=== PATIENT | female | born 1955 | race Caucasian/White ===

== ENCOUNTER → 2016-10-21 | Outpatient (CLI) | payer OTHER ==
[~2016-10-21] MED LIST: ASPI81TA28 PO; ATV1 PO; BIMA0.01 OP; BIMA0.038 OPB; BUPR150T7 PO; BUPRTAB PO; CALC1TAB27 PO; CHOL100010 PO; CHOL20009 PO; CLOP1TAB54 PO; CYAN100020 PO; DEXL60CA4 PO; DICY10CA55 PO; DRGTP100 TD; ESCI10TA17 PO; FESO8TAB PO; FLUC200T PO; FLUT0.15 NAE; FNTTP75 TOP; GLC500 PO; HYDR-4079 PO; IBUP-1459 PO; IMD/2 PO; IPRA1AER2 INH; LORA-741 PO; LPR25 PO; METO1TAB54 PO; MULT-506 PO; NITR-5 PO; ONDA8TAB12 PO; OXYC20TA50 PO; POLY335019 PO; PRAV20TA PO; PRED20TA PO; RXC5 PO
[2016-10-21 15:37] LABS: BASO % 0.4 %; BASO ABS # 0.04 K/uL (0-0.2); EOS % 3.1 %; HEMATOCRIT 31.9 % (37-47); IG% 0.2 %; LYMPH % 34.1 %; LYMPH ABS # 3.59 K/uL (1.2-3.4); MEAN CELL VOLUME 73.3 fL (80-100); MEAN CORPUSCULAR HEMOGLOBIN 22.5 pg (25-34); MEAN CORPUSCULAR HGB CONC 30.7 g/dl (32-36); MONO % 7.4 %; NEUT % 54.8 %; PLATELET COUNT 468 K/uL (130-400); RED BLOOD COUNT 4.35 M/uL (4.2-5.4); WHITE BLOOD COUNT 10.52 K/uL (4.8-10.8)
[2016-10-21 16:35] LABS: URINE APPEARANCE CLEAR (CLEAR); URINE BILIRUBIN NEG (NEG); URINE COLOR DK YELLOW; URINE EPITHELIAL CELL AUTO >30 /lpf (0-5); URINE NITRITE NEG (NEG); URINE SPECIFIC GRAVITY 1.024 (1.000-1.030); UROBILINOGEN NEG (NEG); ZZUR CULT IF INDIC CLEAN CATCH NO
[2016-10-21 16:41] LABS: ANISOCYTOSIS PRESENT; COMPLETE YES; MANUAL MICROSCOPIC REQUIRED? NO; REVIEW REQ? NO
== END | disposition home or self-care (01) ==
LOC: C.LAB1850 14:58
PROVIDERS: ATTEND Nurse Practitioner Adult Health
DX: N39.0 Urinary tract infection, site not specified (principal); K08.9 Disorder of teeth and supporting structures, unspecified; J06.9 Acute upper respiratory infection, unspecified

== ENCOUNTER → 2016-11-03 | Outpatient (CLI) | payer OTHER ==
--- NOTE | 2016-11-03 13:02 | DIAGNOSTIC IMAGING REPORT ---
CT SCAN OF THE CHEST WITHOUT IV CONTRAST CLINICAL HISTORY: Dyspnea. Nicotine dependence. COMPARISON STUDY: Chest CT scans dated 06/17/2014 and 03/27/2013. Chest x-ray dated 10/09/2016. TECHNIQUE: CT scan of the thorax was performed from the thoracic inlet to the upper abdomen. Images are reviewed in the axial, sagittal, and coronal planes. IV contrast was not administered for this examination. CT DOSE: 745.88 mGycm FINDINGS: Thyroid: Imaged portions of the thyroid gland are normal in size and attenuation. Thoracic aorta: There is mild atherosclerotic calcification of the thoracic aorta, which is normal in caliber and demonstrates standard 3-vessel arch anatomy. Heart: The heart is normal in size and without pericardial effusion. The coronary arteries are densely calcified. The main pulmonary arteries appear dilated suggesting pulmonary artery hypertension. Lungs and pleural spaces: An accessory azygous fissure is incidentally noted. There is diffuse subpleural reticulation with associated groundglass change and intralobular septal thickening. This is greatest in the lower lobes. The trachea and central airways are clear. Only minimal traction bronchiectasis is identified. Tiny foci of developing honeycombing are suspected. Postoperative change is noted in the lingula. There is no evidence of superimposed airspace consolidation or pleural effusion. Mediastinum: There are numerous mildly enlarged mediastinal lymph nodes. A precarinal node on image #120 measures 1.5 cm in short axis. Prevascular nodes measure up to 14 mm in short axis as seen on image #114. Yolanda: Not well assessed without IV contrast. Axillae: There is no axillary lymphadenopathy. Upper abdomen: There is a moderate hiatal hernia. Cholecystectomy clips are noted there is glandular atrophy of the partially imaged pancreas. Skeletal structures: The skeletal structures are osteopenic. Mild degenerative change is seen throughout the thoracic spine. Postoperative changes from spinal fusion are identified at the thoracolumbar junction. No lytic or blastic bony lesions are seen. IMPRESSION: 1. There are changes of chronic interstitial lung disease/pulmonary fibrosis, unchanged to only minimally progressed from the 06/17/2014 examination. 2. There is no evidence of superimposed airspace consolidation or pleural effusion. 3. Mild mediastinal lymphadenopathy is similar to previous and likely related to chronic lung disease. 4. Moderate hiatal hernia. 5. Additional changes as above. Electronically signed by: Jabari Vallecillo M.D. 11/03/2016 1:00 PM Dictated Date/Time: 11/03/2016 12:54 PM
== END | disposition home or self-care (01) ==
LOC: C.CTS 12:33
PROVIDERS: ATTEND Nurse Practitioner Adult Health
DX: R91.8 Other nonspecific abnormal finding of lung field (principal); F17.200 Nicotine dependence, unspecified, uncomplicated; M54.2 Cervicalgia; J43.9 Emphysema, unspecified; J84.10 Pulmonary fibrosis, unspecified; R06.02 Shortness of breath; R59.1 Generalized enlarged lymph nodes; K44.9 Diaphragmatic hernia without obstruction or gangrene; K08.9 Disorder of teeth and supporting structures, unspecified; E04.2 Nontoxic multinodular goiter; D64.9 Anemia, unspecified

== ENCOUNTER → 2016-11-06 | Outpatient (CLI) | payer OTHER ==
[2016-11-06 16:44] LABS: BASO % 0.2 %; BASO ABS # 0.03 K/uL (0-0.2); COMPLETE YES; EOS % 3.6 %; HEMATOCRIT 33.6 % (37-47); IG% 0.2 %; LYMPH % 33.6 %; LYMPH ABS # 4.21 K/uL (1.2-3.4); MEAN CELL VOLUME 73.5 fL (80-100); MEAN CORPUSCULAR HEMOGLOBIN 22.8 pg (25-34); MEAN PLATELET VOLUME 9.4 fL (7.4-10.4); MONO % 5.6 %; NEUT % 56.8 %; PLATELET COUNT 495 K/uL (130-400); RED BLOOD COUNT 4.57 M/uL (4.2-5.4); WHITE BLOOD COUNT 12.52 K/uL (4.8-10.8)
[2016-11-06 16:47] LABS: URINE APPEARANCE CLEAR (CLEAR); URINE BILIRUBIN NEG (NEG); URINE COLOR YELLOW; URINE EPITHELIAL CELL AUTO >30 /lpf (0-5); URINE NITRITE POS (NEG); UROBILINOGEN NEG (NEG); ZZUR CULT IF INDIC CLEAN CATCH YES
[2016-11-06 16:51] LABS: MANUAL MICROSCOPIC REQUIRED? NO; REVIEW REQ? NO
[2016-11-06 16:57] LABS: ALT/SGPT 25 U/L (12-78); AST/SGOT 17 U/L (15-37); BLOOD UREA NITROGEN 13 mg/dl (7-18); BUN/CREATININE RATIO 13.8 (10-20); CALCIUM 9.1 mg/dl (8.5-10.1); CARBON DIOXIDE 24 mmol/L (21-32); CHLORIDE 105 mmol/L (98-107); CREATININE 0.95 mg/dl (0.60-1.20); GLUCOSE 102 mg/dl (70-99); POTASSIUM 4.1 mmol/L (3.5-5.1); SODIUM 140 mmol/L (136-145)
[2016-11-06 17:00] LABS: ALB/GLOB RATIO 0.7 (0.9-2); ALKALINE PHOSPHATASE 102 U/L (45-117)
== END | disposition home or self-care (01) ==
LOC: C.LAB1850 15:06
PROVIDERS: ATTEND Nurse Practitioner Adult Health
DX: R91.8 Other nonspecific abnormal finding of lung field (principal); R53.83 Other fatigue; R30.0 Dysuria

== ENCOUNTER 2016-11-08 14:29 | Emergency (ER) | payer OTHER ==
[~2016-11-08] VITALS: Ht 172.7 cm; Wt 108.2 kg
[~2016-11-08 14:29] MED LIST changes: -BIMA0.01 OP; -BUPRTAB PO; -CHOL20009 PO; -FLUC200T PO; -FLUT0.15 NAE; -IBUP-1459 PO; -IMD/2 PO; -NITR-5 PO; -OXYC20TA50 PO; -POLY335019 PO; -PRED20TA PO
[2016-11-08 14:33] VITALS: TEMP 36.7; Ht 172.7 cm; Wt 108.2 kg
--- NOTE | 2016-11-08 14:49 | EMERGENCY ROOM VISIT NOTE ---
History Report prepared by Chelly: Ayan Bahena Under the Supervision of: Dr. Elke Jrarett M.D. First contact with patient: 14:35 Chief Complaint: ABNORMAL LABS Stated Complaint: WEAKNESS,ABNORMAL LABS-REFERRED History of Present Illness The patient is a 61 year old female who presents to the Emergency Room with complaints of persistent generalized weakness for the past month. The patient saw her PCP one month ago for congestion, for which she was treated with antibiotics and steroids. The patient's cough and congestion have not fully resolved. She had blood work which showed that she was anemic. The patient saw her PCP again two days ago. She was found to have a high white blood cell count and was diagnosed with a UTI. Source of History: patient Onset: one month Position: other (generalized) Quality: other (weakness) Timing: other (persistent) Associated Symptoms: + cough Review of Systems See HPI for pertinent positives & negatives. A total of 10 systems reviewed and were otherwise negative. Past Medical & Surgical Medical Problems: (1) Atrial fibrillation (2) Cholecystectomy (3) Chronic back pain (4) Chronic congestive heart failure (5) Chronic obstructive lung disease (6) Diabetes mellitus (7) fibromyalgia (8) Hysterectomy (9) Interstitial lung disease (10) Lumbar stenosis with neurogenic claudication (11) Obesity (12) Spinal stenosis Family History FH: HTN (hypertension) FH: cancer FH: cardiovascular disease FH: diabetes mellitus FH: lung cancer Social History Smoking Status: Current Every Day Smoker Alcohol Use: none Marital Status: Occupation Status: disabled Current/Historical Medications Scheduled Aspirin (Aspirin Ec), 81 MG PO HS Bimatoprost (Lumigan), 1 DROPS OP HS Bupropion Hcl (Wellbutrin Xl), 150 MG PO QAM Cholecalciferol (Vitamin D), 4,000 UNIT PO DAILY Clopidogrel Bisulfate (Plavix), 75 MG PO QAM Cyanocobalamin (Vitamin B12), 1,000 MCG PO QAM Dexlansoprazole (Dexilant), 60 MG PO QAM Fesoterodine Fumarate (Toviaz), 8 MG PO HS Fluconazole (Diflucan), 200 MG PO DAILY Fluticasone Propionate (Nasal) (Flonase Allergy Relief), 1 SPRAY NING BID Ipratropium-Albuterol (Combivent Respimat), 1 PUFFS INH QID Metformin HCl (Metformin HCl), 500 MG PO BID Metoclopramide Hcl (Reglan), 5 MG PO BID Metoprolol Tartrate (Lopressor), 25 MG PO BID Nitrofurantoin Monohyd Macrocr (Macrobid), 100 MG PO Q12 Oxycodone Hcl (Oxycontin), 20 MG PO TID Pravastatin (Pravachol ), 40 MG PO QAM Prednisone (Prednisone), 20 MG PO DAILY Scheduled PRN Dicyclomine Hcl (Bentyl), 10 MG PO TID PRN Ibuprofen (Motrin), 400 MG PO DAILY PRN for Pain Loperamide Hcl (Imodium), 2 MG PO DAILY PRN for Diarrhea Lorazepam (Ativan), 0.5 MG PO DAILY PRN for Anxiety Ondansetron Hcl (Zofran), 8 MG PO TID PRN for Nausea Oxycodone HCl (Oxycodone HCl), 5-10 MG PO Q4H PRN for Pain Polyethylene Glycol 3350 (Miralax), 17 GM PO DAILY PRN for Constipation Allergies Coded Allergies: Enalapril (Verified Allergy, Unknown, ? reaction, 11/08/16) Pregabalin (Verified Adverse Reaction, Severe, GI SYMPTOMS, 11/08/16) CI Pigment Blue 63 (Verified Adverse Reaction, Unknown, N/V, 11/08/16) Duloxetine (Verified Adverse Reaction, Unknown, N/V, 11/08/16) Gabapentin (Verified Adverse Reaction, Unknown, GI symptoms, 11/08/16) Morphine (Unverified Adverse Reaction, Unknown, NAUSEATED, 11/08/16) Quinolones (Verified Adverse Reaction, Unknown, GI symptoms, 11/08/16) includes Cipro Sulfa Antibiotics (Verified Adverse Reaction, Unknown, "Sulfa Drugs = nauseated", 11/08/16) Physical Exam Vital Signs Date Time Temp Pulse Resp B/P Pulse Ox O2 Delivery O2 Flow Rate FiO2 11/08/16 14:33 36.7 88 18 119/83 93 Room Air Physical Exam CONSTITUTIONAL: Mildly anxious appearing, no acute distress. Smells of cigarette smoke. HEENT: No icterus, moist mucous membranes NECK: No meningismus, trachea is midline. CARDIOVASCULAR: Regular rate, normal perfusion RESPIRATORY: Unlabored breathing. Faint wheezing in all jones. GASTROINTESTINAL: Non-tender GENITOURINARY: No flank tenderness MUSCULOSKELETAL: Full range of motion NEUROLOGIC: No acute gross focal deficits. PSYCHIATRIC: Normal affect SKIN: Normal for ethnicity. Medical Decision & Procedures ER Provider Diagnostic Interpretation: X-ray results as stated below per interpretation by me and the radiologist. CHEST 2 VIEWS ROUTINE CLINICAL HISTORY: Cough. COMPARISON STUDY: Chest radiograph October 09, [address] November 03, 2016 per FINDINGS: No pneumothorax or pleural effusion is present. There is an azygos fissure. Lumbar spine fusion hardware and abdominal surgical clips are incidentally noted. No consolidation is identified. Diffuse interstitial thickening is unchanged and consistent with interstitial lung disease. Cardiomediastinal silhouette is stable. A hiatal hernia is again noted. IMPRESSION: No change in diffuse interstitial thickening consistent with interstitial lung disease. This suggests pulmonary fibrosis. No superimposed consolidation. Electronically signed by: John Saha M.D. 11/08/2016 3:08 PM Dictated Date/Time: 11/08/2016 3:06 PM Laboratory Results 11/08/16 14:55 Red Blood Count 4.57, Mean Corpuscular Volume 72.9, Mean Corpuscular Hemoglobin 22.5, Mean Corpuscular Hemoglobin Concent 30.9, Mean Platelet Volume 9.0, Neutrophils (%) (Auto) 65.3, Lymphocytes (%) (Auto) 24.9, Monocytes (%) (Auto) 6.7, Eosinophils (%) (Auto) 2.7, Basophils (%) (Auto) 0.2, Neutrophils # (Auto) 8.34, Lymphocytes # (Auto) 3.18, Monocytes # (Auto) 0.86, Eosinophils # (Auto) 0.34, Basophils # (Auto) 0.03 11/08/16 14:55 Test 11/08/16 14:47 11/08/16 14:55 Urine Color YELLOW Urine Appearance CLEAR (CLEAR) Urine pH 5.5 (4.5-7.5) Urine Specific [place] 1.006 (1.000-1.030) Urine Protein NEG (NEG) Urine Glucose (UA) NEG (NEG) Urine Ketones NEG (NEG) Urine Occult Blood NEG (NEG) Urine Nitrite NEG (NEG) Urine Bilirubin NEG (NEG) Urine Urobilinogen NEG (NEG) Urine Leukocyte Esterase TRACE (NEG) Urine WBC (Auto) 1-5 /hpf (0-5) Urine RBC (Auto) 0-4 /hpf (0-4) Urine Hyaline Casts (Auto) 5-10 /lpf (0-5) Urine Epithelial Cells (Auto) >30 /lpf (0-5) Urine Bacteria (Auto) NEG (NEG) White Blood Count 12.78 K/uL (4.8-10.8) Red Blood Count 4.57 M/uL (4.2-5.4) Hemoglobin 10.3 g/dL (12.0-16.0) Hematocrit 33.3 % (37-47) Mean Corpuscular Volume 72.9 fL (80-100) Mean Corpuscular Hemoglobin 22.5 pg (25-34) Mean Corpuscular Hemoglobin Concent 30.9 g/dl (32-36) Platelet Count 465 K/uL (130-400) Mean Platelet Volume 9.0 fL (7.4-10.4) Neutrophils (%) (Auto) 65.3 % Lymphocytes (%) (Auto) 24.9 % Monocytes (%) (Auto) 6.7 % Eosinophils (%) (Auto) 2.7 % Basophils (%) (Auto) 0.2 % Neutrophils # (Auto) 8.34 K/uL (1.4-6.5) Lymphocytes # (Auto) 3.18 K/uL (1.2-3.4) Monocytes # (Auto) 0.86 K/uL (0.11-0.59) Eosinophils # (Auto) 0.34 K/uL (0-0.5) Basophils # (Auto) 0.03 K/uL (0-0.2) RDW Standard Deviation 47.4 fL (36.4-46.3) RDW Coefficient of Variation 17.9 % (11.5-14.5) Immature Granulocyte % (Auto) 0.2 % Immature Granulocyte # (Auto) 0.03 K/uL (0.00-0.02) Polychromasia 1+ Tear Drop Cells 1+ Ovalocytes 1+ Schistocytes 1+ Anion Gap 10.0 mmol/L (3-11) Est Creatinine Clear Calc Drug Dose 81.5 ml/min Estimated GFR () 77.8 Estimated GFR (Non- 67.1 BUN/Creatinine Ratio 13.7 (10-20) Calcium Level 9.4 mg/dl (8.5-10.1) Influenza Type A Antigen Neg for Influ A (NEG) Influenza Type B Antigen Neg for Influ B (NEG) Labs reviewed by ED physician. ED Course 1440: Past medical records reviewed. The patient was evaluated in room A11b. A complete history and physical examination was performed. 1625: Reassessed the patient. I discussed all of the findings with her. She verbalized understanding and agreement of the treatment plan. The patient is ready for discharge. Medical Decision Differential diagnosis: viral syndrome, anemia, UTI. 61-year-old presented to the emergency department with upper respiratory viral like symptoms for several days to a week or so. She was referred seen by her primary doctor and placed on a Z-Myles which did not help and then diagnosed with a UTI and placed on Macrobid. She was reportedly sent to the emergency room today for anemia and mild leukocytosis with reported concern of sepsis. Patient appears well and clearly nontoxic at this time with only mild scattered wheezing throughout her lungs in the context of a smoking history. Anemia noted on lab work with mild leukocytosis consistent with presentation of viral syndrome. Patient was advised to complete her Macrobid as prescribed and to take prednisone which will improve for cough by concomitant decrease in wheezing. She clearly understands to follow-up with her primary doctor regarding the anemia and to return the emergency room for any worsening or worrisome symptoms. Impression Primary Impression: Viral syndrome Additional Impression: Anemia Scribe Attestation The scribe's documentation has been prepared under my direction and personally reviewed by me in its entirety. I confirm that the note above accurately reflects all work, treatment, procedures, and medical decision making performed by me. Departure Information Dispostion Home / Self-Care Prescriptions Prednisone (Prednisone) 20 Mg Tab 20 MG PO DAILY for 4 Days, #4 TAB Prov: Elke Jarrett MD 11/08/16 Referrals RV. Byrd MD (PCP) Forms HOME CARE DOCUMENTATION FORM, IMPORTANT VISIT INFORMATION, WORK / SCHOOL INSTRUCTIONS Patient Instructions ED Anemia Type Not Specified, ED Bronchitis Viral, My [facility] Problem Qualifiers
[2016-11-08] MEDS ORDERED: NITR-5 PO (15:05)
[2016-11-08] MEDS ORDERED: FLUT0.15 NAE (15:05)
[2016-11-08] MEDS ORDERED: BIMA0.01 OP (15:05)
[2016-11-08] MEDS ORDERED: IMD/2 PO (15:05)
[2016-11-08] MEDS ORDERED: GLC500 PO (15:05)
[2016-11-08] MEDS ORDERED: CHOL20009 PO (15:05)
[2016-11-08] MEDS ORDERED: POLY335019 PO (15:05)
[2016-11-08] MEDS ORDERED: OXYC20TA50 PO (15:05)
[2016-11-08] MEDS ORDERED: FLUC200T PO (15:05)
[2016-11-08] MEDS ORDERED: IPRA1AER2 INH (15:05)
[2016-11-08] MEDS ORDERED: BUPRTAB PO (15:05)
[2016-11-08] MEDS ORDERED: IBUP-1459 PO (15:05)
[2016-11-08 15:10] LABS: BASO % 0.2 %; BASO ABS # 0.03 K/uL (0-0.2); EOS % 2.7 %; HEMATOCRIT 33.3 % (37-47); IG% 0.2 %; LYMPH % 24.9 %; LYMPH ABS # 3.18 K/uL (1.2-3.4); MEAN CELL VOLUME 72.9 fL (80-100); MEAN CORPUSCULAR HEMOGLOBIN 22.5 pg (25-34); MEAN CORPUSCULAR HGB CONC 30.9 g/dl (32-36); MONO % 6.7 %; NEUT % 65.3 %; PLATELET COUNT 465 K/uL (130-400); RED BLOOD COUNT 4.57 M/uL (4.2-5.4); WHITE BLOOD COUNT 12.78 K/uL (4.8-10.8)
--- NOTE | 2016-11-08 15:10 | DIAGNOSTIC IMAGING REPORT ---
CHEST 2 VIEWS ROUTINE CLINICAL HISTORY: Cough. COMPARISON STUDY: Chest radiograph October 09, [address] November 03, 2016 per FINDINGS: No pneumothorax or pleural effusion is present. There is an azygos fissure. Lumbar spine fusion hardware and abdominal surgical clips are incidentally noted. No consolidation is identified. Diffuse interstitial thickening is unchanged and consistent with interstitial lung disease. Cardiomediastinal silhouette is stable. A hiatal hernia is again noted. IMPRESSION: No change in diffuse interstitial thickening consistent with interstitial lung disease. This suggests pulmonary fibrosis. No superimposed consolidation. Electronically signed by: John Saha M.D. 11/08/2016 3:08 PM Dictated Date/Time: 11/08/2016 3:06 PM
[2016-11-08 15:19] LABS: URINE APPEARANCE CLEAR (CLEAR); URINE BILIRUBIN NEG (NEG); URINE COLOR YELLOW; URINE EPITHELIAL CELL AUTO >30 /lpf (0-5); URINE NITRITE NEG (NEG); URINE PH 5.5 (4.5-7.5); URINE SPECIFIC GRAVITY 1.006 (1.000-1.030); UROBILINOGEN NEG (NEG); ZZUR CULT IF INDIC CLEAN CATCH NO
[2016-11-08 15:24] LABS: MANUAL MICROSCOPIC REQUIRED? NO; REVIEW REQ? NO
[2016-11-08 15:26] LABS: BUN/CREATININE RATIO 13.7 (10-20); CALCIUM 9.4 mg/dl (8.5-10.1); CREATININE 0.91 mg/dl (0.60-1.20); POTASSIUM 3.9 mmol/L (3.5-5.1)
[2016-11-08 15:28] LABS: COMPLETE YES; OVALOCYTES 1+; POLYCHROMASIA 1+; SCHISTOCYTES 1+; TEAR DROP CELLS 1+
[2016-11-08] MEDS ORDERED: PRED20TA PO (16:22)
[2016-11-08 16:58] VITALS: BP 98/74; PULSE 84; O2SAT 98
== END 2016-11-08 17:01 | disposition home or self-care (01) ==
LOC: C.EDB 14:30 → C.EDA 17:01
DX: B34.9 Viral infection, unspecified (principal); D64.9 Anemia, unspecified; F17.200 Nicotine dependence, unspecified, uncomplicated; I48.91 Unspecified atrial fibrillation; Z90.49 Acquired absence of other specified parts of digestive tract; E11.9 Type 2 diabetes mellitus without complications; J44.9 Chronic obstructive pulmonary disease, unspecified; Z90.710 Acquired absence of both cervix and uterus

== ENCOUNTER → 2017-03-24 | Outpatient (CLI) | payer OTHER ==
[~2017-03-24] MED LIST changes: -ATV1 PO; +BIMA0.01 OP; -BIMA0.038 OPB; -BUPR150T7 PO; +BUPRTAB PO; -CALC1TAB27 PO; -CHOL100010 PO; +CHOL20009 PO; -DRGTP100 TD; -ESCI10TA17 PO; +FLUC200T PO; +FLUT0.15 NAE; -FNTTP75 TOP; -HYDR-4079 PO; +IBUP-1459 PO; +IMD/2 PO; -MULT-506 PO; +NITR-5 PO; +OXYC20TA50 PO; +POLY335019 PO
[2017-03-24 17:19] LABS: BASO % 0.6 %; BASO ABS # 0.06 K/uL (0-0.2); COMPLETE YES; EOS % 4.1 %; HEMATOCRIT 40.7 % (37-47); IG% 0.2 %; LYMPH % 37.3 %; LYMPH ABS # 3.95 K/uL (1.2-3.4); MEAN CORPUSCULAR HEMOGLOBIN 25.5 pg (25-34); MEAN CORPUSCULAR HGB CONC 31.9 g/dl (32-36); MEAN PLATELET VOLUME 9.8 fL (7.4-10.4); MONO % 5.7 %; NEUT % 52.1 %; PLATELET COUNT 377 K/uL (130-400); RED BLOOD COUNT 5.09 M/uL (4.2-5.4); WHITE BLOOD COUNT 10.59 K/uL (4.8-10.8)
[2017-03-24 17:26] LABS: URINE APPEARANCE CLEAR (CLEAR); URINE BILIRUBIN NEG (NEG); URINE COLOR YELLOW; URINE EPITHELIAL CELL AUTO >30 /lpf (0-5); URINE NITRITE POS (NEG); URINE PH 5.5 (4.5-7.5); URINE SPECIFIC GRAVITY 1.016 (1.000-1.030); UROBILINOGEN NEG (NEG); ZZUR CULT IF INDIC CLEAN CATCH YES
[2017-03-24 17:28] LABS: MANUAL MICROSCOPIC REQUIRED? NO; REVIEW REQ? NO
[2017-03-24 17:47] LABS: RATIO 16.8 mcg/mg (0-30.0)
[2017-03-24 17:57] LABS: ALT/SGPT 47 U/L (12-78); AST/SGOT 33 U/L (15-37); BLOOD UREA NITROGEN 11 mg/dl (7-18); BUN/CREATININE RATIO 13.4 (10-20); CALCIUM 8.9 mg/dl (8.5-10.1); CARBON DIOXIDE 27 mmol/L (21-32); CHLORIDE 106 mmol/L (98-107); CHOLESTEROL 135 mg/dl (0-200); CREATININE 0.85 mg/dl (0.60-1.20); GLUCOSE 88 mg/dl (70-99); POTASSIUM 4.2 mmol/L (3.5-5.1); SODIUM 140 mmol/L (136-145)
[2017-03-24 18:08] LABS: ALB/GLOB RATIO 0.8 (0.9-2); ALKALINE PHOSPHATASE 100 U/L (45-117); CHOLESTEROL/HDL RATIO 2.3; HDL CHOLESTEROL 59 mg/dl; LDL CHOLESTEROL CALCULATED 36 mg/dl; TRIGLYCERIDES 201 mg/dl (0-150); VERY LOW DENSITY LIPOPROT CALC 40 mg/dl
[2017-03-25 06:54] LABS: ESTIMATED AVERAGE GLUCOSE 126 mg/dl; HA1C FLAG Normal (Normal)
--- NOTE | 2017-03-30 10:58 | CODING QUERY MEDICAL NECESSITY ---
CQSUPPORTING DIAGNOSIS NEEDED A supporting diagnosis is required for the test/procedure performed on this patient in order for us to be reimbursed by the patient's insurance. Please provide a supporting diagnosis for the following test/procedure listed below next to the test name along with your signature. *If there is no additional diagnosis for this patient that would support the following test/procedure please document that below next to the test/procedure. Test(s)/Procedure(s) that require a supporting diagnosis: MAHNZA 03/24/17 URINE CULTURE Provider Signature: Date: Thank you Maggie Grande [employer] Once completed, please kindly fax back to [phone] For questions please call [phone]
== END | disposition home or self-care (01) ==
LOC: C.LAB1850 16:13
PROVIDERS: ATTEND Internal Medicine
DX: E78.00 Pure hypercholesterolemia, unspecified (principal); E11.9 Type 2 diabetes mellitus without complications; E55.9 Vitamin D deficiency, unspecified; M79.7 Fibromyalgia; N39.0 Urinary tract infection, site not specified

== ENCOUNTER → 2017-03-25 | Outpatient (CLI) | payer OTHER ==
[~2017-03-25] MED LIST changes: +OPTIRAY 320 IV PRN
--- NOTE | 2017-03-25 14:22 | DIAGNOSTIC IMAGING REPORT ---
CT OF THE CHEST WITH IV CONTRAST CLINICAL HISTORY: Abnormal chest CT. Follow-up examination. INTERSTITIAL LUNG DISEASE COMPARISON STUDY: 11/03/2016 TECHNIQUE: Following the IV administration of 93 mL of Optiray-320, CT of the thorax was performed from the thoracic inlet to the lung bases. Images are reviewed in the axial, sagittal, and coronal planes. IV contrast was administered without complication. CT DOSE: 662.99 mGycm FINDINGS: Thyroid: Imaged portions of the thyroid gland are normal in appearance. Thoracic aorta: The thoracic aorta is normal in course and caliber, noting standard 3-vessel arch anatomy. No aneurysm or dissection is seen. Pulmonary vasculature: The pulmonary trunk is normal in caliber. There are no central filling defects identified to suggest pulmonary embolus. Note that this examination was not protocoled for the evaluation of pulmonary emboli. HEART: The heart is normal in size. There are mild coronary artery calcifications. Lungs and pleural spaces: There is continued evidence for interstitial lung disease. There is subpleural reticulation and scattered groundglass opacity. There is minimal subpleural honeycombing. There is minimal traction bronchiectasis. The findings are consistent with a UIP pattern. There is an azygos fissure. Mediastinum: There is mild mediastinal lymphadenopathy, similar to the prior study. An index 3 carinal lymph node measures 13 mm in short axis. Yolanda: There is mild hilar adenopathy similar to the prior study Axilla: There is no evidence of pathologic axillary adenopathy Upper abdomen: There is hepatic steatosis. There is a hiatal hernia. Skeletal structures: There are no lytic or blastic osseous lesions. IMPRESSION: 1. Stable chronic interstitial lung disease 2. Mild mediastinal and hilar lymphadenopathy unchanged from the prior study 3. No evidence of acute parenchymal consolidation. No pleural effusions 4. Hepatic steatosis 5. Hiatal hernia Electronically signed by: Nahum Eckert M.D. 03/25/2017 2:20 PM Dictated Date/Time: 03/25/2017 2:14 PM
== END | disposition home or self-care (01) ==
LOC: C.CTS 13:35
PROVIDERS: ATTEND Physician Assistant
DX: R91.8 Other nonspecific abnormal finding of lung field (principal); J84.9 Interstitial pulmonary disease, unspecified; K76.0 Fatty (change of) liver, not elsewhere classified; K44.9 Diaphragmatic hernia without obstruction or gangrene

== ENCOUNTER → 2017-09-25 | Outpatient (CLI) | payer OTHER ==
[~2017-09-25] MED LIST changes: -OPTIRAY 320 IV PRN
[2017-09-25 17:28] LABS: URINE APPEARANCE CLEAR (CLEAR); URINE BILIRUBIN NEG (NEG); URINE COLOR YELLOW; URINE EPITHELIAL CELL AUTO >30 /lpf (0-5); URINE NITRITE POS (NEG); URINE SPECIFIC GRAVITY 1.014 (1.000-1.030); UROBILINOGEN NEG (NEG)
[2017-09-25 17:30] LABS: MANUAL MICROSCOPIC REQUIRED? NO; REVIEW REQ? NO
== END | disposition home or self-care (01) ==
LOC: C.LAB1850 15:55
PROVIDERS: ATTEND Internal Medicine
DX: R05 Cough (principal); R50.9 Fever, unspecified; R32 Unspecified urinary incontinence

== ENCOUNTER → 2017-10-28 | Outpatient (CLI) | payer OTHER ==
[2017-10-28 15:41] LABS: BASO % 0.3 %; BASO ABS # 0.04 K/uL (0-0.2); EOS ABS # 0.36 K/uL (0-0.5); HEMATOCRIT 45.4 % (37-47); HEMOGLOBIN 15.7 g/dL (12.0-16.0); IG# 0.03 K/uL (0.00-0.02); LYMPH % 30.6 %; LYMPH ABS # 3.67 K/uL (1.2-3.4); MEAN CELL VOLUME 83.5 fL (80-100); MEAN CORPUSCULAR HEMOGLOBIN 28.9 pg (25-34); MEAN CORPUSCULAR HGB CONC 34.6 g/dl (32-36); MEAN PLATELET VOLUME 9.9 fL (7.4-10.4); MONO % 6.8 %; MONO ABS # 0.81 K/uL (0.11-0.59); NEUT ABS # 7.08 K/uL (1.4-6.5); PLATELET COUNT 385 K/uL (130-400); RED CELL DISTRIBUTION WIDTH CV 14.4 % (11.5-14.5); RED CELL DISTRIBUTION WIDTH SD 43.5 fL (36.4-46.3); WHITE BLOOD COUNT 11.99 K/uL (4.8-10.8)
[2017-10-28 16:04] LABS: ALBUMIN 3.3 gm/dl (3.4-5.0); ALT/SGPT 25 U/L (12-78); AST/SGOT 20 U/L (15-37); BLOOD UREA NITROGEN 12 mg/dl (7-18); CALCIUM 9.1 mg/dl (8.5-10.1); CARBON DIOXIDE 28 mmol/L (21-32); CREATININE 1.02 mg/dl (0.60-1.20); GLUCOSE 109 mg/dl (70-99); POTASSIUM 3.8 mmol/L (3.5-5.1); SODIUM 138 mmol/L (136-145)
[2017-10-28 16:15] LABS: ALKALINE PHOSPHATASE 87 U/L (45-117); TOTAL PROTEIN 7.7 gm/dl (6.4-8.2)
== END | disposition home or self-care (01) ==
LOC: C.LAB1850 14:11
PROVIDERS: ATTEND Nurse Practitioner Adult Health
DX: D64.9 Anemia, unspecified (principal); R06.02 Shortness of breath; N39.0 Urinary tract infection, site not specified; R05 Cough; R63.4 Abnormal weight loss

== ENCOUNTER → 2018-01-18 | Outpatient (CLI) | payer OTHER ==
--- NOTE | 2018-01-18 18:16 | DIAGNOSTIC IMAGING REPORT ---
PA CHEST WITH RIGHT-SIDED RIB SERIES CLINICAL HISTORY: Right-sided chest wall pain. Cough. FINDINGS: A PA chest radiograph with 4 additional views from a right-sided rib series is compared to study dated 11/08/2016 and correlated with chest CT dated 03/25/2017. The PA view is degraded by patient rotation. The heart is top normal for projection. The mediastinal contour is within normal limits. An accessory azygous fissure is incidentally noted. Changes of chronic interstitial lung disease with diffuse interstitial thickening and subpleural reticulation are similar to previous. There is no evidence of superimposed airspace consolidation or large pleural effusion. No pneumothorax is seen. The skeletal structures are osteopenic. There is no radiographic evidence of acute/distracted right-sided rib fracture on the rib series. The remainder of the bony thorax is grossly intact. Degenerative change is noted throughout the thoracic spine. Fusion hardware is noted in the upper lumbar spine. Cholecystectomy clips are identified. IMPRESSION: 1. Changes of chronic interstitial lung disease are similar to previous. There is no evidence of superimposed airspace consolidation or pleural effusion. 2. There is no radiographic evidence of acute/distracted right-sided rib fracture on the rib series as clinically queried. Electronically signed by: Jabari Vallecillo M.D. 01/18/2018 6:15 PM Dictated Date/Time: 01/18/2018 6:12 PM
== END | disposition home or self-care (01) ==
LOC: C.RAD 17:21
PROVIDERS: ATTEND Internal Medicine
DX: R07.89 Other chest pain (principal); J84.9 Interstitial pulmonary disease, unspecified

== ENCOUNTER 2018-02-19 17:48 | Emergency (ER) | payer OTHER ==
[~2018-02-19] VITALS: Ht 172.7 cm; Wt 92.4 kg
[~2018-02-19 17:48] MED LIST changes: -ASPI81TA28 PO; -BIMA0.01 OP; -CHOL20009 PO; -CYAN100020 PO; -DEXL60CA4 PO; -DICY10CA55 PO; -FESO8TAB PO; -GLC500 PO; -IBUP-1459 PO; -IMD/2 PO; -IPRA1AER2 INH; -LPR25 PO; -METO1TAB54 PO; -ONDA8TAB12 PO; -POLY335019 PO
[2018-02-19 17:59] VITALS: TEMP 36.7; Ht 172.7 cm; Wt 92.4 kg
[2018-02-19] MEDS ORDERED: SODIUM CHLORIDE 0.9% 500ML 500 ML IV STA (18:32)
--- NOTE | 2018-02-19 18:33 | EMERGENCY ROOM VISIT NOTE ---
History Report prepared by Chelly: Thee Brown Under the Supervision of: Dr. Lisa Mcgill D.O. First contact with patient: 18:19 Chief Complaint: URINARY SYMPTOMS Stated Complaint: BAD BACK PAIN, FRONT UNDER RIB PAIN Nursing Triage Summary: Patient wtih c/o pain mid back pain wrapping around ribs on both sides, states when she tries to urinate she has trouble sometimes, states urine foul smelling , urinary frquency. Patient states she contines to lose weight without trying. C/ o generalized weakness. History of Present Illness The patient is a 62 year old female who presents to the Emergency Room with complaints of constant urinary symptoms beginning yesterday. The patient states that she has a strong urge to urinate. She notes that she has a previous history of UTIs and reports that she might have another UTI as her symptoms feel similar. The patient states that she wears a diaper for her incontinence and believes that her symptoms might be caused by her diaper. She notes that a few weeks ago she developed a sharp right flank pain that she thought was a rib fracture. She reports that her back pain stopped after a week, but came back yesterday and radiated across her lower back into her left flank. She notes that her back pain comes in waves, and reports that it feels like a muscle spasm. The patient states that a change in position does not change her back pain. She also complains of abdominal pain, weakness, and nausea. She notes that her abdominal pain makes her feel bloated and distended. She denies any fever, chills, and vomiting. In addition to her history of UTIs, she reports that she has a history of five back surgeries, gastritis, and diverticulitis. The patient states that she smokes cigarettes and also has a history of mild COPD, mild asthma, and lung disease. She notes that she has never had a UTI reach her kidneys. She reports that she took 10mg oxycodone [employer] with no relief of her back pain. Source of History: patient Onset: yesterday Position: other (bladder) Quality: other (urinary symptoms) Timing: constant Associated Symptoms: + nausea, + abdominal pain, + back pain (lower black, bilateral flanks), + weakness, No fevers, No chills, No vomiting Note: The patient states that she has a strong urge to urinate. Review of Systems See HPI for pertinent positives & negatives. A total of 10 systems reviewed and were otherwise negative. Past Medical & Surgical Medical Problems: (1) Asthma (2) Atrial fibrillation (3) Cholecystectomy (4) Chronic back pain (5) Chronic congestive heart failure (6) Chronic obstructive lung disease (7) COPD (chronic obstructive pulmonary disease) (8) Diabetes mellitus (9) Diverticulitis (10) fibromyalgia (11) Gastritis (12) Hysterectomy (13) Incontinence (14) Interstitial lung disease (15) Lumbar stenosis with neurogenic claudication (16) Lung disease (17) Obesity (18) Spinal stenosis (19) UTI (urinary tract infection) Surgical Problems: (1) History of back surgery Family History FH: HTN (hypertension) FH: cancer FH: cardiovascular disease FH: diabetes mellitus FH: lung cancer Social History Smoking Status: Current Every Day Smoker Alcohol Use: none Marital Status: Occupation Status: disabled Current/Historical Medications Scheduled Aspirin (Aspirin Ec), 81 MG PO HS Bimatoprost (Lumigan), 1 DROPS OP HS Bupropion Hcl (Wellbutrin Xl), 150 MG PO QAM Cephalexin (Keflex), 1 CAP PO TID Cholecalciferol (Vitamin D), 2,000 UNIT PO DAILY Clopidogrel Bisulfate (Plavix), 75 MG PO QAM Cyanocobalamin (Vitamin B12), 1,000 MCG PO QAM Dexlansoprazole (Dexilant), 60 MG PO QAM Fesoterodine Fumarate (Toviaz), 8 MG PO HS Fluconazole (Diflucan), 200 MG PO PRN UD Ipratropium-Albuterol (Combivent Respimat), 1 PUFFS INH QID Metformin HCl (Metformin HCl), 500 MG PO BID Metoclopramide Hcl (Reglan), 5 MG PO BID Metoprolol Tartrate (Lopressor), 25 MG PO BID Oxycodone Hcl (Oxycodone Hcl Er), 10 MG PO BID Oxycodone Hcl (Oxycodone Hcl), 10 MG PO QID Pravastatin (Pravachol ), 40 MG PO QAM Scheduled PRN Dicyclomine Hcl (Bentyl), 10 MG PO TID PRN Fluticasone Propionate (Nasal) (Flonase Allergy Relief), 1 SPRAY NING BID PRN for Nasal Congestion Ibuprofen (Motrin), 400 MG PO DAILY PRN for Pain Loperamide Hcl (Imodium), 2 MG PO DAILY PRN for Diarrhea Lorazepam (Ativan), 0.5 MG PO DAILY PRN for Anxiety Ondansetron Hcl (Zofran), 8 MG PO TID PRN for Nausea Polyethylene Glycol 3350 (Miralax), 17 GM PO DAILY PRN for Constipation Allergies Coded Allergies: Enalapril (Verified Allergy, Unknown, ? reaction, 11/08/16) Pregabalin (Verified Adverse Reaction, Severe, GI SYMPTOMS, 11/08/16) CI Pigment Blue 63 (Verified Adverse Reaction, Unknown, N/V, 11/08/16) Duloxetine (Verified Adverse Reaction, Unknown, N/V, 11/08/16) Gabapentin (Verified Adverse Reaction, Unknown, GI symptoms, 11/08/16) Morphine (Unverified Adverse Reaction, Unknown, NAUSEATED, 11/08/16) Quinolones (Verified Adverse Reaction, Unknown, GI symptoms, 11/08/16) includes Cipro Sulfa Antibiotics (Verified Adverse Reaction, Unknown, "Sulfa Drugs = nauseated", 11/08/16) Physical Exam Vital Signs Date Time Temp Pulse Resp B/P (MAP) Pulse Ox O2 Delivery O2 Flow Rate FiO2 02/19/18 23:10 92 20 157/83 96 Room Air 02/19/18 21:17 96 20 165/90 96 Room Air 02/19/18 19:49 89 20 121/90 98 Room Air 02/19/18 17:59 36.7 112 18 110/66 96 Room Air Physical Exam GENERAL: alert, well appearing, well nourished, no distress, non-toxic, smells like tobacco smoke EYE EXAM: normal conjunctiva, PERRL and EOM's grossly intact OROPHARYNX: no exudate, no erythema, lips, buccal mucosa, and tongue normal and mucous membranes are moist NECK: supple, no nuchal rigidity, no adenopathy, non-tender LUNGS: Clear to auscultation. Normal chest wall mechanics, no w/r/r, slightly diminished HEART: no murmurs, S1 normal and S2 normal CHEST: No rib tenderness or crepitus ABDOMEN: abdomen soft, non-tender, normo-active bowel sounds, no masses, no rebound or guarding. BACK: Back is symmetrical on inspection and there is no deformity, no midline tenderness, no CVA tenderness. Well healed vertical midline scar to lumbar back and lower thoracic area, pain with palpation to the right and left perispinal regions in lumbar area, mild bilateral flank tenderness to palpation right greater than left. SKIN: no rashes and no bruising UPPER EXTREMITIES: upper extremities are grossly normal. LOWER EXTREMITIES: No pitting edema. NEURO EXAM: Normal sensorium, cranial nerves II-XII grossly intact, normal speech, no gross weakness of arms, no gross weakness of legs. Medical Decision & Procedures ER Provider Diagnostic Interpretation: Radiology results have been interpreted by the radiologist and reviewed by me. THORACIC SPINE WITHOUT, LUMBAR SPINE WITHOUT FINDINGS: THORACIC: Areas of mild and moderate spondylitic spurring are noted throughout the thoracic spine without acute fracture or subluxation identified. Mild to moderate multilevel facet arthrosis. Posterior disc osteophyte complex relation are seen at several levels, notably at T8-T9 where there is moderate central canal and mild bilateral foraminal narrowing. Posterior disc osteophyte complex at T9-T10 is also noted causing mild central canal stenosis. Azygos lobe and fissure noted. Subpleural cystic changes with subpleural reticulation noted within a bibasilar predominant distribution. Findings suggest NSIP pattern of disease. Masslike pulmonary nodule of the superior segment left lower lobe measures 2.4 x 2.3 cm on image 219 series 3. There is an additional adjacent satellite nodule measuring 2.3 x 1.8 cm on image 238 with invasion into the adjacent superior segmental bronchus. 1.8 x 1.2 cm subpleural nodule adjacent to the basal right lower lobe is noted with infiltration into the adjacent 10th rib. There is an acute nondisplaced pathologic fracture of the rib seen on image 374. No acute process of the imaged upper abdomen. Moderate hiatal hernia. Enlarged pretracheal lymph node measures 1.3 cm on image 182 series 3 with enlarged 1.5 cm subcarinal lymph node. LUMBAR: Posterior pradeep and screw fusion hardware extends from T12-L4. No evidence of hardware complication or fracture. Alignment is satisfactory. Discectomy changes are seen at L1-L2 through the L4-L5 levels. No acute fracture or subluxation. No suspicious lytic or blastic bony lesions identified. No sacral insufficiency fracture. No definite high-grade central canal or foraminal narrowing. No acute processes of the imaged abdomen or pelvis. IMPRESSION: 1. Irregular heterogeneous masslike nodules of the superior segment left lower lobe measuring up to 2.4 cm suggests primary bronchogenic carcinoma with satellite metastasis. The larger nodule invades the adjacent superior segmental bronchus. Oncologic consultation is needed. 2. 1.8 cm subpleural soft tissue attenuating nodule adjacent to the basal right lower lobe invades the adjacent posterior right 10th rib. There is an associated acute nondisplaced pathologic fracture without pneumothorax. 3. Mediastinal adenopathy suggests metastatic disease. 4. Suggested NSIP pattern of interstitial lung disease. 5. No acute fracture or subluxation of the thoracic or lumbar spine.. The above report was generated using voice recognition software. It may contain grammatical, syntax or spelling errors. Electronically signed by: David Rivers M.D. 02/19/2018 10:38 PM THORACIC SPINE WITHOUT, LUMBAR SPINE WITHOUT FINDINGS: THORACIC: Areas of mild and moderate spondylitic spurring are noted throughout the thoracic spine without acute fracture or subluxation identified. Mild to moderate multilevel facet arthrosis. Posterior disc osteophyte complex relation are seen at several levels, notably at T8-T9 where there is moderate central canal and mild bilateral foraminal narrowing. Posterior disc osteophyte complex at T9-T10 is also noted causing mild central canal stenosis. Azygos lobe and fissure noted. Subpleural cystic changes with subpleural reticulation noted within a bibasilar predominant distribution. Findings suggest NSIP pattern of disease. Masslike pulmonary nodule of the superior segment left lower lobe measures 2.4 x 2.3 cm on image 219 series 3. There is an additional adjacent satellite nodule measuring 2.3 x 1.8 cm on image 238 with invasion into the adjacent superior segmental bronchus. 1.8 x 1.2 cm subpleural nodule adjacent to the basal right lower lobe is noted with infiltration into the adjacent 10th rib. There is an acute nondisplaced pathologic fracture of the rib seen on image 374. No acute process of the imaged upper abdomen. Moderate hiatal hernia. Enlarged pretracheal lymph node measures 1.3 cm on image 182 series 3 with enlarged 1.5 cm subcarinal lymph node. LUMBAR: Posterior pradeep and screw fusion hardware extends from T12-L4. No evidence of hardware complication or fracture. Alignment is satisfactory. Discectomy changes are seen at L1-L2 through the L4-L5 levels. No acute fracture or subluxation. No suspicious lytic or blastic bony lesions identified. No sacral insufficiency fracture. No definite high-grade central canal or foraminal narrowing. No acute processes of the imaged abdomen or pelvis. IMPRESSION: 1. Irregular heterogeneous masslike nodules of the superior segment left lower lobe measuring up to 2.4 cm suggests primary bronchogenic carcinoma with satellite metastasis. The larger nodule invades the adjacent superior segmental bronchus. Oncologic consultation is needed. 2. 1.8 cm subpleural soft tissue attenuating nodule adjacent to the basal right lower lobe invades the adjacent posterior right 10th rib. There is an associated acute nondisplaced pathologic fracture without pneumothorax. 3. Mediastinal adenopathy suggests metastatic disease. 4. Suggested NSIP pattern of interstitial lung disease. 5. No acute fracture or subluxation of the thoracic or lumbar spine.. The above report was generated using voice recognition software. It may contain grammatical, syntax or spelling errors. Electronically signed by: David Rivers M.D. 02/19/2018 10:38 PM [address] AND PELVIS CT WITH IV CONTRAST FINDINGS: Bibasilar reticular opacities with groundglass densities, mild traction bronchiectasis and areas of honeycombing. No pneumatosis or pneumoperitoneum. Coronary arterial calcifications are noted. Prior cholecystectomy with mild dilation of the intrahepatic biliary tree and common bile duct, likely physiologic from postcholecystectomy state. The spleen, and right adrenal gland are unremarkable. Moderate thickening of the left adrenal gland suggesting adrenal hyperplasia. There is mild interstitial and peripancreatic inflammatory changes of the distal pancreatic body and tail. No focal perihepatic fluid collections. There is a 9 x 9 mm area of ill-defined decreased attenuation involving the distal pancreatic body as seen on image 126 series 7. No pancreatic ductal dilation identified. Patent splenic vein. Low attenuating lesions of the bilateral kidneys suggests renal cysts. No ureteral calculi or hydronephrosis. Prior hysterectomy. No adnexal mass lesions. Moderate to extensive mixed plaquing of the abdominal aorta with mild infrarenal abdominal aortic ectasia, 2.7 cm. No bulky adenopathy. Moderate hiatal hernia. No bowel obstruction. Colonic diverticulosis without diverticulitis. Normal appendix. Soft tissues are unremarkable. Posterior pradeep and screw fusion hardware of the thoracolumbar spine. IMPRESSION: 1. Mild interstitial and peripancreatic inflammatory changes of the distal pancreatic body and tail are compatible with acute uncomplicated pancreatitis without focal peripancreatic fluid collection identified. 2. 9 x 9 area of ill-defined decreased attenuation involving the distal pancreatic body may reflect area of focal edema or pancreatic mass lesion. This could be further characterized with MRI. 3. Prior cholecystectomy and hysterectomy. 4. Moderate sized hiatal hernia. 5. Colonic diverticulosis without diverticulitis. 6. Interstitial lung disease. Electronically signed by: David Rivers M.D. 02/19/2018 10:11 PM Laboratory Results 02/19/18 19:10 Red Blood Count 4.95, Mean Corpuscular Volume 82.4, Mean Corpuscular Hemoglobin 28.9, Mean Corpuscular Hemoglobin Concent 35.0, Mean Platelet Volume 9.8, Neutrophils (%) (Auto) 62.5, Lymphocytes (%) (Auto) 27.8, Monocytes (%) (Auto) 6.4, Eosinophils (%) (Auto) 2.7, Basophils (%) (Auto) 0.3, Neutrophils # (Auto) 6.40, Lymphocytes # (Auto) 2.84, Monocytes # (Auto) 0.65, Eosinophils # (Auto) 0.28, Basophils # (Auto) 0.03 02/19/18 20:09 Test 02/19/18 18:40 02/19/18 19:10 02/19/18 20:09 Urine Color YELLOW Urine Appearance CLOUDY (CLEAR) Urine pH 5.5 (4.5-7.5) Urine Specific [place] 1.012 (1.000-1.030) Urine Protein NEG (NEG) Urine Glucose (UA) NEG (NEG) Urine Ketones NEG (NEG) Urine Occult Blood NEG (NEG) Urine Nitrite POS (NEG) Urine Bilirubin NEG (NEG) Urine Urobilinogen NEG (NEG) Urine Leukocyte Esterase TRACE (NEG) Urine WBC (Auto) 5-10 /hpf (0-5) Urine RBC (Auto) 0-4 /hpf (0-4) Urine Hyaline Casts (Auto) 1-5 /lpf (0-5) Urine Epithelial Cells (Auto) >30 /lpf (0-5) Urine Bacteria (Auto) 3+ (NEG) White Blood Count 10.23 K/uL (4.8-10.8) Red Blood Count 4.95 M/uL (4.2-5.4) Hemoglobin 14.3 g/dL (12.0-16.0) Hematocrit 40.8 % (37-47) Mean Corpuscular Volume 82.4 fL (80-100) Mean Corpuscular Hemoglobin 28.9 pg (25-34) Mean Corpuscular Hemoglobin Concent 35.0 g/dl (32-36) Platelet Count 351 K/uL (130-400) Mean Platelet Volume 9.8 fL (7.4-10.4) Neutrophils (%) (Auto) 62.5 % Lymphocytes (%) (Auto) 27.8 % Monocytes (%) (Auto) 6.4 % Eosinophils (%) (Auto) 2.7 % Basophils (%) (Auto) 0.3 % Neutrophils # (Auto) 6.40 K/uL (1.4-6.5) Lymphocytes # (Auto) 2.84 K/uL (1.2-3.4) Monocytes # (Auto) 0.65 K/uL (0.11-0.59) Eosinophils # (Auto) 0.28 K/uL (0-0.5) Basophils # (Auto) 0.03 K/uL (0-0.2) RDW Standard Deviation 40.5 fL (36.4-46.3) RDW Coefficient of Variation 13.4 % (11.5-14.5) Immature Granulocyte % (Auto) 0.3 % Immature Granulocyte # (Auto) 0.03 K/uL (0.00-0.02) Prothrombin Time 10.6 SECONDS (9.0-12.0) Prothromb Time International Ratio 1.0 (0.9-1.1) Anion Gap 7.0 mmol/L (3-11) Est Creatinine Clear Calc Drug Dose 84.4 ml/min Estimated GFR () 90.3 Estimated GFR (Non- 77.9 BUN/Creatinine Ratio 8.4 (10-20) Calcium Level 9.3 mg/dl (8.5-10.1) Total Bilirubin 0.3 mg/dl (0.2-1) Aspartate Amino Transf (AST/SGOT) 20 U/L (15-37) Alanine Aminotransferase (ALT/SGPT) 17 U/L (12-78) Alkaline Phosphatase 88 U/L (45-117) Total Protein 7.8 gm/dl (6.4-8.2) Albumin 3.1 gm/dl (3.4-5.0) Globulin 4.7 gm/dl (2.5-4.0) Albumin/Globulin Ratio 0.7 (0.9-2) Lipase 1462 U/L (73-393) Laboratory results per my review. Medications Administered Medications (Trade) Dose Ordered Sig/Farida Route Start Time Stop Time Status Last Admin Dose Admin Sodium Chloride 500 ml @ 999 mls/hr Q31M STAT IV 02/19/18 18:32 02/19/18 19:02 DC 02/19/18 18:57 999 MLS/HR Ceftriaxone Sodium (Rocephin Inj) 1 gm NOW STAT IV 02/19/18 19:47 02/19/18 19:49 DC 02/19/18 19:51 1 GM Lidocaine (Lidoderm Patch 5%) 1 patch NOW STAT TD 02/19/18 19:50 02/19/18 19:51 DC 02/19/18 19:57 1 PATCH Phenazopyridine HCl (Pyridium Tab) 200 mg NOW STAT PO 02/19/18 19:54 02/19/18 19:55 DC 02/19/18 19:56 200 MG Ondansetron HCl (Zofran Inj) 4 mg NOW STAT IV 02/19/18 21:06 02/19/18 21:07 DC 02/19/18 21:12 4 MG Morphine Sulfate (MoRPHine SULFATE INJ) 2 mg STK-MED ONCE .ROUTE 02/19/18 21:09 02/19/18 21:10 DC 02/19/18 21:12 2 MG Morphine Sulfate (MoRPHine SULFATE INJ) 4 mg STK-MED ONCE .ROUTE 02/19/18 21:09 02/19/18 21:10 DC 02/19/18 21:11 4 MG ECG Per My Interpretation Indication: abdominal pain Rate (beats per minute): 96 Rhythm: sinus rhythm Findings: no acute ischemic change, no ectopy, other (Normal axis, normal intervals) ED Course 1819: The patient was evaluated in room B10. A complete history and physical exam was performed. 1831: Sodium Chloride 500 ml @ 999 mls/hr IV 1946: Rocephin Inj 1gm IV 1950: Lidocaine 1 patch TD 1951: Review of EMR shows that the patient has had multiple prior urine cultures that are typically showing E. coli and occasional Klebsiella. Prior cultures are typically morataya sensitive but are occasionally resistant to ampicillin and fluoroquinolones. 1953: Pyridium Tab 200mg PO 2105: Zofran Inj 4mg IV, Morphine Sulfate 6mg IV 2218: I reevaluated and updated the patient. 2243: I rechecked the patient, she now wants to go home and will follow up with her regular doctor Thursday morning. 2300: Upon reevaluation, the patient is feeling better. I discussed the findings and the treatment plan with the patient. She verbalizes agreement and understanding. The patient was discharged home. Medical Decision Differential diagnosis: Etiologies such as musculoskeletal, disc herniation, fracture, aortic disease, metastatic disease, cord compression, discitis, infection, renal colic, gastrointestinal, acute exacerbation of chronic back pain, sciatica, cauda equina, appendicitis, diverticulitis, mesenteric ischemia, aortic pathology, infections, inflammatory bowel disease, PUD, biliary pathology, UTI, as well as others were entertained. Patient well-appearing here despite complaints. Patient with chronic back pain from multiple prior surgeries stating that her back pain was not bilateral and worse than her usual despite outpatient pain medication that is controlled by pain management doctor chronically. Patient states she has previously had UTIs and was found to have a UA suggestive of that again today although it was a suboptimal specimen. No evidence of significant leukocytosis or acute renal dysfunction. Patient initially agreeable with plan for admission given unclear etiology of pancreatitis with both lab findings and imaging findings consistent with this diagnosis. Patient then changed her mind, I suspect this is because she would be unable to smoke while she was in the hospital as patient had asked twice if she could step outside to go have a cigarette and, again. Patient does not have a gallbladder and denies any regular alcohol use. I do not suspect fulminant pyelonephritis. I do feel that her pancreatitis and possible ascending UTI are likely exacerbating her chronic back pain. No evidence of bacteremia/sepsis, patient heme dynamically stable throughout. Discussed with patient importance of close follow-up with her family doctor, clear liquid diet over the weekend, symptoms to watch and return for, possible etiology of her pancreatitis, use and ADRs of antibiotics, smoking cessation, she verbalized understanding was agreeable with plan. Discussed with patient she is welcome to return to the ED at any time, and the by leaving AGAINST MEDICAL ADVICE she is responsible for her current condition and any potential worsening, complications, or long-term disability that may stem from them. Patient will made aware of need for additional outpatient imaging and made aware of possible malignancy in lungs given abnormalities seen. I recommended close f/u with her PCP and pulmonology as she may require a biopsy. Medication Reconcilliation Current Medication List: was personally reviewed by me Blood Pressure Screening Patient's blood pressure: Normal blood pressure Blood pressure disposition: Did not require urgent referral Impression Primary Impression: Pancreatitis Additional Impressions: UTI (urinary tract infection) Back pain Tobacco abuse Scribe Attestation The scribe's documentation has been prepared under my direction and personally reviewed by me in its entirety. I confirm that the note above accurately reflects all work, treatment, procedures, and medical decision making performed by me. Departure Information Dispostion Against Medical Advice Prescriptions Cephalexin (KEFLEX) 500 Mg Cap 1 CAP PO TID for 10 Days, #30 CAP Prov: Lisa Mcgill, DO 02/19/18 Referrals RV. Byrd MD (PCP) Forms HOME CARE DOCUMENTATION FORM, IMPORTANT VISIT INFORMATION Patient Instructions My [facility] Additional Instructions Please continue your regular medications at home. Please eat a clear liquid diet for 48-72 hours to allow your pancreas time to rest. You will need close follow-up with your family doctor regarding the pancreas number from the blood work, and a repeat picture as recommended by our radiologist in the form of an MRI if possible. Please take the antibiotic as prescribed for urinary tract infection. Please consider quitting smoking. If you develop worsening pain, fevers or chills, vomiting, are unable to urinate, noticed blood in your urine, or you have any other new concerns, please return the emergency room. Problem Qualifiers Primary Impression: Pancreatitis Chronicity: acute Pancreatitis type: unspecified pancreatitis type Acute pancreatitis complication: unspecified Qualified Codes: K85.90 - Acute pancreatitis without necrosis or infection, unspecified Additional Impressions: UTI (urinary tract infection) Urinary tract infection type: acute cystitis Hematuria presence: without hematuria Qualified Codes: N30.00 - Acute cystitis without hematuria Back pain Back pain location: thoracic back pain Chronicity: chronic Back pain laterality: bilateral Qualified Codes: M54.6 - Pain in thoracic spine; G89.29 - Other chronic pain
[2018-02-19] MEDS ORDERED: OPTIRAY 320 IV PRN (18:45)
[2018-02-19 19:42] LABS: BASO % 0.3 %; BASO ABS # 0.03 K/uL (0-0.2); EOS % 2.7 %; EOS ABS # 0.28 K/uL (0-0.5); HEMATOCRIT 40.8 % (37-47); HEMOGLOBIN 14.3 g/dL (12.0-16.0); IG# 0.03 K/uL (0.00-0.02); LYMPH % 27.8 %; LYMPH ABS # 2.84 K/uL (1.2-3.4); MEAN CELL VOLUME 82.4 fL (80-100); MEAN CORPUSCULAR HEMOGLOBIN 28.9 pg (25-34); MEAN PLATELET VOLUME 9.8 fL (7.4-10.4); MONO % 6.4 %; MONO ABS # 0.65 K/uL (0.11-0.59); NEUT % 62.5 %; PLATELET COUNT 351 K/uL (130-400); RED CELL DISTRIBUTION WIDTH CV 13.4 % (11.5-14.5); RED CELL DISTRIBUTION WIDTH SD 40.5 fL (36.4-46.3); WHITE BLOOD COUNT 10.23 K/uL (4.8-10.8)
[2018-02-19] MEDS ORDERED: CEFTRIAXONE SOD INJ 1 GM ADDVIAL IV STA (19:47)
[2018-02-19] MEDS ORDERED: LIDODERM (LIDOCAINE) PATCH 5% TD STA (19:50)
[2018-02-19] MEDS ORDERED: METO1TAB54 PO (19:50)
[2018-02-19] MEDS ORDERED: PHENAZOPYRIDINE HCL 200 MG TAB PO STA (19:54)
[2018-02-19 20:29] LABS: ALBUMIN 3.1 gm/dl (3.4-5.0); CALCIUM 9.3 mg/dl (8.5-10.1); CREATININE 0.8 mg/dl (0.60-1.20); POTASSIUM 3.2 mmol/L (3.5-5.1)
[2018-02-19 20:32] LABS: TOTAL PROTEIN 7.8 gm/dl (6.4-8.2)
[2018-02-19] MEDS ORDERED: MoRPHine SULFATE 10 MG/ML CARP/VIAL IV STA (21:06)
[2018-02-19] MEDS ORDERED: ONDANSETRON INJ 2 MG/ML 2 ML VIAL IV STA (21:06)
[2018-02-19] MEDS ORDERED: MoRPHine SULFATE 4 MG/ML 1 ML CARP\\VIAL ONE (21:09)
[2018-02-19] MEDS ORDERED: MoRPHine SULFATE 2 MG/ML CARP ONE (21:09)
--- NOTE | 2018-02-19 22:12 | DIAGNOSTIC IMAGING REPORT ---
ADDENDUM 1.8 cm subpleural soft tissue attenuating metastatic nodule adjacent to the basal right lower lobe invades the adjacent posterior right 10th rib and causes an associated acute nondisplaced pathologic fracture. Electronically signed by: David Rivers M.D. 02/20/2018 12:16 AM Dictated Date/Time: 02/20/2018 12:15 AM ORIGINAL REPORT ABDOMEN AND PELVIS CT WITH IV CONTRAST HISTORY: Acute mid back and bilateral flank pain flank pain, UTI sx TECHNIQUE: Multiaxial CT images of the abdomen and pelvis were performed following the use of intravenous contrast. A dose lowering technique was utilized adhering to the principles of ALARA. COMPARISON STUDY: CT thoracic and lumbar spine of same day, CT abdomen and pelvis 06/12/2012. FINDINGS: Bibasilar reticular opacities with groundglass densities, mild traction bronchiectasis and areas of honeycombing. No pneumatosis or pneumoperitoneum. Coronary arterial calcifications are noted. Prior cholecystectomy with mild dilation of the intrahepatic biliary tree and common bile duct, likely physiologic from postcholecystectomy state. The spleen, and right adrenal gland are unremarkable. Moderate thickening of the left adrenal gland suggesting adrenal hyperplasia. There is mild interstitial and peripancreatic inflammatory changes of the distal pancreatic body and tail. No focal perihepatic fluid collections. There is a 9 x 9 mm area of ill-defined decreased attenuation involving the distal pancreatic body as seen on image 126 series 7. No pancreatic ductal dilation identified. Patent splenic vein. Low attenuating lesions of the bilateral kidneys suggests renal cysts. No ureteral calculi or hydronephrosis. Prior hysterectomy. No adnexal mass lesions. Moderate to extensive mixed plaquing of the abdominal aorta with mild infrarenal abdominal aortic ectasia, 2.7 cm. No bulky adenopathy. Moderate hiatal hernia. No bowel obstruction. Colonic diverticulosis without diverticulitis. Normal appendix. Soft tissues are unremarkable. Posterior pradeep and screw fusion hardware of the thoracolumbar spine. IMPRESSION: 1. Mild interstitial and peripancreatic inflammatory changes of the distal pancreatic body and tail are compatible with acute uncomplicated pancreatitis without focal peripancreatic fluid collection identified. 2. 9 x 9 area of ill-defined decreased attenuation involving the distal pancreatic body may reflect area of focal edema or pancreatic mass lesion. This could be further characterized with MRI. 3. Prior cholecystectomy and hysterectomy. 4. Moderate sized hiatal hernia. 5. Colonic diverticulosis without diverticulitis. 6. Interstitial lung disease. Electronically signed by: David Rivers M.D. 02/19/2018 10:11 PM Dictated Date/Time: 02/19/2018 10:03 PM
--- NOTE | 2018-02-19 22:40 | DIAGNOSTIC IMAGING REPORT ---
THORACIC SPINE WITHOUT, LUMBAR SPINE WITHOUT HISTORY: 62 years-old Female back pain, different from chronic, prior surgery acute on chronic back pain with history of prior lumbar spine surgery COMPARISON: CT abdomen and pelvis of same day, CTA chest 03/27/2013 TECHNIQUE: Multiple axial CT images of the thoracic and lumbar spine were obtained without the use of IV contrast. Coronal and sagittal reformatted images were obtained from the axial data set and were submitted for review. A dose lowering technique was used consistent with the principals of MATT. FINDINGS: THORACIC: Areas of mild and moderate spondylitic spurring are noted throughout the thoracic spine without acute fracture or subluxation identified. Mild to moderate multilevel facet arthrosis. Posterior disc osteophyte complex relation are seen at several levels, notably at T8-T9 where there is moderate central canal and mild bilateral foraminal narrowing. Posterior disc osteophyte complex at T9-T10 is also noted causing mild central canal stenosis. Azygos lobe and fissure noted. Subpleural cystic changes with subpleural reticulation noted within a bibasilar predominant distribution. Findings suggest NSIP pattern of disease. Masslike pulmonary nodule of the superior segment left lower lobe measures 2.4 x 2.3 cm on image 219 series 3. There is an additional adjacent satellite nodule measuring 2.3 x 1.8 cm on image 238 with invasion into the adjacent superior segmental bronchus. 1.8 x 1.2 cm subpleural nodule adjacent to the basal right lower lobe is noted with infiltration into the adjacent 10th rib. There is an acute nondisplaced pathologic fracture of the rib seen on image 374. No acute process of the imaged upper abdomen. Moderate hiatal hernia. Enlarged pretracheal lymph node measures 1.3 cm on image 182 series 3 with enlarged 1.5 cm subcarinal lymph node. LUMBAR: Posterior pradeep and screw fusion hardware extends from T12-L4. No evidence of hardware complication or fracture. Alignment is satisfactory. Discectomy changes are seen at L1-L2 through the L4-L5 levels. No acute fracture or subluxation. No suspicious lytic or blastic bony lesions identified. No sacral insufficiency fracture. No definite high-grade central canal or foraminal narrowing. No acute processes of the imaged abdomen or pelvis. IMPRESSION: 1. Irregular heterogeneous masslike nodules of the superior segment left lower lobe measuring up to 2.4 cm suggests primary bronchogenic carcinoma with satellite metastasis. The larger nodule invades the adjacent superior segmental bronchus. Oncologic consultation is needed. 2. 1.8 cm subpleural soft tissue attenuating nodule adjacent to the basal right lower lobe invades the adjacent posterior right 10th rib. There is an associated acute nondisplaced pathologic fracture without pneumothorax. 3. Mediastinal adenopathy suggests metastatic disease. 4. Suggested NSIP pattern of interstitial lung disease. 5. No acute fracture or subluxation of the thoracic or lumbar spine.. The above report was generated using voice recognition software. It may contain grammatical, syntax or spelling errors. Electronically signed by: David Rivers M.D. 02/19/2018 10:38 PM Dictated Date/Time: 02/19/2018 10:24 PM
[2018-02-19] MEDS ORDERED: CEPH-571 PO (22:50)
[2018-02-19 23:10] VITALS: BP 157/83; PULSE 92; O2SAT 96
[2018-02-20] MEDS ORDERED: CYAN100020 PO (14:55)
[2018-02-20] MEDS ORDERED: ASPI81TA28 PO (14:58)
[2018-02-20] MEDS ORDERED: IMD/2 PO (15:05)
[2018-02-20] MEDS ORDERED: IBUP-1459 PO (15:05)
[2018-02-20] MEDS ORDERED: POLY335019 PO (15:05)
[2018-02-20] MEDS ORDERED: IPRA1AER2 INH (15:05)
[2018-02-20] MEDS ORDERED: BIMA0.01 OPB (15:05)
[2018-02-20] MEDS ORDERED: GLC500 PO (15:05)
[2018-02-20] MEDS ORDERED: CHOL20009 PO (15:05)
[2018-02-20] MEDS ORDERED: BUPR150T5 PO (15:36)
[2018-02-20] MEDS ORDERED: PRAV40TA2 PO (15:36)
[2018-02-20] MEDS ORDERED: PLV75 PO (15:36)
[2018-02-20] MEDS ORDERED: METO5TAB2 PO (15:36)
[2018-02-20] MEDS ORDERED: FLNIN/ NAE (15:40)
[2018-02-20] MEDS ORDERED: ATV5X PO (15:40)
[2018-02-20] MEDS ORDERED: DICY10CA55 PO (15:42)
[2018-02-20] MEDS ORDERED: ONDA8TAB12 PO (15:42)
[2018-02-20] MEDS ORDERED: ETOD400T PO (15:49)
[2018-02-20] MEDS ORDERED: LPR25 PO (16:14)
[2018-02-20] MEDS ORDERED: FESO8TAB PO (19:50)
[2018-02-20] MEDS ORDERED: DEXL60CA4 PO (19:50)
[2018-02-20] MEDS ORDERED: OXYC-164 PO (21:55)
[2018-02-20] MEDS ORDERED: OXYC-292 PO (21:55)
== END 2018-02-19 23:23 | disposition left against medical advice (07) ==
LOC: C.EDB 17:49
DX: K85.90 Acute pancreatitis without necrosis or infection, unspecified (principal); N39.0 Urinary tract infection, site not specified; M54.9 Dorsalgia, unspecified; J44.9 Chronic obstructive pulmonary disease, unspecified; I50.9 Heart failure, unspecified; F17.200 Nicotine dependence, unspecified, uncomplicated; Z79.82 Long term (current) use of aspirin; Z79.84 Long term (current) use of oral hypoglycemic drugs; Z79.899 Other long term (current) drug therapy; Z88.8 Allergy status to other drugs, medicaments and biological substances; Z88.6 Allergy status to analgesic agent; Z91.041 Radiographic dye allergy status; Z88.1 Allergy status to other antibiotic agents; Z88.2 Allergy status to sulfonamides

== ENCOUNTER 2018-02-20 15:07 | Inpatient (IN) | payer OTHER ==
[~2018-02-20] VITALS: Ht 172.7 cm; Wt 93.3 kg
[~2018-02-20 15:07] MED LIST changes: +ASPI81TA28 PO; +BIMA0.01 OPB; +CEPH-571 PO; +CHOL20009 PO; +CYAN100020 PO; +GLC500 PO; +IBUP-1459 PO; +IMD/2 PO; +IPRA1AER2 INH; +METO1TAB54 PO; -NITR-5 PO; -OXYC20TA50 PO; +POLY335019 PO; -RXC5 PO
[2018-02-20] MEDS ORDERED: CEFTRIAXONE SOD INJ 1 GM ADDVIAL IV STA (15:24)
[2018-02-20] MEDS ORDERED: LACTATED RINGER'S 1000ML 1,000 ML IV ONE (15:30)
[2018-02-20] MEDS ORDERED: HYDROmorphone INJ 1 MG/ML SYR IV PRN (15:30)
[2018-02-20] MEDS ORDERED: ONDANSETRON INJ 2 MG/ML 2 ML VIAL IV PRN (15:30)
--- NOTE | 2018-02-20 15:31 | EMERGENCY ROOM VISIT NOTE ---
History First contact with patient: 15:16 Chief Complaint: REFERRED BY DOCTOR Stated Complaint: SENT BY DR MIKE PATEL History of Present Illness The patient is a 62 year old female who presents to the Emergency Room with complaints of increasing abdominal pain and nausea for the last few days. Patient was seen in the emergency department last night. She had a CT scan and blood work performed. She was told that she had pancreatitis. The physician urged the patient to be admitted for further treatment. She wanted to try to be discharged home and manage the pain on her own. The patient is on chronic pain medications for her back. These were not helping with the pain. The pain is worse with eating. She describes it as a sharp, stabbing pain. Her last bowel movement was normal last night. Review of Systems 10 system review performed and negative unless noted in HPI or below Past Medical/Surgical History Medical Problems: (1) Asthma (2) Atrial fibrillation (3) Cholecystectomy (4) Chronic back pain (5) Chronic congestive heart failure (6) Chronic obstructive lung disease (7) COPD (chronic obstructive pulmonary disease) (8) Diabetes mellitus (9) Diverticulitis (10) fibromyalgia (11) Gastritis (12) Hysterectomy (13) Incontinence (14) Interstitial lung disease (15) Lumbar stenosis with neurogenic claudication (16) Lung disease (17) Obesity (18) Pancreatitis (19) Spinal stenosis (20) UTI (urinary tract infection) Surgical Problems: (1) History of back surgery Family History FH: HTN (hypertension) FH: cancer FH: cardiovascular disease FH: diabetes mellitus FH: lung cancer Social History Smoking Status: Current Every Day Smoker Alcohol Use: none Marital Status: Occupation Status: disabled Current/Historical Medications Scheduled Aspirin (Aspirin Ec), 81 MG PO HS Bimatoprost (Lumigan), 1 DROP OPB HS Bupropion Hcl (Bupropion Hcl Xl), 150 MG PO QAM Cephalexin (Keflex), 1 CAP PO TID Cholecalciferol (Vitamin D), 2,000 INTER.UNIT PO DAILY Clopidogrel Bisulfate (Clopidogrel), 75 MG PO QAM Cyanocobalamin (Vitamin B12), 1,000 MCG PO QAM Dexlansoprazole (Dexilant), 60 MG PO QAM Etodolac (Etodolac), 400 MG PO BID Fesoterodine Fumarate (Toviaz), 8 MG PO HS Metformin HCl (Metformin HCl), 500 MG PO BID Metoclopramide Hcl (Metoclopramide Hcl), 5 MG PO BID Metoprolol Tartrate (Lopressor), 25 MG PO BID Oxycodone Hcl (Oxycodone Hcl Er), 10 MG PO Q12 Pravastatin Sodium (Pravastatin Sodium), 40 MG PO QAM Scheduled PRN Dicyclomine Hcl (Bentyl), 10 MG PO TID PRN for Abdominal Pain Fluticasone Propionate (Fluticasone Propionate), 1 SPRAY NING BID PRN for Nasal Congestion Ibuprofen (Motrin), 400 MG PO DAILY PRN for Pain Ipratropium-Albuterol (Combivent Respimat), 2 PUFFS INH QID PRN for SOB/Wheezing Loperamide Hcl (Imodium), 2 MG PO DAILY PRN for Diarrhea Lorazepam (Lorazepam), 0.5 MG PO DAILY PRN for Anxiety Ondansetron Hcl (Zofran), 8 MG PO TID PRN for Nausea Oxycodone Hcl (Oxycodone Hcl), 10 MG PO QID PRN for Pain Polyethylene Glycol 3350 (Miralax), 17 GM PO DAILY PRN for Constipation Physical Exam Vital Signs Date Time Temp Pulse Resp B/P (MAP) Pulse Ox O2 Delivery O2 Flow Rate FiO2 02/20/18 18:59 75 20 143/83 96 Room Air 02/20/18 18:04 73 18 132/84 95 Room Air 02/20/18 16:24 73 20 98/70 93 Room Air 02/20/18 15:09 36.7 82 20 104/76 95 Room Air Physical Exam VITALS: Vitals are noted on the nurse's note and reviewed by myself. Vital signs stable. GENERAL: 62-year-old female, in moderate discomfort, SKIN: The skin was without rashes, erythema, edema, or bruising. . HEAD: Normocephalic atraumatic. MOUTH: Mucous membranes dry NECK: Supple without nuchal rigidity. No lymphadenopathy. Cervical spine is nontender. No JVD. HEART: Regular rate and rhythm without murmurs gallops or rubs. LUNGS: Clear to auscultation bilaterally without wheezes, rales or rhonchi. No accessory muscle use. ABDOMEN: Positive bowel sounds x 4.Soft, tenderness to palpation in the epigastric region, without organomegaly. No guarding or rebound tenderness. MUSCULOSKELETAL: No muscle atrophy, erythema, or edema noted. . Strength 5/5 throughout. NEURO: Patient was alert and oriented to person place and time. Normal sensation to touch. No focal neurological deficits. Medical Decision & Procedures Laboratory Results 02/20/18 15:45 Red Blood Count 4.94, Mean Corpuscular Volume 83.2, Mean Corpuscular Hemoglobin 29.1, Mean Corpuscular Hemoglobin Concent 35.0, Mean Platelet Volume 9.5, Neutrophils (%) (Auto) 64.7, Lymphocytes (%) (Auto) 25.9, Monocytes (%) (Auto) 6.0, Eosinophils (%) (Auto) 2.8, Basophils (%) (Auto) 0.3, Neutrophils # (Auto) 7.74, Lymphocytes # (Auto) 3.09, Monocytes # (Auto) 0.72, Eosinophils # (Auto) 0.33, Basophils # (Auto) 0.03 02/20/18 15:45 Test 02/20/18 15:45 White Blood Count 11.95 K/uL (4.8-10.8) Red Blood Count 4.94 M/uL (4.2-5.4) Hemoglobin 14.4 g/dL (12.0-16.0) Hematocrit 41.1 % (37-47) Mean Corpuscular Volume 83.2 fL (80-100) Mean Corpuscular Hemoglobin 29.1 pg (25-34) Mean Corpuscular Hemoglobin Concent 35.0 g/dl (32-36) Platelet Count 378 K/uL (130-400) Mean Platelet Volume 9.5 fL (7.4-10.4) Neutrophils (%) (Auto) 64.7 % Lymphocytes (%) (Auto) 25.9 % Monocytes (%) (Auto) 6.0 % Eosinophils (%) (Auto) 2.8 % Basophils (%) (Auto) 0.3 % Neutrophils # (Auto) 7.74 K/uL (1.4-6.5) Lymphocytes # (Auto) 3.09 K/uL (1.2-3.4) Monocytes # (Auto) 0.72 K/uL (0.11-0.59) Eosinophils # (Auto) 0.33 K/uL (0-0.5) Basophils # (Auto) 0.03 K/uL (0-0.2) RDW Standard Deviation 40.5 fL (36.4-46.3) RDW Coefficient of Variation 13.6 % (11.5-14.5) Immature Granulocyte % (Auto) 0.3 % Immature Granulocyte # (Auto) 0.04 K/uL (0.00-0.02) Anion Gap 5.0 mmol/L (3-11) Est Creatinine Clear Calc Drug Dose 78.3 ml/min Estimated GFR () 82.7 Estimated GFR (Non- 71.4 BUN/Creatinine Ratio 9.1 (10-20) Calcium Level 9.3 mg/dl (8.5-10.1) Total Bilirubin 0.3 mg/dl (0.2-1) Aspartate Amino Transf (AST/SGOT) 21 U/L (15-37) Alanine Aminotransferase (ALT/SGPT) 18 U/L (12-78) Alkaline Phosphatase 86 U/L (45-117) Total Protein 7.8 gm/dl (6.4-8.2) Albumin 3.0 gm/dl (3.4-5.0) Globulin 4.8 gm/dl (2.5-4.0) Albumin/Globulin Ratio 0.6 (0.9-2) Lipase 1169 U/L (73-393) Medications Administered Medications (Trade) Dose Ordered Sig/Farida Route Start Time Stop Time Status Last Admin Dose Admin Hydromorphone HCl (Dilaudid Inj) 1 mg Q2H PRN IV 02/20/18 15:30 03/06/18 15:29 02/20/18 16:13 1 MG Ondansetron HCl (Zofran Inj) 4 mg Q2H PRN IV 02/20/18 15:30 03/22/18 15:29 02/20/18 16:12 4 MG Lactated Ringer's 1,000 ml @ 0 mls/hr Q0M ONCE IV 02/20/18 15:30 02/20/18 15:31 DC 02/20/18 16:20 999 MLS/HR Ceftriaxone Sodium (Rocephin Inj) 1 gm NOW STAT IV 02/20/18 15:24 02/20/18 15:27 DC 02/20/18 16:12 1 GM Hydromorphone HCl (Dilaudid Inj) 0.2 mg TODAY@1800 IV 02/20/18 18:00 02/20/18 23:59 02/20/18 18:58 0.2 MG ED Course Patient was seen and examined Vital signs including blood pressure were reviewed medications list was verified with patient Labs were obtained, and a saline lock was established The patient was medicated with Dilaudid 1 mg IV and Zofran 4 mg's IV. She was hydrated with 1 L of LR Upon reevaluation, the patient was more comfortable. We discussed her lab results. She voiced understanding. The case was discussed with case management and subsequently the [facility] who kindly agreed to admit the patient for further workup and treatment I reviewed discharge instructions the patient. They voiced understanding and had no further questions. Medical Decision Differential diagnosis: Acute pancreatitis, dehydration, uncontrolled abdominal pain This patient is a 62-year-old female that returns to the emergency department for uncontrolled pain and nausea. She was seen here last night and diagnosed with acute pancreatitis per CT scan. She was also diagnosed with a UTI and started on antibiotics. She has not yet picked up the antibiotics, because she was too weak to go to the store. On exam, her abdomen was tender in the epigastric region. She appeared dehydrated. Unfortunately, the patient's pain medication at home is not helping; therefore, I feel admission is warranted. She was in agreement. Medication Reconcilliation Current Medication List: was personally reviewed by me Blood Pressure Screening Patient's blood pressure: Normal blood pressure [facility] Primary Impression: Pancreatitis Departure Information Referrals RV. Byrd MD (PCP) Patient Instructions [facility]
[2018-02-20] MEDS ORDERED: METO5TAB2 PO (15:36)
[2018-02-20] MEDS ORDERED: PRAV40TA2 PO (15:36)
[2018-02-20] MEDS ORDERED: BUPR150T5 PO (15:36)
[2018-02-20] MEDS ORDERED: PLV75 PO (15:36)
[2018-02-20] MEDS ORDERED: ATV5X PO (15:40)
[2018-02-20] MEDS ORDERED: FLNIN/ NAE (15:40)
[2018-02-20] MEDS ORDERED: ONDA8TAB12 PO (15:42)
[2018-02-20] MEDS ORDERED: DICY10CA55 PO (15:42)
[2018-02-20] MEDS ORDERED: ETOD400T PO (15:49)
[2018-02-20 16:00] LABS: BASO % 0.3 %; BASO ABS # 0.03 K/uL (0-0.2); EOS % 2.8 %; EOS ABS # 0.33 K/uL (0-0.5); HEMATOCRIT 41.1 % (37-47); HEMOGLOBIN 14.4 g/dL (12.0-16.0); IG# 0.04 K/uL (0.00-0.02); LYMPH % 25.9 %; LYMPH ABS # 3.09 K/uL (1.2-3.4); MEAN CELL VOLUME 83.2 fL (80-100); MEAN CORPUSCULAR HEMOGLOBIN 29.1 pg (25-34); MEAN PLATELET VOLUME 9.5 fL (7.4-10.4); MONO ABS # 0.72 K/uL (0.11-0.59); NEUT % 64.7 %; NEUT ABS # 7.74 K/uL (1.4-6.5); PLATELET COUNT 378 K/uL (130-400); RED CELL DISTRIBUTION WIDTH CV 13.6 % (11.5-14.5); RED CELL DISTRIBUTION WIDTH SD 40.5 fL (36.4-46.3); WHITE BLOOD COUNT 11.95 K/uL (4.8-10.8)
[2018-02-20] MEDS ORDERED: LPR25 PO (16:14)
[2018-02-20 16:19] LABS: CREATININE 0.86 mg/dl (0.60-1.20)
[2018-02-20 16:20] LABS: CALCIUM 9.3 mg/dl (8.5-10.1); POTASSIUM 3.8 mmol/L (3.5-5.1); TOTAL PROTEIN 7.8 gm/dl (6.4-8.2)
--- NOTE | 2018-02-20 17:52 | History and Physical ---
History & Physical Date & Time of Service: February 20, 2018 at 17:51 Chief Complaint: Sent By Dr Micki Lee Primary Care Physician: RV. Byrd MD History of Present Illness Source: patient, hospital records The patient is a 62-year-old female who initially presented to the emergency department last evening with complaint of abdominal pain and nausea for the past few days. At that time she underwent a CT scan and blood work both of which confirmed an uncomplicated pancreatitis. The patient was advised to be admitted, however, she preferred to go home. Today, the pain became worse, as did the nausea, and she presents to the emergency department for reassessment next referred for evaluation for admission. Past Medical/Surgical History Medical Problems: (1) Anemia (2) Asthma (3) Atrial fibrillation (4) Back pain (5) Bronchitis (6) Cholecystectomy (7) Chronic back pain (8) Chronic congestive heart failure (9) Chronic obstructive lung disease (10) COPD (chronic obstructive pulmonary disease) (11) CVA (cerebral infarction) (12) Diabetes mellitus (13) Diverticulitis (14) Dysarthria on examination (15) fibromyalgia (16) Gastritis (17) Hysterectomy (18) Incontinence (19) Interstitial lung disease (20) Lumbar stenosis with neurogenic claudication (21) Lung disease (22) Obesity (23) Oral thrush (24) Pancreatitis (25) Pancreatitis (26) Spinal stenosis (27) TIA (transient ischemic attack) (28) Tobacco abuse (29) Urinary tract infection (30) Urinary tract infection (31) UTI (urinary tract infection) (32) UTI (urinary tract infection) (33) Viral syndrome Surgical Problems: (1) History of back surgery Family History FH: HTN (hypertension) FH: cancer FH: cardiovascular disease FH: diabetes mellitus FH: lung cancer Social History Smoking Status: Current Every Day Smoker Smokeless Tobacco Use: No Alcohol Use: none Drug Use: none Marital Status: Housing status: lives with family Occupational Status: disabled Immunizations History of Influenza Vaccine: No Influenza Vaccine Date: Sep 24, 2012 History of Tetanus Vaccine?: Unknown History of Pneumococcal: Yes History of Hepatitis B Vaccine: No Hepatitis Immunization Date: May 11, 2008 Allergies Coded Allergies: Enalapril (Verified Allergy, Unknown, ? reaction, 11/08/16) Pregabalin (Verified Adverse Reaction, Severe, GI SYMPTOMS, 11/08/16) CI Pigment Blue 63 (Verified Adverse Reaction, Unknown, N/V, 11/08/16) Duloxetine (Verified Adverse Reaction, Unknown, N/V, 11/08/16) Gabapentin (Verified Adverse Reaction, Unknown, GI symptoms, 11/08/16) Morphine (Unverified Adverse Reaction, Unknown, NAUSEATED, 11/08/16) Quinolones (Verified Adverse Reaction, Unknown, GI symptoms, 11/08/16) includes Cipro Sulfa Antibiotics (Verified Adverse Reaction, Unknown, "Sulfa Drugs = nauseated", 11/08/16) Home Medications Scheduled Aspirin (Aspirin Ec), 81 MG PO HS Bimatoprost (Lumigan), 1 DROP OPB HS Bupropion Hcl (Bupropion Hcl Xl), 150 MG PO QAM Cephalexin (Keflex), 1 CAP PO TID Cholecalciferol (Vitamin D), 2,000 INTER.UNIT PO DAILY Clopidogrel Bisulfate (Clopidogrel), 75 MG PO QAM Cyanocobalamin (Vitamin B12), 1,000 MCG PO QAM Dexlansoprazole (Dexilant), 60 MG PO QAM Etodolac (Etodolac), 400 MG PO BID Fesoterodine Fumarate (Toviaz), 8 MG PO HS Metformin HCl (Metformin HCl), 500 MG PO BID Metoclopramide Hcl (Metoclopramide Hcl), 5 MG PO BID Metoprolol Tartrate (Lopressor), 25 MG PO BID Oxycodone Hcl (Oxycodone Hcl Er), 10 MG PO Q12 Pravastatin Sodium (Pravastatin Sodium), 40 MG PO QAM Scheduled PRN Dicyclomine Hcl (Bentyl), 10 MG PO TID PRN for Abdominal Pain Fluticasone Propionate (Fluticasone Propionate), 1 SPRAY NING BID PRN for Nasal Congestion Ibuprofen (Motrin), 400 MG PO DAILY PRN for Pain Ipratropium-Albuterol (Combivent Respimat), 2 PUFFS INH QID PRN for SOB/Wheezing Loperamide Hcl (Imodium), 2 MG PO DAILY PRN for Diarrhea Lorazepam (Lorazepam), 0.5 MG PO DAILY PRN for Anxiety Ondansetron Hcl (Zofran), 8 MG PO TID PRN for Nausea Oxycodone Hcl (Oxycodone Hcl), 10 MG PO QID PRN for Pain Polyethylene Glycol 3350 (Miralax), 17 GM PO DAILY PRN for Constipation Review of Systems The patient denies chest pain, palpitations, shortness of breath, dyspnea on exertion, cough, lower extremity swelling, sore throat, fevers, chills, sweats, weight change, fatigue, vomiting, diarrhea , constipation, blood in urine or stool, dysuria, urinary frequency or urgency, lightheadedness, dizziness, headache, memory loss , loss of consciousness, rash, abnormal bruising or bleeding, imbalance, focal or generalized weakness, numbness or tingling in arms or legs, generalized arthralgias or myalgias, neck pain, or night sweats. The review of systems is otherwise negative other than for that already noted above, and at least 10 systems have been reviewed. Physical Exam Vital Signs Date Time Temp Pulse Resp B/P (MAP) Pulse Ox O2 Delivery O2 Flow Rate FiO2 02/20/18 16:24 73 20 98/70 93 Room Air 02/20/18 15:09 36.7 82 20 104/76 95 Room Air The patient is awake, alert and oriented 3, well developed and well nourished, normocephalic and atraumatic, lying in bed and in no acute distress. HEENT--PERRL, EOMI, mucous membranes and oropharynx dry. Neck--supple. No JVD. No bruits. Thyroid normal, trachea midline, no adenopathy. Heart--normal S1 and S2. No murmurs, rubs or gallops. Lungs--clear bilaterally, no respiratory distress, no accessory muscle use. Abdomen--normal bowel sounds and soft. Mildly left lateral abdomen and left flank area tender. Nondistended. Mildly obese. Extremities--no cyanosis or clubbing. No edema. There are good distal pulses b/ l. Dermatologic--normal skin turgor, normal color, no abnormal lymph nodes, no rash. Neurologic--cranial nerves II through XII grossly intact. Rheumatologic--normal range of motion. Psychiatric--normal affect. Diagnostics Laboratory Results Results Past 24 Hours Test 02/20/18 15:45 Range/Units White Blood Count 11.95 4.8-10.8 K/uL Red Blood Count 4.94 4.2-5.4 M/uL Hemoglobin 14.4 12.0-16.0 g/dL Hematocrit 41.1 37-47 % Mean Corpuscular Volume 83.2 80-100 fL Mean Corpuscular Hemoglobin 29.1 25-34 pg Mean Corpuscular Hemoglobin Concent 35.0 32-36 g/dl Platelet Count 378 130-400 K/uL Mean Platelet Volume 9.5 7.4-10.4 fL Neutrophils (%) (Auto) 64.7 % Lymphocytes (%) (Auto) 25.9 % Monocytes (%) (Auto) 6.0 % Eosinophils (%) (Auto) 2.8 % Basophils (%) (Auto) 0.3 % Neutrophils # (Auto) 7.74 1.4-6.5 K/uL Lymphocytes # (Auto) 3.09 1.2-3.4 K/uL Monocytes # (Auto) 0.72 0.11-0.59 K/uL Eosinophils # (Auto) 0.33 0-0.5 K/uL Basophils # (Auto) 0.03 0-0.2 K/uL RDW Standard Deviation 40.5 36.4-46.3 fL RDW Coefficient of Variation 13.6 11.5-14.5 % Immature Granulocyte % (Auto) 0.3 % Immature Granulocyte # (Auto) 0.04 0.00-0.02 K/uL Sodium Level 137 136-145 mmol/L Potassium Level 3.8 3.5-5.1 mmol/L Chloride Level 107 98-107 mmol/L Carbon Dioxide Level 25 21-32 mmol/L Anion Gap 5.0 3-11 mmol/L Blood Urea Nitrogen 8 7-18 mg/dl Creatinine 0.86 0.60-1.20 mg/dl Est Creatinine Clear Calc Drug Dose 78.3 ml/min Estimated GFR () 82.7 Estimated GFR (Non- 71.4 BUN/Creatinine Ratio 9.1 10-20 Random Glucose 93 70-99 mg/dl Calcium Level 9.3 8.5-10.1 mg/dl Total Bilirubin 0.3 0.2-1 mg/dl Aspartate Amino Transf (AST/SGOT) 21 15-37 U/L Alanine Aminotransferase (ALT/SGPT) 18 12-78 U/L Alkaline Phosphatase 86 45-117 U/L Total Protein 7.8 6.4-8.2 gm/dl Albumin 3.0 3.4-5.0 gm/dl Globulin 4.8 2.5-4.0 gm/dl Albumin/Globulin Ratio 0.6 0.9-2 Lipase 1169 73-393 U/L Diagnostic Radiology Patient Name: SANTOS CURRY Unit Number: [id number] Dictated: 02/19/182223 Transcribed: 02/19/182223 JRB Printed Date/Time: [~ rep prt dt]/[~ rep prt tm] [~ rep ct labl] - [~ rep ct ivnm] [facility] [place] [address] Dictated: 02/19/182223 Transcribed: 02/19/182223 JRB Printed Date/Time: [~ rep prt dt]/[~ rep prt tm] [~ rep ct labl] - [~ rep ct ivnm] [~ rep ct add3]] THORACIC SPINE WITHOUT, LUMBAR SPINE WITHOUT HISTORY: 62 years-old Female back pain, different from chronic, prior surgery acute on chronic back pain with history of prior lumbar spine surgery COMPARISON: CT abdomen and pelvis of same day, CTA chest 03/27/2013 TECHNIQUE: Multiple axial CT images of the thoracic and lumbar spine were obtained without the use of IV contrast. Coronal and sagittal reformatted images were obtained from the axial data set and were submitted for review. A dose lowering technique was used consistent with the principals of ALANISRA. FINDINGS: THORACIC: Areas of mild and moderate spondylitic spurring are noted throughout the thoracic spine without acute fracture or subluxation identified. Mild to moderate multilevel facet arthrosis. Posterior disc osteophyte complex relation are seen at several levels, notably at T8-T9 where there is moderate central canal and mild bilateral foraminal narrowing. Posterior disc osteophyte complex at T9-T10 is also noted causing mild central canal stenosis. Azygos lobe and fissure noted. Subpleural cystic changes with subpleural reticulation noted within a bibasilar predominant distribution. Findings suggest NSIP pattern of disease. Masslike pulmonary nodule of the superior segment left lower lobe measures 2.4 x 2.3 cm on image 219 series 3. There is an additional adjacent satellite nodule measuring 2.3 x 1.8 cm on image 238 with invasion into the adjacent superior segmental bronchus. 1.8 x 1.2 cm subpleural nodule adjacent to the basal right lower lobe is noted with infiltration into the adjacent 10th rib. There is an acute nondisplaced pathologic fracture of the rib seen on image 374. No acute process of the imaged upper abdomen. Moderate hiatal hernia. Enlarged pretracheal lymph node measures 1.3 cm on image 182 series 3 with enlarged 1.5 cm subcarinal lymph node. LUMBAR: Posterior pradeep and screw fusion hardware extends from T12-L4. No evidence of hardware complication or fracture. Alignment is satisfactory. Discectomy changes are seen at L1-L2 through the L4-L5 levels. No acute fracture or subluxation. No suspicious lytic or blastic bony lesions identified. No sacral insufficiency fracture. No definite high-grade central canal or foraminal narrowing. No acute processes of the imaged abdomen or pelvis. IMPRESSION: 1. Irregular heterogeneous masslike nodules of the superior segment left lower lobe measuring up to 2.4 cm suggests primary bronchogenic carcinoma with satellite metastasis. The larger nodule invades the adjacent superior segmental bronchus. Oncologic consultation is needed. 2. 1.8 cm subpleural soft tissue attenuating nodule adjacent to the basal right lower lobe invades the adjacent posterior right 10th rib. There is an associated acute nondisplaced pathologic fracture without pneumothorax. 3. Mediastinal adenopathy suggests metastatic disease. 4. Suggested NSIP pattern of interstitial lung disease. 5. No acute fracture or subluxation of the thoracic or lumbar spine.. The above report was generated using voice recognition software. It may contain grammatical, syntax or spelling errors. Electronically signed by: David Rivers M.D. 02/19/2018 10:38 PM Dictated Date/Time: 02/19/2018 10:24 PM The status of this report is Signed. Draft = Not yet reviewed or approved by Radiologist. Signed = Reviewed and approved by Radiologist. <AttendingPhy></AttendingPhy> <FamilyPhy>RV. Byrd MD</ FamilyPhy> <PrimaryPhy>RV. Byrd MD</PrimaryPhy> <UnitNumber> [id number]</UnitNumber> <VisitNumber>[id number]</VisitNumber> <PatientName> SANTOS CURRY</PatientName> <DateOfBirth>1955</DateOfBirth> <Location> C.EDB</Location> <ServiceDate>02/19/18</ServiceDate> <MNE>ESINDI</MNE> < OrderingPhy>Lisa Mcgill S DO</OrderingPhy> <OrderingPhyMNE>f rep ord dr mondragon< /OrderingPhyMNE> <DictatingPhyMNE>f rep dict dr mondragon</DictatingPhyMNE> <CCListMNE >f rep ct jarede</CCListMNE> <AdmittingPhyMNE>f pt admit dr mondragon</AdmittingPhyMNE> < AttendingPhyMNE>f pt attend dr mondragon</AttendingPhyMNE> <ConsultingPhyMNE>f pt consult dr mondragon</ConsultingPhyMNE> <FamilyPhyMNE>f pt fam dr mondragon</FamilyPhyMNE> <OtherPhyMNE>f pt other dr mondragon</OtherPhyMNE> < PrimaryPhyMNE>f pt prim care dr mondragon</PrimaryPhyMNE> <ReferringPhyMNE>f pt referring dr mondragon</ReferringPhyMNE> DIAGNOSTIC IMAGING [~ rep ct add3]] ADDENDUM 1.8 cm subpleural soft tissue attenuating metastatic nodule adjacent to the basal right lower lobe invades the adjacent posterior right 10th rib and causes an associated acute nondisplaced pathologic fracture. Electronically signed by: David Rivers M.D. 02/20/2018 12:16 AM Dictated Date/Time: 02/20/2018 12:15 AM ORIGINAL REPORT ABDOMEN AND PELVIS CT WITH IV CONTRAST HISTORY: Acute mid back and bilateral flank pain flank pain, UTI sx TECHNIQUE: Multiaxial CT images of the abdomen and pelvis were performed following the use of intravenous contrast. A dose lowering technique was utilized adhering to the principles of ALARA. COMPARISON STUDY: CT thoracic and lumbar spine of same day, CT abdomen and pelvis 06/12/2012. FINDINGS: Bibasilar reticular opacities with groundglass densities, mild traction bronchiectasis and areas of honeycombing. No pneumatosis or pneumoperitoneum. Coronary arterial calcifications are noted. Prior cholecystectomy with mild dilation of the intrahepatic biliary tree and common bile duct, likely physiologic from postcholecystectomy state. The spleen, and right adrenal gland are unremarkable. Moderate thickening of the left adrenal gland suggesting adrenal hyperplasia. There is mild interstitial and peripancreatic inflammatory changes of the distal pancreatic body and tail. No focal perihepatic fluid collections. There is a 9 x 9 mm area of ill-defined decreased attenuation involving the distal pancreatic body as seen on image 126 series 7. No pancreatic ductal dilation identified. Patent splenic vein. Low attenuating lesions of the bilateral kidneys suggests renal cysts. No ureteral calculi or hydronephrosis. Prior hysterectomy. No adnexal mass lesions. Moderate to extensive mixed plaquing of the abdominal aorta with mild infrarenal abdominal aortic ectasia, 2.7 cm. No bulky adenopathy. Moderate hiatal hernia. No bowel obstruction. Colonic diverticulosis without diverticulitis. Normal appendix. Soft tissues are unremarkable. Posterior pradeep and screw fusion hardware of the thoracolumbar spine. IMPRESSION: 1. Mild interstitial and peripancreatic inflammatory changes of the distal pancreatic body and tail are compatible with acute uncomplicated pancreatitis without focal peripancreatic fluid collection identified. 2. 9 x 9 area of ill-defined decreased attenuation involving the distal pancreatic body may reflect area of focal edema or pancreatic mass lesion. This could be further characterized with MRI. 3. Prior cholecystectomy and hysterectomy. 4. Moderate sized hiatal hernia. 5. Colonic diverticulosis without diverticulitis. 6. Interstitial lung disease. Electronically signed by: David Rivers M.D. 02/19/2018 10:11 PM Dictated Date/Time: 02/19/2018 10:03 PM The status of this report is Signed. EKG SANTOS CURRY ID:[id number] 19-FEB-2018 18:57:23 [facility] Normal sinus rhythm Normal ECG When compared with ECG of 08-OCT-2015 15:52, QT has lengthened Confirmed by KIM MARR ([id number]) on 02/20/2018 1:07:54 PM 25mm/s 10mm/mV 150Hz 8.0 SP2 12SL 241 SANTOS: 10 Referred by: Referred Self Confirmed By: KIM MARR Vent. rate 96 BPM ME interval 154 ms QRS duration 78 ms QT/QTc 380/480 ms P-R-T axes 46 9 24 1955 (62 yr) Female 109in 1lb Room:[facility], [place] Loc:15 Engineering Specialist Technician:Elisabeth Novak Te Impression Assessment and Plan Pancreatitis, with 9 x 9 distal pancreatic body lesion-- Admit to the medical floor. Clear liquid diet. IV fluid rehydration. Follow serial pancreatic enzymes. Pantoprazole 40 mg IV daily. Zofran 4 mg IV every 6 hours as needed. Dilaudid 0.2 mg IV to give 30 minutes before MRI. Check a fasting lipid panel Order MRCP to further evaluate. Atrial fibrillation/hypertension/chronic CHF-- Continue aspirin 81 mg daily, clopidogrel 75 mg p.o. daily, and metoprolol tartrate 25 mg p.o. twice daily. Diabetes mellitus--hold metformin. Place on Accu-Cheks before meals and at bedtime with NovoLog coverage per scale. Left adrenal hyperplasia--noted on CT. Follow-up with MRI. COPD/tobacco use disorder-- Tobacco cessation counseling. Continue Combivent Respimat. Duo nebs every 2 hours as needed. Anxiety-- Continue bupropion XL 150 mg every morning. continue Lorazepam as needed. GERD--change Dexilant to pantoprazole. Chronic pain-- Continue oxycodone 10 mg 4 times daily as needed Hyperlipidemia-- On pravastatin 40 mg daily as outpatient. Advanced Directives Existing Advance Directive: No Existing Living Will: No Existing Power of Car Hopper: No Resuscitation Status VTE Prophylaxis Will order VTE Prophylaxis: Yes Social Service Consult None Apply
[2018-02-20] MEDS ORDERED: HYDROmorphone INJ 2 MG/ML SYR/VIAL IV SCH (18:00)
[2018-02-20] MEDS ORDERED: FLUTICASONE PROPIONATE NA SPR 16 GM BTL NAE PRN (18:00)
[2018-02-20] MEDS ORDERED: POLYETHYLENE (MIRALAX) 17 GM PACK PO PRN (18:00)
[2018-02-20] MEDS ORDERED: IPRATROPIUM BROMIDE/ALBUTEROL respimat INH INH PRN (18:00)
[2018-02-20] MEDS ORDERED: DEXL60CA4 PO (19:50)
[2018-02-20] MEDS ORDERED: FESO8TAB PO (19:50)
[2018-02-20 20:11] VITALS: BP 159/78; PULSE 76; TEMP 37; BMI 31.0
[2018-02-20] MEDS: METOPROLOL TARTRATE 25 MG TAB PO SCH (20:26)
[2018-02-20] MEDS: OXYCODONE HCL 10 MG TABCR (OXYCONTIN) PO SCH (20:26)
[2018-02-20] MEDS: NSS + 20MEQ KCL 1000ML 1,000 ML IV SCH (20:27)
[2018-02-20] MEDS ORDERED: HYDROmorphone INJ 2 MG/ML SYR/VIAL IV PRN (21:15)
[2018-02-20] MEDS ORDERED: OXYC-164 PO (21:55)
[2018-02-20] MEDS ORDERED: OXYC-292 PO (21:55)
[2018-02-20] MEDS ORDERED: PNEUMOCOCCAL POLYSACCHARIDES 25 MCG/0.5 ML VIAL/SYR IM. ONE (22:00)
[2018-02-20] MEDS ORDERED: PNEUMOCOCCAL ADMINISTRATION CHARGE ONE (22:00)
[2018-02-21] MEDS: HYDROmorphone INJ 2 MG/ML SYR/VIAL IV PRN ×7 (00:07→23:28)
[2018-02-21 00:21] VITALS: BP 116/79; PULSE 74; TEMP 36.7; O2SAT 95
[2018-02-21] MEDS: NSS + 20MEQ KCL 1000ML 1,000 ML IV SCH ×2 (06:42→17:24)
[2018-02-21 07:24] VITALS: BP 120/75; PULSE 76; TEMP 37; O2SAT 94
[2018-02-21] MEDS: OXYCODONE HCL 10 MG TABCR (OXYCONTIN) PO SCH ×2 (08:16→19:56)
[2018-02-21] MEDS: CLOPIDOGREL BISULFATE 75 MG TAB PO SCH (08:16)
[2018-02-21] MEDS: METOPROLOL TARTRATE 25 MG TAB PO SCH ×2 (08:16→19:56)
[2018-02-21] MEDS: BuPROPion XL 150 MG TABCR PO SCH (08:16)
[2018-02-21] MEDS: PANTOprazole SOD 40 MG TAB PO SCH (08:16)
--- NOTE | 2018-02-21 11:23 | DIAGNOSTIC IMAGING REPORT ---
MRCP HISTORY: 62 years-old Female abnormal CT showing pancreatic 9x9mm lesion follow-up study in a patient with acute pancreatitis COMPARISON: CT abdomen and pelvis 02/19/2018 TECHNIQUE: MRCP according to institutional protocol was obtained without the use of IV contrast. FINDINGS: Seam Stayer images demonstrate posterior pradeep and screw fusion hardware at T12-L4. Moderate sized hiatal hernia. Low attenuating lesions about the left kidney measuring up to 10 mm suggest renal cysts. Spleen and adrenal glands are unremarkable. No aortic aneurysm or pathologic adenopathy identified. The IVC appears to be within normal limits. The bowel and mesentery appears unremarkable as seen. There is a mildly T2 hyperintense lobulated soft tissue mass of the right posterior 10th rib measuring 2.6 cm on image 2 series 5 with extension into the subpleural space as seen on comparison study. Additionally, there are ill-defined mildly T2 hyperintense foci about the T10, T11 and T12 vertebral bodies measuring up to 10 mm as seen on the axial fast images. Motion degraded study. Prior cholecystectomy. Common bile duct measures approximately 9 mm transversely without focal obstructing mass or intraluminal filling defect. It is no intrahepatic biliary ductal dilation identified. No evidence of pancreatic ductal dilation or pancreatic divisum.. There are suggested several small layering filling defects within the cystic duct as seen on image 10 series 5 and image 1 series 6. Minimal peripancreatic edema is noted, better characterized on comparison CT. No discrete pancreatic mass lesion identified. IMPRESSION: 1. Motion degraded exam without definite pancreatic mass lesion identified on these images to correlate with the finding seen on comparison CT study dated 02/19/2018. Attention at follow-up recommended. 2. Minimal peripancreatic inflammatory changes are better characterized on comparison CT suggesting acute pancreatitis. 3. Prior cholecystectomy with apparent filling defects within the cystic duct suggesting gallstones. 4. 2.6 cm mass of the posterior right 10th rib with subpleural extension is again noted compatible with metastatic lesion. Additionally, ill-defined areas of signal abnormality involving the T10-T12 vertebral bodies may reflect additional metastatic foci. The above report was generated using voice recognition software. It may contain grammatical, syntax or spelling errors. Electronically signed by: David Rivers M.D. 02/21/2018 11:22 AM Dictated Date/Time: 02/21/2018 11:09 AM
--- NOTE | 2018-02-21 11:31 | GASTROINTESTINAL CONSULTATION ---
DATE OF CONSULTATION: 02/21/2018 REASON FOR CONSULTATION: Pancreatitis. HISTORY OF PRESENT ILLNESS: The patient is a 62-year-old who presents with 1 week history of pain in the upper abdomen and back. She does have chronic back problems and had 5 back operations. She also has fibromyalgia, so she has chronic back pain, but this was different. She underwent a CT scan as an outpatient and was found to have what looked like acute pancreatitis with an elevated lipase. She wanted to go home and not be admitted, so she returned home only to return within 24 hours with worsening pain and admission was advised. Since being hospitalized, she has had a CT scan which showed 2.5 cm left lower lobe mass with probable metastases and a pathologic fracture of the 10th rib on the right which she felt she broke a month ago during coughing. She is a chronic smoker and continues to smoke. She has had her gallbladder out in the past and her liver tests are normal. She has not consumed any alcohol. She does have elevated lipids, but she is on medications for that and her triglyceride level was only 154, calcium level was normal also; so there is no obvious cause for her pancreatitis. She is on aspirin and Plavix as an outpatient for blood thinner purposes for AFib. PAST MEDICAL HISTORY: Anemia, asthma, AFib, chronic back problems status post surgery x5. She has had a cholecystectomy. She has congestive heart failure, COPD. She has had a CVA, diabetes, diverticulitis, fibromyalgia. She has had a hysterectomy, spinal stenosis, frequent urinary tract infections. MEDICATIONS: Include aspirin, Lumigan, bupropion, Keflex, vitamin D, Plavix, vitamin B12, Dexilant, Etodolac, Toviaz, metformin, metoclopramide, Lopressor, oxycodone, pravastatin, p.r.n. Bentyl, fluticasone, Motrin, Combivent, Imodium, lorazepam, Zofran, oxycodone, and MiraLax. ALLERGIES: ENALAPRIL, PREGABALIN, DULOXETINE, GABAPENTIN, MORPHINE, QUINOLONES, AND SULFA. FAMILY HISTORY: Positive for lung cancer, diabetes, cardiovascular disease, and hypertension. SOCIAL HISTORY: The patient is . She is disabled. She smokes every day. Does not consume any alcohol. REVIEW OF SYSTEMS: Positive for back pain, abdominal pain. Remainder is negative. PHYSICAL EXAMINATION: GENERAL: The patient is overweight, in no acute distress. VITAL SIGNS: Blood pressure is 100/70, pulse 70. ABDOMEN: Soft. There is tenderness in the epigastric area. There is also pain in the right flank area. BACK: Shows lumbar scar. LUNGS: Clear. HEART: Showed a normal S1 and S2. Regular rate and rhythm. LABORATORY: Shows a white count of 11.95, hemoglobin 14.4, platelets 378,000. Liver profile is normal. BUN is 8, creatinine 0.86. Lipase 1169. Albumin is 3. IMPRESSION: The patient has a left lower lobe lung mass with probable pulmonary metastases and a pathologic fracture of the right 10th rib, suspicious for primary lung cancer. I have consulted pulmonary and oncology to further evaluate these lesions. She also has pancreatitis, the etiology of which is unclear. She did have an MRI this morning and then will tell us whether or not she might have a congenital abnormality such as pancreas divisum that could predispose her to pancreatitis. She is also on multiple medications which potentially could cause pancreatitis, but it is unlikely that any of these have changed recently. We will continue to follow her clinically for pancreatitis. At this point, she is probably in hypercoagulable state, but she is already on Plavix which will be continued. I did increase her Dilaudid from 1 mg to 2 mg every 4 hours for her pain.
[2018-02-21 11:53] VITALS: BP 128/81; PULSE 78; TEMP 36.7; O2SAT 93
[2018-02-21] MEDS ORDERED: NURSING DECISION MEDICATION ORDER SCH (12:45)
[2018-02-21] MEDS: NICOTINE 21 MG/24 HR TDSY EXT SCH (13:18)
--- NOTE | 2018-02-21 14:26 | ONCOLOGY CONSULTATION ---
DATE OF CONSULTATION: 02/21/2018 REASON FOR CONSULTATION: Suspected metastatic lung cancer. HISTORY OF PRESENT ILLNESS: Joanna is a pleasant 62-year-old moderately obese female who was admitted to the [facility] on December 21 with a complaint of abdominal pain with radiation to her lower thoracic/upper lumbar spine. The patient apparently had presented the day before with abdominal pain and nausea for the past couple of days, underwent CT scan and blood work, confirming an uncomplicated pancreatitis. She was advised to be admitted; however, opted to go home. Apparently, the pain had become worse and therefore she had represented for admission. She has been worked up extensively including a CT scan of the chest, abdomen and pelvis which revealed multiple areas of concern. Again, the pancreatitis diagnosis was established radiographically in which a CT scan revealed peripancreatic inflammatory changes of the distal pancreatic body. A 9 x 9 mm area of ill-defined attenuation involving the distal pancreatic body, thought to be focal edema or possibly a pancreatic mass. In addition, CT scan of the chest revealed irregular heterogeneous mass-like nodules in the superior segment of the left lower lobe measuring 2.4 cm and a 1.8 subpleural soft tissue attenuating nodule adjacent to the basal right lower lobe invading the adjacent posterior right 10th rib. Mediastinal lymphadenopathy suggesting metastatic disease is also noted. Clinically, the patient's main complaint is that of uncontrolled pain, difficult to discern whether this is attributable to pancreatitis versus metastatic disease. She describes the pain as persistent originating in the epigastric region with radiation to the spine. Additionally, Joanna readily admits to losing about 60 pounds over the past 6 months. She is a heavy cigarette smoker, 2 pack per day history x40 years. The primary service is requesting assistance in obtaining diagnosis. Pulmonary has been consulted and trust will see her tomorrow morning and plan for endobronchial ultrasound and subsequent biopsy to confirm diagnosis. PAST MEDICAL HISTORY: Consists of anemia, asthma, atrial fibrillation, chronic back pain, chronic congestive heart failure, COPD, CVA, diabetes mellitus, diverticulitis, fibromyalgia, gastritis, incontinence, lumbar stenosis, chronic pancreatitis, tobacco abuse. PAST SURGICAL HISTORY: Includes hysterectomy and multiple back surgeries. MEDICATIONS: Prior to admission include aspirin 81 mg p.o. daily, bupropion 150 mg p.o. daily, Keflex 1 capsule p.o. t.i.d., cholecalciferol 2000 international units p.o. daily, clopidogrel 75 mg p.o. daily, vitamin B12 1000 mcg p.o. q.a.m., Dexilant 60 mg p.o. daily, etodolac 400 mg p.o. b.i.d., Toviaz 8 mg p.o. at bedtime, metformin 500 mg p.o. b.i.d., metoclopramide 5 mg p.o. b.i.d., metoprolol 25 mg p.o. b.i.d., oxycodone 10 mg q. 12 hours p.r.n. for pain, pravastatin sodium 40 mg p.o. daily. ALLERGIES: TO ENALAPRIL, PREGABALIN, C.I. PIGMENT BLUE 63, DULOXETINE, GABAPENTIN, MORPHINE, QUINOLONES AND SULFA. SOCIAL HISTORY: The patient is , lives independently, has been on disability because of her back problems, 2-pack-year cigarette smoking history, spanning 40 years. Alcohol, negative. Illicit drugs, negative. FAMILY HISTORY: Father attributable to lung cancer. Mother attributable to bladder cancer. REVIEW OF SYSTEMS: As per HPI, most notably for chronic pain syndrome, anorexia and weight loss. GENERAL: Denies fevers, chills or sweats. SKIN: No rashes or lesions. No history of dermatosis. HEENT: Denies headaches, lightheadedness or dizziness. She wears corrective lenses. No hearing deficits. No sinus symptoms, sore throat or dysphagia. LYMPH: No history of lymphoproliferative disease. CARDIAC: Negative for angina or palpitations. PULMONARY: Positive history of COPD, longstanding tobacco abuse. No current cough or hemoptysis. GASTROINTESTINAL: No abdominal pain, nausea or vomiting presently. Positive for occasional constipation, again is on opioid preparations. No hematochezia, melena or bing rectal bleeding. GENITOURINARY: No hematuria, dysuria, urinary incontinence. PSYCHIATRIC: Negative for anxiety, depression or psychoses. ENDOCRINE: Positive for type 2 diabetes mellitus. NEUROLOGIC: Positive history of CVA/TIA, negative for migraine headaches or seizure disorder. HEMATOLOGIC: Negative for anemia, thrombophilia or bleeding diathesis. PHYSICAL EXAMINATION: Somewhat anxious 62-year-old female. GENERAL: Awake, alert and appropriate, in no acute distress. VITAL SIGNS: Temperature 36.7, pulse 78, respiratory rate 18, blood pressure 128/81. SKIN: Warm, dry, noncyanotic without petechiae, rash or ecchymosis. HEAD: Atraumatic, normocephalic. EYES: PERRLA, EOMI. Sclerae nonicteric. No conjunctival injection. Nares are patent without rhinorrhea or discharge. Throat is clear. Tongue is midline. Mucous membranes are moist. NECK: Supple without JVD or thyromegaly. LYMPH: No cervical, supraclavicular, axillary or inguinal palpable nodes. HEART: Regular rate and rhythm. No clicks, rubs, murmurs or gallops. LUNGS: Limited air movement, bibasilar fine crackles noted. No wheezing appreciated. ABDOMEN: Obese, soft, nontender, nondistended with some mild point tenderness in the epigastrium. No palpable hepatosplenomegaly. EXTREMITIES: Musculoskeletal strength and pulses are equal in all 4 quadrants. NEUROLOGICAL: She is awake, alert and oriented x3. Cranial nerves II-XII are intact. No gross motor or sensory deficits are noted. LABORATORY DATA: WBC count 11,950, hemoglobin 14.4, platelet count 378,000. Sodium 137, potassium 3.8, chloride 107, carbon dioxide 25, creatinine 0.86, BUN 8. Albumin mildly decreased at 3.0, lipase markedly elevated at 1169. ASSESSMENT: 1. Intractable chronic pain. 2. Chronic pancreatitis. 3. Radiographic findings suggestive of metastatic lung cancer. 4. Anorexia/weight loss. 5. Hypoalbuminemia. 6. Type 2 diabetes mellitus. PLAN: The hospitalist service requested a medical oncology consultation for this very pleasant but somewhat unfortunate 62-year-old female patient. The patient's clinical and radiographic picture is suspicious for progressive neoplasia. Agree with pulmonary consult to pursue tissue. I suspect through endobronchial ultrasound. As for her ongoing pain, I suspect a combination of both pancreatitis and her metastatic disease, particularly the eroding right rib bony lesion which may be amenable to palliative radiation therapy. Ultimately, once diagnosis is established, the patient will need PET scan for staging. Otherwise, will arrange for outpatient followup to discuss therapeutic options once diagnosis is confirmed. Perhaps it would be helpful to place the patient on appetite stimulant, Megace would be suitable for this patient. I have nothing further to add and will anticipate seeing Joanna once she is discharged. Thank you again for allowing us to participate in her care. If you have any questions or concerns, feel free to contact me at any time. THEA
[2018-02-21 15:35] VITALS: BP 121/79; PULSE 72; TEMP 36.7; O2SAT 95
[2018-02-21] MEDS: CEFTRIAXONE SOD INJ 1 GM in DEXTROSE 5% ADD-VANTAGE 50ML 50 ML IV SCH (15:54)
--- NOTE | 2018-02-21 16:26 | Progress Note ---
Subjective Date of Service: February 21, 2018. Subjective Pt evaluation today including: conversation w/ patient, conversation w/ family , physical exam, chart review, lab review, review of studies, conversation w/ change management consultant, review of inpatient medication list Patient is uncomfortable , complaint about pain surrounding/ bandlike sensation in the lower abdomen, Reported feeling hungry want to try some clear liquid diet Problem List Medical Problems: (1) Anemia Status: Acute (2) Pancreatitis Status: Acute (3) Tobacco abuse Status: Acute (4) UTI (urinary tract infection) Status: Acute (5) Viral syndrome Status: Acute Review of Systems Constitutional: + weakness, + fatigue, No fever, No chills, No sweats, No weight loss, No problem reported Eyes: No worsening of vision, No eye pain, No redness, No discharge, No diplopia ENT: No hearing loss, No unusual epistaxis, No nasal symptoms, No sore throat, No tinnitus, No dental problems, No trouble swallowing Respiratory: + cough, No sputum, No wheezing, No shortness of breath, No dyspnea on exertion, No dyspnea at rest, No hemoptysis Cardiac: No chest pain, No orthopnea, No PND, No edema, No claudication, No palpitations Abdomen: + pain, No nausea, No vomiting, No diarrhea, No constipation Musculoskeletal: + joint pain, No muscle pain, No swelling, No calf pain Female : No dysuria, No urinary frequency, No hematuria, No incontinence, No abnormal vaginal bleeding, No vaginal discharge Neurologic: No memory loss, No paralysis, No weakness, No numbness/tingling, No vertigo, No balance problems Psychiatric: No depression symptoms, No anhedonism, No anxiety, No insomnia, No substance abuse Heme: No abnormal bleeding/bruising, No clotting problems, No swollen lymph nodes, No night sweats Endo: No fatigue, No excessive thirst, No excessive urination Skin: No rash, No itch, No new/changing skin lesions, No color change, No bleeding Objective Vital Signs Date Time Temp Pulse Resp B/P (MAP) Pulse Ox O2 Delivery O2 Flow Rate FiO2 02/21/18 15:35 36.7 72 18 121/79 (93) 95 Room Air 02/21/18 11:53 36.7 78 18 128/81 (97) 93 Room Air 02/21/18 08:00 Room Air 02/21/18 07:24 37.0 76 18 120/75 (90) 94 Room Air 02/21/18 00:26 Room Air 02/21/18 00:21 36.7 74 20 116/79 (91) 95 Room Air 02/20/18 20:45 Room Air 02/20/18 20:11 37.0 76 18 159/78 02/20/18 18:59 75 20 143/83 96 Room Air 02/20/18 18:04 73 18 132/84 95 Room Air 02/20/18 16:24 73 20 98/70 93 Room Air Physical Exam General Appearance: WD/WN, no apparent distress, + obese Eyes: normal inspection, PERRL, EOMI, sclerae normal ENT: normal ENT inspection, hearing grossly normal, pharynx normal Neck: supple, no adenopathy, thyroid normal, no JVD, no carotid bruits, trachea midline Respiratory/Chest: chest non-tender, normal breath sounds, no respiratory distress, no accessory muscle use, + decreased breath sounds Cardiovascular: regular rate, rhythm, no edema, no gallop, no JVD, no murmur Abdomen: normal bowel sounds, soft, no organomegaly, no pulsatile mass, + tenderness Extremities: normal range of motion, non-tender, normal inspection, no pedal edema, no calf tenderness, normal capillary refill, pelvis stable Neurologic/Psychiatric: director of digital technology II-XII nml as tested, no motor/sensory deficits, alert, normal mood/affect, oriented x 3 Skin: normal color, warm/dry, no rash Lymphatic: no adenopathy Laboratory Results Last 24 Hours Test 02/21/18 00:34 02/21/18 07:45 02/21/18 11:11 Triglycerides Level 154 mg/dl Cholesterol Level 83 mg/dl HDL Cholesterol 34 mg/dl LDL Cholesterol, Calculated 18 mg/dl VLDL Cholesterol, Calculated 31 mg/dl Cholesterol/HDL Ratio 2.4 Lipase 792 U/L Carcinoembryonic Antigen 2.6 ng/ml Assessment and Plan 62-year-old white female admitted to because of worsening abdominal pain was found has pancreatitis, metastatic lung disease pancreatitis, 9 x 9 cm distal pancreatic body lesion but not definite pancreatic mass in MRCP Lung lesions associated with right rib erosive fracture MRCP results in below: 1. Motion degraded exam without definite pancreatic mass lesion identified on these images to correlate with the finding seen on comparison CT study dated 02/19/2018. Attention at follow-up recommended. 2. Minimal peripancreatic inflammatory changes are better characterized on comparison CT suggesting acute pancreatitis. 3. Prior cholecystectomy with apparent filling defects within the cystic duct suggesting gallstones. 4. 2.6 cm mass of the posterior right 10th rib with subpleural extension is again noted compatible with metastatic lesion. Additionally, ill-defined areas of signal abnormality involving the T10-T12 vertebral bodies may reflect additional metastatic foci. Agree with oncologist recommendations will request radiation oncology consult for palliative radiation therapy. need to undergo PET scan for staging, this can be done as outpatient 2.6 cm mass of the posterior right 10th rib with subpleural extension Blow Torch [employer]er consulted for possible tissue biopsy metastatic foci in T10-T12 vertebral bodies lear liquid diet advance as tolerated, well pain control, follow-up electrolytes , Input appreciated Pantoprazole 40 mg IV daily. Zofran 4 mg IV every 6 hours as needed. Dilaudid for pain control Atrial fibrillation/hypertension/chronic CHF/diabetic-- Continue aspirin 81 mg daily, clopidogrel 75 mg p.o. daily, and metoprolol tartrate 25 mg p.o. twice daily, continue insulin sliding scale COPD/tobacco use disorder to pack per day, Tobacco cessation counseling., Continue Combivent Respimat, Duo nebs every 2 hours as needed, nicotine patch ordered Anxiety, Continue bupropion XL 150 mg every morning, orazepam as needed. GERD--change Dexilant to pantoprazole. Chronic pain, Continue oxycodone 10 mg 4 times daily as needed, and IV Dilaudid Discussed with patient answered all the questions DVT prophylaxis is covered Continued [facility] stay due to: multiple IV medications needed Discharge planning: home
--- NOTE | 2018-02-21 17:40 | Pulmonary Consultation ---
History General Date of Service: February 21, 2018. Stated Complaint: Pancreatitis HPI The patient is a 62 year old female who presents to [facility] with complaints of Pancreatitis. The patient's primary care provider is RV. Byrd MD. 62-year-old female who admitted for pancreatitis with 1 week history of upper back and abdominal pain. During the workup a CT of the abdomen and pelvis was done which noted bilateral lower lobe ILD type changes along with a right posterior subpleural nodule approximately 1.8 mm invading the 10th rib with associated pathologic fracture changes. Patient does note 1 month prior to this admission she was having a sneezing episode and felt she had fractured her right side/rib at that time. Workup at that time was nondiagnostic. At this time patient is in her normal pulmonary state with notable dyspnea on exertion but denies out of proportion as compared to her baseline. She also denies: Fever, chills, productive cough, unintentional weight loss or classic cardiac chest pain. Pulmonary function study 08/26/2012 (nodiagnostic studies as there was poor flow volume loop) Spirometry moderate obstructive ventilatory disease with an FEV1 of 65% Bronchodilator: Significant response Lung volumes: Within normal limits Diffusion capacity: Mildly reduced at 63% PmHx: 1. Abnormal finding on lung imaging 2. Interstitial lung disease with possible foreign body granulomatosis 3. Acid reflux 4. Pancreatitis 5. AF (paroxysmal atrial fibrillation) 6. Allergic rhinitis 7. Anemia 8. Arthralgia of multiple sites 9. Chronic constipation 10. Depression with anxiety 11. Diabetes mellitus 12. Diabetic Gastropathy 13. Diastolic dysfunction/left ventricular hypertrophy 14. Fibromyalgia 15. Glaucoma 16. H/O lumbosacral spine surgery 17. Hypercholesterolemia 18. Lymphadenopathy, mediastinal 19. Nicotine dependence 20. Obesity 21. Obstructive sleep apnea 22. Pulmonary emphysema 23. Pulmonary fibrosis 24. Solitary pulmonary nodule 25. History of Stroke, lacunar 26. Tender lymph node 27. Vitamin B12 deficiency 28. Vitamin D deficiency 29. History fracture carpal tunnel bone 30. History of hepatitis C viral infection Surgical History 1. Cholecystectomy 2. Hysterectomy 3. Lower Back Surgery 4. Neuroplasty Decompression Median Nerve At Carpal Tunnel 5. Thoracoscopy Of Lungs And Pleural Space With Biopsy Of Lung Infiltrates 6. Surgical lung biopsy 09/22/2012 Family History Hypertension, lung cancer, cardiovascular disease, diabetes, Social History Denied: History of Alcohol Current every day smoker/nicotine dependence Marital History - History of Using Cocaine Outpatient medications 1. Dexilant 60 MG Oral Capsule Delayed Release; TAKE ONE CAPSULE BY MOUTH 2. Metoclopramide HCl - 5 MG Oral Tablet; TAKE ONE TABLET BY MOUTH TWICE DAILY 3. RaNITidine HCl - 150 MG Oral Capsule; TAKE 1 CAPSULE AT BEDTIME NIGHTLY 4. Ferrous Sulfate 324 (65 Fe) MG Oral Tablet Delayed Release; 1 po 1x day with food and 5. Voltaren 1 % Transdermal Gel; APPLY SPARINGLY TO AFFECTED AREA twice a day; 6. OxyCODONE HCl - 15 MG Oral Tablet; TAKE 1 TABLET EVERY 8 HOURS NEEDED 7. OxyCODONE HCl ER 20 MG Oral Tablet ER 12 Hour Abuse-Deterrent; TAKE 1 TABLET 8. BuPROPion HCl ER (XL) 150 MG Oral Tablet Extended Release 24 Hour; take 1 tablet by 9. LORazepam 0.5 MG Oral Tablet; TAKE 1 TABLET DAILY NEEDED for Anxiety only 10. Polyethylene Glycol 3350 Oral Packet; MIX 1 PACKET IN 8 OUNCES OF LIQUID AND 11. Clopidogrel Bisulfate 75 MG Oral Tablet; TAKE ONE TABLET BY MOUTH DAILY 12. Lumigan 0.03 % SOLN; INSTILL 1 DROP INTO BOTH EYES ONCE DAILY IN THE 13. Calcium 500 MG TABS; 14. Metoprolol Tartrate 25 MG Oral Tablet; TAKE ONE TABLET BY MOUTH TWICE DAILY; 15. Pravastatin Sodium 40 MG Oral Tablet; take one tablet by mouth daily as directed; 16. Ibuprofen 400 MG Oral Tablet; TAKE ONE TABLET BY MOUTH DAILY as need only with 17. Dicyclomine HCl - 20 MG Oral Tablet; TAKE ONE TABLET BY MOUTH THREE TIMES 18. Fluticasone Propionate 50 MCG/ACT Nasal Suspension; USE 1 SPRAY IN EACH 19. LevoFLOXacin 750 MG Oral Tablet; TAKE 1 TABLET DAILY 20. Acidophilus Lactobacillus Oral Capsule; Take 1 tablet 1 x day with antibiotic; 21. Loperamide HCl - 2 MG Oral Capsule; TAKE 1 CAPSULE 4 TIMES DAILY NEEDED 22. Ipratropium-Albuterol 0.5-2.5 (3) MG/3ML Inhalation Solution; Q4 hours PRN 23. Ondansetron HCl - 4 MG Oral Tablet; TAKE ONE TABLET BY MOUTH EVERY EIGHT 24. Bevespi 9-4.8 MCG/ACT AERO; 2 Puffs twice a day )LABA) 25. Aspirin 81 MG TABS; TAKE 1 TABLET DAILY 26. Combivent Respimat 20-100 MCG/ACT Inhalation Aerosol Solution; INHALE ONE PUFF 27. Triamcinolone Acetonide 0.1 % External Cream; APPLY SPARINGLY TO AFFECTED 28. MetFORMIN HCl - 500 MG Oral Tablet; TAKE ONE TABLET BY MOUTH TWICE DAILY 29. Toviaz 8 MG Oral Tablet Extended Release 24 Hour; TAKE ONE TABLET BY MOUTH ONE 30. Vitamin B-12 1000 MCG Oral Tablet; TAKE 1 TABLET DAILY DIRECTED; 31. D 1000 1000 UNIT Oral Capsule; TAKE 4 CAPSULE Daily; Allergies 1. Cymbalta CPEP 2. Enalapril Maleate TABS 3. Gabapentin TABS 4. Lyrica CAPS 5. Bactrim TABS 6. Ciprofloxacin HCl TABS Historian: patient, EMS Review of Systems Constitutional: reports: weakness Eyes: reports: no symptoms ENT: reports: no symptoms Cardiovascular: reports: as stated in HPI Respiratory: reports: as stated in HPI Gastrointestinal: reports: no symptoms, other Genitourinary - Female: reports: other (Chronic incontinence) Musculoskeletal: reports: as stated in HPI Integumentary: reports: no symptoms Neurologic: reports: no symptoms Psychiatric: reports: anxiety Hematologic / Lymphatic: no symptoms Allergic / Immunologic: no symptoms Past Medical History Past Medical History: Please refer to HPI Past Surgical History: Please refer to HPI Family History FH: HTN (hypertension) FH: cancer FH: cardiovascular disease FH: diabetes mellitus FH: lung cancer Please refer to HPI Social History Please refer to HPI Hx Tobacco Use In Past Year?: Yes Smoking Status: Current Every Day Smoker Marital status: Housing status: lives with family Occupational Status: disabled Immunizations History of Influenza Vaccine: No Influenza Vaccine Date: Sep 24, 2012 History of Tetanus Vaccine?: Unknown History of Pneumococcal: Yes History of Hepatitis B Vaccine: No Hepatitis Immunization Date: May 11, 2008 History of MDRO History of MDRO: No Allergies Coded Allergies: Enalapril (Verified Allergy, Unknown, ? reaction, 11/08/16) Pregabalin (Verified Adverse Reaction, Severe, GI SYMPTOMS, 11/08/16) CI Pigment Blue 63 (Verified Adverse Reaction, Unknown, N/V, 11/08/16) Duloxetine (Verified Adverse Reaction, Unknown, N/V, 11/08/16) Gabapentin (Verified Adverse Reaction, Unknown, GI symptoms, 11/08/16) Morphine (Unverified Adverse Reaction, Unknown, NAUSEATED, 11/08/16) Quinolones (Verified Adverse Reaction, Unknown, GI symptoms, 11/08/16) includes Cipro Sulfa Antibiotics (Verified Adverse Reaction, Unknown, "Sulfa Drugs = nauseated", 11/08/16) Current Medications Reported Home Medications Medications Dose Route/Sig Max Daily Dose Days Date Category Dose Instructions Etodolac 400 Mg Tab 400 Mg PO BID 02/20/18 Reported Fluticasone Propionate 120 Sprays/6000 Mcg Inha 1 [place] NING BID PRN 02/20/18 Reported Lorazepam 0.5 Mg Tab 0.5 Mg PO DAILY PRN 02/20/18 Reported Metoclopramide Hcl 5 Mg Tab 5 Mg PO BID 02/20/18 Reported Clopidogrel (Clopidogrel Bisulfate) 75 Mg Tab 75 Mg PO QAM 02/20/18 Reported Bupropion Hcl Xl (Bupropion Hcl) 150 Mg Tab 150 Mg PO QAM 02/20/18 Reported Pravastatin Sodium 40 Mg Tab 40 Mg PO QAM 02/20/18 Reported Keflex (Cephalexin) 500 Mg Cap 1 Cap PO TID 10 02/19/18 Rx Oxycodone Hcl 10 Mg Tab 10 Mg PO QID PRN 02/19/18 Reported Oxycodone Hcl Er (Oxycodone Hcl) 10 Mg Tab 10 Mg PO Q12 02/19/18 Reported Miralax (Polyethylene Glycol 3350) 1 Pow Pow 17 Gm PO DAILY PRN 11/08/16 Reported Imodium (Loperamide HCl) 2 Mg Cap 2 Mg PO DAILY PRN 11/08/16 Reported Motrin (Ibuprofen) 400 Mg Tab 400 Mg PO DAILY PRN 11/08/16 Reported Combivent Respimat (Ipratropium-Albuterol) 1 Aer Aer 2 Puffs INH QID PRN 11/08/16 Reported Vitamin D (Cholecalciferol) 2,000 Unit Tab 2,000 Inter.unit PO DAILY 11/08/16 Reported Lumigan (Bimatoprost) 0.01 % Shy 1 Drop OPB HS 11/08/16 Reported Metformin HCl 500 Mg Tab 500 Mg PO BID 11/08/16 Reported Aspirin Ec (Aspirin) 81 Mg Tab 81 Mg PO HS 10/08/15 Reported Vitamin B12 (Cyanocobalamin) 1,000 Mcg Tab 1,000 Mcg PO QAM 10/08/15 Reported Zofran (Ondansetron Hcl) 8 Mg Tab 8 Mg PO TID PRN 05/24/13 Reported Bentyl (Dicyclomine Hcl) 10 Mg Cap 10 Mg PO TID PRN 05/24/13 Reported Dexilant (Dexlansoprazole) 60 Mg Cap 60 Mg PO QAM 03/27/13 Reported TAKE 1 CAPSULE BY MOUTH IN THE MORNING 30 MINUTES PRIOR TO BREAKFAST Toviaz (Fesoterodine Fumarate) 8 Mg Tab 8 Mg PO HS 03/27/13 Reported Lopressor (Metoprolol Tartrate) 25 Mg Tab 25 Mg PO BID 06/12/12 Reported Physical Physical Exam Vital Signs: Date Time Temp Pulse Resp B/P (MAP) Pulse Ox O2 Delivery O2 Flow Rate FiO2 02/21/18 16:00 Room Air 02/21/18 15:35 36.7 72 18 121/79 (93) 95 Room Air 02/21/18 11:53 36.7 78 18 128/81 (97) 93 Room Air 02/21/18 08:00 Room Air 02/21/18 07:24 37.0 76 18 120/75 (90) 94 Room Air 02/21/18 00:26 Room Air 02/21/18 00:21 36.7 74 20 116/79 (91) 95 Room Air 02/20/18 20:45 Room Air 02/20/18 20:11 37.0 76 18 159/78 02/20/18 18:59 75 20 143/83 96 Room Air 02/20/18 18:04 73 18 132/84 95 Room Air General Appearance: WELL-APPEARING, NO APPARENT DISTRESS Head: NORMOCEPHALIC, ATRAUMATIC Eyes: PERRLA, NO DISCHARGE, EOMI, SCLERAE NORMAL ENT: NORMAL EAR EXAM, NORMAL NASAL EXAM, NORMAL MOUTH EXAM, NORMAL THROAT EXAM , NORMAL DENTAL EXAM Neck: NORMAL RANGE OF MOTION, NO TENDERNESS, TRACHEA MIDLINE, NO STRIDOR Respiratory: other (Decreased breath sounds globally with some inspiratory Velcro rales appreciated especially at the bases bilaterally) Cardiovasular: REGULAR RATE/RHYTHM, NORMAL S1S2, NO M/G/R, NO MURMUR Abdomen: NON TENDER, NORMAL BOWEL SOUNDS, NO REBOUND, NO MASSES, NO GUARDING Genitourinary - Female: EXTERNAL GENITALIA NORMAL Back: NORMAL INSPECTION, NO MIDLINE TENDERNESS, NO CVA TENDERNESS, NO PARAVERTEBRAL TTP, other (Well-healed previous surgical interventions in the lumbar region) Upper Extremities: NO EDEMA, NO DEFORMITY, NORMAL ROM Lower Extremities: NO EDEMA, NO DEFORMITY, NORMAL ROM Pulses: carotid (R) (2+), carotid (L) (2+), dorsalis pedis (R) (2+), dorsalis pedis (L) (2+) Neuro: ALERT, ORIENTED x 3, NORMAL MOTOR EXAM, NORMAL SENSATION Reflexes: biceps (R) (2+), bicpes (L) (2+), patellar (R) (2+), patellar (L) (2+ ) Babinski Testing: right (downgoing), left (downgoing) Psychiatric: NORMAL AFFECT, NO SUICIDAL IDEATION, CONTRACTS FOR SAFETY Diagnostics Labs Results Past 24 Hours Test 02/21/18 00:34 02/21/18 07:45 02/21/18 11:11 Range/Units Triglycerides Level 154 0-150 mg/dl Cholesterol Level 83 0-200 mg/dl HDL Cholesterol 34 mg/dl LDL Cholesterol, Calculated 18 mg/dl VLDL Cholesterol, Calculated 31 mg/dl Cholesterol/HDL Ratio 2.4 Lipase 792 73-393 U/L Carcinoembryonic Antigen 2.6 0-2.5 ng/ml Diagnostic Radiology Please refer to HPI Impression Assessment and Plan 62-year-old female with chronic ILD and newly discovered pulmonary nodule: 1. Pulmonary nodule: Patient has a new 18 mm subpleural nodule which appears to be causing a pathologic fracture lung the posterior 10th rib. At this time the patient has agreed to be evaluated by interventional Radiology for fine- needle aspiration. 2. ILD: Patient underwent surgical lung biopsy of the lung 09/22/2012. At that time there changes consistent with idiopathic pulmonary fibrosis but also granulomatous tissue with pull rising material possibly suggesting previous inhalation injury/pneumoconiosis/foreign body pulmonary granulomatosis. At this time continue current medications and will work with Radiology to determine workup subpleural nodule.
[2018-02-21] MEDS: ONDANSETRON 8MG OD TAB PO PRN (20:31)
[2018-02-21] MEDS: HEPARIN SOD 5000 UNIT/0.5 ML CARP SQ SCH (20:32)
[2018-02-21] MEDS: DICYCLOMINE HCL 10 MG CAP PO PRN (23:28)
[2018-02-21 23:38] VITALS: BP 144/95; PULSE 66; TEMP 36.7; O2SAT 95
[2018-02-22] MEDS: NSS + 20MEQ KCL 1000ML 1,000 ML IV SCH ×3 (01:59→23:06)
[2018-02-22] MEDS: HYDROmorphone INJ 2 MG/ML SYR/VIAL IV PRN ×8 (03:56→22:29)
[2018-02-22] MEDS: ONDANSETRON 8MG OD TAB PO PRN (05:27)
[2018-02-22 05:59] LABS: BASO % 0.5 %; BASO ABS # 0.03 K/uL (0-0.2); EOS % 4.8 %; EOS ABS # 0.32 K/uL (0-0.5); HEMATOCRIT 39.4 % (37-47); HEMOGLOBIN 12.9 g/dL (12.0-16.0); IG# 0.02 K/uL (0.00-0.02); LYMPH % 31.5 %; LYMPH ABS # 2.09 K/uL (1.2-3.4); MEAN CELL VOLUME 85.5 fL (80-100); MEAN CORPUSCULAR HGB CONC 32.7 g/dl (32-36); MEAN PLATELET VOLUME 9.4 fL (7.4-10.4); MONO % 6.6 %; MONO ABS # 0.44 K/uL (0.11-0.59); NEUT % 56.3 %; NEUT ABS # 3.73 K/uL (1.4-6.5); PLATELET COUNT 334 K/uL (130-400); RED CELL DISTRIBUTION WIDTH CV 13.6 % (11.5-14.5); RED CELL DISTRIBUTION WIDTH SD 42.2 fL (36.4-46.3); WHITE BLOOD COUNT 6.63 K/uL (4.8-10.8)
[2018-02-22 06:07] LABS: PTT PATIENT 25.2 SECONDS (21.0-31.0)
[2018-02-22 06:26] LABS: ALBUMIN 2.7 gm/dl (3.4-5.0); ALT/SGPT 18 U/L (12-78); AST/SGOT 24 U/L (15-37); BLOOD UREA NITROGEN 4 mg/dl (7-18); CALCIUM 8.8 mg/dl (8.5-10.1); CARBON DIOXIDE 29 mmol/L (21-32); CREATININE 0.62 mg/dl (0.60-1.20); GLUCOSE 101 mg/dl (70-99); LIPASE 1332 U/L (73-393); POTASSIUM 3.9 mmol/L (3.5-5.1); SODIUM 142 mmol/L (136-145)
[2018-02-22 06:28] LABS: ALKALINE PHOSPHATASE 76 U/L (45-117); TOTAL PROTEIN 7.1 gm/dl (6.4-8.2)
[2018-02-22 07:04] VITALS: BP 151/89; PULSE 66; TEMP 36.6; O2SAT 95
[2018-02-22] MEDS: CLOPIDOGREL BISULFATE 75 MG TAB PO SCH (08:10)
[2018-02-22] MEDS: METOPROLOL TARTRATE 25 MG TAB PO SCH ×2 (08:10→20:58)
[2018-02-22] MEDS: BuPROPion XL 150 MG TABCR PO SCH (08:10)
[2018-02-22] MEDS: NICOTINE 21 MG/24 HR TDSY EXT SCH ×2 (08:10→08:14)
[2018-02-22] MEDS: OXYCODONE HCL 10 MG TABCR (OXYCONTIN) PO SCH ×2 (08:10→20:59)
[2018-02-22] MEDS: PANTOprazole SOD 40 MG TAB PO SCH (08:10)
[2018-02-22] MEDS: HEPARIN SOD 5000 UNIT/0.5 ML CARP SQ SCH ×2 (08:11→20:59)
[2018-02-22] MEDS ORDERED: MAGNESIUM OXIDE 400 MG TAB PO ONE (09:00)
[2018-02-22] MEDS ORDERED: ALBUT/IPRATROP 3MG/0.5MG NEB 3 ML VIAL INH PRN (11:45)
[2018-02-22 11:49] VITALS: BP 145/85; PULSE 62; TEMP 36.9; O2SAT 96
--- NOTE | 2018-02-22 11:54 | Hospitalist Progress Note ---
Hospitalist Progress Note Date of Service February 22, 2018. Subjective Pt evaluation today including: conversation w/ patient, physical exam, lab review, review of studies, conversation w/ medical cost consultant (Dr. Denny), review of inpatient medication list Voiding: no voiding problems Patient sitting up in bed. IV Dilaudid working but wears off before 4 hours- requesting 1 mg q2 hrs. Advanced to clears yesterday- +nausea and vomiting. +band-like pain across upper abdominal region. +mid-back pain. Discussed image findings suggestive of malignancy. Planning for biopsy by Dr. Veronica. If confirms malignancy, will have outpatient radiation treatment and oncology follow-up. Patient denies any fever, chills, sweats, lightheadedness, dizziness, vision changes, CP, palpitations, edema, SOB, wheezing, cough, diarrhea, urinary symptoms, melena, numbness/tingling, weakness, anxiety/depression, active bleeding, or new skin discoloration/changes. Medications Current Inpatient Medications Medications (Trade) Dose Ordered Sig/Farida Route Start Time Stop Time Status Last Admin Dose Admin Bupropion HCl (Wellbutrin-Xl Tab) 150 mg QAM PO 02/21/18 09:00 03/23/18 08:59 02/22/18 08:10 150 MG Clopidogrel Bisulfate (plAVix TAB) 75 mg QAM PO 02/21/18 09:00 03/23/18 08:59 02/22/18 08:10 75 MG Dicyclomine HCl (Bentyl Cap) 10 mg TID PRN PO 02/20/18 18:00 03/22/18 17:59 02/21/18 23:28 10 MG Fluticasone Propionate (Flonase Nasal [place]) BID PRN NING 02/20/18 18:00 03/22/18 17:59 Albuterol/ Ipratropium (Combivent Respimat Inh) 2 puffs QID PRN INH 02/20/18 18:00 03/22/18 17:59 Metoprolol Tartrate (Lopressor Tab) 25 mg BID PO 02/20/18 21:00 03/22/18 20:59 02/22/18 08:10 25 MG Oxycodone HCl (Oxycontin Tab) 10 mg Q12 PO 02/20/18 21:00 5/19/18 20:59 02/22/18 08:10 10 MG Miscellaneous Information (Order Awaiting Action) 1 ea QS N/A 02/21/18 00:00 03/23/18 00:00 Pantoprazole Sodium (Protonix Tab) 40 mg QAM PO 02/21/18 09:00 03/23/18 08:59 02/22/18 08:10 40 MG Polyethylene (Miralax Powder Packet) 17 gm DAILY PRN PO 02/20/18 18:00 03/22/18 17:59 Potassium Chloride/Sodium Chloride 1,000 ml @ 100 mls/hr Q10H IV 02/20/18 20:00 03/22/18 19:59 02/22/18 01:59 100 MLS/HR Ondansetron HCl (Zofran Odt) 8 mg Q6H PRN PO 02/21/18 00:15 03/23/18 00:14 02/22/18 05:27 8 MG Ceftriaxone Sodium 1 gm/ Dextrose 50 ml @ 100 mls/hr Q24H IV 02/21/18 16:00 02/26/18 07:59 02/21/18 15:54 100 MLS/HR Nicotine (Nicoderm Cq 21MG Patch) 1 patch QAM EXT 02/21/18 13:00 03/23/18 12:59 02/21/18 13:18 1 PATCH Miscellaneous (Remove Nicoderm Patch) 1 ea HS PRN N/A 02/21/18 13:00 03/23/18 12:59 Heparin Sodium (Porcine) (Heparin Sq 5000 Unit/0.5ml) 5,000 unit Q12 SQ 02/21/18 21:00 03/23/18 20:59 Hydromorphone HCl (Dilaudid Inj) 1 mg Q2H PRN IV 02/22/18 10:30 03/06/18 21:14 Objective Vital Signs Date Time Temp Pulse Resp B/P (MAP) Pulse Ox O2 Delivery O2 Flow Rate FiO2 02/22/18 08:00 Room Air 02/22/18 07:04 36.6 66 18 151/89 (109) 95 Room Air 02/22/18 00:15 Room Air 02/21/18 23:38 36.7 66 18 144/95 (111) 95 Room Air 02/21/18 20:26 Room Air 02/21/18 16:00 Room Air 02/21/18 15:35 36.7 72 18 121/79 (93) 95 Room Air 02/21/18 11:53 36.7 78 18 128/81 (97) 93 Room Air Physical Exam General Appearance: no apparent distress, + obese Eyes: normal inspection, PERRL ENT: hearing grossly normal Neck: supple Respiratory/Chest: lungs clear, no respiratory distress, no accessory muscle use, + decreased breath sounds (throughout ) Cardiovascular: regular rate, rhythm Abdomen: normal bowel sounds, + tenderness (across up abdominal region ) Extremities: no pedal edema, no calf tenderness, + pertinent finding Neurologic/Psychiatric: alert, normal mood/affect, oriented x 3 Skin: normal color, warm/dry, no rash Laboratory Results Last 24 Hours Test 02/22/18 05:22 White Blood Count 6.63 K/uL Red Blood Count 4.61 M/uL Hemoglobin 12.9 g/dL Hematocrit 39.4 % Mean Corpuscular Volume 85.5 fL Mean Corpuscular Hemoglobin 28.0 pg Mean Corpuscular Hemoglobin Concent 32.7 g/dl Platelet Count 334 K/uL Mean Platelet Volume 9.4 fL Neutrophils (%) (Auto) 56.3 % Lymphocytes (%) (Auto) 31.5 % Monocytes (%) (Auto) 6.6 % Eosinophils (%) (Auto) 4.8 % Basophils (%) (Auto) 0.5 % Neutrophils # (Auto) 3.73 K/uL Lymphocytes # (Auto) 2.09 K/uL Monocytes # (Auto) 0.44 K/uL Eosinophils # (Auto) 0.32 K/uL Basophils # (Auto) 0.03 K/uL RDW Standard Deviation 42.2 fL RDW Coefficient of Variation 13.6 % Immature Granulocyte % (Auto) 0.3 % Immature Granulocyte # (Auto) 0.02 K/uL Prothrombin Time 10.6 SECONDS Prothromb Time International Ratio 1.0 Activated Partial Thromboplast Time 25.2 SECONDS Partial Thromboplastin Ratio 1.0 Sodium Level 142 mmol/L Potassium Level 3.9 mmol/L Chloride Level 111 mmol/L Carbon Dioxide Level 29 mmol/L Anion Gap 2.0 mmol/L Blood Urea Nitrogen 4 mg/dl Creatinine 0.62 mg/dl Est Creatinine Clear Calc Drug Dose 109.1 ml/min Estimated GFR () 110.4 Estimated GFR (Non- 95.3 BUN/Creatinine Ratio 7.1 Random Glucose 101 mg/dl Calcium Level 8.8 mg/dl Magnesium Level 1.7 mg/dl Total Bilirubin 0.2 mg/dl Direct Bilirubin < 0.1 mg/dl Aspartate Amino Transf (AST/SGOT) 24 U/L Alanine Aminotransferase (ALT/SGPT) 18 U/L Alkaline Phosphatase 76 U/L Total Protein 7.1 gm/dl Albumin 2.7 gm/dl Lipase 1332 U/L Assessment and Plan 62-year-old white female admitted to because of worsening abdominal pain was found has pancreatitis, ?metastatic lung disease. Pancreatitis: - IVF @ 100 ml/hr - Lipase- trend upwards after advancement in diet yesterday- continue to trend - On clear liquid diet per GI - IV Dilaudid PRN for pain management - IV Zofran PRN for nausea - GI consulted, appreciate recommendations ?Metastatic disease: - CEA elevated at 2.6 - CT imaging: - 9 x 9 mm area of ill-defined attenuation involving the distal pancreatic body- ?focal edema vs pancreatitis mass - Left lower lobe measuring 2.4 cm and a 1.8 subpleural soft tissue attenuating nodule adjacent to the basal right lower lobe invading the adjacent posterior right 10th rib. - Mediastinal lymphadenopathy suggesting metastatic disease is also noted. - Pulmonary consulted- planning for biopsy on 02/24, holding Plavix and ASA - Radiation oncology consulted- CT stimulation today; if biopsy confirms diagnosis, then can start radiation therapy outpatient - Oncology consulted- if biopsy confirms diagnosis, will need PET scan for staging and outpatient f/u UTI POA- UCx w/ pansensitive E.coli: IV Rocephin while NPO- started on 02/20 Hypomagnesemia: Replace w/ Mag-Ox supplement- follow and replace PRN Paroxysmal a.fib, HTN, chronic diastolic CHF- STABLE: - Continue Metoprolol 25 mg BID - Hold Plavix 75 mg daily and ASA 81 mg daily for upcoming biopsy procedure h/o TIA/CVA, HLD: - Hold Plavix and ASA for upcoming biopsy procedure - Pravastatin held due to NPO T2DM: - Hold Metformin 500 mg BID while inpatient - BSG ACHS and ISS COPD- STABLE: Continue Combivent Respimat, DuoNebs PRN for SOB/wheezing Tobacco abuse- current every day smoker: - Smoking cessation counselling - Nicotine patch ordered Anxiety- STABLE: Continue Bupropion XL 150 mg QAM, Lorazepam PRN Irritable bowel disease: Continue Bentyl PRN Fibromyalgia, chronic pain: - Continue Oxycodone 10 mg BID - IV Dilaudid PRN - Hold Oxycodone 10 mg QID PRN while on IV Dilaudid GERD: Change Dexilant to Pantoprazole DVT prophylaxis: Heparin SQ BID- schedule to hold on 5/8 PM for biopsy procedure on 02/24 Code status: LEVEL I, FULL Dispo: Discharge to home once medically stable
[2018-02-22] MEDS ORDERED: CARBOHYDRATES FOR HYPOGLYCEMIA PO PRN (12:30)
[2018-02-22] MEDS ORDERED: GLUCOSE 40% GEL 15 GM TUBE PO PRN (12:30)
[2018-02-22] MEDS ORDERED: GLUCAGON FOR INJ 1 MG VIAL IM PRN (12:30)
[2018-02-22] MEDS ORDERED: DEXTROSE 50% 50 ML SYR IV PRN (12:30)
[2018-02-22] MEDS ORDERED: GLUCOSE 10 TABS/TUBE PO PRN (12:30)
--- NOTE | 2018-02-22 13:05 | PROGRESS NOTE ---
DATE: 02/22/2018 The patient continues to have abdominal and back pain. Her lipase has gone up today from 792 to 1332. Her CEA is normal at 2.6. The patient was seen by oncology and pulmonology and arrangements are being made for her to get radiation to the metastatic lesion in the 10th rib as well as getting a percutaneous biopsy with a probe placed for pleural-based lesion in her lung. As far as her pancreas, the patient will continue on a clear liquid diet today as we await the workup of her lung lesions.
--- NOTE | 2018-02-22 13:57 | Pulmonology Progress Note ---
Pulmonary Progress Note Date of Service February 22, 2018. Attending Dr. Veronica Subjective Patient is overall doing well today but continues to note chest pain/discomfort Objective Patient is sitting up in her bed able to move for the room with no signs of respiratory insufficiency/failure: Vital signs: Stable on room air Respiratory: Inspiratory Velcro rales appreciated bit at the bases bilaterally Cardiac: S1-S2 regular rate and rhythm Abdomen: Positive bowel sounds soft with mild discomfort to deep palpation her on the epigastric region Extremities: No clubbing cyanosis or breakdown Assessment & Plan 62-year-old female admitted with pancreatitis and found to have a new left lower lobe mass: 1. Lung mass: Patient at this time is been approved to move forward with EBUS/ ENB evaluation of the mediastinum and left lower lobe mass. Patient is to undergo procedure on 02/24/2018. At this time I have held her Plavix. 2. ILD: Patient underwent surgical lung biopsy of the lung 09/22/2012. At that time there changes consistent with idiopathic pulmonary fibrosis but also granulomatous tissue with pull rising material possibly suggesting previous inhalation injury/pneumoconiosis/foreign body pulmonary granulomatosis. Data Medications: Current Inpatient Medications Medications (Trade) Dose Ordered Sig/Farida Route Start Time Stop Time Status Last Admin Dose Admin Bupropion HCl (Wellbutrin-Xl Tab) 150 mg QAM PO 02/21/18 09:00 03/23/18 08:59 02/22/18 08:10 150 MG Clopidogrel Bisulfate (plAVix TAB) 75 mg QAM PO 02/21/18 09:00 03/23/18 08:59 02/22/18 08:10 75 MG Dicyclomine HCl (Bentyl Cap) 10 mg TID PRN PO 02/20/18 18:00 03/22/18 17:59 02/21/18 23:28 10 MG Fluticasone Propionate (Flonase Nasal [place]) BID PRN NING 02/20/18 18:00 03/22/18 17:59 Albuterol/ Ipratropium (Combivent Respimat Inh) 2 puffs QID PRN INH 02/20/18 18:00 03/22/18 17:59 Metoprolol Tartrate (Lopressor Tab) 25 mg BID PO 02/20/18 21:00 03/22/18 20:59 5/7/18 08:10 25 MG Oxycodone HCl (Oxycontin Tab) 10 mg Q12 PO 02/20/18 21:00 03/06/18 20:59 02/22/18 08:10 10 MG Miscellaneous Information (Order Awaiting Action) 1 ea QS N/A 02/21/18 00:00 03/23/18 00:00 Pantoprazole Sodium (Protonix Tab) 40 mg QAM PO 02/21/18 09:00 03/23/18 08:59 02/22/18 08:10 40 MG Polyethylene (Miralax Powder Packet) 17 gm DAILY PRN PO 02/20/18 18:00 03/22/18 17:59 Potassium Chloride/Sodium Chloride 1,000 ml @ 100 mls/hr Q10H IV 02/20/18 20:00 03/22/18 19:59 02/22/18 11:41 100 MLS/HR Ondansetron HCl (Zofran Odt) 8 mg Q6H PRN PO 02/21/18 00:15 03/23/18 00:14 02/22/18 05:27 8 MG Ceftriaxone Sodium 1 gm/ Dextrose 50 ml @ 100 mls/hr Q24H IV 02/21/18 16:00 02/26/18 07:59 02/21/18 15:54 100 MLS/HR Nicotine (Nicoderm Cq 21MG Patch) 1 patch QAM EXT 02/21/18 13:00 03/23/18 12:59 02/21/18 13:18 1 PATCH Miscellaneous (Remove Nicoderm Patch) 1 ea HS PRN N/A 02/21/18 13:00 03/23/18 12:59 Heparin Sodium (Porcine) (Heparin Sq 5000 Unit/0.5ml) 5,000 unit Q12 SQ 02/21/18 21:00 03/23/18 20:59 Hydromorphone HCl (Dilaudid Inj) 1 mg Q2H PRN IV 02/22/18 10:30 03/06/18 21:14 02/22/18 11:42 1 MG Insulin Aspart (novoLOG ASPART) SLIDING SCALE G... ACHS SC 02/22/18 16:30 03/24/18 16:29 Albuterol/ Ipratropium (Duoneb) 3 ml Q4H PRN INH 5/7/18 11:45 03/24/18 11:44 Glucose (Glucose 40% Gel) 15-30 GRAMS 15 GRAMS... UD PRN PO 02/22/18 12:30 03/24/18 12:29 Glucose (Glucose Chew Tab) 4-8 Tablets 4 Tabl... UD PRN PO 02/22/18 12:30 03/24/18 12:29 Dextrose (Dextrose 50% 50ML Syringe) 25-50ML 25ML FOR ... UD PRN IV 02/22/18 12:30 03/24/18 12:29 Glucagon (Glucagon Inj) 1 mg UD PRN IM 02/22/18 12:30 03/24/18 12:29 Carbohydrates (Carbohydrates For Hypoglycemia) 15-30 GRAMS 15 grams if BSG 54-69... UD PRN PO 02/22/18 12:30 03/24/18 12:29 Vital Signs: Date Time Temp Pulse Resp B/P (MAP) Pulse Ox O2 Delivery O2 Flow Rate FiO2 02/22/18 11:49 36.9 62 18 145/85 (105) 96 Room Air 02/22/18 08:00 Room Air 02/22/18 07:04 36.6 66 18 151/89 (109) 95 Room Air 02/22/18 00:15 Room Air 02/21/18 23:38 36.7 66 18 144/95 (111) 95 Room Air 02/21/18 20:26 Room Air 02/21/18 16:00 Room Air 02/21/18 15:35 36.7 72 18 121/79 (93) 95 Room Air Laboratory Results: Last 24 Hours Test 02/22/18 05:22 White Blood Count 6.63 K/uL Red Blood Count 4.61 M/uL Hemoglobin 12.9 g/dL Hematocrit 39.4 % Mean Corpuscular Volume 85.5 fL Mean Corpuscular Hemoglobin 28.0 pg Mean Corpuscular Hemoglobin Concent 32.7 g/dl Platelet Count 334 K/uL Mean Platelet Volume 9.4 fL Neutrophils (%) (Auto) 56.3 % Lymphocytes (%) (Auto) 31.5 % Monocytes (%) (Auto) 6.6 % Eosinophils (%) (Auto) 4.8 % Basophils (%) (Auto) 0.5 % Neutrophils # (Auto) 3.73 K/uL Lymphocytes # (Auto) 2.09 K/uL Monocytes # (Auto) 0.44 K/uL Eosinophils # (Auto) 0.32 K/uL Basophils # (Auto) 0.03 K/uL RDW Standard Deviation 42.2 fL RDW Coefficient of Variation 13.6 % Immature Granulocyte % (Auto) 0.3 % Immature Granulocyte # (Auto) 0.02 K/uL Prothrombin Time 10.6 SECONDS Prothromb Time International Ratio 1.0 Activated Partial Thromboplast Time 25.2 SECONDS Partial Thromboplastin Ratio 1.0 Sodium Level 142 mmol/L Potassium Level 3.9 mmol/L Chloride Level 111 mmol/L Carbon Dioxide Level 29 mmol/L Anion Gap 2.0 mmol/L Blood Urea Nitrogen 4 mg/dl Creatinine 0.62 mg/dl Est Creatinine Clear Calc Drug Dose 109.1 ml/min Estimated GFR () 110.4 Estimated GFR (Non- 95.3 BUN/Creatinine Ratio 7.1 Random Glucose 101 mg/dl Calcium Level 8.8 mg/dl Magnesium Level 1.7 mg/dl Total Bilirubin 0.2 mg/dl Direct Bilirubin < 0.1 mg/dl Aspartate Amino Transf (AST/SGOT) 24 U/L Alanine Aminotransferase (ALT/SGPT) 18 U/L Alkaline Phosphatase 76 U/L Total Protein 7.1 gm/dl Albumin 2.7 gm/dl Lipase 1332 U/L
[2018-02-22] MEDS ORDERED: LORAZEPAM 0.5 MG TAB PO PRN (14:45)
[2018-02-22 15:11] VITALS: BP 129/89; PULSE 74; TEMP 36.9; O2SAT 96
--- NOTE | 2018-02-22 15:36 | Radiation Oncology Consult ---
Radiation Oncology Consult Date / Reason February 22, 2018. [facility] Medical Oncologist: Dr. Muñoz Radiation Oncologist: Dr. Sherley Denny Other Providers: Dr. Veronica Diagnosis (1) Lung mass Stage: IV History of Present Illness I am seeing Ms. Dimas in consultation at the request of Dr. Garcia. ECOG PS: 2 Ms. Dimas is a 62-year-old female with a history of smoking who recently presented with pain in her lower back radiating to her right flank. She presented to the emergency department at [facility] on 2017. 02/19/2018 --- CT of thoracic/lumbar spine ---IMPRESSION: 1. Irregular heterogeneous masslike nodules of the superior segment left lower lobe measuring up to 2.4 cm suggests primary bronchogenic carcinoma with satellite metastasis. The larger nodule invades the adjacent superior segmental bronchus. Oncologic consultation is needed. 2. 1.8 cm subpleural soft tissue attenuating nodule adjacent to the basal right lower lobe invades the adjacent posterior right 10th rib. There is an associated acute nondisplaced pathologic fracture without pneumothorax. 3. Mediastinal adenopathy suggests metastatic disease. 4. Suggested NSIP pattern of interstitial lung disease. 5. No acute fracture or subluxation of the thoracic or lumbar spine. 02/19/2018 --- CT of abdomen/pelvis --- IMPRESSION: 1. Mild interstitial and peripancreatic inflammatory changes of the distal pancreatic body and tail are compatible with acute uncomplicated pancreatitis without focal peripancreatic fluid collection identified. 2. 9 x 9 area of ill-defined decreased attenuation involving the distal pancreatic body may reflect area of focal edema or pancreatic mass lesion. This could be further characterized with MRI. 3. Prior cholecystectomy and hysterectomy. 4. Moderate sized hiatal hernia. 5. Colonic diverticulosis without diverticulitis. 6. Interstitial lung disease. 1.8 cm subpleural soft tissue attenuating metastatic nodule adjacent to the basal right lower lobe invades the adjacent posterior right 10th rib and causes an associated acute nondisplaced pathologic fracture. 02/21/2018 --- MRCP --- IMPRESSION: 1. Motion degraded exam without definite pancreatic mass lesion identified on these images to correlate with the finding seen on comparison CT study dated 02/19/2018. Attention at follow-up recommended. 2. Minimal peripancreatic inflammatory changes are better characterized on comparison CT suggesting acute pancreatitis. 3. Prior cholecystectomy with apparent filling defects within the cystic duct suggesting gallstones. 4. 2.6 cm mass of the posterior right 10th rib with subpleural extension is again noted compatible with metastatic lesion. Additionally, ill-defined areas of signal abnormality involving the T10-T12 vertebral bodies may reflect additional metastatic foci. 02/21/2018 --- medical oncology consultation with Dr. Muñoz --- recommended obtaining tissue diagnosis and consideration of palliative external beam radiation therapy. Recommended PET/CT scan. Follow-up with Dr. Muñoz in the outpatient setting. 02/21/2018 --- pulmonary medicine consultation with Dr. Veronica --- consideration of biopsy of pulmonary nodule with either bronchoscopy or interventional radiology to obtain tissue diagnosis. We are now seeing the patient in consultation discuss the role of radiation therapy. Pacemaker Hx Pacemaker: No Past History Past Medical/Surgical History: Atrial Fibrillation, Asthma, CHF, COPD, CVA/TIA Social History Smoking Status: Current Every Day Smoker Hx Tobacco Use In Past Year?: Yes Estimated Cigarettes Per Day: 20 Quit Date: Jan 17, 2012 Do You Dip or Chew Tobacco: No Hx Alcohol Use: No Hx Substance Use : No ( ) Allergies Coded Allergies: Enalapril (Verified Allergy, Unknown, ? reaction, 11/08/16) Pregabalin (Verified Adverse Reaction, Severe, GI SYMPTOMS, 11/08/16) CI Pigment Blue 63 (Verified Adverse Reaction, Unknown, N/V, 11/08/16) Duloxetine (Verified Adverse Reaction, Unknown, N/V, 11/08/16) Gabapentin (Verified Adverse Reaction, Unknown, GI symptoms, 11/08/16) Morphine (Unverified Adverse Reaction, Unknown, NAUSEATED, 11/08/16) Quinolones (Verified Adverse Reaction, Unknown, GI symptoms, 11/08/16) includes Cipro Sulfa Antibiotics (Verified Adverse Reaction, Unknown, "Sulfa Drugs = nauseated", 11/08/16) Home Medications Scheduled Aspirin (Aspirin Ec), 81 MG PO HS Bimatoprost (Lumigan), 1 DROP OPB HS Bupropion Hcl (Bupropion Hcl Xl), 150 MG PO QAM Cephalexin (Keflex), 1 CAP PO TID Cholecalciferol (Vitamin D), 2,000 INTER.UNIT PO DAILY Clopidogrel Bisulfate (Clopidogrel), 75 MG PO QAM Cyanocobalamin (Vitamin B12), 1,000 MCG PO QAM Dexlansoprazole (Dexilant), 60 MG PO QAM Etodolac (Etodolac), 400 MG PO BID Fesoterodine Fumarate (Toviaz), 8 MG PO HS Metformin HCl (Metformin HCl), 500 MG PO BID Metoclopramide Hcl (Metoclopramide Hcl), 5 MG PO BID Metoprolol Tartrate (Lopressor), 25 MG PO BID Oxycodone Hcl (Oxycodone Hcl Er), 10 MG PO Q12 Pravastatin Sodium (Pravastatin Sodium), 40 MG PO QAM Scheduled PRN Dicyclomine Hcl (Bentyl), 10 MG PO TID PRN for Abdominal Pain Fluticasone Propionate (Fluticasone Propionate), 1 SPRAY NING BID PRN for Nasal Congestion Ibuprofen (Motrin), 400 MG PO DAILY PRN for Pain Ipratropium-Albuterol (Combivent Respimat), 2 PUFFS INH QID PRN for SOB/Wheezing Loperamide Hcl (Imodium), 2 MG PO DAILY PRN for Diarrhea Lorazepam (Lorazepam), 0.5 MG PO DAILY PRN for Anxiety Ondansetron Hcl (Zofran), 8 MG PO TID PRN for Nausea Oxycodone Hcl (Oxycodone Hcl), 10 MG PO QID PRN for Pain Polyethylene Glycol 3350 (Miralax), 17 GM PO DAILY PRN for Constipation Review of Systems Ear/Hearing: Ear Side: Bilateral Hearing Ability: Normal Hearing Aid: None Edema: Present?: Yes Type: Pitting Degree: Trace Physical Exam Height: 5 (Feet) 8.00 (Inches) 172.7 (Centimeters) 1.7272 (Meters) Weight: 205 (Pounds) 11.0 (Ounces) 93.300 (Kilograms) 85553.000 (Grams) Date Time Temp Pulse Resp B/P (MAP) Pulse Ox O2 Delivery O2 Flow Rate FiO2 02/22/18 11:49 36.9 62 18 145/85 (105) 96 Room Air 02/22/18 08:00 Room Air 02/22/18 07:04 36.6 66 18 151/89 (109) 95 Room Air 02/22/18 00:15 Room Air 02/21/18 23:38 36.7 66 18 144/95 (111) 95 Room Air 02/21/18 20:26 Room Air 02/21/18 16:00 Room Air 02/21/18 15:35 36.7 72 18 121/79 (93) 95 Room Air General Appearance: WD/WN, + obese Head: normocephalic Eyes: normal inspection ENT: hearing grossly normal Neck: supple, no adenopathy Respiratory/Chest: chest non-tender, lungs clear, normal breath sounds, no respiratory distress Cardiovascular: regular rate, rhythm, no edema, no gallop, no JVD, no murmur Abdomen/GI: normal bowel sounds, non tender, soft, no organomegaly, no pulsatile mass Neurologic/Psych: air grinder II-XII nml as tested, alert, oriented x 3 Pain Management Patient Reports Pain: Yes Side: Mid Pain Location: Back Patient Preferred Pain Scale: 0 - 10 Initial Pain Intensity: 8.0 Level of Consciousness: Spontaneously Alert Relief Measures: Medication - Injection Pain Intervention: See MAR Pain Management Plan Refer to inpatient team management plan. Laboratory Laboratory Results: were reviewed Pathology Pathology Results: pending Imaging Imaging Studies: were reviewed, and pertinent findings noted in HPI Assessment & Recommendations Assessment: Ms. Dimas is a 62-year-old female with likely metastatic lung cancer (versus potential pancreatic primary) with a subpleural nodule involving the posterior 10th rib which is causing significant pain for the patient. Additionally, there is potential evidence of disease involving the lower thoracic spine (T10 - T12). There is no tissue diagnosis at this point. Medical oncology has evaluated the patient and has recommended obtaining a tissue diagnosis, complete the staging workup including a PET/CT scan and referral for palliative radiation therapy. We are now seeing the patient in consultation discuss the role of radiation therapy. Recommendation: Palliative external beam radiation therapy to the lower thoracic spine and right 10th rib. 10 fractions at 300 cGy per fraction. Plan: 1. CT simulation for treatment planning for radiation therapy. Initiate treatment after obtaining a preliminary diagnosis consistent with cancer. 2. Obtain tissue diagnosis via bronchoscopy/EBUS. Confirmed plan with Dr. Veronica. 3. Follow-up with medical oncology in the outpatient setting. 4. Completion of staging workup including PET/CT scan. 5. Patient and family encouraged to call us with any further questions or concerns. Rationale/Explanation: We have explained the indications, alternatives, benefits , risks and side effects of radiation therapy. We have explained the most common side effects which include but are not limited to skin erythema, skin break down, pulmonary fibrosis, adhesion development, radiation pneumonitis, rib fracture, heart failure and heart disease, esophagitis, development of fistula, fatigue and development of secondary malignancy. We have explained the CT simulation process and treatment planning. We explained what to expect before , during and after treatment on a regular basis. The patient understands and would be willing to consent to treatment. The patient had multiple questions which were answered to their full satisfaction. Thank you for allowing us to participate in the care of this patient. This chart was completed in part utilizing [employer] Speech Voice Recognition software. Attempts were made to minimize the grammatical errors, random word insertions, pronoun errors and incomplete sentences. Any formal questions or concerns about the content, text or information contained within the body of this dictation should be directly addressed to the provider for clarification. Sherley Denny MD Department of Radiation Oncology [facility] Total Time (Attending) I spent 30 minutes examining and counseling the patient. I spent 15 minutes completing this note. LILIANA
[2018-02-22] MEDS: CEFTRIAXONE SOD INJ 1 GM in DEXTROSE 5% ADD-VANTAGE 50ML 50 ML IV SCH (15:37)
[2018-02-22] MEDS: INSULIN ASPART 100 UNITS/ML 3 ML PEN SC SCH ×2 (16:30→20:59)
--- NOTE | 2018-02-22 16:43 | DIAGNOSTIC IMAGING REPORT ---
CHEST SUPERDIMENSIONAL WITHOUT CLINICAL HISTORY: lung mass scehdule ENB preprocedure evaluation TECHNIQUE: Transaxial acquisition with multi axial reformatted images COMPARISON STUDY: 03/25/2017. CT thoracic spine 02/19/2018. FINDINGS: Unchanging baseline interstitial and emphysematous change. Interval development of consolidative lesion superior segment left lower lobe. This is a maximum dimension 2.5 cm. Subpleural nodule medial aspect right base measuring 1.9 cm demonstrating partial destructive changes posterior aspect right 10th rib. This is similar compared to the prior CT of the thoracic spine. Nondisplaced fracture right eighth rib laterally demonstrating what is potentially benign pleural reactive change. Small fixed hiatal hernia unchanged. Somewhat progressive mediastinal and hilar adenopathy. Precarinal adenopathy measures 1.6 cm increased from 1 cm on the prior CT of the chest exam. Several additional nodes in the aortopulmonary window region as well as hilar region also slightly progressive. Exact dimensions are somewhat compromised due to the absence of intravenous contrast. Stable post operative changes of the juncture of the thoracolumbar region. IMPRESSION: 1. Interval development of a pleural-based 2.5 cm nodule of the superior segment left lower lobe. 2. Interval development of a locally invasive subpleural nodule posterior aspect right lung demonstrating invasive/destructive changes posterior right 10th rib. 3. Healing fracture right eighth rib. 4. Baseline emphysematous and interstitial change throughout both hemithoraces stable. 5. Fixed hiatal hernia 6. Mildly progressive mediastinal adenopathy. The above report was generated using voice recognition software. It may contain grammatical, syntax or spelling errors. Electronically signed by: Fernando Lewis M.D. 02/22/2018 4:42 PM Dictated Date/Time: 02/22/2018 4:35 PM
[2018-02-22 20:04] VITALS: BP 142/95; PULSE 77; TEMP 36.6; O2SAT 94
[2018-02-23] VITALS (9 sets, daily range): BP systolic 102–157; BP diastolic 56–96; PULSE 64–73; TEMP 36.3–36.9; O2SAT 91–98; Ht 172.7 cm; Wt 93.3 kg
[2018-02-23] MEDS: HYDROmorphone INJ 2 MG/ML SYR/VIAL IV PRN ×10 (00:29→23:46)
[2018-02-23 08:18] LABS: BASO % 0.2 %; BASO ABS # 0.02 K/uL (0-0.2); EOS % 5.2 %; EOS ABS # 0.46 K/uL (0-0.5); HEMOGLOBIN 12.8 g/dL (12.0-16.0); IG# 0.02 K/uL (0.00-0.02); LYMPH % 29.3 %; LYMPH ABS # 2.58 K/uL (1.2-3.4); MEAN CELL VOLUME 84.3 fL (80-100); MEAN CORPUSCULAR HEMOGLOBIN 28.4 pg (25-34); MEAN CORPUSCULAR HGB CONC 33.7 g/dl (32-36); MONO % 6.2 %; MONO ABS # 0.55 K/uL (0.11-0.59); NEUT % 58.9 %; NEUT ABS # 5.18 K/uL (1.4-6.5); PLATELET COUNT 295 K/uL (130-400); RED CELL DISTRIBUTION WIDTH CV 13.3 % (11.5-14.5); RED CELL DISTRIBUTION WIDTH SD 40.6 fL (36.4-46.3); WHITE BLOOD COUNT 8.81 K/uL (4.8-10.8)
[2018-02-23 08:26] LABS: INR 1.1 (0.9-1.1); PTT PATIENT 26.5 SECONDS (21.0-31.0)
[2018-02-23] MEDS: HEPARIN SOD 5000 UNIT/0.5 ML CARP SQ SCH (08:33)
[2018-02-23 08:43] LABS: ALBUMIN 2.8 gm/dl (3.4-5.0); ALT/SGPT 18 U/L (12-78); AST/SGOT 25 U/L (15-37); BLOOD UREA NITROGEN 2 mg/dl (7-18); CARBON DIOXIDE 28 mmol/L (21-32); GLUCOSE 96 mg/dl (70-99); SODIUM 141 mmol/L (136-145)
[2018-02-23 08:46] LABS: ALKALINE PHOSPHATASE 78 U/L (45-117)
[2018-02-23] MEDS: NSS + 20MEQ KCL 1000ML 1,000 ML IV SCH ×2 (08:46→19:31)
[2018-02-23] MEDS: METOPROLOL TARTRATE 25 MG TAB PO SCH ×2 (08:47→21:24)
[2018-02-23] MEDS: BuPROPion XL 150 MG TABCR PO SCH (08:47)
[2018-02-23] MEDS: PANTOprazole SOD 40 MG TAB PO SCH (08:47)
[2018-02-23] MEDS: OXYCODONE HCL 10 MG TABCR (OXYCONTIN) PO SCH ×2 (08:48→21:23)
[2018-02-23] MEDS: INSULIN ASPART 100 UNITS/ML 3 ML PEN SC SCH ×4 (08:52→21:00)
[2018-02-23] MEDS: NICOTINE 21 MG/24 HR TDSY EXT SCH (08:54)
[2018-02-23] MEDS ORDERED: MAGNESIUM SULFATE 1GM / D5W 100 ML IV ONE (09:45)
--- NOTE | 2018-02-23 13:11 | Hospitalist Progress Note ---
Hospitalist Progress Note Date of Service February 23, 2018. 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 Feeling well. Requesting diet. Tolerating liquid diet well. No abdominal pain. Complaints of pain is more back region. Better control increase frequency in IV Dilaudid. Requesting restarting daily stool softener and Toviaz Patient denies any fever, chills, sweats, lightheadedness, dizziness, vision changes, CP, palpitations, edema, SOB, wheezing, cough, abdominal pain, nausea, vomiting, diarrhea, urinary symptoms, melena, numbness/tingling, weakness, anxiety/depression, active bleeding, or new skin discoloration/changes. Discussed w/ RN- no acute events. Discussed w/ Pj Pool- no changes today, biopsy scheduled for tomorrow. Medications Current Inpatient Medications Medications (Trade) Dose Ordered Sig/Farida Route Start Time Stop Time Status Last Admin Dose Admin Bupropion HCl (Wellbutrin-Xl Tab) 150 mg QAM PO 02/21/18 09:00 03/23/18 08:59 02/23/18 08:47 150 MG Clopidogrel Bisulfate (plAVix TAB) 75 mg QAM PO 02/21/18 09:00 03/23/18 08:59 Future hold 02/22/18 08:10 75 MG Dicyclomine HCl (Bentyl Cap) 10 mg TID PRN PO 02/20/18 18:00 03/22/18 17:59 02/21/18 23:28 10 MG Fluticasone Propionate (Flonase Nasal [place]) BID PRN NING 02/20/18 18:00 03/22/18 17:59 Albuterol/ Ipratropium (Combivent Respimat Inh) 2 puffs QID PRN INH 02/20/18 18:00 03/22/18 17:59 Metoprolol Tartrate (Lopressor Tab) 25 mg BID PO 02/20/18 21:00 03/22/18 20:59 02/23/18 08:47 25 MG Oxycodone HCl (Oxycontin Tab) 10 mg Q12 PO 02/20/18 21:00 03/06/18 20:59 02/23/18 08:48 10 MG Miscellaneous Information (Order Awaiting Action) 1 ea QS N/A 02/21/18 00:00 03/23/18 00:00 Pantoprazole Sodium (Protonix Tab) 40 mg QAM PO 02/21/18 09:00 03/23/18 08:59 02/23/18 08:47 40 MG Polyethylene (Miralax Powder Packet) 17 gm DAILY PRN PO 02/20/18 18:00 03/22/18 17:59 Potassium Chloride/Sodium Chloride 1,000 ml @ 100 mls/hr Q10H IV 02/20/18 20:00 03/22/18 19:59 02/23/18 08:46 100 MLS/HR Ondansetron HCl (Zofran Odt) 8 mg Q6H PRN PO 02/21/18 00:15 03/23/18 00:14 02/22/18 05:27 8 MG Ceftriaxone Sodium 1 gm/ Dextrose 50 ml @ 100 mls/hr Q24H IV 02/21/18 16:00 02/26/18 07:59 02/22/18 15:37 100 MLS/HR Nicotine (Nicoderm Cq 21MG Patch) 1 patch QAM EXT 02/21/18 13:00 03/23/18 12:59 02/21/18 13:18 1 PATCH Miscellaneous (Remove Nicoderm Patch) 1 ea HS PRN N/A 02/21/18 13:00 03/23/18 12:59 Heparin Sodium (Porcine) (Heparin Sq 5000 Unit/0.5ml) 5,000 unit Q12 SQ 02/21/18 21:00 02/23/18 20:59 Hydromorphone HCl (Dilaudid Inj) 1 mg Q2H PRN IV 02/22/18 10:30 03/06/18 21:14 02/23/18 12:29 1 MG Insulin Aspart (novoLOG ASPART) SLIDING SCALE G... ACHS SC 02/22/18 16:30 03/24/18 16:29 Albuterol/ Ipratropium (Duoneb) 3 ml Q4H PRN INH 02/22/18 11:45 03/24/18 11:44 Glucose (Glucose 40% Gel) 15-30 GRAMS 15 GRAMS... UD PRN PO 02/22/18 12:30 03/24/18 12:29 Glucose (Glucose Chew Tab) 4-8 Tablets 4 Tabl... UD PRN PO 02/22/18 12:30 03/24/18 12:29 Dextrose (Dextrose 50% 50ML Syringe) 25-50ML 25ML FOR ... UD PRN IV 02/22/18 12:30 03/24/18 12:29 Glucagon (Glucagon Inj) 1 mg UD PRN IM 02/22/18 12:30 03/24/18 12:29 Carbohydrates (Carbohydrates For Hypoglycemia) 15-30 GRAMS 15 grams if BSG 54-69... UD PRN PO 02/22/18 12:30 03/24/18 12:29 Lorazepam (Ativan Tab) 0.5 mg DAILY PRN PO 02/22/18 14:45 03/24/18 14:44 Miscellaneous Information (Order Awaiting Action) 1 ea QS N/A 02/23/18 16:00 03/25/18 15:59 Docusate Sodium (coLACE CAP) 100 mg BID PO 02/23/18 21:00 03/25/18 20:59 Objective Vital Signs Date Time Temp Pulse Resp B/P (MAP) Pulse Ox O2 Delivery O2 Flow Rate FiO2 02/23/18 11:49 36.3 64 22 137/87 (104) 94 Room Air 02/23/18 08:00 93 BiPAP 02/23/18 07:42 36.9 66 18 102/56 (71) 93 BiPAP 02/23/18 00:16 36.4 68 20 140/95 (110) 96 Room Air 02/23/18 00:00 Room Air 02/22/18 20:04 36.6 77 18 142/95 (111) 94 Room Air 02/22/18 16:00 Room Air 02/22/18 15:11 36.9 74 18 129/89 (102) 96 Room Air Physical Exam General Appearance: no apparent distress, + obese Eyes: normal inspection, PERRL ENT: hearing grossly normal Neck: supple Respiratory/Chest: lungs clear, no respiratory distress, no accessory muscle use Cardiovascular: regular rate, rhythm Abdomen: normal bowel sounds, non tender, soft Extremities: no pedal edema, no calf tenderness Neurologic/Psychiatric: alert, normal mood/affect, oriented x 3 Skin: normal color, warm/dry, no rash Laboratory Results Last 24 Hours Test 02/22/18 16:15 02/22/18 20:25 02/23/18 07:45 02/23/18 08:06 Bedside Glucose 93 mg/dl 110 mg/dl 103 mg/dl White Blood Count 8.81 K/uL Red Blood Count 4.51 M/uL Hemoglobin 12.8 g/dL Hematocrit 38.0 % Mean Corpuscular Volume 84.3 fL Mean Corpuscular Hemoglobin 28.4 pg Mean Corpuscular Hemoglobin Concent 33.7 g/dl Platelet Count 295 K/uL Mean Platelet Volume 9.0 fL Neutrophils (%) (Auto) 58.9 % Lymphocytes (%) (Auto) 29.3 % Monocytes (%) (Auto) 6.2 % Eosinophils (%) (Auto) 5.2 % Basophils (%) (Auto) 0.2 % Neutrophils # (Auto) 5.18 K/uL Lymphocytes # (Auto) 2.58 K/uL Monocytes # (Auto) 0.55 K/uL Eosinophils # (Auto) 0.46 K/uL Basophils # (Auto) 0.02 K/uL RDW Standard Deviation 40.6 fL RDW Coefficient of Variation 13.3 % Immature Granulocyte % (Auto) 0.2 % Immature Granulocyte # (Auto) 0.02 K/uL Prothrombin Time 11.1 SECONDS Prothromb Time International Ratio 1.1 Activated Partial Thromboplast Time 26.5 SECONDS Partial Thromboplastin Ratio 1.0 Sodium Level 141 mmol/L Potassium Level 4.0 mmol/L Chloride Level 107 mmol/L Carbon Dioxide Level 28 mmol/L Anion Gap 5.0 mmol/L Blood Urea Nitrogen 2 mg/dl Creatinine 0.60 mg/dl Est Creatinine Clear Calc Drug Dose 113.0 ml/min Estimated GFR () 111.6 Estimated GFR (Non- 96.3 BUN/Creatinine Ratio 3.7 Random Glucose 96 mg/dl Calcium Level 9.0 mg/dl Magnesium Level 1.6 mg/dl Total Bilirubin 0.3 mg/dl Direct Bilirubin < 0.1 mg/dl Aspartate Amino Transf (AST/SGOT) 25 U/L Alanine Aminotransferase (ALT/SGPT) 18 U/L Alkaline Phosphatase 78 U/L Total Protein 7.0 gm/dl Albumin 2.8 gm/dl Lipase 1193 U/L Test 02/23/18 11:33 Bedside Glucose 118 mg/dl Assessment and Plan 62-year-old white female admitted to because of worsening abdominal pain was found has pancreatitis, ?metastatic lung disease. Pancreatitis: - IVF @ 100 ml/hr - Lipase- STABLE- continue to trend - Advance diet as tolerated - IV Dilaudid PRN for pain management - IV Zofran PRN for nausea - GI consulted, appreciate recommendations ?Metastatic disease- STABLE: - CEA elevated at 2.6 - CT imaging: - 9 x 9 mm area of ill-defined attenuation involving the distal pancreatic body- ?focal edema vs pancreatitis mass - Left lower lobe measuring 2.4 cm and a 1.8 subpleural soft tissue attenuating nodule adjacent to the basal right lower lobe invading the adjacent posterior right 10th rib. - Mediastinal lymphadenopathy suggesting metastatic disease is also noted. - Pulmonary consulted- planning for biopsy on 02/24, holding Plavix and ASA - Radiation oncology consulted- CT stimulation today; if biopsy confirms diagnosis, then can start radiation therapy outpatient - Oncology consulted- if biopsy confirms diagnosis, will need PET scan for staging and outpatient f/u UTI POA- UCx w/ pansensitive E.coli: IV Rocephin while NPO- started on 02/20 Hypomagnesemia: Replace w/ IV Mag supplement- follow and replace PRN Paroxysmal a.fib, HTN, chronic diastolic CHF- STABLE: - Continue Metoprolol 25 mg BID - Hold Plavix 75 mg daily and ASA 81 mg daily for upcoming biopsy procedure h/o TIA/CVA, HLD- STABLE: - Hold Plavix and ASA for upcoming biopsy procedure - Pravastatin held due to NPO T2DM: - Hold Metformin 500 mg BID while inpatient - BSG ACHS and ISS COPD- STABLE: Continue Combivent Respimat, DuoNebs PRN for SOB/wheezing Tobacco abuse- current every day smoker: - Smoking cessation counselling - Nicotine patch ordered Anxiety- STABLE: Continue Bupropion XL 150 mg QAM, Lorazepam PRN Irritable bowel disease: Continue Bentyl PRN Fibromyalgia, chronic pain: - Continue Oxycodone 10 mg BID - IV Dilaudid PRN - Hold Oxycodone 10 mg QID PRN while on IV Dilaudid Urinary incontinence: Restart Toviaz GERD: Change Dexilant to Pantoprazole DVT prophylaxis: Heparin SQ BID- schedule to hold on 58 PM for biopsy procedure on 02/24 Code status: LEVEL I, FULL Dispo: Discharge to home once medically stable
--- NOTE | 2018-02-23 14:19 | PULMONARY PROGRESS NOTE ---
DATE: 02/23/2018 PROBLEM LIST: Include: 1. Left lower lobe lung mass. 2. History of interstitial lung disease consistent with idiopathic pulmonary fibrosis by biopsy on 09/22/2012. 3. Pancreatic lesion. 4. Right rib lesion. 5. T10 through T12 lesion. SUBJECTIVE: Patient actually states that she is feeling pretty well today. Her main complaint is the right-sided pain from her rib fracture on the right. She is also having a little bit of back pain. In regards to her breathing, she really denies any difficulty. She is not having any cough or congestion. No wheezing. No increased chest heaviness or tightness. No shortness of breath. She did have several questions regarding the lung lesion in the lymph nodes and her cousin was on speaker phone during the interview today. She states that she is hungry and would like to eat. She denies any significant nausea today. No vomiting or diarrhea. OBJECTIVE: GENERAL: The patient is a 62-year-old female, lying in bed, in no acute distress. She is alert and oriented x3. Mood is good. Affect is good. She is interactive and cooperative. VITAL SIGNS: Temp 36.9, pulse 66, respirations 18, blood pressure is 102/56, pulse ox is 96% on room air. HEENT: Normocephalic, atraumatic. Pupils equal, round, reactive to light and accommodation. Extraocular movements are intact. [place] and moist gingival and buccal mucosa. NECK: Supple. No mass. No adenopathy. No bruit. CHEST: Diminished breath sounds bilaterally, but overall clear. I do not really appreciate any wheeze, rales or rhonchi at this time. CARDIOVASCULAR: Regular rate and rhythm. No murmurs, gallops or rubs. ABDOMEN: Bowel sounds are present throughout. Abdomen is soft, mild tenderness to palpation. No guarding, rigidity or organomegaly. EXTREMITIES: No erythema or edema. NEUROLOGIC: Cranial nerves II through XII are intact. No focal deficit. LABORATORY DATA: Shows white count of 8000, H and H 12.8 and 38.0, platelet count 295,000. BUN 2, creatinine 0.6. Lipase has started trending down from yesterday, was 1332 yesterday, today is 1193. No new imaging. On reviewing CT report from yesterday, patient has a 2.5 cm nodule, superior segment left lower lobe as well as a subpleural nodule along the right 10th rib showing invasive/destructive changes and some worsening mediastinal adenopathy. IMPRESSION: 1. New left lower lobe lesion with mediastinal adenopathy. Patient is set up to undergo an endobronchial ultrasound with biopsy on 02/24. Plavix has been held. May need to consider navigational bronchoscopy if biopsy yield is not sufficient. I did discuss this with the patient briefly today and we did discuss the fact that this may be a cancer with metastatic disease. I did try to answer patient's questions, seemed satisfied with the answers today. 2. Interstitial lung disease confirmed by surgical lung biopsy in 2012 consistent with idiopathic pulmonary fibrosis; this is stable at this time. PLAN: 1. At this point, is to await results of endobronchial ultrasound with biopsy tomorrow. Again, we may need to consider a navigational bronchoscopy, if the yield from biopsy tomorrow is not sufficient. 2. Patient is to undergo radiation therapy for the bony lesions that are present currently. 3. I do not feel we need to make any adjustments in her medication. We will continue to monitor. Patient seen examined and agree with plan. [facility]
[2018-02-23] MEDS: CEFTRIAXONE SOD INJ 1 GM in DEXTROSE 5% ADD-VANTAGE 50ML 50 ML IV SCH (17:15)
--- NOTE | 2018-02-23 19:28 | Anesthesiology Progress Note ---
Anesthesia Progress Note Date of Service February 23, 2018. Progress Notes Ms. Dimas has multiple allergies as listed above who is scheduled for endobronchial ultrasound. She has had many surgeries before (back surgery x5, reynaldo, hyster) without anesthetic problems. PMH sig for asthma, COPD, idiopathic pulmonary fibrosis, hx/o A fib (paroxysmal), HTN (pt denies), HLD, pancreatitis with 9x9cm pancreatic lesion, CVA (3 years ago, no deficits), NIDDM , anxiety, obesity and [address]. [address] CT shows 2.5cm LLL nodule, t- spine and rib lesions. Airway exam notable for MP 2, upper partial and lower full denture. Anesthetic plan discussed. She knows she is to be NPO after midnight. Consented for GETA. All questions answered.
[2018-02-23] MEDS: DOCUSATE SODIUM 100 MG CAP PO SCH (21:00)
[2018-02-24] MEDS: HYDROmorphone INJ 2 MG/ML SYR/VIAL IV PRN ×4 (02:02→08:33)
[2018-02-24 04:00] VITALS: BP 143/78; PULSE 71; TEMP 36.9; O2SAT 94
[2018-02-24 06:20] LABS: CALCIUM 8.6 mg/dl (8.5-10.1); CREATININE 0.69 mg/dl (0.60-1.20); POTASSIUM 4.1 mmol/L (3.5-5.1)
[2018-02-24] MEDS ORDERED: NURSING VERBAL MED ORDER ONE ×2 (06:30→19:45)
--- NOTE | 2018-02-24 07:23 | History & Physical Bridge Note ---
H&P Re-Evaluation Bridge Note: I have examined the patient, reviewed the History & Physical and in the interval since the performance of the History & Physical I have noted the following changes of clinical significance: No changes noted
[2018-02-24 08:00] VITALS: BP 137/85; PULSE 79; TEMP 37; O2SAT 93
[2018-02-24] MEDS ORDERED: MAGNESIUM SULFATE 1GM / D5W 100 ML IV ONE (08:15)
[2018-02-24] MEDS: INSULIN ASPART 100 UNITS/ML 3 ML PEN SC SCH ×4 (08:32→20:48)
[2018-02-24] MEDS: NSS + 20MEQ KCL 1000ML 1,000 ML IV SCH ×2 (08:34→18:00)
[2018-02-24] MEDS: NICOTINE 21 MG/24 HR TDSY EXT SCH (09:00)
[2018-02-24] MEDS: BuPROPion XL 150 MG TABCR PO SCH (09:00)
[2018-02-24] MEDS: OXYCODONE HCL 10 MG TABCR (OXYCONTIN) PO SCH ×2 (09:00→20:45)
[2018-02-24] MEDS: PANTOprazole SOD 40 MG TAB PO SCH (09:00)
[2018-02-24] MEDS: METOPROLOL TARTRATE 25 MG TAB PO SCH ×2 (09:00→20:46)
[2018-02-24] MEDS: DOCUSATE SODIUM 100 MG CAP PO SCH ×2 (09:00→19:40)
[2018-02-24] MEDS ORDERED: DEXAMETHASONE SOD INJ 4 MG/ML VIAL ONE (09:41)
[2018-02-24] MEDS ORDERED: LIDOCAINE HCL 2% 2 ML VIAL (20MG/ML) ONE (09:41)
[2018-02-24] MEDS ORDERED: ONDANSETRON INJ 2 MG/ML 2 ML VIAL ONE (09:41)
[2018-02-24] MEDS ORDERED: PROPOFOL IV EMULSION 10 MG/ML 20 ML VIAL ONE (09:41)
[2018-02-24] MEDS ORDERED: ROCURONIUM BROMIDE 10 MG/ML 5 ML VIAL ONE (09:41)
[2018-02-24] MEDS ORDERED: MIDAZOLAM HCL 1 MG/ML 2ML VIAL ONE (09:41)
[2018-02-24] MEDS ORDERED: FENTANYL CITRATE INJ 50 MCG/1 ML 2 ML VIAL ONE (09:42)
[2018-02-24] MEDS ORDERED: ALBUT/IPRATROP 3MG/0.5MG NEB 3 ML VIAL INH ONE (10:00)
[2018-02-24] MEDS ORDERED: EpHEDrine SULFATE 50MG/5ML SYR ONE (11:34)
[2018-02-24] MEDS ORDERED: NEOSTIGMINE METHYLSULFATE 5 MG/5 ML SYR ONE (11:36)
[2018-02-24] MEDS ORDERED: GLYCOPYRROLATE INJ 0.2 MG/ML VIAL ONE (11:36)
--- NOTE | 2018-02-24 12:07 | Bronchoscopy Procedure Note ---
Bronchoscopy Procedure Note Procedure: Flexible-Bronchoscopy, EBUS, ENB, FNA, Cytology Brushing, BAL Consent: Obtained through the patient placed into the chart Pre-Procedural Dx: Left lower lobe nodule with mediastinal adenopathy Post-Procedural Dx: Left lower lobe nodule with mediastinal adenopathy Analgesia: GETA Sedation: GETA Procedure: The Olympus video bronchoscope and EBUS scope were used for this procedure Initially the flexible bronchoscope was used for evaluation of the airways. The ET tube was notably 4 cm above the level of the jessica. Trachea: Visualized portion of the trachea was anatomically within normal limits Jessica: Anatomically within normal limits Right bronchial tree: Right mainstem bronchus: Anatomically within normal limits Right upper lobe: Anatomically within normal limits Bronchus intermedius: Anatomically within normal limits Right middle lobe: Anatomically within normal limits Right lower lobe: Anatomically within normal limits Findings: No significant findings noted Left bronchial tree: Left mainstem bronchus: Anatomically within normal limits Left upper lobe: Anatomically within normal limits Lingula: Anatomically within normal limits Left lower lobe: Anatomically within normal limits Findings: No significant findings noted EBUS/SHILPI: FNA Osmar Stations: 7, 4R, 4L. 10L ENB: FNA, Cytology brushing, BAL (left lower lobe nodule) BAL: LLL EBL: 4cc Complications: None Follow-up: PACU
[2018-02-24] MEDS ORDERED: MAGNESIUM SULFATE 1GM / D5W 100 ML IV STA (12:37)
[2018-02-24] MEDS ORDERED: OXYCODONE HCL IR 5 MG TAB (IMMEDIATE RELEASE) PO PRN (12:45)
--- NOTE | 2018-02-24 12:50 | DIAGNOSTIC IMAGING REPORT ---
CHEST 1 VIEW FRONTAL CLINICAL HISTORY: NAVIGATIONAL BRONCH Fluoroscopy time: 225 seconds. FINDINGS: Fluoroscopy was provided for navigational bronchoscopy of a left lower lobe lesion. The bronchoscope is identified within the left lower lobe. A single fluoroscopic spot image of the left chest was obtained. IMPRESSION: Fluoroscopy provided for navigational bronchoscopy. Electronically signed by: Abad Grey M.D. 02/24/2018 12:49 PM Dictated Date/Time: 02/24/2018 12:47 PM
--- NOTE | 2018-02-24 12:58 | Anesthesiology Progress Note ---
Anesthesia Post Op Note Date & Time February 24, 2018 at 12:57 Vital Signs Pain Intensity: 0 Vital Signs Past 12 Hours Date Time Temp Pulse Resp B/P (MAP) Pulse Ox O2 Delivery O2 Flow Rate FiO2 02/24/18 12:45 36.4 85 15 133/98 95 Nasal Cannula 2 02/24/18 12:35 89 13 139/97 98 Oxymask 10 02/24/18 12:25 81 20 149/76 99 Oxymask 10 02/24/18 12:15 36.1 85 20 148/94 98 Oxymask 10 02/24/18 08:00 93 Room Air 02/24/18 08:00 37.0 79 18 137/85 (102) 93 Room Air 02/24/18 04:00 36.9 71 16 143/78 (99) 94 Room Air Notes Mental Status: alert / awake / arousable, participated in evaluation Pt Amnestic to Procedure: Yes Nausea / Vomiting: adequately controlled Pain: adequately controlled Airway Patency, RR, SpO2: stable & adequate BP & HR: stable & adequate Hydration State: stable & adequate Anesthetic Complications: no major complications apparent
[2018-02-24] MEDS ORDERED: FENTANYL CITRATE INJ 50 MCG/1 ML 2 ML VIAL IV PRN (13:00)
[2018-02-24] MEDS ORDERED: ATROPINE SULFATE 0.1 MG/ML 5ML SYR IV PRN (13:00)
[2018-02-24] MEDS ORDERED: EpHEDrine SULFATE INJ 50 MG/ML AMP IV PRN (13:00)
[2018-02-24] MEDS ORDERED: ONDANSETRON INJ 2 MG/ML 2 ML VIAL IV PRN (13:00)
--- NOTE | 2018-02-24 13:06 | DIAGNOSTIC IMAGING REPORT ---
CHEST ONE VIEW PORTABLE HISTORY: Status post bronchoscopy. Rule out pneumothorax COMPARISON: Chest 11/08/2016. FINDINGS: No pneumothorax. No pleural effusions. The heart remains mildly enlarged. Diffuse interstitial thickening has slightly progressed. There is a 4 cm left perihilar masslike opacity. Lumbar spinal fusion hardware. Cholecystectomy. IMPRESSION: 1. No pneumothorax. 2. A 4 cm left perihilar masslike opacity. This is better appreciated on the 02/22/[address] 3. Diffuse interstitial thickening has progressed. This could represent developing congestive change. Electronically signed by: Abad Grey M.D. 02/24/2018 1:04 PM Dictated Date/Time: 02/24/2018 1:02 PM
[2018-02-24 13:15] VITALS: BP 135/86; PULSE 82; TEMP 37; O2SAT 97
--- NOTE | 2018-02-24 13:42 | Hospitalist Progress Note ---
Hospitalist Progress Note Date of Service February 24, 2018. Subjective Pt evaluation today including: conversation w/ patient, conversation w/ family , physical exam, lab review, review of studies, review of inpatient medication list Voiding: no voiding problems Patient resting in bed. Doing well s/p bronchoscopy. Requesting food as she is very hungry. Denies abdominal pain. +back pain. Discussed resuming home narcotic regimen and d/c IV Dilaudid in hopes of discharge tomorrow- patient is agreeable. Patient denies any fever, chills, sweats, lightheadedness, dizziness, vision changes, CP, palpitations, edema, SOB, wheezing, cough, abdominal pain, nausea, vomiting, diarrhea, urinary symptoms, melena, numbness/tingling, weakness, anxiety/depression, active bleeding, or new skin discoloration/changes. Medications Current Inpatient Medications Medications (Trade) Dose Ordered Sig/Farida Route Start Time Stop Time Status Last Admin Dose Admin Bupropion HCl (Wellbutrin-Xl Tab) 150 mg QAM PO 02/21/18 09:00 03/23/18 08:59 02/23/18 08:47 150 MG Clopidogrel Bisulfate (plAVix TAB) 75 mg QAM PO 02/21/18 09:00 03/23/18 08:59 Future hold 02/22/18 08:10 75 MG Dicyclomine HCl (Bentyl Cap) 10 mg TID PRN PO 02/20/18 18:00 03/22/18 17:59 02/21/18 23:28 10 MG Fluticasone Propionate (Flonase Nasal [place]) BID PRN NING 02/20/18 18:00 03/22/18 17:59 Albuterol/ Ipratropium (Combivent Respimat Inh) 2 puffs QID PRN INH 02/20/18 18:00 03/22/18 17:59 Metoprolol Tartrate (Lopressor Tab) 25 mg BID PO 02/20/18 21:00 03/22/18 20:59 02/23/18 21:24 25 MG Oxycodone HCl (Oxycontin Tab) 10 mg Q12 PO 02/20/18 21:00 03/06/18 20:59 02/23/18 21:23 10 MG Miscellaneous Information (Order Awaiting Action) 1 ea QS N/A 02/21/18 00:00 03/23/18 00:00 Pantoprazole Sodium (Protonix Tab) 40 mg QAM PO 02/21/18 09:00 03/23/18 08:59 02/23/18 08:47 40 MG Polyethylene (Miralax Powder Packet) 17 gm DAILY PRN PO 02/20/18 18:00 03/22/18 17:59 Potassium Chloride/Sodium Chloride 1,000 ml @ 100 mls/hr Q10H IV 02/20/18 20:00 03/22/18 19:59 02/24/18 08:34 100 MLS/HR Ondansetron HCl (Zofran Odt) 8 mg Q6H PRN PO 02/21/18 00:15 03/23/18 00:14 02/22/18 05:27 8 MG Ceftriaxone Sodium 1 gm/ Dextrose 50 ml @ 100 mls/hr Q24H IV 02/21/18 16:00 02/26/18 07:59 02/23/18 17:15 100 MLS/HR Nicotine (Nicoderm Cq 21MG Patch) 1 patch QAM EXT 02/21/18 13:00 03/23/18 12:59 02/21/18 13:18 1 PATCH Miscellaneous (Remove Nicoderm Patch) 1 ea HS PRN N/A 02/21/18 13:00 03/23/18 12:59 Insulin Aspart (novoLOG ASPART) SLIDING SCALE G... ACHS SC 02/22/18 16:30 03/24/18 16:29 Albuterol/ Ipratropium (Duoneb) 3 ml Q4H PRN INH 02/22/18 11:45 03/24/18 11:44 Glucose (Glucose 40% Gel) 15-30 GRAMS 15 GRAMS... UD PRN PO 02/22/18 12:30 03/24/18 12:29 Glucose (Glucose Chew Tab) 4-8 Tablets 4 Tabl... UD PRN PO 02/22/18 12:30 03/24/18 12:29 Dextrose (Dextrose 50% 50ML Syringe) 25-50ML 25ML FOR ... UD PRN IV 02/22/18 12:30 03/24/18 12:29 Glucagon (Glucagon Inj) 1 mg UD PRN IM 02/22/18 12:30 03/24/18 12:29 Carbohydrates (Carbohydrates For Hypoglycemia) 15-30 GRAMS 15 grams if BSG 54-69... UD PRN PO 02/22/18 12:30 03/24/18 12:29 Lorazepam (Ativan Tab) 0.5 mg DAILY PRN PO 02/22/18 14:45 03/24/18 14:44 Miscellaneous Information (Order Awaiting Action) 1 ea QS N/A 02/23/18 16:00 03/25/18 15:59 Docusate Sodium (coLACE CAP) 100 mg BID PO 02/23/18 21:00 03/25/18 20:59 Oxycodone HCl (Roxicodone Immediate Rel Tab) 15 mg TID PRN PO 02/24/18 12:45 03/26/18 12:44 Fentanyl Citrate (Fentanyl Inj) 25 mcg Q5M PRN IV 02/24/18 13:00 02/24/18 18:00 Ondansetron HCl (Zofran Inj) 4 mg ONE PRN IV 02/24/18 13:00 02/24/18 18:00 Ephedrine Sulfate (EpHEDrine SULFATE INJ) 5 mg Q5M PRN IV 02/24/18 13:00 02/24/18 18:00 Atropine Sulfate (Atropine Sulfate 0.1mg/ml Inj) 0.5 mg Q1M PRN IV 02/24/18 13:00 02/24/18 18:00 Objective Vital Signs Date Time Temp Pulse Resp B/P (MAP) Pulse Ox O2 Delivery O2 Flow Rate FiO2 02/24/18 12:25 81 20 149/76 99 Oxymask 10 02/24/18 12:15 36.1 85 20 148/94 98 Oxymask 10 02/24/18 08:00 93 Room Air 02/24/18 08:00 37.0 79 18 137/85 (102) 93 Room Air 02/24/18 04:00 36.9 71 16 143/78 (99) 94 Room Air 02/24/18 00:15 Room Air 02/23/18 23:46 36.7 70 18 157/90 (112) 95 Room Air 02/23/18 23:43 36.7 65 18 156/78 (104) 98 Room Air 02/23/18 19:14 36.6 71 19 152/96 (114) 91 Room Air 02/23/18 16:09 94 Room Air 02/23/18 15:08 36.6 73 20 142/92 (109) 94 Physical Exam General Appearance: no apparent distress Eyes: normal inspection, PERRL ENT: hearing grossly normal Neck: supple Respiratory/Chest: lungs clear, no respiratory distress, no accessory muscle use Cardiovascular: regular rate, rhythm Abdomen: normal bowel sounds, non tender, soft Extremities: no pedal edema, no calf tenderness Neurologic/Psychiatric: alert, normal mood/affect, oriented x 3 Skin: normal color, warm/dry, no rash Laboratory Results Last 24 Hours Test 02/23/18 16:34 02/23/18 20:43 02/24/18 05:19 02/24/18 07:41 Bedside Glucose 111 mg/dl 129 mg/dl 109 mg/dl Sodium Level 140 mmol/L Potassium Level 4.1 mmol/L Chloride Level 108 mmol/L Carbon Dioxide Level 28 mmol/L Anion Gap 4.0 mmol/L Blood Urea Nitrogen 4 mg/dl Creatinine 0.69 mg/dl Est Creatinine Clear Calc Drug Dose 98.3 ml/min Estimated GFR () 106.6 Estimated GFR (Non- 92.0 BUN/Creatinine Ratio 5.5 Random Glucose 103 mg/dl Calcium Level 8.6 mg/dl Magnesium Level 1.7 mg/dl Lipase 1621 U/L Test 02/24/18 09:46 Bedside Glucose 120 mg/dl Assessment and Plan 62-year-old white female admitted to because of worsening abdominal pain was found has pancreatitis, ?metastatic lung disease. Pancreatitis: - IVF @ 100 ml/hr - Lipase- STABLE - Advance diet as tolerated- tolerating full diet - IV Dilaudid PRN for pain management discontinued- resume home regimen in hopes for discharge tomorrow - IV Zofran PRN for nausea - GI consulted, appreciate recommendations ?Metastatic disease- STABLE: - CEA elevated at 2.6 - CT imaging: - 9 x 9 mm area of ill-defined attenuation involving the distal pancreatic body- ?focal edema vs pancreatitis mass - Left lower lobe measuring 2.4 cm and a 1.8 subpleural soft tissue attenuating nodule adjacent to the basal right lower lobe invading the adjacent posterior right 10th rib. - Mediastinal lymphadenopathy suggesting metastatic disease is also noted. - Pulmonary consulted- s/p bronchoscopy and biopsy on 02/[address] Veronica- pending pathology and cultures - Radiation oncology consulted- CT stimulation on 02/22; if biopsy confirms diagnosis, then can start radiation therapy outpatient - Oncology consulted- if biopsy confirms diagnosis, will need PET scan for staging and outpatient f/u UTI POA- UCx w/ pansensitive E.coli: IV Rocephin while NPO- started on 02/20 Hypomagnesemia- IMPROVING: Replace w/ IV Mag supplement- follow and replace PRN Paroxysmal a.fib, HTN, chronic diastolic CHF- STABLE: - Continue Metoprolol 25 mg BID - Held Plavix 75 mg daily and ASA 81 mg daily for upcoming biopsy procedure- resume once OK by pulmonary h/o TIA/CVA, HLD- STABLE: - Held Plavix and ASA for upcoming biopsy procedure- resume once OK by pulmonary - Pravastatin held due to NPO- will resume at discharge T2DM: - Hold Metformin 500 mg BID while inpatient - BSG ACHS and ISS COPD- STABLE: Continue Combivent Respimat, DuoNebs PRN for SOB/wheezing Tobacco abuse- current every day smoker: - Smoking cessation counselling - Nicotine patch ordered Anxiety- STABLE: Continue Bupropion XL 150 mg QAM, Lorazepam PRN Irritable bowel disease: Continue Bentyl PRN Fibromyalgia, chronic pain: - Home regimen of: Oxycodone ER HCL 20 mg BID and Oxycodone HCL 15 mg TID - Discontinue IV Dilaudid today in hopes of discharging tomorrow- resume outpatient regimen today Urinary incontinence: Continue Toviaz GERD: Change Dexilant to Pantoprazole while inpatient DVT prophylaxis: Chemical anticoagulation held for pulmonary procedure Code status: LEVEL I, FULL Dispo: Discharge to home once medically stable- hopefully tomorrow
[2018-02-24] MEDS: CEFTRIAXONE SOD INJ 1 GM in DEXTROSE 5% ADD-VANTAGE 50ML 50 ML IV SCH (15:38)
[2018-02-24 15:49] VITALS: BP 128/82; PULSE 88; TEMP 37.1; O2SAT 90
[2018-02-24] MEDS: DICYCLOMINE HCL 10 MG CAP PO PRN (19:56)
[2018-02-24] MEDS ORDERED: PANTOprazole SOD 40 MG TAB PO SCH (21:00)
[2018-02-24] MEDS ORDERED: IBUPROFEN 600 MG TAB PO ONE (21:30)
[2018-02-24] MEDS: OXYCODONE HCL IR 5 MG TAB (IMMEDIATE RELEASE) PO PRN (22:05)
--- NOTE | 2018-02-24 22:44 | GASTROENTEROLOGY PROGRESS NOTE ---
DATE: 02/24/2018 SUBJECTIVE: Chart reviewed, patient examined. The patient underwent bronchoscopy today. The patient reports that there is suspicious findings suggesting carcinoma, although final diagnosis and pathology is not available. The patient also with features of pancreatitis based on CT scan from 02/19/2018 and a persistent elevation in lipase that actually climbed slightly today. Her white count is 8.8 yesterday. Her lipase was 1621 today, magnesium slightly low at 1.7. ALLERGIES: THE PATIENT HAS MULTIPLE ALLERGIES. CURRENT MEDICATIONS: Oxycodone, pantoprazole, insulin sliding scale, lorazepam, Colace, Rocephin, Lopressor, OxyContin, Bentyl. REVIEW OF SYSTEMS: Otherwise noncontributory based on 13-point exam except for mentioned above. The patient does report continued pain. She had a spontaneous fracture of the ribs on the right side and this area is suspected of being a metastasis from presumably a pulmonary primary. However, a CT scan does suggest a questionable lesion in the pancreas near the tail without ductal dilation. This in the setting of acute pancreatitis. PHYSICAL EXAMINATION: VITAL SIGNS: Today afebrile 37.1, blood pressure 128/82, room air 90%, respirations 18, heart rate 88. GENERAL: The patient awake, alert, and oriented x3. HEENT: Sclerae are anicteric, conjunctiva moist. Oral mucosa moist. HEART: Normal S1, S2. LUNGS: Clear to auscultation. ABDOMEN: Soft, tender along the rib margins bilaterally. There is no rebound or guarding. There are positive bowel sounds. EXTREMITIES: Without edema. RECTAL: Deferred. PATHOLOGY: Pending from today's endoscopic ultrasound (EBUS). We will await final diagnosis. Sources of the pancreatitis is unclear at the present time and this may need followup imaging at some point to see if there is any clear changes to the pancreas or the ductal drainage system. LABORATORY STUDIES: LFTs yesterday showed a bilirubin of 0.3, AST 25, ALT 18, alkaline phosphatase 78 and were essentially normal at the time of admission on 01/21/2018. RECOMMENDATIONS: Dedicated cross sectional imaging of the pancreas over the next week or so would be helpful to see if there is any development of collections or pseudocyst. Depending on the results of the endobronchial ultrasound bronchoscopy and the suspected histology, assessment of the pancreatic lesion by ultrasound maybe of utility especially if lung carcinoma is not felt to be the primary source. All questions answered. MTDD
[2018-02-24 23:40] VITALS: BP 133/77; PULSE 63; TEMP 36.3; O2SAT 93
[2018-02-25] MEDS ORDERED: RANITIDINE HCL 150 MG TAB PO PRN (01:00)
[2018-02-25] MEDS: NSS + 20MEQ KCL 1000ML 1,000 ML IV SCH ×2 (02:41→13:24)
[2018-02-25] MEDS: OXYCODONE HCL IR 5 MG TAB (IMMEDIATE RELEASE) PO PRN ×3 (03:58→15:36)
[2018-02-25 04:00] VITALS: BP 141/87; PULSE 72; TEMP 36.6; O2SAT 91
[2018-02-25 06:44] LABS: CALCIUM 8.6 mg/dl (8.5-10.1); CREATININE 0.7 mg/dl (0.60-1.20); POTASSIUM 4.2 mmol/L (3.5-5.1)
[2018-02-25 08:08] VITALS: BP 138/76; PULSE 91; TEMP 36.7; O2SAT 91
[2018-02-25] MEDS: CLOPIDOGREL BISULFATE 75 MG TAB PO SCH (08:30)
[2018-02-25] MEDS: BuPROPion XL 150 MG TABCR PO SCH (08:30)
[2018-02-25] MEDS: NICOTINE 21 MG/24 HR TDSY EXT SCH (08:30)
[2018-02-25] MEDS: DOCUSATE SODIUM 100 MG CAP PO SCH (08:30)
[2018-02-25] MEDS: METOPROLOL TARTRATE 25 MG TAB PO SCH (08:31)
[2018-02-25] MEDS: OXYCODONE HCL 10 MG TABCR (OXYCONTIN) PO SCH (08:53)
[2018-02-25] MEDS: INSULIN ASPART 100 UNITS/ML 3 ML PEN SC SCH ×2 (08:53→12:43)
--- NOTE | 2018-02-25 09:47 | Discharge Summary ---
Discharge Summary Date of Service February 25, 2018. Discharge Summary Admission Date: February 20, 2018 at 17:51 Discharge Date: February 25, 2018 Discharge Disposition: Home Principal Diagnosis: Pancreatitis, ?metastatic disease Problems/Secondary Diagnoses: Pancreatitis ?Metastatic disease - 9 x 9 mm area of ill-defined attenuation involving the distal pancreatic body- ?focal edema vs pancreatitis mass - Left lower lobe measuring 2.4 cm and a 1.8 subpleural soft tissue attenuating nodule adjacent to the basal right lower lobe invading the adjacent posterior right 10th rib - Mediastinal lymphadenopathy suggesting metastatic disease UTI POA- UCx w/ pansensitive E.coli Hypomagnesemia Paroxysmal a.fib HTN chronic diastolic CHF h/o TIA/CVA HLD T2DM COPD Tobacco abuse Anxiety Irritable bowel disease Fibromyalgia chronic pain Urinary incontinence GERD Immunizations: Have You Had Influenza Vaccine: No Influenza Vaccine Date: Sep 24, 2012 History of Tetanus Vaccine?: Unknown History of Pneumococcal: Yes History of Hepatitis B Vaccine: No Hepatitis Immunization Date: May 11, 2008 Procedures: MRCP HISTORY: 62 years-old Female abnormal CT showing pancreatic 9x9mm lesion follow-up study in a patient with acute pancreatitis COMPARISON: CT abdomen and pelvis 02/19/2018 TECHNIQUE: MRCP according to institutional protocol was obtained without the use of IV contrast. FINDINGS: Math Interventionist images demonstrate posterior pradeep and screw fusion hardware at T12-L4. Moderate sized hiatal hernia. Low attenuating lesions about the left kidney measuring up to 10 mm suggest renal cysts. Spleen and adrenal glands are unremarkable. No aortic aneurysm or pathologic adenopathy identified. The IVC appears to be within normal limits. The bowel and mesentery appears unremarkable as seen. There is a mildly T2 hyperintense lobulated soft tissue mass of the right posterior 10th rib measuring 2.6 cm on image 2 series 5 with extension into the subpleural space as seen on comparison study. Additionally, there are ill-defined mildly T2 hyperintense foci about the T10, T11 and T12 vertebral bodies measuring up to 10 mm as seen on the axial fast images. Motion degraded study. Prior cholecystectomy. Common bile duct measures approximately 9 mm transversely without focal obstructing mass or intraluminal filling defect. It is no intrahepatic biliary ductal dilation identified. No evidence of pancreatic ductal dilation or pancreatic divisum.. There are suggested several small layering filling defects within the cystic duct as seen on image 10 series 5 and image 1 series 6. Minimal peripancreatic edema is noted, better characterized on comparison CT. No discrete pancreatic mass lesion identified. IMPRESSION: 1. Motion degraded exam without definite pancreatic mass lesion identified on these images to correlate with the finding seen on comparison CT study dated 02/19/2018. Attention at follow-up recommended. 2. Minimal peripancreatic inflammatory changes are better characterized on comparison CT suggesting acute pancreatitis. 3. Prior cholecystectomy with apparent filling defects within the cystic duct suggesting gallstones. 4. 2.6 cm mass of the posterior right 10th rib with subpleural extension is again noted compatible with metastatic lesion. Additionally, ill-defined areas of signal abnormality involving the T10-T12 vertebral bodies may reflect additional metastatic foci. The above report was generated using voice recognition software. It may contain grammatical, syntax or spelling errors. Electronically signed by: David Rivers M.D. 02/21/2018 11:22 AM Dictated Date/Time: 02/21/2018 11:09 AM The status of this report is Signed. Draft = Not yet reviewed or approved by Radiologist. Signed = Reviewed and approved by Radiologist CHEST SUPERDIMENSIONAL WITHOUT CLINICAL HISTORY: lung mass scehdule ENB preprocedure evaluation TECHNIQUE: Transaxial acquisition with multi axial reformatted images COMPARISON STUDY: 03/25/2017. CT thoracic spine 02/19/2018. FINDINGS: Unchanging baseline interstitial and emphysematous change. Interval development of consolidative lesion superior segment left lower lobe. This is a maximum dimension 2.5 cm. Subpleural nodule medial aspect right base measuring 1.9 cm demonstrating partial destructive changes posterior aspect right 10th rib. This is similar compared to the prior CT of the thoracic spine. Nondisplaced fracture right eighth rib laterally demonstrating what is potentially benign pleural reactive change. Small fixed hiatal hernia unchanged. Somewhat progressive mediastinal and hilar adenopathy. Precarinal adenopathy measures 1.6 cm increased from 1 cm on the prior CT of the chest exam. Several additional nodes in the aortopulmonary window region as well as hilar region also slightly progressive. Exact dimensions are somewhat compromised due to the absence of intravenous contrast. Stable post operative changes of the juncture of the thoracolumbar region. IMPRESSION: 1. Interval development of a pleural-based 2.5 cm nodule of the superior segment left lower lobe. 2. Interval development of a locally invasive subpleural nodule posterior aspect right lung demonstrating invasive/destructive changes posterior right 10th rib. 3. Healing fracture right eighth rib. 4. Baseline emphysematous and interstitial change throughout both hemithoraces stable. 5. Fixed hiatal hernia 6. Mildly progressive mediastinal adenopathy. The above report was generated using voice recognition software. It may contain grammatical, syntax or spelling errors. Electronically signed by: Fernando Lewis M.D. 02/22/2018 4:42 PM Dictated Date/Time: 02/22/2018 4:35 PM The status of this report is Signed. Draft = Not yet reviewed or approved by Radiologist. Signed = Reviewed and approved by Radiologist. CHEST 1 VIEW FRONTAL CLINICAL HISTORY: NAVIGATIONAL BRONCH Fluoroscopy time: 225 seconds. FINDINGS: Fluoroscopy was provided for navigational bronchoscopy of a left lower lobe lesion. The bronchoscope is identified within the left lower lobe. A single fluoroscopic spot image of the left chest was obtained. IMPRESSION: Fluoroscopy provided for navigational bronchoscopy. Electronically signed by: Abad Grey M.D. 02/24/2018 12:49 PM Dictated Date/Time: 02/24/2018 12:47 PM The status of this report is Signed. Draft = Not yet reviewed or approved by Radiologist. Signed = Reviewed and approved by Radiologist CHEST ONE VIEW PORTABLE HISTORY: Status post bronchoscopy. Rule out pneumothorax COMPARISON: Chest 11/08/2016. FINDINGS: No pneumothorax. No pleural effusions. The heart remains mildly enlarged. Diffuse interstitial thickening has slightly progressed. There is a 4 cm left perihilar masslike opacity. Lumbar spinal fusion hardware. Cholecystectomy. IMPRESSION: 1. No pneumothorax. 2. A 4 cm left perihilar masslike opacity. This is better appreciated on the 02/22/[address] 3. Diffuse interstitial thickening has progressed. This could represent developing congestive change. Electronically signed by: Abad Grey M.D. 02/24/2018 1:04 PM Dictated Date/Time: 02/24/2018 1:02 PM The status of this report is Signed. Draft = Not yet reviewed or approved by Radiologist. Signed = Reviewed and approved by Radiologist Bronchoscopy Procedure Note Procedure: Flexible-Bronchoscopy, EBUS, ENB, FNA, Cytology Brushing, BAL Consent: Obtained through the patient placed into the chart Pre-Procedural Dx: Left lower lobe nodule with mediastinal adenopathy Post-Procedural Dx: Left lower lobe nodule with mediastinal adenopathy Analgesia: GETA Sedation: GETA Procedure: The Olympus video bronchoscope and EBUS scope were used for this procedure Initially the flexible bronchoscope was used for evaluation of the airways. The ET tube was notably 4 cm above the level of the blanca. Trachea: Visualized portion of the trachea was anatomically within normal limits Blanca: Anatomically within normal limits Right bronchial tree: Right mainstem bronchus: Anatomically within normal limits Right upper lobe: Anatomically within normal limits Bronchus intermedius: Anatomically within normal limits Right middle lobe: Anatomically within normal limits Right lower lobe: Anatomically within normal limits Findings: No significant findings noted Left bronchial tree: Left mainstem bronchus: Anatomically within normal limits Left upper lobe: Anatomically within normal limits Lingula: Anatomically within normal limits Left lower lobe: Anatomically within normal limits Findings: No significant findings noted EBUS/SHILPI: FNA Osmar Stations: 7, 4R, 4L. 10L ENB: FNA, Cytology brushing, BAL (left lower lobe nodule) BAL: LLL EBL: 4cc Complications: None Follow-up: PACU <Electronically signed by Bryant Veronica MD> Signed: 02/24/18 [id number] Signed: The status of this report is Signed * If report status is Draft, the document has not been finalized by the responsible provider. MNE: Procedure Note <AttendingPhy>Clement Garcia MD, PhD</AttendingPhy><EDPhy>Chiara Gates M.D.</EDPhy> <FamilyPhy>RV. Byrd MD</FamilyPhy> < PrimaryPhy>RV. Byrd MD</PrimaryPhy><UnitNumber>[id number]</ UnitNumber><VisitNumber>[id number]</VisitNumber><PatientName>SANTOS CURRY Julia</ PatientName><DateOfBirth>1955</DateOfBirth><Age>62</Age><Location>[facility]</ Location><ServiceDate>02/20/18</ServiceDate><CC>RV. Byrd MD Waddington, Thomas W., MD</CC><[facility]> Addendum: 02/24/18 1248 Addendum: Bryant Veronica MD on 02/24/18 @ 12:48 Addendum Section After the procedure I spoke with the patient's son and daughter in law about the findings <Electronically signed by Bryant Veronica MD> Signed: 02/24/18 1205 Consultations: Oncology- Dr. uMñoz Pulmonary- Dr. Veronica GI- Dr. Barth/[place] Radiation/oncology- Dr. Denny Medication Reconciliation Continued Medications: Aspirin (Aspirin Ec) 81 Mg Tab 81 MG PO HS Bimatoprost (Lumigan) 0.01 % Shy 1 DROP OPB HS Bupropion Hcl (Bupropion Hcl Xl) 150 Mg Tab 150 MG PO QAM Cholecalciferol (Vitamin D) 2,000 Unit Tab 2000 INTER.UNIT PO DAILY Clopidogrel Bisulfate (Clopidogrel) 75 Mg Tab 75 MG PO QAM Cyanocobalamin (Vitamin B12) 1,000 Mcg Tab 1000 MCG PO QAM Dexlansoprazole (Dexilant) 60 Mg Cap 60 MG PO QAM TAKE 1 CAPSULE BY MOUTH IN THE MORNING 30 MINUTES PRIOR TO BREAKFAST Dicyclomine Hcl (Bentyl) 10 Mg Cap 10 MG PO TID PRN for Abdominal Pain, CAP Etodolac (Etodolac) 400 Mg Tab 400 MG PO BID Fesoterodine Fumarate (Toviaz) 8 Mg Tab 8 MG PO HS Fluticasone Propionate (Fluticasone Propionate) 120 Sprays/6000 Mcg Inha 1 SPRAY NING BID PRN for Nasal Congestion Ibuprofen (Motrin) 400 Mg Tab 400 MG PO DAILY PRN for Pain, TAB Ipratropium-Albuterol (Combivent Respimat) 1 Aer Aer 2 PUFFS INH QID PRN for SOB/Wheezing, INH Loperamide Hcl (Imodium) 2 Mg Cap 2 MG PO DAILY PRN for Diarrhea, CAP Lorazepam (Lorazepam) 0.5 Mg Tab 0.5 MG PO DAILY PRN for Anxiety Metformin HCl (Metformin HCl) 500 Mg Tab 500 MG PO BID Metoclopramide Hcl (Metoclopramide Hcl) 5 Mg Tab 5 MG PO BID Metoprolol Tartrate (Lopressor) 25 Mg Tab 25 MG PO BID, TAB Ondansetron Hcl (Zofran) 8 Mg Tab 8 MG PO TID PRN for Nausea, TAB Oxycodone Hcl (Oxycodone Hcl Er) 10 Mg Tab 10 MG PO Q12 Oxycodone Hcl (Oxycodone Hcl) 10 Mg Tab 10 MG PO QID PRN for Pain Polyethylene Glycol 3350 (Miralax) 1 Pow Pow 17 GM PO DAILY PRN for Constipation, GM Pravastatin Sodium (Pravastatin Sodium) 40 Mg Tab 40 MG PO QAM Discontinued Medications: Cephalexin (Keflex) 500 Mg Cap 1 CAP PO TID for 10 Days, #30 CAP Referrals At Discharge Follow up Referrals: Family Practice Referral - Within 1 Week with RV. Byrd MD Fluorescent Lamp Replacer Referral - Within 1 Week with Hai Barth M.D. Oncology/Hematology Referral - Within 1 Week with Joshua Muñoz D.O. Oncology/Hematology Referral - 02/26/18 with Veeral. Denny MD Venetian Blind Tape Cutter Referral - Within a Month with Bryant Veronica MD Discharge Exam Review of Systems: Constitutional: No fever, No chills, No sweats, No weakness, No fatigue Eyes: No worsening of vision ENT: No hearing loss, No sore throat, No trouble swallowing Respiratory: No cough, No shortness of breath, No hemoptysis Cardiovascular: No chest pain, No edema, No palpitations Abdomen: No pain, No nausea, No vomiting, No diarrhea, No constipation, No GI bleeding Musculoskeletal: + joint pain (back), + muscle pain (back), No swelling, No calf pain Genitourinary - Female: No dysuria, No hematuria Neurologic: No weakness, No numbness/tingling Psychiatric: No depression symptoms, No anxiety Endocrine: No fatigue Hematologic / Lymphatic: No abnormal bleeding/bruising Integumentary: No rash, No itch, No new/changing skin lesions Physical Exam: General Appearance: no apparent distress Eyes: normal inspection, PERRL ENT: hearing grossly normal Neck: supple Respiratory/Chest: lungs clear, no respiratory distress, no accessory muscle use Cardiovascular: regular rate, rhythm Abdomen / GI: normal bowel sounds, non tender, soft Extremities: no calf tenderness, no pedal edema Neurologic/Psychiatric: alert, normal mood/affect, oriented x 3 Skin: normal color, warm/dry, no rash Hospital Course 62-year-old white female admitted to because of worsening abdominal pain was found has pancreatitis, ?metastatic lung disease. Pancreatitis- STABLE: - IVF @ 100 ml/hr - Lipase- STABLE - Advance diet as tolerated- tolerating full diet - IV Dilaudid PRN for pain management discontinued- resumed home pain regimen prior to discharge - IV Zofran PRN for nausea - GI consulted, appreciate recommendations- f/u outpatient for continued evaluation of pancreas ?Metastatic disease- STABLE: - CEA elevated at 2.6 - CT imaging: - 9 x 9 mm area of ill-defined attenuation involving the distal pancreatic body- ?focal edema vs pancreatitis mass - Left lower lobe measuring 2.4 cm and a 1.8 subpleural soft tissue attenuating nodule adjacent to the basal right lower lobe invading the adjacent posterior right 10th rib. - Mediastinal lymphadenopathy suggesting metastatic disease is also noted. - Pulmonary consulted- s/p bronchoscopy and biopsy on 02/[address] Veronica- pending pathology and cultures - Radiation oncology consulted- CT stimulation on 02/22; radiation therapy started on 02/25 - Oncology consulted- if biopsy confirms diagnosis, will need PET scan for staging and outpatient f/u UTI POA- UCx w/ pansensitive E.coli: IV Rocephin x5 days- completed Hypomagnesemia- RESOLVED: Replace w/ IV Mag supplement- follow and replace PRN Paroxysmal a.fib, HTN, chronic diastolic CHF- STABLE: Continue Metoprolol 25 mg BID, Plavix 75 mg daily and ASA 81 mg daily h/o TIA/CVA, HLD- STABLE: Continue Plavix and ASA, Pravastatin T2DM: - Hold Metformin 500 mg BID while inpatient- resume at discharge - BSG ACHS and ISS COPD- STABLE: Continue Combivent Respimat, DuoNebs PRN for SOB/wheezing Tobacco abuse- current every day smoker: - Smoking cessation counselling - Nicotine patch ordered Anxiety- STABLE: Continue Bupropion XL 150 mg QAM, Lorazepam PRN Irritable bowel disease: Continue Bentyl PRN Fibromyalgia, chronic pain- follows w/ pain management: - Home regimen of: Oxycodone ER HCL 10 mg BID and Oxycodone HCL 10 mg QID - Had a long discussion w/ patient about pain regimen (requesting more) -- Discussed I will not be giving her more/increase dose in pain medication -- She can f/u w/ pain management and consultations to discuss pain management if warranted outpatient -- Check [place] drug monitoring site- last refill on 02/01 (next refill due 03/03) and has been inpatient x5 days- NO prescriptions given Urinary incontinence: Continue Toviaz GERD: Change Dexilant to Pantoprazole while inpatient- resume Dexilant at discharge DVT prophylaxis: Chemical anticoagulation held for pulmonary procedure Code status: LEVEL I, FULL Dispo: Discharge to home Total Time Spent: Greater than 30 minutes This includes examination of the patient, discharge planning, medication reconciliation, and communication with other providers. Discharge Instructions Please refer to the electronic Patient Visit Report (Discharge Instructions) for additional information. Follow-Up Please follow-up with your PCP within 5-7 days Please follow-up with Oncology within 1 week Follow-up with Radiation Oncology as instructed on 02/26 Follow-up with GI within 1 week Follow-up with Pulmonary within 1 month Please follow-up/keep all of your subspecialty appointments Additional Copies To RV. Byrd MD
--- NOTE | 2018-02-25 09:54 | Discharge Instructions ---
Discharge Instructions Date of Service February 25, 2018. Admission Reason for Admission: Pancreatitis Discharge Discharge Diagnosis / Problem: Pancreatits, ?metastatic disease Discharge Goals Goal(s): Decrease discomfort, Improve function, Increase independence, Improve disease control, Improve nutritional status, Learn about illness, Diagnostic testing, Therapeutic intervention, Prevent Disease Progression Activity Recommendations Activity Limitations: resume your previous activity . Instructions / Follow-Up Instructions / Follow-Up You were admitted to [facility] due to nausea and abdominal pain: 1. You were found to have pancreatitis (inflammation of the pancreas). You were treated with IV fluid and pain medication. You are now tolerating a regular diet. 2. A lesion was found on your pancreas- you will need outpatient follow-up with GI for further investigation/monitoring/treatment. 3. You were found to have lung lesions- these were biopsied and cultures/ pathology is still pending. You will follow-up outpatient for these results. 4. You were found to have a spinal lesion- radiation therapy was started on , please continue follow-up a directed by Dr. Denny. 5. Urinary tract infection- you have completed a course of antibiotic therapy. Resume all regular home medications as prescribed. FOLLOW-UPS: Please follow-up with your PCP within 5-7 days Please follow-up with Oncology, Dr. Muñoz within 1 week Follow-up with Radiation Oncology, Dr. Denny as instructed on 02/26 Follow-up with GI, Dr. Barth within 1 week Follow-up with Pulmonary, Dr. Veronica within 1 month Please follow-up/keep all of your subspecialty appointments Current Hospital Diet Patient's current hospital diet: Diabetes Type 2 Diet Discharge Diet Recommended Diet: Diabetes Type 2 Diet Procedures Procedures Performed: Endobronchial Ultrasound; Flexible and Navigational Bronchoscopy, Fine Needle Aspiration of Mediastinum, Bronchial Washings, Cytology Brushing Pending Studies Studies pending at discharge: yes List of pending studies: Biopsy/cultures Laboratory Results Lipid Panel Test 02/21/18 00:34 Range/Units Triglycerides Level 154 H 0-150 mg/dl Cholesterol Level 83 0-200 mg/dl HDL Cholesterol 34 mg/dl Cholesterol/HDL Ratio 2.4 LDL Cholesterol, Calculated 18 mg/dl Medical Emergencies . Who to Call and When: Medical Emergencies: If at any time you feel your situation is an emergency, please call 911 immediately. . Non-Emergent Contact Non-Emergency issues call your: Primary Care Provider, Powertrain Control Systems Engineer, Oncologist, Concrete Vibrator Operator, Specialist (pain management) Call Non-Emergent contact if: you have a fever, your pain is not controlled, your pain is worsening, your pain is unusual for you, your pain is concerning you, you have any medication questions . . "Provider Documentation" section prepared by Abbey Spears. . [place] Drug Monitoring Program Search Results: patient reviewed within database
[2018-02-25 10:51] VITALS: O2SAT 93
[2018-02-25 11:29] VITALS: BP 132/89; PULSE 69; TEMP 36.9; O2SAT 92
--- NOTE | 2018-02-25 11:36 | Pulmonology Progress Note ---
Pulmonary Progress Note Date of Service February 25, 2018. Attending Dr. Vernoica Subjective Patient was having pain last evening but after adjusting her pain regimen she notes increasing compliance/comfort Objective Patient is sitting up in her bed able to move for the room with no signs of respiratory insufficiency/failure: Vital signs: Stable on room air Respiratory: Inspiratory Velcro rales appreciated bit at the bases bilaterally Cardiac: S1-S2 regular rate and rhythm Abdomen: Positive bowel sounds soft with mild discomfort to deep palpation her on the epigastric region Extremities: No clubbing cyanosis or breakdown Assessment & Plan 62-year-old female admitted with pancreatitis and found to have a new left lower lobe mass: 1. Lung Mass: Awaiting final results on the EBUS/ENB evaluation but it does appear the left lower lobe nodule is a carcinoma but the mediastinum via th SHILPI was within normal limits. It is possible we are dealing with is a metastatic lesion to the lung and not a primary lung process. 2. ILD: Patient underwent surgical lung biopsy of the lung 09/22/2012. At that time there changes consistent with idiopathic pulmonary fibrosis but also granulomatous tissue with pull rising material possibly suggesting previous inhalation injury/pneumoconiosis/foreign body pulmonary granulomatosis. 3. Pain: Patient undergoing medical/drug regimen for pain control as well as Radiation Oncology introducing external beam radiation into the therapeutic regimen. Data Medications: Current Inpatient Medications Medications (Trade) Dose Ordered Sig/Farida Route Start Time Stop Time Status Last Admin Dose Admin Bupropion HCl (Wellbutrin-Xl Tab) 150 mg QAM PO 02/21/18 09:00 03/23/18 08:59 02/25/18 08:30 150 MG Clopidogrel Bisulfate (plAVix TAB) 75 mg QAM PO 02/21/18 09:00 03/23/18 08:59 Future hold 02/25/18 08:30 75 MG Dicyclomine HCl (Bentyl Cap) 10 mg TID PRN PO 02/20/18 18:00 03/22/18 17:59 02/24/18 19:56 10 MG Fluticasone Propionate (Flonase Nasal [place]) BID PRN NING 02/20/18 18:00 03/22/18 17:59 Albuterol/ Ipratropium (Combivent Respimat Inh) 2 puffs QID PRN INH 02/20/18 18:00 03/22/18 17:59 Metoprolol Tartrate (Lopressor Tab) 25 mg BID PO 02/20/18 21:00 03/22/18 20:59 02/25/18 08:31 25 MG Oxycodone HCl (Oxycontin Tab) 10 mg Q12 PO 02/20/18 21:00 03/06/18 20:59 02/25/18 08:53 10 MG Miscellaneous Information (Order Awaiting Action) 1 ea QS N/A 02/21/18 00:00 03/23/18 00:00 Polyethylene (Miralax Powder Packet) 17 gm DAILY PRN PO 02/20/18 18:00 03/22/18 17:59 Potassium Chloride/Sodium Chloride 1,000 ml @ 100 mls/hr Q10H IV 02/20/18 20:00 03/22/18 19:59 02/25/18 02:41 100 MLS/HR Ondansetron HCl (Zofran Odt) 8 mg Q6H PRN PO 02/21/18 00:15 03/23/18 00:14 02/22/18 05:27 8 MG Ceftriaxone Sodium 1 gm/ Dextrose 50 ml @ 100 mls/hr Q24H IV 02/21/18 16:00 02/26/18 07:59 02/24/18 15:38 100 MLS/HR Nicotine (Nicoderm Cq 21MG Patch) 1 patch QAM EXT 02/21/18 13:00 03/23/18 12:59 02/25/18 08:30 1 PATCH Miscellaneous (Remove Nicoderm Patch) 1 ea HS PRN N/A 02/21/18 13:00 03/23/18 12:59 Insulin Aspart (novoLOG ASPART) SLIDING SCALE G... ACHS SC 02/22/18 16:30 03/24/18 16:29 02/25/18 08:53 4 UNITS Albuterol/ Ipratropium (Duoneb) 3 ml Q4H PRN INH 02/22/18 11:45 03/24/18 11:44 Glucose (Glucose 40% Gel) 15-30 GRAMS 15 GRAMS... UD PRN PO 02/22/18 12:30 03/24/18 12:29 Glucose (Glucose Chew Tab) 4-8 Tablets 4 Tabl... UD PRN PO 02/22/18 12:30 03/24/18 12:29 Dextrose (Dextrose 50% 50ML Syringe) 25-50ML 25ML FOR ... UD PRN IV 02/22/18 12:30 03/24/18 12:29 Glucagon (Glucagon Inj) 1 mg UD PRN IM 02/22/18 12:30 03/24/18 12:29 Carbohydrates (Carbohydrates For Hypoglycemia) 15-30 GRAMS 15 grams if BSG 54-69... UD PRN PO 02/22/18 12:30 03/24/18 12:29 Lorazepam (Ativan Tab) 0.5 mg DAILY PRN PO 02/22/18 14:45 03/24/18 14:44 02/24/18 22:06 0.5 MG Miscellaneous Information (Order Awaiting Action) 1 ea QS N/A 02/23/18 16:00 03/25/18 15:59 Docusate Sodium (coLACE CAP) 100 mg BID PO 02/23/18 21:00 03/25/18 20:59 02/25/18 08:30 100 MG Pantoprazole Sodium (Protonix Tab) 40 mg HS PO 02/24/18 21:00 03/26/18 20:59 02/24/18 20:45 40 MG Oxycodone HCl (Roxicodone Immediate Rel Tab) 10 mg QID PRN PO 02/24/18 21:30 03/26/18 12:44 02/25/18 08:55 10 MG Ranitidine HCl (zANTac TAB) 150 mg BID PRN PO 02/25/18 01:00 03/27/18 00:59 02/25/18 03:58 150 MG Vital Signs: Date Time Temp Pulse Resp B/P (MAP) Pulse Ox O2 Delivery O2 Flow Rate FiO2 02/25/18 11:29 36.9 69 18 132/89 (103) 92 Room Air 02/25/18 10:51 93 Room Air 02/25/18 08:08 36.7 91 22 138/76 (96) 91 Room Air 02/25/18 04:00 36.6 72 16 141/87 (105) 91 Room Air 02/25/18 00:01 Room Air 02/24/18 23:40 36.3 63 20 133/77 (95) 93 Room Air 02/24/18 16:00 Room Air 02/24/18 15:49 37.1 88 18 128/82 (97) 90 Room Air 02/24/18 13:15 37.0 82 18 135/86 (102) 97 Nasal Cannula 2.0 02/24/18 13:00 80 15 145/93 95 Nasal Cannula 2 02/24/18 12:45 36.4 85 15 133/98 95 Nasal Cannula 2 02/24/18 12:35 89 13 139/97 98 Oxymask 10 02/24/18 12:25 81 20 149/76 99 Oxymask 10 02/24/18 12:15 36.1 85 20 148/94 98 Oxymask 10 Laboratory Results: Last 24 Hours Test 02/24/18 12:33 02/24/18 16:47 02/24/18 19:52 02/25/18 05:43 Bedside Glucose 116 mg/dl 187 mg/dl 159 mg/dl Sodium Level 140 mmol/L Potassium Level 4.2 mmol/L Chloride Level 109 mmol/L Carbon Dioxide Level 25 mmol/L Anion Gap 6.0 mmol/L Blood Urea Nitrogen 7 mg/dl Creatinine 0.70 mg/dl Est Creatinine Clear Calc Drug Dose 96.8 ml/min Estimated GFR () 106.1 Estimated GFR (Non- 91.6 BUN/Creatinine Ratio 10.2 Random Glucose 158 mg/dl Calcium Level 8.6 mg/dl Magnesium Level 1.9 mg/dl Test 02/25/18 07:42 Bedside Glucose 142 mg/dl
[2018-02-25] MEDS ORDERED: IBUPROFEN 800 MG TAB PO ONE (13:30)
[2018-02-25] MEDS ORDERED: NURSING VERBAL MED ORDER ONE (13:30)
[2018-02-25] MEDS ORDERED: VAREPAK2 PO (14:03)
[2018-02-25] MEDS: CEFTRIAXONE SOD INJ 1 GM in DEXTROSE 5% ADD-VANTAGE 50ML 50 ML IV SCH (14:33)
[2018-02-25 15:07] VITALS: BP 132/89; PULSE 69; TEMP 36.9; O2SAT 92
[2018-02-25 15:37] VITALS: PULSE 74; TEMP 36.7; O2SAT 95
--- NOTE | 2018-02-25 20:02 | GASTROENTEROLOGY PROGRESS NOTE ---
DATE: 02/25/2018 Chart reviewed. The patient examined. The patient from a GI standpoint with decreased abdominal pain, although continues with back pain, rib pain. She is, however, tolerating foods well without difficulty. The pathology specimens are still pending at this time. These were from the EBUS. Dr. Veronica's note reviewed. There is a question that the carcinoma may not represent a pulmonary primary. MEDICATIONS: Reviewed. LABORATORY STUDIES: Today white count 8.8, hemoglobin 12.8. Serum chemistry with CEA slightly elevated at 2.6. Lipase from yesterday 1621. PHYSICAL EXAMINATION: VITAL SIGNS: Afebrile 36.9, blood pressure 132/89, respirations 18, heart rate 69, and 92% on room air. GENERAL: Physical exam is unchanged from yesterday. The patient is awake, alert and oriented x3, resting comfortably in bed. HEART: Normal S1, S2. LUNGS: Clear to auscultation. ABDOMEN: Flat, tender mildly in the epigastrium without rebound or guarding. There are positive bowel sounds. EXTREMITIES: Without edema. RECTAL: Deferred. IMPRESSION AND PLAN: I spoke with Dr. Garcia today regarding the patient's progress. The lymph nodes that are available were negative for metastatic carcinoma; however, other bronchial washings and lung biopsy are pending at this time. Overall, the source of the patient's cancer is not fully known, although hopefully, this will be clarified when final path diagnoses are available from EBUS. If this is not felt to be of lung primary, then gastrointestinal sources may need to be excluded and to this end upper endoscopy and colonoscopy are reasonable and could be performed as an outpatient early next week. The patient reports that she did have an EGD and colonoscopy over the last few years by Carmella ZACARIAS. Regarding the pancreatitis and questionable pancreatic lesion in the tail of the pancreas, if there are no luminal GI sources that reflect the findings in the chest, assuming they are metastatic, then consideration for endoscopic ultrasound with assessment of the pancreas is prudent. However, would be ideal to allow pancreatitis to settle down for several more days before attempting this in order to improve detection. We will tentatively make arrangements for upper endoscopy and colonoscopy next week with Dr. Barth at the hospital and depending on the final determination of the path specimens, endoscopic ultrasound for the pancreas at some point in the near future. All questions answered. [facility]
[2018-03-01] MEDS ORDERED: DOCUSATE (11:12)
--- NOTE | 2018-03-02 07:17 | EDITING REQUIRED CODING QUERY ---
PATHOLOGY To promote full compliance with coding requirements relating to patient care, physician participation is requested in all cases of box toe cutter uncertainty. Please assist us with the question(s) below: Please review the Pathology report and please document any relevant diagnosis(es) below. Thank you! HEATHER Trejo [facility] Diagnosis(es): 1) Lung Nodule 2) Small Cell Lung Cancer
--- NOTE | 2018-03-02 13:10 | PROGRESS NOTE ---
DATE: 02/22/2018 ADDENDUM On this date, I reviewed the patient's vital signs which were normal. I spoke to the patient about her condition and plan of care going forward. She was awake, alert, and coherent and agreed with the plan of care.
== END 2018-02-25 15:55 | disposition home or self-care (01) | DRG 515 ==
LOC: C.EDB 15:08 → C.MED 17:51 → ENRESERV 18:21
PROVIDERS: ADMIT Hospitalist; ATTEND Hospitalist
PROC: 0BBB8ZX Excision of Left Lower Lobe Bronchus, Via Natural or Artificial Opening Endoscopic, Diagnostic (ICD-10-PCS; principal; 2018-02-24 09:30)
PROC: 0B9J8ZX Drainage of Left Lower Lung Lobe, Via Natural or Artificial Opening Endoscopic, Diagnostic (ICD-10-PCS; principal; 2018-02-24 09:30)
PROC: 07B74ZX Excision of Thorax Lymphatic, Percutaneous Endoscopic Approach, Diagnostic (ICD-10-PCS; principal; 2018-02-24 09:30)
PROC: 0BBJ8ZX Excision of Left Lower Lung Lobe, Via Natural or Artificial Opening Endoscopic, Diagnostic (ICD-10-PCS; principal; 2018-02-24 09:30)
DX: C79.51 Secondary malignant neoplasm of bone (principal); K85.90 Acute pancreatitis without necrosis or infection, unspecified; C34.32 Malignant neoplasm of lower lobe, left bronchus or lung; J84.9 Interstitial pulmonary disease, unspecified; N39.0 Urinary tract infection, site not specified; I50.32 Chronic diastolic (congestive) heart failure; C77.1 Secondary and unspecified malignant neoplasm of intrathoracic lymph nodes; M84.58XA Pathological fracture in neoplastic disease, other specified site, initial encounter for fracture; K86.1 Other chronic pancreatitis; J45.909 Unspecified asthma, uncomplicated; I48.0 Paroxysmal atrial fibrillation; J44.9 Chronic obstructive pulmonary disease, unspecified; E27.8 Other specified disorders of adrenal gland; E11.9 Type 2 diabetes mellitus without complications; M79.7 Fibromyalgia; M48.062 Spinal stenosis, lumbar region with neurogenic claudication; E66.9 Obesity, unspecified; Z83.3 Family history of diabetes mellitus; Z79.84 Long term (current) use of oral hypoglycemic drugs; Z68.31 Body mass index [BMI] 31.0-31.9, adult; Z88.8 Allergy status to other drugs, medicaments and biological substances; Z88.2 Allergy status to sulfonamides; Z79.82 Long term (current) use of aspirin; F17.200 Nicotine dependence, unspecified, uncomplicated; F41.9 Anxiety disorder, unspecified; K21.9 Gastro-esophageal reflux disease without esophagitis; B96.20 Unspecified Escherichia coli [E. coli] as the cause of diseases classified elsewhere; E83.42 Hypomagnesemia; Z86.73 Personal history of transient ischemic attack (TIA), and cerebral infarction without residual deficits; R32 Unspecified urinary incontinence; E88.09 Other disorders of plasma-protein metabolism, not elsewhere classified; E53.8 Deficiency of other specified B group vitamins; Z86.19 Personal history of other infectious and parasitic diseases; R91.1 Solitary pulmonary nodule; K44.9 Diaphragmatic hernia without obstruction or gangrene

== ENCOUNTER → 2018-03-03 | Outpatient (CLI) | payer OTHER ==
[~2018-03-03] MED LIST changes: +ATV5X PO; +BUPR150T5 PO; -BUPRTAB PO; -CEPH-571 PO; -CLOP1TAB54 PO; +DEXL60CA4 PO; +DICY10CA55 PO; +DOCUSATE; +ETOD400T PO; +FESO8TAB PO; +FLNIN/ NAE; -FLUC200T PO; -FLUT0.15 NAE; -LORA-741 PO; +LPR25 PO; -METO1TAB54 PO; +METO5TAB2 PO; +ONDA8TAB12 PO; +OXYC-164 PO; +OXYC-292 PO; +PLV75 PO; -PRAV20TA PO; +PRAV40TA2 PO; +VAREPAK2 PO
--- NOTE | 2018-03-03 11:01 | DIAGNOSTIC IMAGING REPORT ---
PET/CT SKULL-THIGH CLINICAL HISTORY: NON SMALL CELL LUNG CANCER COMPARISON STUDY: PET/CT scan dated 09/01/2012, Chest CT scan dated 02/22/2018, abdominal CT scan dated 02/20/2018 FINDINGS: The patient was injected with 12.6 mCi of F 18 labeled FDG. Following the standard induction phase, PET/CT scanning was performed from the skull base the upper thigh region. Activity within the neck is felt to be physiologic. Within the chest, there are interstitial pulmonary fibrotic changes. There is a 32 mm intensely FDG avid mass within the superior segment of the left lower lobe with SUV maximum of 11.4. 18 mm soft tissue nodule adjacent the right posterior 10th rib is FDG avid with SUV maximum of 5.6. There are no pleural effusions. There are mildly enlarged mediastinal lymph nodes which aren't minimally FDG avid. There is a hiatal hernia. Within the abdomen and pelvis, there is physiologic urinary tract and bowel activity. There are FDG avid lesions within the pancreatic body and tail. The pancreatic body lesion hasn't SUV maximum of 8.4. This corresponds to the hypoattenuating mass as described on the prior contrast-enhanced CT scan. No corresponding lesion is visualized on the noncontrast CT scan performed with today's study. There is mild left adrenal gland thickening which is minimally FDG avid. There is no evidence of FDG avid abdominal or pelvic lymphadenopathy. A small focus of FDG activity abutting the left psoas muscle, likely represents ureteral activity. There are innumerable FDG avid skeletal lesions consistent with widespread skeletal metastasis. These involve the lesser trochanter of the right femur, multiple iliac lesions, multiple vertebral lesions, multiple ribs, as well as the right scapula. IMPRESSION: 1. 32 mm FDG avid mass within the superior segment the left lower lobe consistent with neoplasm 2. Mildly enlarged minimally FDG avid mediastinal lymph nodes 3. Mild left adrenal gland enlargement which is minimally FDG avid 4. 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 FDG avid pancreatic lesion suspicious for neoplasm Electronically signed by: Nahum Eckert M.D. 03/03/2018 10:59 AM Dictated Date/Time: 03/03/2018 10:42 AM
== END | disposition home or self-care (01) ==
LOC: C.PET 07:51
PROVIDERS: ATTEND Physician Assistant Medical
DX: C79.51 Secondary malignant neoplasm of bone (principal); C34.32 Malignant neoplasm of lower lobe, left bronchus or lung

== ENCOUNTER → 2018-05-11 | Outpatient (CLI) | payer OTHER ==
[~2018-05-11] MED LIST changes: +CEFD1CAP14 PO; +DICY10CA12 PO; -DICY10CA55 PO; +DOCU100C31 PO; -DOCUSATE; +DRGTP100 TD; +DRGTP25 TD; +DRGTP75 TD; +DXM/4 PO; -GLC500 PO; -IBUP-1459 PO; +LVQ750 PO; +MTR/400 PO; +ONDA4TAB9 PO; -ONDA8TAB12 PO; -OXYC-164 PO; -OXYC-292 PO; +OXYC-90 PO; +OXYC20TA32 PO; +PRVC/20 PO; +RANI150T2 PO; -VAREPAK2 PO
[2018-05-11 10:41] LABS: BASO % 0.1 %; BASO ABS # 0.02 K/uL (0-0.2); HEMATOCRIT 34.7 % (37-47); HEMOGLOBIN 11.7 g/dL (12.0-16.0); IG# 0.15 K/uL (0.00-0.02); LYMPH % 11.5 %; LYMPH ABS # 2.31 K/uL (1.2-3.4); MEAN CELL VOLUME 86.1 fL (80-100); MEAN CORPUSCULAR HGB CONC 33.7 g/dl (32-36); MEAN PLATELET VOLUME 8.8 fL (7.4-10.4); MONO % 5.9 %; MONO ABS # 1.18 K/uL (0.11-0.59); NEUT % 81.8 %; PLATELET COUNT 313 K/uL (130-400); RED CELL DISTRIBUTION WIDTH CV 21.3 % (11.5-14.5); RED CELL DISTRIBUTION WIDTH SD 62.8 fL (36.4-46.3); WHITE BLOOD COUNT 20.16 K/uL (4.8-10.8)
[2018-05-11 10:59] LABS: ALBUMIN 3.1 gm/dl (3.4-5.0); ALT/SGPT 21 U/L (12-78); AST/SGOT 15 U/L (15-37); BLOOD UREA NITROGEN 25 mg/dl (7-18); CALCIUM 8.9 mg/dl (8.5-10.1); CARBON DIOXIDE 21 mmol/L (21-32); CREATININE 1.32 mg/dl (0.60-1.20); GLUCOSE 105 mg/dl (70-99); POTASSIUM 4.3 mmol/L (3.5-5.1); SODIUM 134 mmol/L (136-145)
[2018-05-11 11:05] LABS: ALKALINE PHOSPHATASE 96 U/L (45-117); TOTAL PROTEIN 6.8 gm/dl (6.4-8.2)
== END | disposition home or self-care (01) ==
LOC: C.LABSPEC 10:28
PROVIDERS: ATTEND Internal Medicine Hematology & Oncology
DX: C34.32 Malignant neoplasm of lower lobe, left bronchus or lung (principal)

== ENCOUNTER 2018-05-14 14:59 | Inpatient (IN) | payer OTHER ==
[~2018-05-14] VITALS: Ht 172.7 cm; Wt 79.2 kg
[~2018-05-14 14:59] MED LIST changes: -BIMA0.01 OPB; -BUPR150T5 PO; -CEFD1CAP14 PO; -CHOL20009 PO; -DEXL60CA4 PO; -DICY10CA12 PO; -DRGTP100 TD; -DRGTP25 TD; -DXM/4 PO; -ETOD400T PO; -FESO8TAB PO; -FLNIN/ NAE; -IMD/2 PO; -IPRA1AER2 INH; -MTR/400 PO; -ONDA4TAB9 PO; -OXYC-90 PO; -PLV75 PO; -POLY335019 PO; -PRVC/20 PO; -RANI150T2 PO
[2018-05-14] MEDS ORDERED: IMD/2 PO (15:05)
[2018-05-14] MEDS ORDERED: CHOL20009 PO (15:05)
[2018-05-14] MEDS ORDERED: IPRA1AER2 INH (15:05)
[2018-05-14] MEDS ORDERED: POLY335019 PO (15:05)
[2018-05-14] MEDS ORDERED: BIMA0.01 OPB (15:05)
[2018-05-14] MEDS ORDERED: BUPR150T5 PO (15:36)
[2018-05-14] MEDS ORDERED: PLV75 PO (15:36)
[2018-05-14] MEDS ORDERED: FLNIN/ NAE (15:40)
[2018-05-14] MEDS ORDERED: ETOD400T PO (15:49)
[2018-05-14] MEDS ORDERED: ALBUT/IPRATROP 3MG/0.5MG NEB 3 ML VIAL INH STA (16:08)
[2018-05-14] MEDS ORDERED: SODIUM CHLORIDE 0.9% 1000ML 1,000 ML IV ONE (16:08)
[2018-05-14] MEDS ORDERED: METHYLPREDNISOLONE 125 MG VIAL IV STA (16:08)
--- NOTE | 2018-05-14 16:13 | EMERGENCY ROOM VISIT NOTE ---
History Report prepared by Chelly: Raza Schwartz Under the Supervision of: Dr. Hubert Juarez M.D. First contact with patient: 15:56 Chief Complaint: HYPOTENSION Stated Complaint: LOW BP, DIZZY, FAST HEART RATE, REFERRED BY DR Wyatt of Present Illness The patient is a 62 year old female who presents to the Emergency Room with complaints of constant weakness beginning a few weeks ago. She currently rates her discomfort a 7/10 in severity. The patient states she had her third day of chemotherapy yesterday. She reports she is receiving etoposide chemotherapy treatment. The patient notes she follows with Dr. Muñoz. 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 The patient reports she is always in pain and is experiencing mild shortness of breath. She notes she was evaluated by her at home nurse and told to come to the ED because her pulse was high. The patient states she also had a low blood pressure. She reports she smokes 2 packs of cigarettes a day. The patient denies chest pain, coughing, abdominal pain, and LOC. Source of History: patient Onset: a few weeks ago Symptom Intensity: 7/10 Quality: other (weakness) Timing: constant Associated Symptoms: + SOB, No LOC, No cough, No chest pain, No abdominal pain Review of Systems See HPI for pertinent positives and negatives. A total of ten systems were reviewed and were otherwise negative. 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 (22) Obesity (23) Palliative care encounter (24) Pancreatitis (25) Pseudomonas urinary tract infection (26) Recurrent UTI (urinary tract infection) (27) Spinal stenosis (28) Syncope (29) UTI (urinary tract infection) (30) UTI (urinary tract infection) Surgical Problems: (1) History of back surgery Family History FH: HTN (hypertension) FH: cancer FH: cardiovascular disease FH: diabetes mellitus FH: lung cancer Social History Smoking Status: Unknown if Ever Smoked Alcohol Use: none Drug Use: none Marital Status: Occupation Status: disabled Current/Historical Medications Scheduled Aspirin (Aspirin Ec), 81 MG PO HS Bimatoprost (Lumigan), 1 DROP OPB HS Bupropion Hcl (Bupropion Hcl Xl), 75 MG PO QAM Cholecalciferol (Vitamin D), 2,000 INTER.UNIT PO QAM Clopidogrel Bisulfate (Clopidogrel), 75 MG PO QAM Cyanocobalamin (Vitamin B12), 1,000 MCG PO QAM Dexamethasone (Decadron), 4 MG PO UD Dexlansoprazole (Dexilant), 60 MG PO QAM Docusate Sodium (Docusate Sodium), 200 MG PO QAM Etodolac (Etodolac), 400 MG PO BID Fentanyl (Duragesic), 75 MCG TD Q3D@1600 Fesoterodine Fumarate (Toviaz), 8 MG PO HS Pravastatin Sod (Pravastatin Sodium), 20 MG PO DAILY Ranitidine HCl (Ranitidine HCl), 150 MG PO DAILY Scheduled PRN Dicyclomine Hcl (Dicyclomine Hcl), 10 MG PO QID PRN for Abdominal Pain Fluticasone Propionate (Fluticasone Propionate), 1 SPRAY NING BID PRN for Nasal Congestion Ibuprofen (Ibuprofen), 400 MG PO DAILY PRN for Pain Ipratropium-Albuterol (Combivent Respimat), 2 PUFFS INH QID PRN for SOB/Wheezing Loperamide Hcl (Imodium), 2 MG PO DAILY PRN for Diarrhea Lorazepam (Lorazepam), 0.5 MG PO DAILY PRN for Anxiety Ondansetron (Ondansetron HCl), 4 MG PO UD PRN for Nausea Oxycodone Hcl (Oxycodone Hcl), 20 MG PO Q4-6HRS PRN for Pain Polyethylene Glycol 3350 (Miralax), 17 GM PO DAILY PRN for Constipation Allergies Coded Allergies: Duloxetine (Verified Adverse Reaction, Mild, N/V, 04/08/18) Gabapentin (Verified Adverse Reaction, Mild, GI symptoms, 04/08/18) Morphine (Verified Adverse Reaction, Mild, NAUSEATED, 04/08/18) Quinolones (Verified Adverse Reaction, Mild, GI symptoms, 04/08/18) includes Cipro Sulfa Antibiotics (Verified Adverse Reaction, Mild, "Sulfa Drugs = nauseated", 04/08/18) Ciprofloxacin (Verified Adverse Reaction, Unknown, STOMACH PAIN, 04/30/18) Pregabalin (Verified Adverse Reaction, Unknown, UPSET STOMACH, 04/30/18) Sulfamethoxazole w/Trimethoprim (Verified Adverse Reaction, Unknown, STOMACH ACHES, 04/30/18) Physical Exam Vital Signs Date Time Temp Pulse Resp B/P (MAP) Pulse Ox O2 Delivery O2 Flow Rate FiO2 05/14/18 19:51 90 18 124/87 97 Room Air 05/14/18 17:35 94 18 108/76 98 05/14/18 16:10 119 05/14/18 16:03 113 20 107/73 05/14/18 15:11 36.4 130 22 89/63 95 Room Air Physical Exam Physical Exam GENERAL: She is oriented to person, place, and time. She appears well- developed and well-nourished. She does not appear distressed. HENT: Exam performed. Head: Normocephalic and atraumatic. Right Ear: External ear normal. No mastoid tenderness. Left Ear: External ear normal. No mastoid tenderness. Mouth/Throat: The oropharynx is clear and moist. No trismus in the jaw. No dental abscesses or uvula swelling. No oropharyngeal exudate or tonsillar abscesses. EYES: Conjunctivae and EOM are normal. Pupils are equal, round, and reactive to light. Right eye exhibits no discharge. Left eye exhibits no discharge. No scleral icterus. NECK: Normal range of motion. Neck supple. No JVD present. No spinous process tenderness present. No carotid bruit present. No rigidity. No tracheal deviation and normal range of motion present. No Brudzinski's sign and no Kernig 's sign noted. CV: Tachycardic rate, regular rhythm, normal heart sounds and intact distal pulses. There is no peripheral edema. Palpable radial pulses bue. PULM/CHEST: Effort normal and breath sounds normal. No respiratory distress. No stridor. She has bilateral expiratory wheezes. She has no rales. Chest Wall: She exhibits no tenderness. Left-sided chest wall port. ABD: The abdomen is soft. Bowel sounds are normal. She has no distension. No mass is present. There is no tenderness. There is no rebound, no guarding, no Estrada's sign and no tenderness at McBurney's point. Rovsig negative MUSC/SKEL: Normal range of motion. There is no peripheral edema, tenderness or deformity. LYMPH: No cervical adenopathy. NEURO: She is alert and oriented to person, place, and time. She has normal strength. No cranial nerve deficit or sensory deficit. Coordination and gait normal. GCS eye subscore is 4. GCS verbal subscore is 5. GCS motor subscore is 6. Cerebellar tests wnl. SKIN: Skin is warm and dry. She is not diaphoretic. PSYCH: She has a normal mood and affect. Behavior is normal. Judgment and thought content normal. Medical Decision & Procedures ER Provider Diagnostic Interpretation: X-ray: Per my interpretation, radiologist review. CHEST ONE VIEW PORTABLE CLINICAL HISTORY: Sepsis COMPARISON STUDY: 04/27/2018 FINDINGS: The cardiac and mediastinal contours remain stable. There is a left-sided A-Port catheter. There is diffuse interstitial thickening similar to the preceding study. There are no pleural effusions. The left lung mass described on the preceding study is difficult to discern on the current examination.[ IMPRESSION: Chronic interstitial thickening similar to the preceding study. No evidence of acute lobar consolidation Electronically signed by: Nahum Eckert M.D. 05/14/2018 5:09 PM Dictated Date/Time: 05/14/2018 5:09 PM Laboratory Results 05/14/18 16:25 Red Blood Count 3.77, Mean Corpuscular Volume 85.1, Mean Corpuscular Hemoglobin 29.2, Mean Corpuscular Hemoglobin Concent 34.3, Mean Platelet Volume 8.7, Neutrophils (%) (Auto) 92.5, Lymphocytes (%) (Auto) 4.9, Monocytes (%) (Auto) 1.7, Eosinophils (%) (Auto) 0.4, Basophils (%) (Auto) 0.1, Neutrophils # (Auto) 10.15, Lymphocytes # (Auto) 0.54, Monocytes # (Auto) 0.19, Eosinophils # (Auto) 0.04, Basophils # (Auto) 0.01 05/14/18 16:25 Test 05/14/18 16:25 05/14/18 16:31 05/14/18 16:32 7/27/18 18:15 White Blood Count 10.97 K/uL (4.8-10.8) Red Blood Count 3.77 M/uL (4.2-5.4) Hemoglobin 11.0 g/dL (12.0-16.0) Hematocrit 32.1 % (37-47) Mean Corpuscular Volume 85.1 fL (80-100) Mean Corpuscular Hemoglobin 29.2 pg (25-34) Mean Corpuscular Hemoglobin Concent 34.3 g/dl (32-36) Platelet Count 266 K/uL (130-400) Mean Platelet Volume 8.7 fL (7.4-10.4) Neutrophils (%) (Auto) 92.5 % Lymphocytes (%) (Auto) 4.9 % Monocytes (%) (Auto) 1.7 % Eosinophils (%) (Auto) 0.4 % Basophils (%) (Auto) 0.1 % Neutrophils # (Auto) 10.15 K/uL (1.4-6.5) Lymphocytes # (Auto) 0.54 K/uL (1.2-3.4) Monocytes # (Auto) 0.19 K/uL (0.11-0.59) Eosinophils # (Auto) 0.04 K/uL (0-0.5) Basophils # (Auto) 0.01 K/uL (0-0.2) RDW Standard Deviation 64.5 fL (36.4-46.3) RDW Coefficient of Variation 21.4 % (11.5-14.5) Immature Granulocyte % (Auto) 0.4 % Immature Granulocyte # (Auto) 0.04 K/uL (0.00-0.02) Hypersegmented Polys 1+ Anisocytosis PRESENT Prothrombin Time 9.9 SECONDS (9.0-12.0) Prothromb Time International Ratio 0.9 (0.9-1.1) Activated Partial Thromboplast Time 22.0 SECONDS (21.0-31.0) Partial Thromboplastin Ratio 0.8 Anion Gap 9.0 mmol/L (3-11) Estimated GFR () 45.5 Estimated GFR (Non- 39.3 BUN/Creatinine Ratio 25.9 (10-20) Calcium Level 9.1 mg/dl (8.5-10.1) Magnesium Level 2.0 mg/dl (1.8-2.4) Total Bilirubin 0.6 mg/dl (0.2-1) Aspartate Amino Transf (AST/SGOT) 21 U/L (15-37) Alkaline Phosphatase 78 U/L (45-117) Total Creatine Kinase 28 U/L (26-192) Troponin I < 0.015 ng/ml (0-0.045) Total Protein 6.5 gm/dl (6.4-8.2) Albumin 3.1 gm/dl (3.4-5.0) Globulin 3.4 gm/dl (2.5-4.0) Albumin/Globulin Ratio 0.9 (0.9-2) Bedside Lactic Acid Venous 1.91 mmol/L (0.90-1.70) Venous Blood pH 7.39 (7.36-7.41) Venous Blood Partial Pressure CO2 36 mmHg (38.0-50.0) Venous Blood Partial Pressure O2 29 mmHg Venous Blood HCO3 21 mmol/L Venous Blood Oxygen Saturation < 60.0 % Venous Blood Base Excess -3.1 mEq/L Urine Color YELLOW Urine Appearance CLOUDY (CLEAR) Urine pH 5.0 (4.5-7.5) Urine Specific [place] 1.016 (1.000-1.030) Urine Protein NEG (NEG) Urine Glucose (UA) NEG (NEG) Urine Ketones NEG (NEG) Urine Occult Blood NEG (NEG) Urine Nitrite NEG (NEG) Urine Bilirubin NEG (NEG) Urine Urobilinogen NEG (NEG) Urine Leukocyte Esterase SMALL (NEG) Urine WBC (Auto) 5-10 /hpf (0-5) Urine RBC (Auto) 0-4 /hpf (0-4) Urine Hyaline Casts (Auto) 1-5 /lpf (0-5) Urine Epithelial Cells (Auto) 20-30 /lpf (0-5) Urine Bacteria (Auto) 4+ (NEG) Test 05/14/18 20:26 Laboratory results reviewed by me Medications Administered Medications (Trade) Dose Ordered Sig/Farida Route Start Time Stop Time Status Last Admin Dose Admin Sodium Chloride 1,000 ml @ 999 mls/hr Q1H1M ONCE IV 05/14/18 16:08 05/14/18 17:08 DC 05/14/18 16:44 999 MLS/HR Methylprednisolone Sodium Succinate (Solu-Medrol IV) 125 mg NOW STAT IV 05/14/18 16:08 05/14/18 16:10 DC 05/14/18 16:44 125 MG Albuterol/ Ipratropium (Duoneb) 3 ml NOW STAT INH 05/14/18 16:08 05/14/18 16:10 DC 05/14/18 16:44 3 ML Ondansetron HCl (Zofran Inj) 4 mg NOW STAT IV 05/14/18 16:35 05/14/18 16:36 DC 05/14/18 16:44 4 MG Hydromorphone HCl (Dilaudid Inj) 1 mg NOW STAT IV 05/14/18 16:56 05/14/18 16:57 DC 05/14/18 17:34 1 MG Ceftriaxone Sodium (Rocephin Inj) 1 gm NOW STAT IV 05/14/18 19:30 05/14/18 19:58 DC 05/14/18 19:51 1 GM ECG Per My Interpretation Indication: weakness Rate (beats per minute): 118 Rhythm: sinus tachycardia Findings: other (AK, QRS, QTc intervals are wnl. No ST depression or ST elevation. Peaked t-waves in leads V2-V6) ED Course 1605: The patient was evaluated in room A12A. A complete history and physical exam was performed. Patient was seen immediately upon being placed in treatment room. Sepsis order set initiated. Given her obstructive pulmonary disease, ordered Duoneb 3ml INH, Solu-Medrol 125mg IV, Sodium Chloride 1000 ml @ 999 mls/hr IV 1635: Ordered Zofran 4mg IV 1656: Ordered Hydromorphone HCl 1mg IV 1928: Labs within normal limits with the exception of possible UTI. Patient's vital signs stabilized after receiving fluid bolus. Patient reports she feels better after breathing treatment and fluid bolus. Had a long discussion with family at bedside who states they are very concerned about the patient's chemo treatment plan they are not sure if they want to continue with chemo treatment plan. There is saying that the patient is too weak and did not know she is not going to be able to take care of herself at home. They are considering options of senior care/home nursing therapy. I discussed the patient's case with Dr. Muñoz, Oncology. He recommended the patient be evaluated by the hospitalist and be treated with antibiotics for possible UTI. Ordered Rocephin 1gm IV 1937: I discussed the patient's case with Dr. Hsieh [facility] Hospitalist. The patient will be evaluated for further management and care. 1942: Upon reexamination, the patient was resting. I discussed the test results and treatment plan with her. The patient will be evaluated for further management. Medical Decision 1605: The patient was evaluated in room A12A. A complete history and physical exam was performed. Patient was seen immediately upon being placed in treatment room. Sepsis order set initiated. Given her obstructive pulmonary disease, ordered Duoneb 3ml INH, Solu-Medrol 125mg IV, Sodium Chloride 1000 ml @ 999 mls/hr IV 1635: Ordered Zofran 4mg IV 1656: Ordered Hydromorphone HCl 1mg IV 192: Labs within normal limits with the exception of possible UTI. Patient's vital signs stabilized after receiving fluid bolus. Patient reports she feels better after breathing treatment and fluid bolus. Had a long discussion with family at bedside who states they are very concerned about the patient's chemo treatment plan they are not sure if they want to continue with chemo treatment plan. There is saying that the patient is too weak and did not know she is not going to be able to take care of herself at home. They are considering options of senior care/home nursing therapy. I discussed the patient's case with Dr. Muñoz, Oncology. He recommended the patient be evaluated by the hospitalist and be treated with antibiotics for possible UTI. Ordered Rocephin 1gm IV 1936: I discussed the patient's case with Dr. Hsieh [facility] Hospitalist. The patient will be evaluated for further management and care. 1942: Upon reexamination, the patient was resting. I discussed the test results and treatment plan with her. The patient will be evaluated for further management. Medication Reconcilliation Current Medication List: was personally reviewed by md Blood Pressure Screening Patient's blood pressure: Low blood pressure Monitored by hospitalist. Consults Time Called: 1926 Consulting Physician: Dr. Muñoz, Oncology Returned Call: 1927 I discussed the patient's case with Dr. Muñoz, Oncology. He recommended the patient be evaluated by the hospitalist and be treated with antibiotics. Additional Consults: Time Called: 1932 Consulted Physician: Dr. Hsieh, [facility] Hospitalist Returned Call: 1936 Additional Comments: I discussed the patient's case with Dr. Hsieh, [facility] Hospitalist. The patient will be evaluated for further management and care. Impression Primary Impression: Sepsis Critical Care I have personally spent greater than 55 minutes of critical care time in the direct management of this patient. This includes bedside care, interpretation of diagnostic studies, and testing, discussion with consultants, patient, and family members, and other required patient management activities. This 55 minutes is in excess of all separately billable procedures. Scribe Attestation The scribe's documentation has been prepared under my direction and personally reviewed by me in its entirety. I confirm that the note above accurately reflects all work, treatment, procedures, and medical decision making performed by me. The chart was completed utilizing [employer] Speech voice recognition software. Grammatical errors, random word insertions, pronoun errors, and incomplete sentences are an occasional consequence of this system due to software limitations, ambient noise, and hardware issues. Any formal questions or concerns about the content, text, or information contained within the body of this dictation should be directly addressed to the physician for clarification. Departure Information Dispostion Being Evaluated By Hospitalist Referrals RV. Byrd MD (PCP) Patient Instructions My [facility] Sepsis Post Crystalloid Evaluation Date: May 14, 2018 Time: 16:05 Vitals Last Vital Signs Documentation Date Time Temp Pulse Resp B/P (MAP) Pulse Ox O2 Delivery O2 Flow Rate FiO2 05/14/18 19:51 90 18 124/87 97 Room Air 05/14/18 15:11 36.4 Problem Qualifiers Primary Impression: Sepsis Sepsis type: sepsis due to unspecified organism Qualified Codes: A41.9 - Sepsis, unspecified organism
[2018-05-14] MEDS ORDERED: ONDANSETRON INJ 2 MG/ML 2 ML VIAL IV STA (16:35)
[2018-05-14 16:38] LABS: BASO % 0.1 %; BASO ABS # 0.01 K/uL (0-0.2); EOS % 0.4 %; EOS ABS # 0.04 K/uL (0-0.5); HEMATOCRIT 32.1 % (37-47); IG# 0.04 K/uL (0.00-0.02); LYMPH % 4.9 %; LYMPH ABS # 0.54 K/uL (1.2-3.4); MEAN CELL VOLUME 85.1 fL (80-100); MEAN CORPUSCULAR HEMOGLOBIN 29.2 pg (25-34); MEAN CORPUSCULAR HGB CONC 34.3 g/dl (32-36); MEAN PLATELET VOLUME 8.7 fL (7.4-10.4); MONO % 1.7 %; MONO ABS # 0.19 K/uL (0.11-0.59); NEUT % 92.5 %; NEUT ABS # 10.15 K/uL (1.4-6.5); PLATELET COUNT 266 K/uL (130-400); RED CELL DISTRIBUTION WIDTH CV 21.4 % (11.5-14.5); RED CELL DISTRIBUTION WIDTH SD 64.5 fL (36.4-46.3); WHITE BLOOD COUNT 10.97 K/uL (4.8-10.8)
[2018-05-14 16:47] LABS: INR 0.9 (0.9-1.1)
[2018-05-14] MEDS ORDERED: HYDROmorphone INJ 1 MG/ML SYR IV STA (16:56)
[2018-05-14 17:01] LABS: ALBUMIN 3.1 gm/dl (3.4-5.0); ALKALINE PHOSPHATASE 78 U/L (45-117); ALT/SGPT 23 U/L (12-78); AST/SGOT 21 U/L (15-37); BLOOD UREA NITROGEN 37 mg/dl (7-18); CALCIUM 9.1 mg/dl (8.5-10.1); CARBON DIOXIDE 20 mmol/L (21-32); CREATININE 1.41 mg/dl (0.60-1.20); GLUCOSE 101 mg/dl (70-99); POTASSIUM 4.4 mmol/L (3.5-5.1); SODIUM 131 mmol/L (136-145); TOTAL PROTEIN 6.5 gm/dl (6.4-8.2)
--- NOTE | 2018-05-14 17:11 | DIAGNOSTIC IMAGING REPORT ---
CHEST ONE VIEW PORTABLE CLINICAL HISTORY: Sepsis COMPARISON STUDY: 04/27/2018 FINDINGS: The cardiac and mediastinal contours remain stable. There is a left-sided A-Port catheter. There is diffuse interstitial thickening similar to the preceding study. There are no pleural effusions. The left lung mass described on the preceding study is difficult to discern on the current examination.[ IMPRESSION: Chronic interstitial thickening similar to the preceding study. No evidence of acute lobar consolidation Electronically signed by: Nahum Eckert M.D. 05/14/2018 5:09 PM Dictated Date/Time: 05/14/2018 5:09 PM
[2018-05-14] MEDS ORDERED: MTR/400 PO (18:31)
[2018-05-14] MEDS ORDERED: DICY10CA12 PO (18:31)
[2018-05-14] MEDS ORDERED: PRVC/20 PO (19:01)
[2018-05-14] MEDS ORDERED: CEFTRIAXONE SOD INJ 1 GM ADDVIAL IV STA (19:30)
[2018-05-14] MEDS ORDERED: DEXL60CA4 PO (19:50)
[2018-05-14] MEDS ORDERED: FESO8TAB PO (19:50)
[2018-05-14] MEDS ORDERED: KETOROLAC TROMETHAMINE 30 MG/ML VIAL IV STA (20:01)
[2018-05-14] MEDS ORDERED: ONDA4TAB9 PO (20:29)
[2018-05-14] MEDS ORDERED: RANI150T2 PO (20:29)
[2018-05-14] MEDS ORDERED: FLUTICASONE PROPIONATE NA SPR 16 GM BTL NAE PRN (20:30)
[2018-05-14] MEDS ORDERED: IPRATROPIUM BROMIDE/ALBUTEROL respimat INH INH PRN (20:30)
[2018-05-14] MEDS ORDERED: ACETAMINOPHEN 325 MG TAB PO PRN (20:30)
[2018-05-14] MEDS ORDERED: LORAZEPAM 0.5 MG TAB PO PRN (20:30)
[2018-05-14] MEDS ORDERED: LOPERAMIDE HCL 2 MG CAP PO PRN (20:30)
[2018-05-14] MEDS ORDERED: HYDROmorphone INJ 1 MG/ML SYR IV PRN (20:45)
[2018-05-14 22:01] VITALS: BP 131/82; PULSE 111; TEMP 37; O2SAT 97; BMI 26.5
[2018-05-14] MEDS ORDERED: DXM/4 PO (22:07)
[2018-05-14] MEDS: ASPIRIN 81 MG ECTAB PO SCH (22:41)
[2018-05-14] MEDS: OXYBUTYNIN CHLORIDE 5 MG TABCR PO SCH (22:42)
[2018-05-14] MEDS: RANITIDINE HCL 150 MG TAB PO SCH (22:42)
[2018-05-14] MEDS: OXYCODONE HCL IR 5 MG TAB (IMMEDIATE RELEASE) PO PRN (22:43)
[2018-05-14] MEDS: FENTANYL 75 MCG/HR TDSY TD SCH (22:44)
[2018-05-14] MEDS: CIPROFLOXACIN / D5W 400 MG in PREMIXED IN D5W 200 ML IV SCH (22:47)
[2018-05-14] MEDS ORDERED: ACETAMINOPHEN IV 100 ML IV PRN (23:00)
--- NOTE | 2018-05-14 23:06 | History and Physical ---
History & Physical Date & Time of Service: May 14, 2018 at 23:06 Chief Complaint: Pseudomonas Urinary Tract Infection, Primary Care Physician: RV. Byrd MD History of Present Illness Source: patient, family The patient is a 62-year-old female, with most recent [facility] admission from 04/27- for Pseudomonas UTI and orthostatic hypotension, who presents to the emergency department with complaint of generalized weakness, having completed her third day of chemotherapy yesterday. She unfortunately does continue to smoke, and she reports her overall oral intake is decreased, and specifically when asked about nutritional supplements reports that she cannot use Ensure due to issues with dairy. Past Medical/Surgical History Medical Problems: (1) Anemia (2) Asthma (3) Atrial fibrillation (4) Back pain (5) Bronchitis (6) Cancer related pain (7) Cholecystectomy (8) Chronic back pain (9) Chronic congestive heart failure (10) Chronic obstructive lung disease (11) COPD (chronic obstructive pulmonary disease) (12) CVA (cerebral infarction) (13) Dehydration (14) Diabetes mellitus (15) Diverticulitis (16) Dizziness (17) Dysarthria on examination (18) fibromyalgia (19) Gastritis (20) Hypotension (21) Hysterectomy (22) Incontinence (23) Interstitial pulmonary disease, unspecified (24) Lumbar stenosis with neurogenic claudication (25) Lung disease (26) Lung mass (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 (28) Obesity (29) Oral thrush (30) Orthostatic hypotension (31) Palliative care encounter (32) Pancreatitis (33) Pancreatitis (34) Pancytopenia (35) Pseudomonas urinary tract infection (36) Recurrent UTI (urinary tract infection) (37) Spinal stenosis (38) Syncope (39) TIA (transient ischemic attack) (40) Tobacco abuse (41) Urinary tract infection (42) Urinary tract infection (43) UTI (urinary tract infection) (44) UTI (urinary tract infection) (45) UTI (urinary tract infection) (46) Viral syndrome (47) Weakness Surgical Problems: (1) History of back surgery Family History FH: HTN (hypertension) FH: cancer FH: cardiovascular disease FH: diabetes mellitus FH: lung cancer Social History Smoking Status: Current Some Day Smoker Smokeless Tobacco Use: No Alcohol Use: none Drug Use: none Marital Status: Housing status: lives with family Occupational Status: disabled Immunizations History of Influenza Vaccine: No Influenza Vaccine Date: Sep 24, 2012 History of Tetanus Vaccine?: Unknown History of Pneumococcal: Yes History of Hepatitis B Vaccine: No Hepatitis Immunization Date: May 11, 2008 Allergies Coded Allergies: Duloxetine (Verified Adverse Reaction, Mild, N/V, 04/08/18) Gabapentin (Verified Adverse Reaction, Mild, GI symptoms, 04/08/18) Morphine (Verified Adverse Reaction, Mild, NAUSEATED, 04/08/18) Quinolones (Verified Adverse Reaction, Mild, GI symptoms, 04/08/18) includes Cipro Sulfa Antibiotics (Verified Adverse Reaction, Mild, "Sulfa Drugs = nauseated", 04/08/18) Ciprofloxacin (Verified Adverse Reaction, Unknown, STOMACH PAIN, 04/30/18) Pregabalin (Verified Adverse Reaction, Unknown, UPSET STOMACH, 04/30/18) Sulfamethoxazole w/Trimethoprim (Verified Adverse Reaction, Unknown, STOMACH ACHES, 04/30/18) Home Medications Scheduled Aspirin (Aspirin Ec), 81 MG PO HS Bimatoprost (Lumigan), 1 DROP OPB HS Bupropion Hcl (Bupropion Hcl Xl), 75 MG PO QAM Cholecalciferol (Vitamin D), 2,000 INTER.UNIT PO QAM Clopidogrel Bisulfate (Clopidogrel), 75 MG PO QAM Cyanocobalamin (Vitamin B12), 1,000 MCG PO QAM Dexamethasone (Decadron), 4 MG PO UD Dexlansoprazole (Dexilant), 60 MG PO QAM Docusate Sodium (Docusate Sodium), 200 MG PO QAM Etodolac (Etodolac), 400 MG PO BID Fentanyl (Duragesic), 75 MCG TD Q3D@1600 Fesoterodine Fumarate (Toviaz), 8 MG PO HS Pravastatin Sod (Pravastatin Sodium), 20 MG PO DAILY Ranitidine HCl (Ranitidine HCl), 150 MG PO DAILY Scheduled PRN Dicyclomine Hcl (Dicyclomine Hcl), 10 MG PO QID PRN for Abdominal Pain Fluticasone Propionate (Fluticasone Propionate), 1 SPRAY NING BID PRN for Nasal Congestion Ibuprofen (Ibuprofen), 400 MG PO DAILY PRN for Pain Ipratropium-Albuterol (Combivent Respimat), 2 PUFFS INH QID PRN for SOB/Wheezing Loperamide Hcl (Imodium), 2 MG PO DAILY PRN for Diarrhea Lorazepam (Lorazepam), 0.5 MG PO DAILY PRN for Anxiety Ondansetron (Ondansetron HCl), 4 MG PO UD PRN for Nausea Oxycodone Hcl (Oxycodone Hcl), 20 MG PO Q4-6HRS PRN for Pain Polyethylene Glycol 3350 (Miralax), 17 GM PO DAILY PRN for Constipation Review of Systems The patient denies chest pain, palpitations, shortness of breath, dyspnea on exertion, cough, lower extremity swelling, sore throat, sweats, vomiting, diarrhea , constipation, abdominal pain, pelvic pain, blood in urine or stool, dysuria, urinary frequency or urgency, memory loss, loss of consciousness, rash, abnormal bruising or bleeding, imbalance, focal weakness, numbness or tingling in arms or legs, back or neck pain, or night sweats. The review of systems is otherwise negative other than for that already noted above, and at least 10 systems have been reviewed. Physical Exam Vital Signs Date Time Temp Pulse Resp B/P (MAP) Pulse Ox O2 Delivery O2 Flow Rate FiO2 05/14/18 22:01 37.0 111 20 131/82 97 Room Air 05/14/18 21:40 95 18 125/105 95 Room Air 05/14/18 19:51 90 18 124/87 97 Room Air 05/14/18 17:35 94 18 108/76 98 05/14/18 16:10 119 05/14/18 16:03 113 20 107/73 05/14/18 15:11 36.4 130 22 89/63 95 Room Air The patient is awake, alert and oriented 3, normocephalic and atraumatic, lying in bed and in no acute distress. HEENT--PERRL, EOMI, mucous membranes and oropharynx dry. Neck--supple. No JVD. No bruits. Thyroid normal, trachea midline, no adenopathy. Heart--normal S1 and S2. No murmurs, rubs or gallops. Lungs--few coarse breath sounds with scattered wheezes bilaterally, no respiratory distress, no accessory muscle use. Abdomen--normal bowel sounds and soft. Nontender. Nondistended, no hernias or masses, no organomegaly. Extremities--no cyanosis or clubbing. No edema. There are good distal pulses b/ l. Dermatologic--normal skin turgor, normal color, no abnormal lymph nodes, no rash. Neurologic--cranial nerves II through XII grossly intact. Rheumatologic--normal range of motion. Psychiatric--normal affect. Diagnostics Laboratory Results Results Past 24 Hours Test 05/14/18 16:25 05/14/18 16:31 05/14/18 16:32 05/14/18 18:15 Range/Units White Blood Count 10.97 4.8-10.8 K/uL Red Blood Count 3.77 4.2-5.4 M/uL Hemoglobin 11.0 12.0-16.0 g/dL Hematocrit 32.1 37-47 % Mean Corpuscular Volume 85.1 80-100 fL Mean Corpuscular Hemoglobin 29.2 25-34 pg Mean Corpuscular Hemoglobin Concent 34.3 32-36 g/dl Platelet Count 266 130-400 K/uL Mean Platelet Volume 8.7 7.4-10.4 fL Neutrophils (%) (Auto) 92.5 % Lymphocytes (%) (Auto) 4.9 % Monocytes (%) (Auto) 1.7 % Eosinophils (%) (Auto) 0.4 % Basophils (%) (Auto) 0.1 % Neutrophils # (Auto) 10.15 1.4-6.5 K/uL Lymphocytes # (Auto) 0.54 1.2-3.4 K/uL Monocytes # (Auto) 0.19 0.11-0.59 K/uL Eosinophils # (Auto) 0.04 0-0.5 K/uL Basophils # (Auto) 0.01 0-0.2 K/uL RDW Standard Deviation 64.5 36.4-46.3 fL RDW Coefficient of Variation 21.4 11.5-14.5 % Immature Granulocyte % (Auto) 0.4 % Immature Granulocyte # (Auto) 0.04 0.00-0.02 K/uL Hypersegmented Polys 1+ Anisocytosis PRESENT Prothrombin Time 9.9 9.0-12.0 SECONDS Prothromb Time International Ratio 0.9 0.9-1.1 Activated Partial Thromboplast Time 22.0 21.0-31.0 SECONDS Partial Thromboplastin Ratio 0.8 Sodium Level 131 136-145 mmol/L Potassium Level 4.4 3.5-5.1 mmol/L Chloride Level 102 98-107 mmol/L Carbon Dioxide Level 20 21-32 mmol/L Anion Gap 9.0 3-11 mmol/L Blood Urea Nitrogen 37 7-18 mg/dl Creatinine 1.41 0.60-1.20 mg/dl Estimated GFR () 45.5 Estimated GFR (Non- 39.3 BUN/Creatinine Ratio 25.9 10-20 Random Glucose 101 70-99 mg/dl Calcium Level 9.1 8.5-10.1 mg/dl Magnesium Level 2.0 1.8-2.4 mg/dl Total Bilirubin 0.6 0.2-1 mg/dl Aspartate Amino Transf (AST/SGOT) 21 15-37 U/L Alkaline Phosphatase 78 45-117 U/L Total Creatine Kinase 28 26-192 U/L Troponin I < 0.015 0-0.045 ng/ml Total Protein 6.5 6.4-8.2 gm/dl Albumin 3.1 3.4-5.0 gm/dl Globulin 3.4 2.5-4.0 gm/dl Albumin/Globulin Ratio 0.9 0.9-2 Bedside Lactic Acid Venous 1.91 0.90-1.70 mmol/L Venous Blood pH 7.39 7.36-7.41 Venous Blood Partial Pressure CO2 36 38.0-50.0 mmHg Venous Blood Partial Pressure O2 29 mmHg Venous Blood HCO3 21 mmol/L Venous Blood Oxygen Saturation < 60.0 % Venous Blood Base Excess -3.1 mEq/L Urine Color YELLOW Urine Appearance CLOUDY CLEAR Urine pH 5.0 4.5-7.5 Urine Specific [place] 1.016 1.000-1.030 Urine Protein NEG NEG Urine Glucose (UA) NEG NEG Urine Ketones NEG NEG Urine Occult Blood NEG NEG Urine Nitrite NEG NEG Urine Bilirubin NEG NEG Urine Urobilinogen NEG NEG Urine Leukocyte Esterase SMALL NEG Urine WBC (Auto) 5-10 0-5 /hpf Urine RBC (Auto) 0-4 0-4 /hpf Urine Hyaline Casts (Auto) 1-5 0-5 /lpf Urine Epithelial Cells (Auto) 20-30 0-5 /lpf Urine Bacteria (Auto) 4+ NEG Test 05/14/18 20:26 Range/Units Lactic Acid Level 1.3 0.4-2.0 mmol/L Microbiology Results 05/14/18 Blood Culture, Received Pending 05/14/18 Blood Culture, Received Pending 05/14/18 Urine Culture, Received Pending Diagnostic Radiology Patient Name: SANTOS CURRY Unit Number: [id number] Dictated: 05/14/181708 Transcribed: 05/14/181708 ARG Printed Date/Time: [~ rep prt dt]/[~ rep prt tm] [~ rep ct labl] - [~ rep ct ivnm] [facility] Radiology Department [place] [id number] Dictated: 05/14/181708 Transcribed: 05/14/181708 ARG Printed Date/Time: [~ rep prt dt]/[~ rep prt tm] [~ rep ct labl] - [~ rep ct ivnm] [~ rep ct add3]] CHEST ONE VIEW PORTABLE CLINICAL HISTORY: Sepsis COMPARISON STUDY: 04/27/2018 FINDINGS: The cardiac and mediastinal contours remain stable. There is a left-sided A-Port catheter. There is diffuse interstitial thickening similar to the preceding study. There are no pleural effusions. The left lung mass described on the preceding study is difficult to discern on the current examination.[ IMPRESSION: Chronic interstitial thickening similar to the preceding study. No evidence of acute lobar consolidation Electronically signed by: Nahum Eckert M.D. 05/14/2018 5:09 PM Dictated Date/Time: 05/14/2018 5:09 PM The status of this report is Signed. Draft = Not yet reviewed or approved by Radiologist. Signed = Reviewed and approved by Radiologist. <AttendingPhy></AttendingPhy> <FamilyPhy>RV. Byrd MD</ FamilyPhy> <PrimaryPhy>RV. Byrd MD</PrimaryPhy> <UnitNumber> [id number]</UnitNumber> <VisitNumber>[id number]</VisitNumber> <PatientName> SANTOS CURRY</PatientName> <DateOfBirth>1955</DateOfBirth> <Location> [facility]</Location> <ServiceDate>05/14/18</ServiceDate> <MNE>ESINDI</MNE> < OrderingPhy>Hubert Juarez M.D.</OrderingPhy> <OrderingPhyMNE>f rep ord dr mondragon</ OrderingPhyMNE> <DictatingPhyMNE>f rep dict dr mondragon</DictatingPhyMNE> <CCListMNE> f rep ct mne</CCListMNE> <AdmittingPhyMNE>f pt admit dr mondragon</AdmittingPhyMNE> < AttendingPhyMNE>f pt attend dr mondragon</AttendingPhyMNE> <ConsultingPhyMNE>f pt consult dr mondragon</ConsultingPhyMNE> <FamilyPhyMNE>f pt fam dr mondragon</FamilyPhyMNE> <OtherPhyMNE>f pt other dr mondragon</OtherPhyMNE> < PrimaryPhyMNE>f pt prim care dr mondragon</PrimaryPhyMNE> <ReferringPhyMNE>f pt referring dr mondragon</ReferringPhyMNE> EKG SANTOS CURRY ID:[id number] 14-MAY-2018 15:58:36 [facility] Sinus tachycardia Otherwise normal ECG When compared with ECG of 27-APR-2018 18:04, No significant change was found 25mm/s 10mm/mV 150Hz 8.0 SP2 12SL 241 SANTOS: 16 Referred by: RV. Byrd Unconfirmed Vent. rate 118 BPM SD interval 128 ms QRS duration 66 ms QT/QTc 302/423 ms P-R-T axes 58 19 54 1955 (62 yr) Female 109in 1lb Room: Loc:15 Carpet Weaver:DULCE CADENA Impression Assessment and Plan Fatigue, confusion-- Likely multifactorial, including recurrent UTIs, chemotherapy, medications to control pain and others Recurrent UTI/recent Pseudomonas UTI-- Cancel ceftriaxone started in the ED. Double cover with cefepime 2 g IV every 12 hours and Cipro 40 mg IV every 12 hours. Follow urine culture and sensitivity. Metastatic lung cancer-- Consult her oncologist Dr. Koo, who reportedly is considering changing chemotherapy. Continue fentanyl patch as before. Zofran 4 mg IV every 6 hours as needed. Dilaudid 1 mg IV every 2 hours as needed breakthrough pain or oxycodone 20 mg p.o. every 4 hours as needed. Acute kidney injury-- Rehydrate with IV fluids. Follow serial BMP and magnesium levels. Diabetes mellitus-- Patient Accu-Cheks before meals and at bedtime with NovoLog coverage per scale. Advanced Directives Existing Advance Directive: No Existing Living Will: No Existing Power of Filter Operator: No Resuscitation Status VTE Prophylaxis Will order VTE Prophylaxis: Yes Social Service Consult Cancer Patient Under [place]
[2018-05-14 23:16] VITALS: BP 128/86; PULSE 94; TEMP 36.4; O2SAT 97
[2018-05-14] MEDS: ONDANSETRON INJ 2 MG/ML 2 ML VIAL IV PRN (23:49)
[2018-05-14] MEDS: CEFEPIME IV 2,000 MG in SYRINGE 7.5 ML IV SCH (23:49)
[2018-05-14] MEDS: HYDROmorphone INJ 0.5 MG/0.5 ML SYR IV PRN (23:49)
[2018-05-14] MEDS: CHECK FENTANYL PATCH PLACEMENT SCH (23:50)
[2018-05-15] VITALS (8 sets, daily range): BP systolic 93–150; BP diastolic 66–89; PULSE 76–103; TEMP 36.4–37; O2SAT 96–99; Ht 172.7 cm; Wt 79.2 kg
[2018-05-15] MEDS: HYDROmorphone INJ 0.5 MG/0.5 ML SYR IV PRN ×5 (04:00→22:53)
[2018-05-15 05:55] LABS: EOS % 0.2 %; EOS ABS # 0.01 K/uL (0-0.5); HEMATOCRIT 27.3 % (37-47); HEMOGLOBIN 9.4 g/dL (12.0-16.0); IG# 0.02 K/uL (0.00-0.02); LYMPH % 6.2 %; LYMPH ABS # 0.38 K/uL (1.2-3.4); MEAN CORPUSCULAR HEMOGLOBIN 29.3 pg (25-34); MEAN CORPUSCULAR HGB CONC 34.4 g/dl (32-36); MEAN PLATELET VOLUME 8.6 fL (7.4-10.4); MONO % 1.5 %; MONO ABS # 0.09 K/uL (0.11-0.59); NEUT % 91.8 %; NEUT ABS # 5.62 K/uL (1.4-6.5); PLATELET COUNT 201 K/uL (130-400); RED CELL DISTRIBUTION WIDTH CV 20.7 % (11.5-14.5); RED CELL DISTRIBUTION WIDTH SD 63.2 fL (36.4-46.3); WHITE BLOOD COUNT 6.12 K/uL (4.8-10.8)
[2018-05-15 06:25] LABS: ALBUMIN 2.6 gm/dl (3.4-5.0); CALCIUM 8.6 mg/dl (8.5-10.1); CREATININE 1.1 mg/dl (0.60-1.20); TOTAL PROTEIN 5.8 gm/dl (6.4-8.2)
[2018-05-15] MEDS ORDERED: PANTOprazole SOD 40 MG TAB PO SCH (08:00)
[2018-05-15] MEDS: CHECK FENTANYL PATCH PLACEMENT SCH ×3 (08:22→23:45)
[2018-05-15] MEDS: RANITIDINE HCL 150 MG TAB PO SCH ×2 (08:23→20:28)
[2018-05-15] MEDS: BuPROPion XL 150 MG TABCR PO SCH (08:23)
[2018-05-15] MEDS: CHOLECALCIFEROL 1000 INTER.UNIT TAB PO SCH (08:23)
[2018-05-15] MEDS: DOCUSATE SODIUM 100 MG CAP PO SCH (08:24)
[2018-05-15] MEDS: PRAVASTATIN SOD 20 MG TAB PO SCH (08:24)
[2018-05-15] MEDS: CLOPIDOGREL BISULFATE 75 MG TAB PO SCH (08:24)
[2018-05-15] MEDS: CYANOCOBALAMIN 500 MCG TAB (VIT B-12) PO SCH (08:24)
[2018-05-15] MEDS ORDERED: NURSING VERBAL MED ORDER ONE (08:30)
[2018-05-15] MEDS: OXYCODONE HCL IR 5 MG TAB (IMMEDIATE RELEASE) PO PRN ×3 (08:30→20:29)
[2018-05-15] MEDS: POLYETHYLENE (MIRALAX) 17 GM PACK PO PRN (08:32)
[2018-05-15] MEDS: CIPROFLOXACIN / D5W 400 MG in PREMIXED IN D5W 200 ML IV SCH (09:59)
[2018-05-15] MEDS: CEFEPIME IV 2,000 MG in SYRINGE 7.5 ML IV SCH ×2 (12:08→23:45)
[2018-05-15] MEDS: ONDANSETRON INJ 2 MG/ML 2 ML VIAL IV PRN ×2 (12:12→22:53)
[2018-05-15] MEDS: SODIUM CHLORIDE 0.9% 1000ML 1,000 ML IV SCH ×2 (14:12→23:45)
[2018-05-15] MEDS: DEXAMETHASONE 4 MG TAB PO SCH ×2 (14:13→20:28)
--- NOTE | 2018-05-15 14:30 | Progress Note ---
Subjective Date of Service: May 15, 2018. Subjective Pt evaluation today including: conversation w/ patient, physical exam, lab review, conversation w/ technical marketing consultant, review of inpatient medication list Pain: no pain PO Intake: poor, no appetite, nauseated Voiding: no voiding problems patient not feeling very well, lunch tray arrived, took a few bites, feels nauseated and no appetite received Angelineadelita asked if she could resume Decadron, she takes 4mg q8 at home after chemo she said that after her most recent round of chemotherapy (3rd cycle) she was getting progressively weaker first 2 cycles were okay but the last one very difficult to tolerate she feels like she has no quality of life, wonders about how much longer she can endure this asked if she could have some IV fluids since PO intake not great reviewed urine culture, E coli 100k colonies Cr improved to 1.0 from 1.4 with some fluids last night CBC shows mild drop in Hb to 9.4 and WBC now 6k Problem List Medical Problems: (1) Anemia Status: Acute (2) Dehydration Status: Acute (3) Hypotension Status: Acute (4) Orthostatic hypotension Status: Acute (5) Pancreatitis Status: Acute (6) Pancytopenia Status: Acute (7) Sepsis Status: Acute (8) Tobacco abuse Status: Acute (9) UTI (urinary tract infection) Status: Acute (10) Viral syndrome Status: Acute Review of Systems Constitutional: + weakness, + fatigue Respiratory: + dyspnea on exertion Abdomen: + nausea, + problem reported (no appetite) Musculoskeletal: + joint pain Neurologic: + weakness Psychiatric: + depression symptoms All Other Systems: Reviewed and Negative Medications Current Inpatient Medications Medications (Trade) Dose Ordered Sig/Farida Route Start Time Stop Time Status Last Admin Dose Admin Ciprofloxacin/ Dextrose 400 mg/ Prmx 200 ml @ 100 mls/hr Q12H IV 05/14/18 22:00 05/24/18 21:59 05/15/18 09:59 100 MLS/HR Acetaminophen (Tylenol Tab) 650 mg Q4H PRN PO 05/14/18 20:30 06/13/18 20:29 Aspirin (Ecotrin Tab) 81 mg HS PO 05/14/18 21:00 06/13/18 20:59 05/14/18 22:41 81 MG Bupropion HCl (Wellbutrin-Xl Tab) 150 mg Q2D@0800 PO 05/15/18 08:00 06/14/18 07:59 05/15/18 08:23 150 MG Clopidogrel Bisulfate (plAVix TAB) 75 mg QAM PO 05/15/18 08:00 06/14/18 08:59 05/15/18 08:24 75 MG Docusate Sodium (coLACE CAP) 200 mg QAM PO 05/15/18 08:00 06/14/18 08:59 05/15/18 08:24 200 MG Fluticasone Propionate (Flonase Nasal [place]) 2 sprays BID PRN NING 05/14/18 20:30 06/13/18 20:29 Albuterol/ Ipratropium (Combivent Respimat Inh) 2 puffs QID PRN INH 05/14/18 20:30 06/13/18 20:29 Loperamide HCl (Imodium Cap) 2 mg DAILY PRN PO 05/14/18 20:30 06/13/18 20:29 Lorazepam (Ativan Tab) 0.5 mg DAILY PRN PO 05/14/18 20:30 06/13/18 20:29 Pravastatin Sodium (Pravachol Tab) 20 mg DAILY PO 05/15/18 08:00 06/14/18 08:59 05/15/18 08:24 20 MG Ranitidine HCl (zANTac TAB) 150 mg BID PO 05/14/18 21:00 06/13/18 20:59 05/15/18 08:23 150 MG Cholecalciferol (Vitamin D Tab) 2,000 inter.unit QAM PO 05/15/18 08:00 06/14/18 08:59 05/15/18 08:23 2,000 INTER.UNIT Cyanocobalamin (Vitamin B-12 Tab) 1,000 mcg QAM PO 05/15/18 08:00 06/14/18 08:59 05/15/18 08:24 1,000 MCG Oxybutynin Chloride (Ditropan-Xl Tab) 5 mg HS PO 05/14/18 21:00 06/13/18 20:59 05/14/18 22:42 5 MG Oxycodone HCl (Roxicodone Immediate Rel Tab) 20 mg Q4H PRN PO 05/14/18 20:30 05/28/18 20:29 05/15/18 08:30 20 MG Polyethylene (Miralax Powder Packet) 17 gm DAILY PRN PO 05/14/18 20:30 06/13/18 20:29 05/15/18 08:32 17 GM Cefepime HCl 2000 mg/Syringe 20 ml @ 5 mls/min Q12H IV 05/15/18 00:00 05/25/18 00:00 05/15/18 12:08 5 MLS/MIN Miscellaneous Information (Check Fentanyl Patch Placement) 1 ea QS N/A 05/15/18 00:00 06/14/18 00:00 05/15/18 08:22 1 EA Fentanyl (Duragesic Patch) 75 mcg Q3D@2230 TD 05/14/18 22:30 05/28/18 22:29 05/14/18 22:44 75 MCG Miscellaneous (Fentanyl Patch Remove & Waste) 1 ea Q3D N/A 05/17/18 22:30 06/16/18 22:29 Ondansetron HCl (Zofran Inj) 4 mg Q6H PRN IV 05/14/18 23:00 06/13/18 22:59 05/15/18 12:12 4 MG Acetaminophen 100 ml @ 400 mls/hr Q8H PRN IV 05/14/18 23:00 06/13/18 22:59 Prochlorperazine Edisylate 10 mg/ Syringe 10 ml @ 5 mls/min Q6H PRN IV 05/14/18 23:00 06/13/18 22:59 Hydromorphone HCl (Dilaudid Inj) 1 mg Q2H PRN IV 05/14/18 23:45 05/28/18 23:44 05/15/18 12:07 1 MG Heparin Sodium (Porcine) (Heparin 100 Unit/ml 5ml Flush) 5 ml PRN PRN IV 05/15/18 05:15 06/14/18 05:14 05/15/18 05:16 5 ML Pantoprazole Sodium (Protonix Tab) 40 mg Q24H PO 05/15/18 19:00 06/14/18 18:59 Dexamethasone (Decadron Tab) 4 mg TID PO 05/15/18 14:00 06/14/18 13:59 05/15/18 14:13 4 MG Sodium Chloride 1,000 ml @ 100 mls/hr Q10H IV 05/15/18 13:00 06/14/18 12:59 05/15/18 14:12 100 MLS/HR Objective Vital Signs Date Time Temp Pulse Resp B/P (MAP) Pulse Ox O2 Delivery O2 Flow Rate FiO2 05/15/18 11:30 36.6 76 18 112/81 (91) 96 05/15/18 10:34 96 122/85 (97) 05/15/18 08:07 36.7 81 18 120/81 (94) 96 05/15/18 08:00 Room Air 05/15/18 03:58 36.4 84 18 118/83 (95) 97 Room Air 05/15/18 00:20 Room Air 05/14/18 23:16 36.4 94 18 128/86 (100) 97 Room Air 05/14/18 22:01 37.0 111 20 131/82 97 Room Air 05/14/18 21:40 95 18 125/105 95 Room Air 05/14/18 19:51 90 18 124/87 97 Room Air 05/14/18 17:35 94 18 108/76 98 05/14/18 16:10 119 05/14/18 16:03 113 20 107/73 05/14/18 15:11 36.4 130 22 89/63 95 Room Air Physical Exam General Appearance: WD/WN, no apparent distress Eyes: normal inspection, EOMI, sclerae normal ENT: normal ENT inspection, hearing grossly normal, pharynx normal Neck: supple, no adenopathy, no JVD, trachea midline Respiratory/Chest: chest non-tender, lungs clear, normal breath sounds, no respiratory distress, no accessory muscle use Cardiovascular: regular rate, rhythm, no edema, no gallop, no JVD, no murmur Abdomen: normal bowel sounds, non tender, soft, no organomegaly Extremities: normal range of motion, non-tender, normal inspection, no pedal edema, no calf tenderness, pelvis stable Neurologic/Psychiatric: park manager II-XII nml as tested, alert, oriented x 3, + motor weakness (generalized), + depressed affect Skin: normal color, warm/dry, no rash Laboratory Results Last 24 Hours Test 05/14/18 16:25 05/14/18 16:31 05/14/18 16:32 05/14/18 18:15 White Blood Count 10.97 K/uL Red Blood Count 3.77 M/uL Hemoglobin 11.0 g/dL Hematocrit 32.1 % Mean Corpuscular Volume 85.1 fL Mean Corpuscular Hemoglobin 29.2 pg Mean Corpuscular Hemoglobin Concent 34.3 g/dl Platelet Count 266 K/uL Mean Platelet Volume 8.7 fL Neutrophils (%) (Auto) 92.5 % Lymphocytes (%) (Auto) 4.9 % Monocytes (%) (Auto) 1.7 % Eosinophils (%) (Auto) 0.4 % Basophils (%) (Auto) 0.1 % Neutrophils # (Auto) 10.15 K/uL Lymphocytes # (Auto) 0.54 K/uL Monocytes # (Auto) 0.19 K/uL Eosinophils # (Auto) 0.04 K/uL Basophils # (Auto) 0.01 K/uL RDW Standard Deviation 64.5 fL RDW Coefficient of Variation 21.4 % Immature Granulocyte % (Auto) 0.4 % Immature Granulocyte # (Auto) 0.04 K/uL Hypersegmented Polys 1+ Anisocytosis PRESENT Prothrombin Time 9.9 SECONDS Prothromb Time International Ratio 0.9 Activated Partial Thromboplast Time 22.0 SECONDS Partial Thromboplastin Ratio 0.8 Sodium Level 131 mmol/L Potassium Level 4.4 mmol/L Chloride Level 102 mmol/L Carbon Dioxide Level 20 mmol/L Anion Gap 9.0 mmol/L Blood Urea Nitrogen 37 mg/dl Creatinine 1.41 mg/dl Estimated GFR () 45.5 Estimated GFR (Non- 39.3 BUN/Creatinine Ratio 25.9 Random Glucose 101 mg/dl Calcium Level 9.1 mg/dl Magnesium Level 2.0 mg/dl Total Bilirubin 0.6 mg/dl Aspartate Amino Transf (AST/SGOT) 21 U/L Alkaline Phosphatase 78 U/L Total Creatine Kinase 28 U/L Troponin I < 0.015 ng/ml Total Protein 6.5 gm/dl Albumin 3.1 gm/dl Globulin 3.4 gm/dl Albumin/Globulin Ratio 0.9 Bedside Lactic Acid Venous 1.91 mmol/L Venous Blood pH 7.39 Venous Blood Partial Pressure CO2 36 mmHg Venous Blood Partial Pressure O2 29 mmHg Venous Blood HCO3 21 mmol/L Venous Blood Oxygen Saturation < 60.0 % Venous Blood Base Excess -3.1 mEq/L Urine Color YELLOW Urine Appearance CLOUDY Urine pH 5.0 Urine Specific [place] 1.016 Urine Protein NEG Urine Glucose (UA) NEG Urine Ketones NEG Urine Occult Blood NEG Urine Nitrite NEG Urine Bilirubin NEG Urine Urobilinogen NEG Urine Leukocyte Esterase SMALL Urine WBC (Auto) 5-10 /hpf Urine RBC (Auto) 0-4 /hpf Urine Hyaline Casts (Auto) 1-5 /lpf Urine Epithelial Cells (Auto) 20-30 /lpf Urine Bacteria (Auto) 4+ Test 05/14/18 20:26 05/15/18 05:12 Lactic Acid Level 1.3 mmol/L White Blood Count 6.12 K/uL Red Blood Count 3.21 M/uL Hemoglobin 9.4 g/dL Hematocrit 27.3 % Mean Corpuscular Volume 85.0 fL Mean Corpuscular Hemoglobin 29.3 pg Mean Corpuscular Hemoglobin Concent 34.4 g/dl Platelet Count 201 K/uL Mean Platelet Volume 8.6 fL Neutrophils (%) (Auto) 91.8 % Lymphocytes (%) (Auto) 6.2 % Monocytes (%) (Auto) 1.5 % Eosinophils (%) (Auto) 0.2 % Basophils (%) (Auto) 0.0 % Neutrophils # (Auto) 5.62 K/uL Lymphocytes # (Auto) 0.38 K/uL Monocytes # (Auto) 0.09 K/uL Eosinophils # (Auto) 0.01 K/uL Basophils # (Auto) 0.00 K/uL RDW Standard Deviation 63.2 fL RDW Coefficient of Variation 20.7 % Immature Granulocyte % (Auto) 0.3 % Immature Granulocyte # (Auto) 0.02 K/uL Anisocytosis PRESENT Echinocytes 1+ Prothrombin Time 10.2 SECONDS Prothromb Time International Ratio 1.0 Activated Partial Thromboplast Time 25.0 SECONDS Partial Thromboplastin Ratio 1.0 Sodium Level 134 mmol/L Potassium Level 5.0 mmol/L Chloride Level 104 mmol/L Carbon Dioxide Level 22 mmol/L Anion Gap 7.0 mmol/L Blood Urea Nitrogen 36 mg/dl Creatinine 1.10 mg/dl Est Creatinine Clear Calc Drug Dose 57.8 ml/min Estimated GFR () 61.4 Estimated GFR (Non- 53.0 BUN/Creatinine Ratio 32.5 Random Glucose 74 mg/dl Calcium Level 8.6 mg/dl Magnesium Level 1.7 mg/dl Total Bilirubin 0.4 mg/dl Direct Bilirubin 0.2 mg/dl Aspartate Amino Transf (AST/SGOT) 16 U/L Alanine Aminotransferase (ALT/SGPT) 20 U/L Alkaline Phosphatase 67 U/L Total Protein 5.8 gm/dl Albumin 2.6 gm/dl Assessment and Plan 62 yo female with small cell lung CA, recently finished 3rd cycle of chemotherapy, presents with weakness, confusion, recurrent UTI - Recurrent UTI: recently treated for Pseudomonas UTI current urine culture growing E coli continue Cefepime and Cipro for now, follow up on sensitivities - PANKAJ due to dehydration Cr improved to 1.0 from 1.4, adequate UO will continue NSS at 100cc/hr for next 24 hours since PO intake not good - Mild anemia due to bone marrow suppression, recent chemotherapy has h/o pancytopenia, will likely occur in the next few days monitor CBC daily - Small cell lung cancer completed 3rd cycle of chemo not tolerating as well as the first 2 cycles she questions how long she wants to endure chemo, says she has no quality of life hold on oncology consult for now, may reconsider on Thursday will discuss further with patient, could consider Palliative consult just to determine her goals of care resume Decadron 4mg TID as part of her chemotherapy - Constipation: no BM in 8 days typically takes magnesium citrate, will order now - DM: Novolog SS, diabetic diet DVT prophylaxis: Lovenox
[2018-05-15] MEDS ORDERED: MAGNESIUM CITRATE 296 ML/BTL PO PRN (14:45)
[2018-05-15] MEDS ORDERED: MAGNESIUM CITRATE 296 ML/BTL PO SCH (15:00)
[2018-05-15] MEDS: PROCHLORPERAZINE INJ 10 MG in SYRINGE 8 ML IV PRN (17:08)
[2018-05-15] MEDS: PANTOprazole SOD 40 MG TAB PO SCH (18:30)
[2018-05-15] MEDS: OXYBUTYNIN CHLORIDE 5 MG TABCR PO SCH (20:28)
[2018-05-15] MEDS: ASPIRIN 81 MG ECTAB PO SCH (20:29)
[2018-05-16] VITALS (8 sets, daily range): BP systolic 101–140; BP diastolic 62–90; PULSE 81–101; TEMP 35.2–37; O2SAT 95–98
[2018-05-16] MEDS: OXYCODONE HCL IR 5 MG TAB (IMMEDIATE RELEASE) PO PRN ×3 (03:59→17:43)
[2018-05-16] MEDS: HYDROmorphone INJ 0.5 MG/0.5 ML SYR IV PRN ×7 (05:37→22:17)
[2018-05-16 07:06] LABS: CALCIUM 8.2 mg/dl (8.5-10.1); CREATININE 1.03 mg/dl (0.60-1.20); POTASSIUM 4.6 mmol/L (3.5-5.1)
[2018-05-16 07:14] LABS: EOS % 0.4 %; EOS ABS # 0.03 K/uL (0-0.5); HEMATOCRIT 26.8 % (37-47); HEMOGLOBIN 9.1 g/dL (12.0-16.0); IG# 0.03 K/uL (0.00-0.02); LYMPH ABS # 0.49 K/uL (1.2-3.4); MEAN CELL VOLUME 85.6 fL (80-100); MEAN CORPUSCULAR HEMOGLOBIN 29.1 pg (25-34); MEAN PLATELET VOLUME 9.2 fL (7.4-10.4); MONO % 0.7 %; MONO ABS # 0.06 K/uL (0.11-0.59); NEUT % 92.5 %; PLATELET COUNT 194 K/uL (130-400); RED CELL DISTRIBUTION WIDTH CV 21.1 % (11.5-14.5); RED CELL DISTRIBUTION WIDTH SD 63.4 fL (36.4-46.3); WHITE BLOOD COUNT 8.21 K/uL (4.8-10.8)
[2018-05-16] MEDS: ENOXAPARIN 40 MG/0.4 ML SYR SQ SCH (08:00)
[2018-05-16] MEDS: DEXAMETHASONE 4 MG TAB PO SCH ×3 (08:01→19:30)
[2018-05-16] MEDS: RANITIDINE HCL 150 MG TAB PO SCH ×2 (08:01→19:29)
[2018-05-16] MEDS: DOCUSATE SODIUM 100 MG CAP PO SCH (08:01)
[2018-05-16] MEDS: CHOLECALCIFEROL 1000 INTER.UNIT TAB PO SCH (08:01)
[2018-05-16] MEDS: CYANOCOBALAMIN 500 MCG TAB (VIT B-12) PO SCH (08:01)
[2018-05-16] MEDS: CLOPIDOGREL BISULFATE 75 MG TAB PO SCH (08:01)
[2018-05-16] MEDS: PRAVASTATIN SOD 20 MG TAB PO SCH (08:01)
[2018-05-16] MEDS: CHECK FENTANYL PATCH PLACEMENT SCH ×2 (08:08→15:56)
[2018-05-16] MEDS: SODIUM CHLORIDE 0.9% 1000ML 1,000 ML IV SCH ×2 (08:14→17:43)
[2018-05-16] MEDS: ONDANSETRON INJ 2 MG/ML 2 ML VIAL IV PRN ×2 (08:30→17:42)
[2018-05-16] MEDS: CEFEPIME IV 2,000 MG in SYRINGE 7.5 ML IV SCH (12:47)
[2018-05-16] MEDS: PROCHLORPERAZINE INJ 10 MG in SYRINGE 8 ML IV PRN (13:59)
--- NOTE | 2018-05-16 14:35 | Progress Note ---
Subjective Date of Service: May 16, 2018. Subjective Pt evaluation today including: conversation w/ patient, physical exam, lab review, review of inpatient medication list Pain: controlled PO Intake: poor Voiding: no voiding problems patient feels fatigued, dizzy whenever she stands up, discussed we could check orthostatic vitals she was seen by Dr. Muñoz, social visit they discussed poor prognosis, poor quality of life on chemotherapy patient wants to stop chemotherapy discussed that we could consult palliative care, she agreed with this plan reviewed urine culture, E coli, sensitive to cephalosporins, resistant to quinolones Cr down to 1.03, CBC shows no pancytopenia, no neutropenia Problem List Medical Problems: (1) Anemia Status: Acute (2) Dehydration Status: Acute (3) Hypotension Status: Acute (4) Orthostatic hypotension Status: Acute (5) Pancreatitis Status: Acute (6) Pancytopenia Status: Acute (7) Sepsis Status: Acute (8) Tobacco abuse Status: Acute (9) UTI (urinary tract infection) Status: Acute (10) Viral syndrome Status: Acute Review of Systems Constitutional: + weakness, + fatigue Neurologic: + weakness, + balance problems Psychiatric: + depression symptoms All Other Systems: Reviewed and Negative Medications Current Inpatient Medications Medications (Trade) Dose Ordered Sig/Farida Route Start Time Stop Time Status Last Admin Dose Admin Acetaminophen (Tylenol Tab) 650 mg Q4H PRN PO 05/14/18 20:30 06/13/18 20:29 Aspirin (Ecotrin Tab) 81 mg HS PO 05/14/18 21:00 06/13/18 20:59 05/15/18 20:29 81 MG Bupropion HCl (Wellbutrin-Xl Tab) 150 mg Q2D@0800 PO 05/15/18 08:00 06/14/18 07:59 05/15/18 08:23 150 MG Clopidogrel Bisulfate (plAVix TAB) 75 mg QAM PO 05/15/18 08:00 06/14/18 08:59 05/16/18 08:01 75 MG Docusate Sodium (coLACE CAP) 200 mg QAM PO 05/15/18 08:00 06/14/18 08:59 05/16/18 08:01 200 MG Fluticasone Propionate (Flonase Nasal [place]) 2 sprays BID PRN NING 05/14/18 20:30 06/13/18 20:29 Albuterol/ Ipratropium (Combivent Respimat Inh) 2 puffs QID PRN INH 05/14/18 20:30 06/13/18 20:29 Loperamide HCl (Imodium Cap) 2 mg DAILY PRN PO 05/14/18 20:30 06/13/18 20:29 Lorazepam (Ativan Tab) 0.5 mg DAILY PRN PO 05/14/18 20:30 06/13/18 20:29 Pravastatin Sodium (Pravachol Tab) 20 mg DAILY PO 05/15/18 08:00 06/14/18 08:59 05/16/18 08:01 20 MG Ranitidine HCl (zANTac TAB) 150 mg BID PO 05/14/18 21:00 06/13/18 20:59 05/16/18 08:01 150 MG Cholecalciferol (Vitamin D Tab) 2,000 inter.unit QAM PO 05/15/18 08:00 06/14/18 08:59 05/16/18 08:01 2,000 INTER.UNIT Cyanocobalamin (Vitamin B-12 Tab) 1,000 mcg QAM PO 05/15/18 08:00 06/14/18 08:59 05/16/18 08:01 1,000 MCG Oxybutynin Chloride (Ditropan-Xl Tab) 5 mg HS PO 05/14/18 21:00 06/13/18 20:59 05/15/18 20:28 5 MG Oxycodone HCl (Roxicodone Immediate Rel Tab) 20 mg Q4H PRN PO 05/14/18 20:30 05/28/18 20:29 05/16/18 10:36 20 MG Polyethylene (Miralax Powder Packet) 17 gm DAILY PRN PO 05/14/18 20:30 06/13/18 20:29 05/15/18 08:32 17 GM Cefepime HCl 2000 mg/Syringe 20 ml @ 5 mls/min Q12H IV 05/15/18 00:00 05/25/18 00:00 05/16/18 12:47 5 MLS/MIN Miscellaneous Information (Check Fentanyl Patch Placement) 1 ea QS N/A 05/15/18 00:00 06/14/18 00:00 05/16/18 08:08 1 EA Fentanyl (Duragesic Patch) 75 mcg Q3D@2230 TD 05/14/18 22:30 05/28/18 22:29 05/14/18 22:44 75 MCG Miscellaneous (Fentanyl Patch Remove & Waste) 1 ea Q3D N/A 05/17/18 22:30 06/16/18 22:29 Ondansetron HCl (Zofran Inj) 4 mg Q6H PRN IV 05/14/18 23:00 06/13/18 22:59 05/16/18 08:30 4 MG Acetaminophen 100 ml @ 400 mls/hr Q8H PRN IV 05/14/18 23:00 06/13/18 22:59 Prochlorperazine Edisylate 10 mg/ Syringe 10 ml @ 5 mls/min Q6H PRN IV 05/14/18 23:00 06/13/18 22:59 05/16/18 13:59 5 MLS/MIN Hydromorphone HCl (Dilaudid Inj) 1 mg Q2H PRN IV 05/14/18 23:45 05/28/18 23:44 05/16/18 12:40 1 MG Heparin Sodium (Porcine) (Heparin 100 Unit/ml 5ml Flush) 5 ml PRN PRN IV 05/15/18 05:15 06/14/18 05:14 05/15/18 05:16 5 ML Pantoprazole Sodium (Protonix Tab) 40 mg Q24H PO 05/15/18 19:00 06/14/18 18:59 05/15/18 18:30 40 MG Dexamethasone (Decadron Tab) 4 mg TID PO 05/15/18 14:00 06/14/18 13:59 05/16/18 08:01 4 MG Sodium Chloride 1,000 ml @ 100 mls/hr Q10H IV 05/15/18 13:00 06/14/18 12:59 05/16/18 08:14 100 MLS/HR Enoxaparin Sodium (Lovenox Inj) 40 mg QAM SQ 05/16/18 08:00 06/15/18 07:59 Magnesium Citrate (Citrate Of Magnesia Soln) 150 ml Q12H PRN PO 05/15/18 14:45 06/14/18 14:44 Objective Vital Signs Date Time Temp Pulse Resp B/P (MAP) Pulse Ox O2 Delivery O2 Flow Rate FiO2 05/16/18 11:22 36.7 81 18 121/84 (96) 95 05/16/18 08:00 96 Room Air 05/16/18 07:27 37.0 85 18 107/76 (86) 97 Room Air 05/16/18 04:27 36.7 98 18 101/62 (75) 98 Room Air 05/15/18 22:50 36.8 91 20 106/66 (79) 98 Room Air 05/15/18 20:00 Room Air 05/15/18 19:19 37.0 103 18 93/66 (75) 97 Room Air 05/15/18 14:58 36.5 88 20 113/77 (89) 99 Room Air Physical Exam General Appearance: WD/WN, no apparent distress Eyes: normal inspection, EOMI, sclerae normal ENT: normal ENT inspection, hearing grossly normal, pharynx normal Neck: supple, no adenopathy, no JVD, trachea midline Respiratory/Chest: chest non-tender, lungs clear, normal breath sounds, no respiratory distress, no accessory muscle use Cardiovascular: regular rate, rhythm, no edema, no gallop, no JVD, no murmur Abdomen: normal bowel sounds, non tender, soft, no organomegaly Extremities: normal range of motion, non-tender, normal inspection, no pedal edema, no calf tenderness, pelvis stable Neurologic/Psychiatric: driver helper II-XII nml as tested, no motor/sensory deficits, alert, normal mood/affect, oriented x 3 Skin: normal color, warm/dry, no rash Laboratory Results Last 24 Hours Test 05/16/18 06:03 White Blood Count 8.21 K/uL Red Blood Count 3.13 M/uL Hemoglobin 9.1 g/dL Hematocrit 26.8 % Mean Corpuscular Volume 85.6 fL Mean Corpuscular Hemoglobin 29.1 pg Mean Corpuscular Hemoglobin Concent 34.0 g/dl Platelet Count 194 K/uL Mean Platelet Volume 9.2 fL Neutrophils (%) (Auto) 92.5 % Lymphocytes (%) (Auto) 6.0 % Monocytes (%) (Auto) 0.7 % Eosinophils (%) (Auto) 0.4 % Basophils (%) (Auto) 0.0 % Neutrophils # (Auto) 7.60 K/uL Lymphocytes # (Auto) 0.49 K/uL Monocytes # (Auto) 0.06 K/uL Eosinophils # (Auto) 0.03 K/uL Basophils # (Auto) 0.00 K/uL RDW Standard Deviation 63.4 fL RDW Coefficient of Variation 21.1 % Immature Granulocyte % (Auto) 0.4 % Immature Granulocyte # (Auto) 0.03 K/uL Anisocytosis PRESENT Sodium Level 134 mmol/L Potassium Level 4.6 mmol/L Chloride Level 107 mmol/L Carbon Dioxide Level 20 mmol/L Anion Gap 7.0 mmol/L Blood Urea Nitrogen 29 mg/dl Creatinine 1.03 mg/dl Est Creatinine Clear Calc Drug Dose 60.6 ml/min Estimated GFR () 66.5 Estimated GFR (Non- 57.4 BUN/Creatinine Ratio 28.0 Random Glucose 109 mg/dl Calcium Level 8.2 mg/dl Assessment and Plan 62 yo female with small cell lung CA, recently finished 3rd cycle of chemotherapy, presents with weakness, confusion, recurrent UTI - Recurrent UTI: recently treated for Pseudomonas UTI current urine culture growing E coli, resistant to quinolones continue Cefepime, stop Cipro, can change to PO antibiotic on discharge - PANKAJ due to dehydration Cr improved to 1.0 from 1.4, adequate UO continue IV fluids through tonight, stop midnight - Mild anemia due to bone marrow suppression, recent chemotherapy has h/o pancytopenia, may occur in the next few days monitor CBC daily, today her counts are stable other than mild anemia - Small cell lung cancer completed 3rd cycle of chemo not tolerating as well as the first 2 cycles she questions how long she wants to endure chemo, says she has no quality of life resume Decadron 4mg TID as part of her chemotherapy she requests palliative care consult, she does not want further treatment, wants to discuss hospice palliative care to see tomorrow - Constipation: no BM in 8 days typically takes magnesium citrate BID had a BM today - DM: Novolog SS, diabetic diet DVT prophylaxis: Lovenox
[2018-05-16] MEDS: PANTOprazole SOD 40 MG TAB PO SCH (17:44)
[2018-05-16] MEDS: ASPIRIN 81 MG ECTAB PO SCH (19:29)
[2018-05-16] MEDS: OXYBUTYNIN CHLORIDE 5 MG TABCR PO SCH (19:29)
[2018-05-17] MEDS: CEFEPIME IV 2,000 MG in SYRINGE 7.5 ML IV SCH ×2 (00:01→12:38)
[2018-05-17] MEDS: CHECK FENTANYL PATCH PLACEMENT SCH ×4 (00:02→23:20)
[2018-05-17] MEDS: OXYCODONE HCL IR 5 MG TAB (IMMEDIATE RELEASE) PO PRN ×3 (00:04→18:20)
[2018-05-17] MEDS: HYDROmorphone INJ 0.5 MG/0.5 ML SYR IV PRN ×7 (01:11→22:27)
[2018-05-17 06:18] LABS: EOS % 0.9 %; EOS ABS # 0.05 K/uL (0-0.5); HEMATOCRIT 24.8 % (37-47); HEMOGLOBIN 8.4 g/dL (12.0-16.0); IG# 0.06 K/uL (0.00-0.02); LYMPH % 11.2 %; LYMPH ABS # 0.65 K/uL (1.2-3.4); MEAN CELL VOLUME 85.5 fL (80-100); MEAN CORPUSCULAR HGB CONC 33.9 g/dl (32-36); MEAN PLATELET VOLUME 9.1 fL (7.4-10.4); MONO % 0.9 %; MONO ABS # 0.05 K/uL (0.11-0.59); NEUT ABS # 4.97 K/uL (1.4-6.5); PLATELET COUNT 159 K/uL (130-400); RED CELL DISTRIBUTION WIDTH CV 20.8 % (11.5-14.5); RED CELL DISTRIBUTION WIDTH SD 63.2 fL (36.4-46.3); WHITE BLOOD COUNT 5.78 K/uL (4.8-10.8)
[2018-05-17 06:56] LABS: CREATININE 0.87 mg/dl (0.60-1.20); POTASSIUM 4.3 mmol/L (3.5-5.1)
[2018-05-17] MEDS: ONDANSETRON INJ 2 MG/ML 2 ML VIAL IV PRN ×2 (07:14→15:51)
[2018-05-17] MEDS: PRAVASTATIN SOD 20 MG TAB PO SCH (07:18)
[2018-05-17] MEDS: CYANOCOBALAMIN 500 MCG TAB (VIT B-12) PO SCH (07:18)
[2018-05-17] MEDS: DOCUSATE SODIUM 100 MG CAP PO SCH (07:18)
[2018-05-17] MEDS: BuPROPion XL 150 MG TABCR PO SCH (07:18)
[2018-05-17] MEDS: RANITIDINE HCL 150 MG TAB PO SCH ×2 (07:18→13:55)
[2018-05-17] MEDS: CLOPIDOGREL BISULFATE 75 MG TAB PO SCH (07:19)
[2018-05-17] MEDS: DEXAMETHASONE 4 MG TAB PO SCH ×3 (07:19→19:42)
[2018-05-17] MEDS: CHOLECALCIFEROL 1000 INTER.UNIT TAB PO SCH (07:19)
[2018-05-17 07:35] VITALS: BP_SYST 114; BP_SYST 118; BP_SYST 121; BP_DIAS 78; BP_DIAS 89; PULSE 94; TEMP 36.9; O2SAT 100
[2018-05-17] MEDS: ENOXAPARIN 40 MG/0.4 ML SYR SQ SCH (08:00)
--- NOTE | 2018-05-17 11:24 | Palliative Care Consultation ---
Consultation Date of Consultation: May 17, 2018. Requesting Physician: Dr. Hurtado Attending Physician: Dr. Hurtado Reason for Consultation: Goals of care History of Present Illness This 62 year old female patient with small cell lung ca with diffuse osseous mets presented to the hospital with weakness. She was just in hospital mid April for pseudomonal UTI. This is her third admission in April. She ends up in hospital after each chemotherapy treatment. It was recommended to her in the past to go to rehab, but she declined. Patient also suffers from chronic back pain 2/2 surgeries and has fibromyalgia. Palliative care was consulted previously for pain management, and are now consulted for goals of care as heme/ onc is recommending hospice. I met with the patient and her [id number], Latricia, in room 414. Patient is awake, alert and oriented. She does have forgetfulness as she is on Dilaudid and is somewhat anxious. Patient states that she has not been tolerating her chemo well. She is demanding "another scan to see how the cancer is." She and her DIL would like to have a conversation with Dr. Muñoz about the cancer and treatment options, if there are any. We discussed her condition and goals at length. See below. Past Medical/Surgical History Medical History: (1) Anemia (2) Asthma (3) Atrial fibrillation (4) Back pain (5) Bronchitis (6) Cancer related pain (7) Cholecystectomy (8) Chronic back pain (9) Chronic congestive heart failure (10) Chronic obstructive lung disease (11) COPD (chronic obstructive pulmonary disease) (12) CVA (cerebral infarction) (13) Dehydration (14) Diabetes mellitus (15) Diverticulitis (16) Dizziness (17) Dysarthria on examination (18) fibromyalgia (19) Gastritis (20) Hypotension (21) Hysterectomy (22) Incontinence (23) Interstitial pulmonary disease, unspecified (24) Lumbar stenosis with neurogenic claudication (25) Lung disease (26) Lung mass (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 (28) Obesity (29) Oral thrush (30) Orthostatic hypotension (31) Palliative care encounter (32) Pancreatitis (33) Pancreatitis (34) Pancytopenia (35) Pseudomonas urinary tract infection (36) Recurrent UTI (urinary tract infection) (37) Spinal stenosis (38) Syncope (39) TIA (transient ischemic attack) (40) Tobacco abuse (41) Urinary tract infection (42) Urinary tract infection (43) UTI (urinary tract infection) (44) UTI (urinary tract infection) (45) UTI (urinary tract infection) (46) Viral syndrome (47) Weakness Surgical Problems: (1) History of back surgery Social History Smoking Status: Current Some Day Smoker History of Alcohol Use: No Drug Use: none Marital Status: Housing Status: lives with family Occupation Status: disabled Review of Systems Constitutional: No weakness ENT: No trouble swallowing Respiratory: + dyspnea on exertion, No cough, No shortness of breath Cardiac: No chest pain, No edema Abdomen: + nausea, No pain, No vomiting Musculoskeletal: + problem reported (back pain) Female : No problem reported Psychiatric: + anxiety, No depression symptoms Allergies Coded Allergies: Duloxetine (Verified Adverse Reaction, Mild, N/V, 04/08/18) Gabapentin (Verified Adverse Reaction, Mild, GI symptoms, 04/08/18) Morphine (Verified Adverse Reaction, Mild, NAUSEATED, 04/08/18) Quinolones (Verified Adverse Reaction, Mild, GI symptoms, 04/08/18) includes Cipro Sulfa Antibiotics (Verified Adverse Reaction, Mild, "Sulfa Drugs = nauseated", 04/08/18) Ciprofloxacin (Verified Adverse Reaction, Unknown, STOMACH PAIN, 04/30/18) Pregabalin (Verified Adverse Reaction, Unknown, UPSET STOMACH, 04/30/18) Sulfamethoxazole w/Trimethoprim (Verified Adverse Reaction, Unknown, STOMACH ACHES, 04/30/18) Medications Current Inpatient Medications Medications (Trade) Dose Ordered Sig/Farida Route Start Time Stop Time Status Last Admin Dose Admin Acetaminophen (Tylenol Tab) 650 mg Q4H PRN PO 05/14/18 20:30 06/13/18 20:29 Aspirin (Ecotrin Tab) 81 mg HS PO 05/14/18 21:00 06/13/18 20:59 05/16/18 19:29 81 MG Bupropion HCl (Wellbutrin-Xl Tab) 150 mg Q2D@0800 PO 05/15/18 08:00 06/14/18 07:59 05/17/18 07:18 150 MG Clopidogrel Bisulfate (plAVix TAB) 75 mg QAM PO 05/15/18 08:00 06/14/18 08:59 05/17/18 07:19 75 MG Docusate Sodium (coLACE CAP) 200 mg QAM PO 05/15/18 08:00 06/14/18 08:59 05/17/18 07:18 200 MG Fluticasone Propionate (Flonase Nasal [place]) 2 sprays BID PRN NING 05/14/18 20:30 06/13/18 20:29 Albuterol/ Ipratropium (Combivent Respimat Inh) 2 puffs QID PRN INH 05/14/18 20:30 06/13/18 20:29 Loperamide HCl (Imodium Cap) 2 mg DAILY PRN PO 05/14/18 20:30 06/13/18 20:29 Lorazepam (Ativan Tab) 0.5 mg DAILY PRN PO 05/14/18 20:30 06/13/18 20:29 Pravastatin Sodium (Pravachol Tab) 20 mg DAILY PO 05/15/18 08:00 06/14/18 08:59 05/17/18 07:18 20 MG Ranitidine HCl (zANTac TAB) 150 mg BID PO 05/14/18 21:00 06/13/18 20:59 05/17/18 07:18 150 MG Cholecalciferol (Vitamin D Tab) 2,000 inter.unit QAM PO 05/15/18 08:00 06/14/18 08:59 05/17/18 07:19 2,000 INTER.UNIT Cyanocobalamin (Vitamin B-12 Tab) 1,000 mcg QAM PO 05/15/18 08:00 06/14/18 08:59 05/17/18 07:18 1,000 MCG Oxybutynin Chloride (Ditropan-Xl Tab) 5 mg HS PO 05/14/18 21:00 06/13/18 20:59 05/16/18 19:29 5 MG Oxycodone HCl (Roxicodone Immediate Rel Tab) 20 mg Q4H PRN PO 05/14/18 20:30 05/28/18 20:29 05/17/18 07:18 20 MG Polyethylene (Miralax Powder Packet) 17 gm DAILY PRN PO 05/14/18 20:30 06/13/18 20:29 05/15/18 08:32 17 GM Cefepime HCl 2000 mg/Syringe 20 ml @ 5 mls/min Q12H IV 05/15/18 00:00 05/25/18 00:00 05/17/18 00:01 5 MLS/MIN Miscellaneous Information (Check Fentanyl Patch Placement) 1 ea QS N/A 05/15/18 00:00 06/14/18 00:00 05/17/18 07:19 1 EA Fentanyl (Duragesic Patch) 75 mcg Q3D@2230 TD 05/14/18 22:30 05/28/18 22:29 05/14/18 22:44 75 MCG Miscellaneous (Fentanyl Patch Remove & Waste) 1 ea Q3D N/A 05/17/18 22:30 06/16/18 22:29 Ondansetron HCl (Zofran Inj) 4 mg Q6H PRN IV 05/14/18 23:00 06/13/18 22:59 05/17/18 07:14 4 MG Acetaminophen 100 ml @ 400 mls/hr Q8H PRN IV 05/14/18 23:00 06/13/18 22:59 Prochlorperazine Edisylate 10 mg/ Syringe 10 ml @ 5 mls/min Q6H PRN IV 05/14/18 23:00 06/13/18 22:59 05/16/18 13:59 5 MLS/MIN Hydromorphone HCl (Dilaudid Inj) 1 mg Q2H PRN IV 05/14/18 23:45 05/28/18 23:44 05/17/18 08:26 1 MG Heparin Sodium (Porcine) (Heparin 100 Unit/ml 5ml Flush) 5 ml PRN PRN IV 05/15/18 05:15 06/14/18 05:14 05/17/18 09:10 5 ML Pantoprazole Sodium (Protonix Tab) 40 mg Q24H PO 05/15/18 19:00 06/14/18 18:59 05/16/18 17:44 40 MG Dexamethasone (Decadron Tab) 4 mg TID PO 05/15/18 14:00 06/14/18 13:59 05/17/18 07:19 4 MG Enoxaparin Sodium (Lovenox Inj) 40 mg QAM SQ 05/16/18 08:00 06/15/18 07:59 Magnesium Citrate (Citrate Of Magnesia Soln) 150 ml Q12H PRN PO 05/15/18 14:45 06/14/18 14:44 Physical Exam Date Time Temp Pulse Resp B/P (MAP) Pulse Ox O2 Delivery O2 Flow Rate FiO2 05/17/18 08:30 Room Air 05/17/18 07:35 36.9 94 18 118/78 (91) 100 121/89 (100) 114/78 (90) 05/17/18 00:05 Room Air 05/16/18 22:36 36.8 82 20 140/90 (107) 98 Room Air 05/16/18 20:00 Room Air 05/16/18 19:47 35.2 93 20 137/85 (102) 98 Room Air 05/16/18 15:02 36.8 101 20 130/77 (94) 97 05/16/18 11:22 36.7 81 18 121/84 (96) 95 General Appearance: no apparent distress ENT: hearing grossly normal Neck: supple, no JVD Respiratory: no respiratory distress, no accessory muscle use, + decreased breath sounds Cardiovascular: regular rate, rhythm, no edema, + normal peripheral pulses Abdomen: normal bowel sounds, non tender Neurologic/Psychiatric: alert, normal mood/affect, oriented x 3 (forgetful) Laboratory Results Last 24 Hours Test 05/17/18 05:50 White Blood Count 5.78 K/uL Red Blood Count 2.90 M/uL Hemoglobin 8.4 g/dL Hematocrit 24.8 % Mean Corpuscular Volume 85.5 fL Mean Corpuscular Hemoglobin 29.0 pg Mean Corpuscular Hemoglobin Concent 33.9 g/dl Platelet Count 159 K/uL Mean Platelet Volume 9.1 fL Neutrophils (%) (Auto) 86.0 % Lymphocytes (%) (Auto) 11.2 % Monocytes (%) (Auto) 0.9 % Eosinophils (%) (Auto) 0.9 % Basophils (%) (Auto) 0.0 % Neutrophils # (Auto) 4.97 K/uL Lymphocytes # (Auto) 0.65 K/uL Monocytes # (Auto) 0.05 K/uL Eosinophils # (Auto) 0.05 K/uL Basophils # (Auto) 0.00 K/uL RDW Standard Deviation 63.2 fL RDW Coefficient of Variation 20.8 % Immature Granulocyte % (Auto) 1.0 % Immature Granulocyte # (Auto) 0.06 K/uL Anisocytosis PRESENT Ovalocytes 1+ Sodium Level 135 mmol/L Potassium Level 4.3 mmol/L Chloride Level 106 mmol/L Carbon Dioxide Level 20 mmol/L Anion Gap 9.0 mmol/L Blood Urea Nitrogen 22 mg/dl Creatinine 0.87 mg/dl Est Creatinine Clear Calc Drug Dose 72.2 ml/min Estimated GFR () 81.6 Estimated GFR (Non- 70.4 BUN/Creatinine Ratio 25.8 Random Glucose 81 mg/dl Calcium Level 8.0 mg/dl Assessment & Plan Palliative Performance Scale: 60 % Problem list: Weakness Pain, back pain, acute on chronic Dehydration Small cell lung ca Goals of care Palliative care recs: discussed with patient, son Guille, and [id number] Latricia. -Had lengthy discussion about goals of care. Patient and family are requesting to speak/meet with Dr. Muñoz to discuss patient's cancer in detail. Patient states, "If he tells me there's nothing further that can be done, then fine." [id number] Latricia agreed. Joanna is demanding that another scan be done for staging of the cancer. -We discussed that patient has been in hospital after every cancer treatment, patient acknowledged this and stated, "I know this isn't good. The chemo might kill me." -Discussed in detail about different options for care after hospitalization. Patient is waiting for her waiver services to start, which she states she does qualify for. She would be amenable to hospice service if in fact she is not going to have further cancer treatment. In the meantime, patient should not go home by herself. [id number] and son are in agreement. Joanna might be able to move in with family if she does not qualify for SNF/rehab. -Would order PT/OT to assess for rehab need. -Continue fentanyl patch 75mcg/hr Q72h PRN. Has PRN dilauid on board, will check her 24-hour use tomorrow and determine needs. Thank you kindly for this consult. I will follow as needed. Total time spent 85 minutes with >50% of time spent at bedside with patient and family discussing goals of care, discharge options as well as collaborating with physician and case management to coordinate care.
[2018-05-17 12:10] VITALS: BP 133/86; PULSE 95; TEMP 37.1; O2SAT 99
[2018-05-17] MEDS: PROCHLORPERAZINE INJ 10 MG in SYRINGE 8 ML IV PRN (12:38)
[2018-05-17] MEDS ORDERED: NURSING VERBAL MED ORDER ONE (13:30)
--- NOTE | 2018-05-17 15:42 | Progress Note ---
Subjective Date of Service: May 17, 2018. Subjective Pt evaluation today including: conversation w/ patient, conversation w/ family , physical exam Patient feels run down. Patient is asking how her labs are as she states that they must be out of whack given how fatigues she is. When discussed about her cancer, she states that she will like to discuss case with Dr. Muñoz one more time to discuss prognosis so patient can make a decision on perhaps starting palliative care or not. Problem List Medical Problems: (1) Anemia Status: Acute (2) Dehydration Status: Acute (3) Hypotension Status: Acute (4) Orthostatic hypotension Status: Acute (5) Pancreatitis Status: Acute (6) Pancytopenia Status: Acute (7) Sepsis Status: Acute (8) Tobacco abuse Status: Acute (9) UTI (urinary tract infection) Status: Acute (10) Viral syndrome Status: Acute Review of Systems Constitutional: No fever Eyes: No worsening of vision ENT: No hearing loss Respiratory: No cough Cardiac: No chest pain Abdomen: + nausea Musculoskeletal: + joint pain Female : No dysuria Neurologic: No memory loss Psychiatric: No insomnia Heme: No abnormal bleeding/bruising Endo: + fatigue Skin: No rash Objective Vital Signs Date Time Temp Pulse Resp B/P (MAP) Pulse Ox O2 Delivery O2 Flow Rate FiO2 05/17/18 12:10 37.1 95 18 133/86 (102) 99 05/17/18 08:30 Room Air 05/17/18 07:35 36.9 94 18 118/78 (91) 100 121/89 (100) 114/78 (90) 05/17/18 00:05 Room Air 05/16/18 22:36 36.8 82 20 140/90 (107) 98 Room Air 05/16/18 20:00 Room Air 05/16/18 19:47 35.2 93 20 137/85 (102) 98 Room Air Physical Exam Comments: General Appearance: WD/WN, no apparent distress Eyes: normal inspection, EOMI, sclerae normal ENT: normal ENT inspection, hearing grossly normal, pharynx normal Neck: supple, no adenopathy, no JVD, trachea midline Respiratory/Chest: chest non-tender, lungs clear, normal breath sounds, no respiratory distress, no accessory muscle use Cardiovascular: regular rate, rhythm, no edema, no gallop, no JVD, no murmur Abdomen: normal bowel sounds, non tender, soft, no organomegaly Extremities: normal range of motion, non-tender, normal inspection, no pedal edema, no calf tenderness, pelvis stable Neurologic/Psychiatric: technical aide II-XII nml as tested, no motor/sensory deficits, alert, normal mood/affect, oriented x 3 Skin: normal color, warm/dry, no rash Laboratory Results Last 24 Hours Test 05/17/18 05:50 White Blood Count 5.78 K/uL Red Blood Count 2.90 M/uL Hemoglobin 8.4 g/dL Hematocrit 24.8 % Mean Corpuscular Volume 85.5 fL Mean Corpuscular Hemoglobin 29.0 pg Mean Corpuscular Hemoglobin Concent 33.9 g/dl Platelet Count 159 K/uL Mean Platelet Volume 9.1 fL Neutrophils (%) (Auto) 86.0 % Lymphocytes (%) (Auto) 11.2 % Monocytes (%) (Auto) 0.9 % Eosinophils (%) (Auto) 0.9 % Basophils (%) (Auto) 0.0 % Neutrophils # (Auto) 4.97 K/uL Lymphocytes # (Auto) 0.65 K/uL Monocytes # (Auto) 0.05 K/uL Eosinophils # (Auto) 0.05 K/uL Basophils # (Auto) 0.00 K/uL RDW Standard Deviation 63.2 fL RDW Coefficient of Variation 20.8 % Immature Granulocyte % (Auto) 1.0 % Immature Granulocyte # (Auto) 0.06 K/uL Anisocytosis PRESENT Ovalocytes 1+ Sodium Level 135 mmol/L Potassium Level 4.3 mmol/L Chloride Level 106 mmol/L Carbon Dioxide Level 20 mmol/L Anion Gap 9.0 mmol/L Blood Urea Nitrogen 22 mg/dl Creatinine 0.87 mg/dl Est Creatinine Clear Calc Drug Dose 72.2 ml/min Estimated GFR () 81.6 Estimated GFR (Non- 70.4 BUN/Creatinine Ratio 25.8 Random Glucose 81 mg/dl Calcium Level 8.0 mg/dl Assessment and Plan 62 yo female with small cell lung CA, recently finished 3rd cycle of chemotherapy, presents with weakness, confusion, recurrent UTI - Recurrent UTI: recently treated for Pseudomonas UTI current urine culture growing E coli, resistant to quinolones continue Cefepime, stop Cipro, can change to PO antibiotic on discharge Culture showed antibiotic was sensitive to cephalosporin. For now will switch to ceftriaxone. - PANKAJ due to dehydration Cr improved to .87 from 1.4, adequate UO continue IV fluids through tonight, stop midnight - Mild anemia due to bone marrow suppression, recent chemotherapy has h/o pancytopenia, may occur in the next few days monitor CBC daily, today her counts are stable other than mild anemia - Small cell lung cancer completed 3rd cycle of chemo not tolerating as well as the first 2 cycles she questions how long she wants to endure chemo, says she has no quality of life resume Decadron 4mg TID as part of her chemotherapy she requests palliative care consult, she does not want further treatment, wants to discuss hospice Patient was seen by palliative care. Will discuss with Dr. Muñoz as patient appears to be a good candidate for hospice at this time. - Constipation: no BM in 8 days typically takes magnesium citrate BID had a BM today - DM: Novolog SS, diabetic diet DVT prophylaxis: Lovenox Will await meeting with Oncology. Likely tomorrow.
[2018-05-17] MEDS ORDERED: FENTANYL PATCH REMOVE & WASTE SCH ×2 (15:59→22:30)
[2018-05-17] MEDS ORDERED: FENTANYL 75 MCG/HR TDSY TD SCH (16:00)
[2018-05-17] MEDS: SODIUM CHLORIDE 0.9% 1000ML 1,000 ML IV SCH (16:05)
[2018-05-17] MEDS: CEFTRIAXONE SOD INJ 1 GM in DEXTROSE 5% ADD-VANTAGE 50ML 50 ML IV SCH (17:30)
[2018-05-17] MEDS: PANTOprazole SOD 40 MG TAB PO SCH (17:31)
[2018-05-17 19:40] VITALS: BP 123/84; PULSE 96; TEMP 36.9; O2SAT 98
[2018-05-17] MEDS: ASPIRIN 81 MG ECTAB PO SCH (19:43)
[2018-05-17] MEDS: OXYBUTYNIN CHLORIDE 5 MG TABCR PO SCH (19:43)
[2018-05-17] MEDS: FENTANYL 75 MCG/HR TDSY TD SCH (22:18)
[2018-05-17 22:29] VITALS: BP 119/79; PULSE 96; TEMP 36.7; O2SAT 98
[2018-05-18] VITALS (7 sets, daily range): BP systolic 114–131; BP diastolic 79–84; PULSE 85–101; TEMP 36.3–37.2; O2SAT 96–98
[2018-05-18] MEDS: HYDROmorphone INJ 0.5 MG/0.5 ML SYR IV PRN ×10 (01:40→22:27)
[2018-05-18] MEDS: SODIUM CHLORIDE 0.9% 1000ML 1,000 ML IV SCH ×3 (02:15→22:26)
[2018-05-18] MEDS: ONDANSETRON INJ 2 MG/ML 2 ML VIAL IV PRN ×4 (04:15→22:35)
[2018-05-18] MEDS: CHECK FENTANYL PATCH PLACEMENT SCH ×2 (08:57→16:54)
[2018-05-18] MEDS: RANITIDINE HCL 150 MG TAB PO SCH ×2 (08:58→20:32)
[2018-05-18] MEDS: PRAVASTATIN SOD 20 MG TAB PO SCH (08:58)
[2018-05-18] MEDS: DEXAMETHASONE 4 MG TAB PO SCH ×3 (08:58→20:32)
[2018-05-18] MEDS: CLOPIDOGREL BISULFATE 75 MG TAB PO SCH (08:59)
[2018-05-18] MEDS: CYANOCOBALAMIN 500 MCG TAB (VIT B-12) PO SCH (08:59)
[2018-05-18] MEDS: ENOXAPARIN 40 MG/0.4 ML SYR SQ SCH (09:00)
[2018-05-18] MEDS: DOCUSATE SODIUM 100 MG CAP PO SCH (09:00)
[2018-05-18] MEDS: CHOLECALCIFEROL 1000 INTER.UNIT TAB PO SCH (09:00)
[2018-05-18] MEDS: POLYETHYLENE (MIRALAX) 17 GM PACK PO PRN (09:02)
[2018-05-18] MEDS ORDERED: OPTIRAY 320 IV PRN (09:15)
[2018-05-18] MEDS: OXYCODONE HCL IR 5 MG TAB (IMMEDIATE RELEASE) PO PRN ×2 (10:26→16:51)
--- NOTE | 2018-05-18 11:03 | Palliative Care Progress Note ---
Palliative Care Progress Note Date of Service May 18, 2018. Subjective Pt evaluation today including: conversation w/ patient, conversation w/ family , physical exam, chart review, conversation w/ corporate consultant Spoke with patient and [id number] Latricia. They were able to speak with Dr. Muñoz this morning and have made the decision to forego any further treatment and pursue hospice care. case management met with them this afternoon and is helping to make plans. Review of Systems Constitutional: + weakness ENT: No trouble swallowing Respiratory: + cough, + dyspnea on exertion, No sputum, No wheezing, No shortness of breath Cardiac: No chest pain, No edema Abdomen: No pain, No nausea, No vomiting Female : No problem reported Psychiatric: + anxiety, No depression symptoms Objective Vital Signs Date Time Temp Pulse Resp B/P (MAP) Pulse Ox O2 Delivery O2 Flow Rate FiO2 05/18/18 07:44 36.9 96 18 116/83 (94) 98 Room Air 05/18/18 04:05 36.3 93 20 125/80 (95) 96 Room Air 05/18/18 00:00 Room Air 05/17/18 22:29 36.7 96 20 119/79 (92) 98 Room Air 05/17/18 19:40 36.9 96 20 123/84 (97) 98 Room Air 05/17/18 16:00 Room Air 05/17/18 12:10 37.1 95 18 133/86 (102) 99 Physical Exam General Appearance: no apparent distress ENT: hearing grossly normal Neck: supple, no JVD Respiratory/Chest: no respiratory distress, no accessory muscle use, + decreased breath sounds Cardiovascular: regular rate, rhythm, no edema Abdomen: normal bowel sounds, non tender, soft Neurologic/Psychiatric: alert, normal mood/affect, oriented x 3 (forgetfulness) Skin: normal color Assessment and Plan Problem list: Weakness Pain, back pain, acute on chronic Dehydration Small cell lung ca Goals of care Palliative care recs: -Patient and [id number] would like to pursue hospice care. They spoke with Dr. Muñoz this morning and understand that there will be no further chemo/ radiation. -Patient plans to move in with her sister in the [facility]. -Case management working to set up hospice in that area. -Dr. Muñoz did order CT scans today, patient awaiting results. -POLST form should be completed prior to discharge, will see patient tomorrow. Total time spent 35 minutes with >50% of time spent with patient and daughter-in -law discussing goals of care, hospice care as well as collaborating with physician and case management associate to coordinate care. Palliative Performance Scale: 60 %
--- NOTE | 2018-05-18 12:54 | DIAGNOSTIC IMAGING REPORT ---
CT ABD/PELVIS IV CONTRAST ONLY CLINICAL HISTORY: cancer staging LUNG CARCINOMA COMPARISON STUDY: 02/19/2018, PET/CT scan dated 03/03/2019 TECHNIQUE: Following the IV administration of 119 mL of Optiray-320, CT scan of the abdomen and pelvis was performed from the lung bases to the proximal femurs. Images are reviewed in the axial, sagittal, and coronal planes. IV contrast was administered without complication. A dose lowering technique was utilized adhering to the principles of ALARA. CT DOSE: FINDINGS: Lower chest: There is evidence for interstitial pulmonary fibrosis. Liver: The contrast-enhanced liver is normal in size, contour, and attenuation. There is no intrahepatic biliary ductal dilatation. The hepatic veins and portal veins are patent. Gallbladder: Surgically absent Spleen: Normal in size and attenuation. Pancreas: There is a subtle 16 mm hypodense lesion within the pancreatic body. There is no ductal dilatation. Adrenal glands: There is subtle left adrenal gland thickening Kidneys: There are multiple left renal cysts measuring up to 12 mm. There is no hydronephrosis. Bowel: There is a hiatal hernia. There are no transition zones indicate bowel obstruction. There is no acute diverticulitis. There is no evidence of acute appendicitis. Peritoneum: There is no intraperitoneal free air or abdominal ascites. Vasculature: Atheromatous changes are present within the abdominal aorta. There are several areas of aortic ectasia. The maximal aortic diameters 29 mm. Adenopathy: None. Pelvic viscera: The uterus is surgically absent. Skeletal structures: There are postsurgical changes present within the lumbar spine. There is a stable mixed lytic and sclerotic 1 cm lesion within the left iliac bone. There is a second 6 mm sclerotic lesion within the left iliac bone. There is a subtle 6 mm sclerotic lesion within the right iliac bone. There is a subtle sclerotic lesion within the left iliac wing. IMPRESSION: 1. Subtle 16 mm hypodense lesion within the pancreatic body 2. Multiple sclerotic skeletal lesions consistent with metastasis 3. No CT evidence of hepatic metastasis 4. Subtle left adrenal gland thickening 5. No evidence of bowel obstruction. No evidence of free air Electronically signed by: Nahum Eckert M.D. 05/18/2018 12:53 PM Dictated Date/Time: 05/18/2018 12:43 PM
--- NOTE | 2018-05-18 13:22 | DIAGNOSTIC IMAGING REPORT ---
CT SCAN OF THE CHEST WITH IV CONTRAST CLINICAL HISTORY: Lung cancer follow-up. COMPARISON STUDY: Chest CT scans dated 03/25/2017 and 05/11/2012. PET CT dated 03/03/2018. TECHNIQUE: Following the IV administration of 119 cc of Optiray 320, CT scan of the thorax was performed from the thoracic inlet to the upper abdomen. Images are reviewed in the axial, sagittal, and coronal planes. IV contrast was administered without complication. A dose lowering technique was utilized adhering to the principles of ALARA. CT DOSE: 1010.03 mGy.cm FINDINGS: Thyroid: Imaged portions of the thyroid gland are normal in size and attenuation. Thoracic aorta: There is mild atherosclerotic calcification of the thoracic aorta, which is normal in caliber and demonstrates standard 3-vessel arch anatomy. No dissection is seen. A left subclavian central venous infusion port is in place. Pulmonary vasculature: The main pulmonary arteries are dilated indicating pulmonary artery hypertension. There are no filling defects identified in the central pulmonary vessels to indicate pulmonary embolus. Note that this examination was not protocoled for evaluation of the pulmonary arteries. Heart: The heart is normal in size and configuration, and without pericardial effusion. Coronary arteries are densely calcified. Lungs and pleural spaces: Accessory azygous fissure is incidentally noted. Emphysema is similar to previous. Subpleural reticulation is again noted throughout both lungs and suggests superimposed interstitial lung disease. There is no airspace consolidation typical for pneumonia or pleural effusion. The trachea and central airways are clear. Postoperative change is seen at the anterior left lung base. A left lower lobe pulmonary lesion seen on image #123 has decreased in size from 03/03/2018 when it measured 3.2 cm. No new pulmonary lesion is identified. Mediastinum: Subcentimeter mediastinal lymph nodes are similar to previous. These are not pathologically enlarged by size criteria. Yolanda: There are scattered subcentimeter hilar lymph nodes. Axillae: There is no axillary lymphadenopathy. Upper abdomen: There is a moderate to large hiatal hernia. Cholecystectomy clips are noted. Mild intrahepatic biliary ductal dilatation is likely related to previous cholecystectomy. Subcentimeter cortical hypodensities in the upper poles of both kidneys likely represent cysts but are too small for definitive characterization. There is mild nodular thickening of the left adrenal gland. Skeletal structures: The skeletal structures are osteopenic. 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 Lesions are seen throughout the thoracic spine, in the sternum, and in several ribs. This has not appreciably changed from 03/03/2018. Degenerative changes seen throughout the thoracic spine. Degenerative changes also seen in the shoulders. Fusion hardware is partially imaged at the thoracolumbar junction. IMPRESSION: 1. The left lower lobe pulmonary mass has decreased in size from 03/03/2018. 2. Prominent mediastinal and hilar lymph nodes are noted. These are unchanged to slightly decreased in size from 03/03/2018. 3. Multifocal osteoblastic metastatic disease has not appreciably changed from previous. 4. There are changes of mild emphysema with superimposed chronic interstitial lung disease. 5. There is no airspace consolidation or pleural effusion. 6. Moderate hiatal hernia. 7. Additional findings as above. Electronically signed by: Jabari Vallecillo M.D. 05/18/2018 1:20 PM Dictated Date/Time: 05/18/2018 1:02 PM
[2018-05-18] MEDS: PANTOprazole SOD 40 MG TAB PO SCH (17:59)
[2018-05-18] MEDS: CEFTRIAXONE SOD INJ 1 GM in DEXTROSE 5% ADD-VANTAGE 50ML 50 ML IV SCH (18:00)
[2018-05-18] MEDS: ASPIRIN 81 MG ECTAB PO SCH (20:32)
[2018-05-18] MEDS: OXYBUTYNIN CHLORIDE 5 MG TABCR PO SCH (20:32)
--- NOTE | 2018-05-18 23:06 | Progress Note ---
Subjective Date of Service: May 18, 2018. Subjective Pt evaluation today including: conversation w/ patient, conversation w/ family , physical exam 62 yo female reprts feeling mildly better today. She states that she had a long discussion of her prognosis with her Oncologist. Patient is awaiting results of her CT scan, however, she is leaning towards comfort care. 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 Problem List Medical Problems: (1) Anemia Status: Acute (2) Dehydration Status: Acute (3) Hypotension Status: Acute (4) Orthostatic hypotension Status: Acute (5) Pancreatitis Status: Acute (6) Pancytopenia Status: Acute (7) Sepsis Status: Acute (8) Tobacco abuse Status: Acute (9) UTI (urinary tract infection) Status: Acute (10) Viral syndrome Status: Acute Review of Systems Constitutional: No fever Eyes: No worsening of vision ENT: No hearing loss Respiratory: No cough Cardiac: No chest pain Abdomen: + nausea Musculoskeletal: + joint pain Female : No dysuria Neurologic: No memory loss Psychiatric: No insomnia Heme: No abnormal bleeding/bruising Endo: + fatigue Skin: No rash All Other Systems: Reviewed and Negative Objective Vital Signs Date Time Temp Pulse Resp B/P (MAP) Pulse Ox O2 Delivery O2 Flow Rate FiO2 05/18/18 18:56 36.7 101 20 131/81 (98) 97 Room Air 05/18/18 16:00 96 Room Air 05/18/18 15:07 36.8 88 18 124/84 (97) 98 05/18/18 11:20 37.2 96 18 114/79 (91) 97 Room Air 05/18/18 08:45 Room Air 05/18/18 07:44 36.9 96 18 116/83 (94) 98 Room Air 05/18/18 04:05 36.3 93 20 125/80 (95) 96 Room Air 05/18/18 00:00 Room Air Physical Exam Comments: General Appearance: WD/WN, no apparent distress Eyes: normal inspection, EOMI, sclerae normal ENT: normal ENT inspection, hearing grossly normal, pharynx normal Neck: supple, no adenopathy, no JVD, trachea midline Respiratory/Chest: chest non-tender, lungs clear, normal breath sounds, no respiratory distress, no accessory muscle use Cardiovascular: regular rate, rhythm, no edema, no gallop, no JVD, no murmur Abdomen: normal bowel sounds, non tender, soft, no organomegaly Extremities: normal range of motion, non-tender, normal inspection, no pedal edema, no calf tenderness, pelvis stable Neurologic/Psychiatric: 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 For now will switch to ceftriaxone. Awaiting final blood culture. - PANKAJ due to dehydration Cr improved to .87 from 1.4, adequate UO continue IV fluids through tonight, stop midnight will repeat in AM. - Mild anemia due to bone marrow suppression, recent chemotherapy has h/o pancytopenia, may occur in the next few days monitor CBC daily, today her counts are stable other than mild anemia - Small cell lung cancer completed 3rd cycle of chemo not tolerating as well as the first 2 cycles she questions how long she wants to endure chemo, says she has no quality of life resume Decadron 4mg TID as part of her chemotherapy she requests palliative care consult, she does not want further treatment, wants to discuss hospice Patient was seen by palliative care. Will discuss with Dr. Muñoz as patient appears to be a good candidate for hospice at this time. Patient at this time has decided on palliative care. - Constipation: no BM in 8 days typically takes magnesium citrate BID had a BM today - DM: Novolog SS, diabetic diet DVT prophylaxis: Lovenox
[2018-05-19] MEDS: HYDROmorphone INJ 0.5 MG/0.5 ML SYR IV PRN ×6 (00:31→13:55)
[2018-05-19] MEDS: CHECK FENTANYL PATCH PLACEMENT SCH ×2 (00:32→07:41)
[2018-05-19] MEDS: PROCHLORPERAZINE INJ 10 MG in SYRINGE 8 ML IV PRN (00:58)
[2018-05-19 03:36] VITALS: BP 111/74; PULSE 75; TEMP 36.9; O2SAT 99
[2018-05-19 07:36] VITALS: BP 108/72; PULSE 78; TEMP 36.6; O2SAT 98
[2018-05-19] MEDS: ONDANSETRON INJ 2 MG/ML 2 ML VIAL IV PRN (07:40)
[2018-05-19] MEDS: SODIUM CHLORIDE 0.9% 1000ML 1,000 ML IV SCH (07:41)
[2018-05-19] MEDS: DEXAMETHASONE 4 MG TAB PO SCH ×2 (07:43→13:55)
[2018-05-19] MEDS: DOCUSATE SODIUM 100 MG CAP PO SCH (07:43)
[2018-05-19] MEDS: CLOPIDOGREL BISULFATE 75 MG TAB PO SCH (07:43)
[2018-05-19] MEDS: CHOLECALCIFEROL 1000 INTER.UNIT TAB PO SCH (07:43)
[2018-05-19] MEDS: PRAVASTATIN SOD 20 MG TAB PO SCH (07:43)
[2018-05-19] MEDS: CYANOCOBALAMIN 500 MCG TAB (VIT B-12) PO SCH (07:44)
[2018-05-19] MEDS: BuPROPion XL 150 MG TABCR PO SCH (07:44)
[2018-05-19] MEDS: ENOXAPARIN 40 MG/0.4 ML SYR SQ SCH (07:45)
[2018-05-19] MEDS: POLYETHYLENE (MIRALAX) 17 GM PACK PO PRN (07:53)
[2018-05-19] MEDS ORDERED: FENTANYL PATCH REMOVE & WASTE SCH (08:59)
[2018-05-19] MEDS ORDERED: FENTANYL 100 MCG/HR TDSY TD SCH (09:00)
[2018-05-19] MEDS: RANITIDINE HCL 150 MG TAB PO SCH (10:01)
[2018-05-19] MEDS ORDERED: FENTANYL 25 MCG/HR TDSY TD SCH (10:30)
[2018-05-19 11:26] VITALS: BP 110/74; PULSE 76; TEMP 36.6; O2SAT 98
--- NOTE | 2018-05-19 12:46 | Palliative Care Progress Note ---
Palliative Care Progress Note Date of Service May 19, 2018. Subjective Pt evaluation today including: conversation w/ patient, physical exam, chart review, conversation w/ analytical consultant (Dr. Whitaker) Patient awake, alert and oriented x4. Patient feels pretty well today, is anxious to be discharged. We talked about code status and patient would like to be DNR. She states she completed a living will yesterday. Plan is for her to move in with her sister, Erika, and to have hospice care. Pain is pretty well controlled with her current Dilaudid usage, so we talked about increasing the fentanyl patch to 125mcg which patient is comfortable with. She thinks the PRN Roxicodone 20mg will be adequate. Review of Systems Constitutional: No fever, No chills ENT: No trouble swallowing Respiratory: + cough, + dyspnea on exertion, No sputum, No wheezing Cardiac: No chest pain, No edema Abdomen: No pain, No nausea, No vomiting Female : No problem reported Psychiatric: + anxiety, No depression symptoms Objective Vital Signs Date Time Temp Pulse Resp B/P (MAP) Pulse Ox O2 Delivery O2 Flow Rate FiO2 05/19/18 11:26 36.6 76 19 110/74 (86) 98 05/19/18 08:00 Room Air 05/19/18 07:36 36.6 78 18 108/72 (84) 98 05/19/18 03:36 36.9 75 16 111/74 (86) 99 Room Air 05/19/18 01:20 Room Air 05/18/18 23:11 36.9 85 18 115/79 (91) 98 Room Air 05/18/18 18:56 36.7 101 20 131/81 (98) 97 Room Air 05/18/18 16:00 96 Room Air 05/18/18 15:07 36.8 88 18 124/84 (97) 98 Physical Exam General Appearance: no apparent distress ENT: hearing grossly normal Neck: supple, no JVD Respiratory/Chest: no respiratory distress, no accessory muscle use, + decreased breath sounds Cardiovascular: regular rate, rhythm, no edema, + normal peripheral pulses Abdomen: normal bowel sounds, non tender, soft Neurologic/Psychiatric: alert, normal mood/affect, oriented x 3 Assessment and Plan Problem list: Weakness Pain, back pain, acute on chronic Dehydration Small cell lung ca Goals of care Palliative care recs: -After discussion, patient would like to be DNR. She completed a living will yesterday with her sozrrlaa-xk-mzf, Latricia, present. -Patient plans to move in with her sister, Erika, in the [facility]. -Case management working to set up hospice in that area. -Pain is pretty well controlled with her current Dilaudid usage, so we talked about increasing the fentanyl patch to 125mcg which patient is comfortable with. She thinks the PRN Roxicodone 20mg will be adequate. Total time spent 35 minutes with >50% of time spent with patient at bedside discussing CODE STATUS, hospice care, as well as collaborating with physician and disease case manager rn to coordinate care. Palliative Performance Scale: 60 %
[2018-05-19] MEDS ORDERED: ALUMINUM/MAGNESIUM/SIMETH (MAALOX MAX) 30 ML UDC ONE (12:56)
[2018-05-19] MEDS ORDERED: ALUMINUM/MAGNESIUM SUSP 30 ML UDC PO PRN (13:00)
[2018-05-19] MEDS ORDERED: CEFDINIR 300 MG CAP PO STA (14:03)
[2018-05-19] MEDS ORDERED: CEFD1CAP14 PO (14:12)
[2018-05-19] MEDS ORDERED: DRGTP25 TD (14:12)
[2018-05-19] MEDS ORDERED: OXYC-90 PO (14:12)
[2018-05-19] MEDS ORDERED: DRGTP100 TD (14:12)
--- NOTE | 2018-05-19 14:14 | Discharge Instructions ---
Discharge Instructions Date of Service May 19, 2018. Admission Reason for Admission: Pseudomonas Urinary Tract Infection, Discharge Discharge Diagnosis / Problem: Urinary tract infection/ [facility] Discharge Goals Goal(s): Decrease discomfort, Improve function Activity Recommendations Activity Limitations: as noted below Lifting Limitations: gradually increase as tolerated . Instructions / Follow-Up Instructions / Follow-Up Patient will be discharged and transitioned to hospice. Current Hospital Diet Patient's current hospital diet: Regular Diet Discharge Diet Recommended Diet: Regular Diet Pending Studies Studies pending at discharge: no Laboratory Results Lipid Panel Test 02/21/18 00:34 Range/Units Triglycerides Level 154 H 0-150 mg/dl Cholesterol Level 83 0-200 mg/dl HDL Cholesterol 34 mg/dl Cholesterol/HDL Ratio 2.4 LDL Cholesterol, Calculated 18 mg/dl Medical Emergencies . Who to Call and When: Medical Emergencies: If at any time you feel your situation is an emergency, please call 911 immediately. . Non-Emergent Contact Non-Emergency issues call your: Primary Care Provider Call Non-Emergent contact if: you have any medication questions . . "Provider Documentation" section prepared by Atif Whitaker. .
[2018-05-19 14:54] VITALS: BP 110/74; PULSE 76; TEMP 36.6; O2SAT 98
[2018-05-19] MEDS ORDERED: CHECK FENTANYL PATCH PLACEMENT SCH ×2 (16:00)
[2018-05-22] MEDS ORDERED: FENTANYL PATCH REMOVE & WASTE SCH (10:29)
== END 2018-05-19 15:22 | disposition home or self-care (01) | DRG 690 ==
LOC: C.EDB 15:01 → C.4E 20:25 → ENRESERV 20:54
PROVIDERS: ADMIT Hospitalist; ATTEND Internal Medicine Sports Medicine
DX: N39.0 Urinary tract infection, site not specified (principal); N17.9 Acute kidney failure, unspecified; D61.9 Aplastic anemia, unspecified; C34.90 Malignant neoplasm of unspecified part of unspecified bronchus or lung; E86.0 Dehydration; K59.00 Constipation, unspecified; E11.9 Type 2 diabetes mellitus without complications; R41.0 Disorientation, unspecified; B96.5 Pseudomonas (aeruginosa) (mallei) (pseudomallei) as the cause of diseases classified elsewhere; Z79.02 Long term (current) use of antithrombotics/antiplatelets; Z79.82 Long term (current) use of aspirin; Z79.899 Other long term (current) drug therapy; Z66 Do not resuscitate; Z51.5 Encounter for palliative care

== ENCOUNTER 2018-05-21 09:40 | Inpatient (IN) | payer OTHER ==
[2018-05-21] VITALS (10 sets, daily range): BP systolic 98–114; BP diastolic 57–75; PULSE 92–118; TEMP 36.7–37.7; O2SAT 94–100; Ht 172.7 cm; Wt 80.3 kg
[~2018-05-21] VITALS: Ht 172.7 cm; Wt 80.3 kg
[~2018-05-21 09:40] MED LIST changes: +BIMA0.01 OPB; +BUPR150T5 PO; +CEFD1CAP14 PO; +CHOL20009 PO; +DEXL60CA4 PO; +DICY10CA12 PO; +DRGTP100 TD; +DRGTP25 TD; -DRGTP75 TD; +DXM/4 PO; +FESO8TAB PO; +FLNIN/ NAE; +IMD/2 PO; +IPRA1AER2 INH; -LPR25 PO; -LVQ750 PO; -METO5TAB2 PO; +ONDA4TAB9 PO; +OXYC-90 PO; +PLV75 PO; +POLY335019 PO; -PRAV40TA2 PO; +PRVC/20 PO; +RANI150T2 PO
[2018-05-21] MEDS ORDERED: SODIUM CHLORIDE 0.9% 1000ML 1,000 ML IV STA (10:00)
[2018-05-21] MEDS ORDERED: ONDANSETRON INJ 2 MG/ML 2 ML VIAL IV STA (10:18)
[2018-05-21] MEDS ORDERED: FENTANYL CITRATE INJ 50 MCG/1 ML 2 ML VIAL IV STA ×2 (10:18→11:15)
[2018-05-21 10:39] LABS: HEMATOCRIT 17.4 % (37-47); MEAN CELL VOLUME 84.5 fL (80-100); MEAN CORPUSCULAR HEMOGLOBIN 29.1 pg (25-34); MEAN CORPUSCULAR HGB CONC 34.5 g/dl (32-36); MEAN PLATELET VOLUME 8.6 fL (7.4-10.4); NUCLEATED RED BLOOD CELL ABS 0.06 K/uL (0-0); PLATELET COUNT 86 K/uL (130-400); RED CELL DISTRIBUTION WIDTH CV 20.8 % (11.5-14.5); RED CELL DISTRIBUTION WIDTH SD 61.5 fL (36.4-46.3); WHITE BLOOD COUNT 1.53 K/uL (4.8-10.8)
[2018-05-21 10:44] LABS: ALBUMIN 2.4 gm/dl (3.4-5.0); CALCIUM 8.2 mg/dl (8.5-10.1); CREATININE 1.03 mg/dl (0.60-1.20); POTASSIUM 3.8 mmol/L (3.5-5.1); TOTAL PROTEIN 5.5 gm/dl (6.4-8.2)
--- NOTE | 2018-05-21 10:47 | DIAGNOSTIC IMAGING REPORT ---
CHEST ONE VIEW PORTABLE HISTORY: 62 years-old Female weak eval for pna acute weakness with shortness of breath COMPARISON: Chest radiograph 05/14/2018, CT chest 05/18/2018 TECHNIQUE: Portable AP view of the chest FINDINGS: Cardiac silhouette is mildly enlarged. Left subclavian Akkzef-p-Qvue catheter appears unchanged. Azygos lobe and fissure. No pneumothorax, pleural effusion or overt pulmonary edema. Previously described pulmonary nodule of the superior segment left lower lobe is not definitively seen. Chronic bilateral reticular opacities. Degenerative changes of the shoulders and spine. Right shoulder rotator cuff calcific tendinosis. Surgical clips project over the upper abdomen. Partially imaged fusion hardware of the lumbar spine. IMPRESSION: 1. No acute process. 2. Chronic interstitial lung disease. The above report was generated using voice recognition software. It may contain grammatical, syntax or spelling errors. Electronically signed by: David Rivers M.D. 05/21/2018 10:45 AM Dictated Date/Time: 05/21/2018 10:44 AM
[2018-05-21 10:53] LABS: BASO % 0.7 %; BASO ABS # 0.01 K/uL (0-0.2); EOS ABS # 0.03 K/uL (0-0.5); LYMPH % 29.4 %; LYMPH ABS # 0.45 K/uL (1.2-3.4); MONO % 7.2 %; MONO ABS # 0.11 K/uL (0.11-0.59); NEUT % 60.7 %; NEUT ABS # 0.93 K/uL (1.4-6.5)
[2018-05-21] MEDS ORDERED: HYDROmorphone INJ 1 MG/ML SYR IV STA (11:20)
[2018-05-21] MEDS ORDERED: HYDROmorphone INJ 1 MG/ML SYR ONE (11:22)
[2018-05-21] MEDS ORDERED: CEFEPIME IV 2,000 MG in DEXTROSE 5% 100ML 100 ML IV STA (11:22)
--- NOTE | 2018-05-21 12:12 | History and Physical ---
History & Physical Date & Time of Service: May 21, 2018 at 11:53 Chief Complaint: Lethargic/Generalized Pain Primary Care Physician: RV. Byrd MD History of Present Illness 62 yo female reports that after discharge, she states that she was fine. However on the following day she reported feeling fatigued. She deneis any bleeding or melena, except for blood noted in her mouth. Last evening she was having nausea, and vomiting and was not able to keep her food down. She states she was not able to take antibiotics. Due to her being very weak on appearance, her sister in law, brought the patient to the hospital. Past Medical/Surgical History Medical Problems: (1) Anemia (2) Asthma (3) Atrial fibrillation (4) Back pain (5) Bronchitis (6) Cancer related pain (7) Cholecystectomy (8) Chronic back pain (9) Chronic congestive heart failure (10) Chronic obstructive lung disease (11) COPD (chronic obstructive pulmonary disease) (12) CVA (cerebral infarction) (13) Dehydration (14) Diabetes mellitus (15) Diverticulitis (16) Dizziness (17) Dysarthria on examination (18) fibromyalgia (19) Gastritis (20) Hypotension (21) Hysterectomy (22) Incontinence (23) Interstitial pulmonary disease, unspecified (24) Lumbar stenosis with neurogenic claudication (25) Lung disease (26) Lung mass (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 (28) Obesity (29) Oral thrush (30) Orthostatic hypotension (31) Palliative care encounter (32) Pancreatitis (33) Pancreatitis (34) Pancytopenia (35) Pseudomonas urinary tract infection (36) Recurrent UTI (urinary tract infection) (37) Sepsis (38) Spinal stenosis (39) Syncope (40) TIA (transient ischemic attack) (41) Tobacco abuse (42) Urinary tract infection (43) Urinary tract infection (44) UTI (urinary tract infection) (45) UTI (urinary tract infection) (46) UTI (urinary tract infection) (47) Viral syndrome (48) Weakness Surgical Problems: (1) History of back surgery Family History FH: HTN (hypertension) FH: cancer FH: cardiovascular disease FH: diabetes mellitus FH: lung cancer Social History Smoking Status: Current Every Day Smoker Drug Use: none Marital Status: Housing status: lives with family, assisted living Occupational Status: disabled Immunizations History of Influenza Vaccine: No Influenza Vaccine Date: Sep 24, 2012 History of Tetanus Vaccine?: Unknown History of Pneumococcal: Yes History of Hepatitis B Vaccine: No Hepatitis Immunization Date: May 11, 2008 Allergies Coded Allergies: Duloxetine (Verified Adverse Reaction, Mild, N/V, 05/21/18) Gabapentin (Verified Adverse Reaction, Mild, GI symptoms, 05/21/18) Morphine (Verified Adverse Reaction, Mild, NAUSEATED, 05/21/18) Quinolones (Verified Adverse Reaction, Mild, GI symptoms, 05/21/18) includes Cipro Sulfa Antibiotics (Verified Adverse Reaction, Mild, "Sulfa Drugs = nauseated", 05/21/18) Ciprofloxacin (Verified Adverse Reaction, Unknown, STOMACH PAIN, 05/21/18) Pregabalin (Verified Adverse Reaction, Unknown, UPSET STOMACH, 05/21/18) Sulfamethoxazole w/Trimethoprim (Verified Adverse Reaction, Unknown, STOMACH ACHES, 05/21/18) Home Medications Scheduled Bimatoprost (Lumigan), 1 DROP OPB HS Dexlansoprazole (Dexilant), 60 MG PO QAM Docusate Sodium (Docusate Sodium), 200 MG PO QAM Fentanyl (Fentanyl), 25 MCG TD Q72H Fentanyl (Fentanyl), 100 MCG TD Q72H Fluconazole (Fluconazole), 100 MG PO QAM Scheduled PRN Fluticasone Propionate (Fluticasone Propionate), 1 SPRAY NING BID PRN for Nasal Congestion Ipratropium-Albuterol (Combivent Respimat), 2 PUFFS INH QID PRN for SOB/Wheezing Loperamide Hcl (Imodium), 2 MG PO DAILY PRN for Diarrhea Lorazepam (Lorazepam), 0.5 MG PO Q8 PRN for Anxiety Ondansetron (Ondansetron HCl), 4 MG PO UD PRN for Nausea Oxycodone HCl (Oxycodone HCl), 30 MG PO q3 PRN for Pain Polyethylene Glycol 3350 (Miralax), 17 GM PO DAILY PRN for Constipation Review of Systems Constitutional: + weakness, + fatigue, No fever, No chills Eyes: No worsening of vision ENT: No hearing loss Respiratory: No cough Cardiovascular: No chest pain Abdomen: + nausea, No pain Neurologic: No memory loss Psychiatric: No depression symptoms Endocrine: No fatigue Hematologic / Lymphatic: + abnormal bleeding/bruising Integumentary: No rash Allergic / Immunologic: No environmental allergies Physical Exam Vital Signs Date Time Temp Pulse Resp B/P (MAP) Pulse Ox O2 Delivery O2 Flow Rate FiO2 05/21/18 11:50 120 28 109/67 96 Room Air 05/21/18 11:07 120 20 117/82 99 Room Air 05/21/18 10:34 120 05/21/18 10:19 37.7 125 22 93/74 100 Room Air General Appearance: + mild distress, + pertinent finding (Patient looks fatigued. She also has dry blood in her mouth.) Head: normocephalic Neck: supple Respiratory/Chest: chest non-tender, lungs clear, normal breath sounds Cardiovascular: regular rate, rhythm, no edema Abdomen/GI: normal bowel sounds, non tender, soft Extremities/Musculoskelatal: normal inspection, normal capillary refill Neurologic/Psych: alert, oriented x 3 Skin: normal color Lymphatic: no adenopathy Diagnostics Laboratory Results Results Past 24 Hours Test 05/21/18 10:00 05/21/18 10:15 05/21/18 11:11 Range/Units White Blood Count 1.53 4.8-10.8 K/uL Red Blood Count 2.06 4.2-5.4 M/uL Hemoglobin 6.0 12.0-16.0 g/dL Hematocrit 17.4 37-47 % Mean Corpuscular Volume 84.5 80-100 fL Mean Corpuscular Hemoglobin 29.1 25-34 pg Mean Corpuscular Hemoglobin Concent 34.5 32-36 g/dl Platelet Count 86 130-400 K/uL Mean Platelet Volume 8.6 7.4-10.4 fL Neutrophils (%) (Auto) 60.7 % Lymphocytes (%) (Auto) 29.4 % Monocytes (%) (Auto) 7.2 % Eosinophils (%) (Auto) 2.0 % Basophils (%) (Auto) 0.7 % Neutrophils # (Auto) 0.93 1.4-6.5 K/uL Lymphocytes # (Auto) 0.45 1.2-3.4 K/uL Monocytes # (Auto) 0.11 0.11-0.59 K/uL Eosinophils # (Auto) 0.03 0-0.5 K/uL Basophils # (Auto) 0.01 0-0.2 K/uL RDW Standard Deviation 61.5 36.4-46.3 fL RDW Coefficient of Variation 20.8 11.5-14.5 % Immature Granulocyte % (Auto) 0.0 % Immature Granulocyte # (Auto) 0.00 0.00-0.02 K/uL Nucleated RBC Absolute Count (auto) 0.06 0-0 K/uL Nucleated Red Blood Cells % 3.9 % Platelet Estimate DECREASED Giant Platelets 1+ Anisocytosis PRESENT Sodium Level 133 136-145 mmol/L Potassium Level 3.8 3.5-5.1 mmol/L Chloride Level 104 98-107 mmol/L Carbon Dioxide Level 21 21-32 mmol/L Anion Gap 8.0 3-11 mmol/L Blood Urea Nitrogen 42 7-18 mg/dl Creatinine 1.03 0.60-1.20 mg/dl Est Creatinine Clear Calc Drug Dose 61.4 ml/min Estimated GFR () 66.5 Estimated GFR (Non- 57.4 BUN/Creatinine Ratio 40.5 10-20 Random Glucose 102 70-99 mg/dl Calcium Level 8.2 8.5-10.1 mg/dl Magnesium Level 1.5 1.8-2.4 mg/dl Total Bilirubin 0.4 0.2-1 mg/dl Direct Bilirubin 0.2 0-0.2 mg/dl Aspartate Amino Transf (AST/SGOT) 15 15-37 U/L Alanine Aminotransferase (ALT/SGPT) 17 12-78 U/L Alkaline Phosphatase 56 45-117 U/L Total Protein 5.5 6.4-8.2 gm/dl Albumin 2.4 3.4-5.0 gm/dl Bedside Lactic Acid Venous 1.19 0.90-1.70 mmol/L Microbiology Results 05/21/18 Blood Culture, Received Pending 05/21/18 Blood Culture, Received Pending 05/21/18 Urine Culture, Received Pending Diagnostic Radiology CHEST ONE VIEW PORTABLE HISTORY: 62 years-old Female weak eval for pna acute weakness with shortness of breath COMPARISON: Chest radiograph 05/14/2018, CT chest 05/18/2018 TECHNIQUE: Portable AP view of the chest FINDINGS: Cardiac silhouette is mildly enlarged. Left subclavian Chfyul-[id number]-Evdc catheter appears unchanged. Azygos lobe and fissure. No pneumothorax, pleural effusion or overt pulmonary edema. Previously described pulmonary nodule of the superior segment left lower lobe is not definitively seen. Chronic bilateral reticular opacities. Degenerative changes of the shoulders and spine. Right shoulder rotator cuff calcific tendinosis. Surgical clips project over the upper abdomen. Partially imaged fusion hardware of the lumbar spine. IMPRESSION: 1. No acute process. 2. Chronic interstitial lung disease. Impression Assessment and Plan 62 yo female with small cell lung CA, recently finished 3rd cycle of chemotherapy, presents with weakness, confusion, recurrent UTI Anemia likely from upper GI bleed. Patient is getting transfusion. Patient is agreeable to receive one unit of PRBC. Will monitor her CBC. Patient at this time does not want agreesive treatment and if she declines does not want to be put on the ICU or telemetry. She does not want vasopressors to improve her BP. Goal at this time is to see if she improves over course of the day, however it is likely that this may not be possible. Will place her on a PPI IV BID Once family arrives will discuss with them if they would like to transition her to inpatient Hospice. Though she is not comfort measures only, we will try to control her GI bleed with PPI. No escalation of treatment. - Small cell lung cancer completed 3rd cycle of chemo She did not tolerate this as well as the first 2 cycles On last admission, she had decided on hospice Dr. Muñoz had agreed on this disposition as well. - Recurrent UTI: recently treated for Pseudomonas UTI On last admission she grew E coli, resistant to quinolones ED ordered cefepime. may switch to ceftriaxone later - PANKAJ on previous admission: this appears to have resolved. - DM: Novolog SS, diabetic diet DVT prophylaxis: scd No escalation of treatment. Will admit to 4 E. Likely transition tomorrow once family arrives to Inpatient Hospice. Poor prognosis Resuscitation Status VTE Prophylaxis Will order VTE Prophylaxis: No Reason for no VTE drug order: Contraindicated Reason no Mechanical VTE Order: Contraindicated (Will transition to [facility].)
[2018-05-21] MEDS ORDERED: IPRATROPIUM BROMIDE/ALBUTEROL respimat INH INH PRN (12:30)
[2018-05-21] MEDS ORDERED: LORAZEPAM 0.5 MG TAB PO PRN (12:30)
[2018-05-21] MEDS ORDERED: CARBOHYDRATES FOR HYPOGLYCEMIA PO PRN (12:30)
[2018-05-21] MEDS ORDERED: GLUCAGON FOR INJ 1 MG VIAL SQ PRN (12:30)
[2018-05-21] MEDS ORDERED: HYDROmorphone INJ 1 MG/ML SYR IV PRN (12:30)
[2018-05-21] MEDS ORDERED: DEXTROSE 50% 50 ML SYR IV PRN (12:30)
[2018-05-21] MEDS ORDERED: GLUCOSE 40% GEL 15 GM TUBE PO PRN (12:30)
[2018-05-21] MEDS ORDERED: GLUCOSE 10 TABS/TUBE PO PRN (12:30)
[2018-05-21] MEDS ORDERED: FLUTICASONE PROPIONATE NA SPR 16 GM BTL NAE PRN (12:30)
--- NOTE | 2018-05-21 13:54 | Palliative Care Consultation ---
Consultation Date of Consultation: May 21, 2018. Requesting Physician: Dr. Whitaker Attending Physician: Dr. Whitaker Reason for Consultation: Goals of care History of Present Illness This 62 year old female patient with PMH small cell lung cancer with diffuse osseous mets presents to the ED today after being discharged two days ago with plans for home hospice with c/o severe weakness and generalized pain. Joanna is well known to the palliative care service. This is her fourth admission between April-May 2018. During most recent admission, plans were made to stop chemo and all cancer treatment and go home to her sister's house for hospice care. Unfortunately, Joanna has rapidly declined in last couple days with severe weakness and fatigue, nausea/vomiting and generalized pain. I saw her in the ED along with Dr. Whitaker. Patient's [id number] Latricia was present at bedside. Joanna states that she knows she is declining. Latricia acknowledged that patient likely does not have much time left. Patient is tachycardic, febrile, hgb 6.0, neutropenic, and drowsy. Her pain is "not good." After lengthy discussion, plan is to admit patient to receive IVF, abx, and blood transfusion. Will reevaluate in 24 hours. If patient is improved, will make plans to go home with hospice. If she continues to decline, will likely stop all treatment and possibly admit under [facility] hospice. I did ask the range manager to ask [facility] hosp[facility] to come and see patient here so they can stay updated and on board. Patient, [id number] , and hospitalist all in agreement with plan. Past Medical/Surgical History Medical History: (1) Anemia (2) Asthma (3) Atrial fibrillation (4) Back pain (5) Bronchitis (6) Cancer related pain (7) Cholecystectomy (8) Chronic back pain (9) Chronic congestive heart failure (10) Chronic obstructive lung disease (11) COPD (chronic obstructive pulmonary disease) (12) CVA (cerebral infarction) (13) Dehydration (14) Diabetes mellitus (15) Diverticulitis (16) Dizziness (17) Dysarthria on examination (18) fibromyalgia (19) Gastritis (20) Hypotension (21) Hysterectomy (22) Incontinence (23) Interstitial pulmonary disease, unspecified (24) Lumbar stenosis with neurogenic claudication (25) Lung disease (26) Lung mass (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 (28) Obesity (29) Oral thrush (30) Orthostatic hypotension (31) Palliative care encounter (32) Pancreatitis (33) Pancreatitis (34) Pancytopenia (35) Pseudomonas urinary tract infection (36) Recurrent UTI (urinary tract infection) (37) Spinal stenosis (38) Syncope (39) TIA (transient ischemic attack) (40) Tobacco abuse (41) Urinary tract infection (42) Urinary tract infection (43) UTI (urinary tract infection) (44) UTI (urinary tract infection) (45) UTI (urinary tract infection) (46) Viral syndrome (47) Weakness Surgical Problems: (1) History of back surgery Social History Smoking Status: Current Some Day Smoker History of Alcohol Use: No Drug Use: none Marital Status: Housing Status: lives with family, assisted living Occupation Status: disabled Review of Systems Constitutional: + weakness, + fatigue ENT: No trouble swallowing Respiratory: + shortness of breath, + dyspnea on exertion, No wheezing Cardiac: No chest pain, No edema Abdomen: No pain, No nausea, No vomiting Musculoskeletal: + problem reported Psychiatric: No depression symptoms, No anxiety Allergies Coded Allergies: Duloxetine (Verified Adverse Reaction, Mild, N/V, 05/21/18) Gabapentin (Verified Adverse Reaction, Mild, GI symptoms, 05/21/18) Morphine (Verified Adverse Reaction, Mild, NAUSEATED, 05/21/18) Quinolones (Verified Adverse Reaction, Mild, GI symptoms, 05/21/18) includes Cipro Sulfa Antibiotics (Verified Adverse Reaction, Mild, "Sulfa Drugs = nauseated", 05/21/18) Ciprofloxacin (Verified Adverse Reaction, Unknown, STOMACH PAIN, 05/21/18) Pregabalin (Verified Adverse Reaction, Unknown, UPSET STOMACH, 05/21/18) Sulfamethoxazole w/Trimethoprim (Verified Adverse Reaction, Unknown, STOMACH ACHES, 05/21/18) Medications Current Inpatient Medications Medications (Trade) Dose Ordered Sig/Farida Route Start Time Stop Time Status Last Admin Dose Admin Insulin Aspart (novoLOG ASPART) SLIDING SCALE If C... ACHS SC 05/21/18 16:00 06/20/18 15:59 Glucose (Glucose 40% Gel) 15-30 GRAMS 15 GRAMS... UD PRN PO 05/21/18 12:30 06/20/18 12:29 Glucose (Glucose Chew Tab) 4-8 Tablets 4 Tabl... UD PRN PO 05/21/18 12:30 06/20/18 12:29 Dextrose (Dextrose 50% 50ML Syringe) 25-50ML 25ML FOR ... UD PRN IV 05/21/18 12:30 06/20/18 12:29 Glucagon (Glucagon Inj) 1 mg UD PRN SQ 05/21/18 12:30 06/20/18 12:29 Carbohydrates (Carbohydrates For Hypoglycemia) 15-30 GRAMS 15 grams if BSG 54-69... UD PRN PO 05/21/18 12:30 06/20/18 12:29 Bupropion HCl (Wellbutrin-Xl Tab) 75 mg QAM PO 05/22/18 09:00 06/21/18 08:59 UNV Fentanyl (Duragesic Patch) 25 mcg Q72H TD 05/21/18 12:30 06/04/18 12:29 UNV Fentanyl (Duragesic Patch) 100 mcg Q72H TD 05/21/18 12:30 06/04/18 12:29 UNV Fluticasone Propionate (Flonase Nasal [place]) 1 sprays BID PRN NING 05/21/18 12:30 06/20/18 12:29 Albuterol/ Ipratropium (Combivent Respimat Inh) 1 puffs QID PRN INH 05/21/18 12:30 06/20/18 12:29 Lorazepam (Ativan Tab) 0.5 mg DAILY PRN PO 05/21/18 12:30 06/20/18 12:29 Miscellaneous (Fentanyl Patch Remove & Waste) 1 ea Q3D N/A 05/24/18 12:30 06/23/18 12:29 UNV Miscellaneous Information (Check Fentanyl Patch Placement) 1 ea QS N/A 05/21/18 16:00 06/20/18 15:59 UNV Hydromorphone HCl (Dilaudid Inj) 1 mg Q4H PRN IV 05/21/18 12:30 06/04/18 12:29 Lactated Ringer's 1,000 ml @ 100 mls/hr Q10H IV 05/21/18 12:30 05/21/18 22:29 UNV Pantoprazole Sodium 40 mg/ Syringe 10 ml @ 5 mls/min DAILY@,21 IV 05/21/18 21:00 06/20/18 20:59 UNV Pantoprazole Sodium 40 mg/ Syringe 10 ml @ 5 mls/min NOW ONCE IV 05/21/18 12:30 05/21/18 12:31 UNV Cefepime HCl 1000 mg/Dextrose 111 ml @ 200 mls/hr Q12H IV 05/21/18 23:30 05/26/18 23:29 UNV Physical Exam Date Time Temp Pulse Resp B/P (MAP) Pulse Ox O2 Delivery O2 Flow Rate FiO2 05/21/18 13:31 37.6 113 26 112/70 99 05/21/18 13:13 37.7 114 28 98/57 98 05/21/18 13:01 115 28 101/76 99 Room Air 05/21/18 12:40 99 Room Air 05/21/18 12:17 119 05/21/18 11:50 120 28 109/67 96 Room Air 05/21/18 11:07 120 20 117/82 99 Room Air 05/21/18 10:34 120 05/21/18 10:19 37.7 125 22 93/74 100 Room Air General Appearance: + pertinent finding (quite ill appearing) ENT: hearing grossly normal Neck: supple, no JVD Respiratory: no respiratory distress, no accessory muscle use, + decreased breath sounds Cardiovascular: + tachycardia, + normal peripheral pulses Abdomen: normal bowel sounds, non tender, soft Neurologic/Psychiatric: normal mood/affect, oriented x 3, + pertinent finding ( drowsy) Skin: + pallor Laboratory Results Last 24 Hours Test 05/21/18 10:15 05/21/18 11:00 05/21/18 11:11 White Blood Count 1.53 K/uL Red Blood Count 2.06 M/uL Hemoglobin 6.0 g/dL Hematocrit 17.4 % Mean Corpuscular Volume 84.5 fL Mean Corpuscular Hemoglobin 29.1 pg Mean Corpuscular Hemoglobin Concent 34.5 g/dl Platelet Count 86 K/uL Mean Platelet Volume 8.6 fL Neutrophils (%) (Auto) 60.7 % Lymphocytes (%) (Auto) 29.4 % Monocytes (%) (Auto) 7.2 % Eosinophils (%) (Auto) 2.0 % Basophils (%) (Auto) 0.7 % Neutrophils # (Auto) 0.93 K/uL Lymphocytes # (Auto) 0.45 K/uL Monocytes # (Auto) 0.11 K/uL Eosinophils # (Auto) 0.03 K/uL Basophils # (Auto) 0.01 K/uL RDW Standard Deviation 61.5 fL RDW Coefficient of Variation 20.8 % Immature Granulocyte % (Auto) 0.0 % Immature Granulocyte # (Auto) 0.00 K/uL Nucleated RBC Absolute Count (auto) 0.06 K/uL Nucleated Red Blood Cells % 3.9 % Platelet Estimate DECREASED Giant Platelets 1+ Anisocytosis PRESENT Sodium Level 133 mmol/L Potassium Level 3.8 mmol/L Chloride Level 104 mmol/L Carbon Dioxide Level 21 mmol/L Anion Gap 8.0 mmol/L Blood Urea Nitrogen 42 mg/dl Creatinine 1.03 mg/dl Est Creatinine Clear Calc Drug Dose 61.4 ml/min Estimated GFR () 66.5 Estimated GFR (Non- 57.4 BUN/Creatinine Ratio 40.5 Random Glucose 102 mg/dl Calcium Level 8.2 mg/dl Magnesium Level 1.5 mg/dl Total Bilirubin 0.4 mg/dl Direct Bilirubin 0.2 mg/dl Aspartate Amino Transf (AST/SGOT) 15 U/L Alanine Aminotransferase (ALT/SGPT) 17 U/L Alkaline Phosphatase 56 U/L Total Protein 5.5 gm/dl Albumin 2.4 gm/dl Urine Color YELLOW Urine Appearance CLEAR Urine pH 5.0 Urine Specific [place] 1.021 Urine Protein NEG Urine Glucose (UA) NEG Urine Ketones NEG Urine Occult Blood NEG Urine Nitrite NEG Urine Bilirubin NEG Urine Urobilinogen NEG Urine Leukocyte Esterase NEG Bedside Lactic Acid Venous 1.19 mmol/L Assessment & Plan Palliative Performance Scale: 20 % Problem list: Pain Weakness Metastatic small cell lung cancer Goals of care UTI Palliative care recs: -Discussed at length with patient, [id number] Latricia, and Dr. Whitaker. -Patient wishes to be DNR. -Admit for supportive care. Patient wants blood transfusion, abx and IVF. Goal is to buy patient some time until her sons and daughter are able to get into town to see her. -[facility]. If patient does improve enough to still want to get home to her son and DIL's house with hospice, we can do so. If she continues to rapidly decline with increasing pain medication needs, will continue GIP. -Dilaudid is currently ordered as 1mg IV Q4h PRN. I anticipate her needs increasing. Will continue to reevaluate. Thank you kindly for this consult. I will follow. Total time spent 80 minutes with >50% of time spent at bedside with patient, family and MD discussing goals of care and coordinating care.
[2018-05-21] MEDS ORDERED: LACTATED RINGER'S 1000ML 1,000 ML IV SCH (14:00)
[2018-05-21] MEDS ORDERED: PANTOprazole INJ 40 MG in SYRINGE 0 ML IV ONE (14:00)
[2018-05-21] MEDS ORDERED: LORAZEPAM INJ 0.5 MG in SYRINGE 0.75 ML IV PRN (14:30)
[2018-05-21] MEDS ORDERED: LORAZEPAM 2 MG/ML 1 ML VIAL IV PRN (14:30)
[2018-05-21] MEDS ORDERED: NURSING VERBAL MED ORDER ONE ×3 (14:30→18:00)
--- NOTE | 2018-05-21 14:30 | EMERGENCY ROOM VISIT NOTE ---
History Report prepared by Chelly: Alfonso Ortega Under the Supervision of: Dr. Bryant Calderon M.D. First contact with patient: 09:50 Stated Complaint: LETHARGIC/GENERALIZED PAIN History of Present Illness The patient is a 62 year old female who presents to the Emergency Room with complaints of weakness worsening since this morning. Family reports that the patient was last discharged from the hospital 2 days ago with a plan to begin hospice. Family states that the patient was barely responding this morning. They note that the patient is unable to keep anything down, and report that she vomited last night after an attempt to give her food and medication. They state she is only able to take sips of liquids and gags when she does so. She has not eaten or drank very much since her discharge. They report that the patient has lung cancer with metastases to the back, and her last chemotherapy was a week ago. The patient denies fevers or chest pain, but reports that she is short of breath. She states that she has bowel movements and that they are not black or bloody. The patient reports that she is on antibiotics. Source of History: patient, family Onset: this morning Position: other (global) Symptom Intensity: severe Quality: other (weakness) Timing: worsening Associated Symptoms: + SOB, + vomiting, No fevers, No chest pain, No melena , No hematochezia Review of Systems See HPI for pertinent positives & negatives. A total of 10 systems reviewed and were otherwise negative. 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 (23) Obesity (24) Palliative care encounter (25) Pancreatitis (26) Pseudomonas urinary tract infection (27) Recurrent UTI (urinary tract infection) (28) Spinal stenosis (29) Syncope (30) UTI (urinary tract infection) (31) UTI (urinary tract infection) Surgical Problems: (1) History of back surgery Family History FH: HTN (hypertension) FH: cancer FH: cardiovascular disease FH: diabetes mellitus FH: lung cancer Social History Smoking Status: Current Some Day Smoker Alcohol Use: none Drug Use: none Marital Status: Occupation Status: disabled Current/Historical Medications Scheduled Aspirin (Aspirin Ec), 81 MG PO HS Bimatoprost (Lumigan), 1 DROP OPB HS Bupropion Hcl (Bupropion Hcl Xl), 75 MG PO QAM Cefdinir (Omnicef), 300 MG PO Q12H Cholecalciferol (Vitamin D), 2,000 INTER.UNIT PO QAM Clopidogrel Bisulfate (Clopidogrel), 75 MG PO QAM Cyanocobalamin (Vitamin B12), 1,000 MCG PO QAM Dexamethasone (Decadron), 4 MG PO UD Dexlansoprazole (Dexilant), 60 MG PO QAM Docusate Sodium (Docusate Sodium), 200 MG PO QAM Fentanyl (Fentanyl), 25 MCG TD Q72H Fentanyl (Fentanyl), 100 MCG TD Q72H Fesoterodine Fumarate (Toviaz), 8 MG PO HS Pravastatin Sod (Pravastatin Sodium), 20 MG PO DAILY Ranitidine HCl (Ranitidine HCl), 150 MG PO DAILY Scheduled PRN Dicyclomine Hcl (Dicyclomine Hcl), 10 MG PO QID PRN for Abdominal Pain Fluticasone Propionate (Fluticasone Propionate), 1 SPRAY NING BID PRN for Nasal Congestion Ipratropium-Albuterol (Combivent Respimat), 2 PUFFS INH QID PRN for SOB/Wheezing Loperamide Hcl (Imodium), 2 MG PO DAILY PRN for Diarrhea Lorazepam (Lorazepam), 0.5 MG PO DAILY PRN for Anxiety Ondansetron (Ondansetron HCl), 4 MG PO UD PRN for Nausea Oxycodone Hcl (Oxycodone Hcl), 20 MG PO Q4-6HRS PRN for Pain Oxycodone Ir (Roxicodone Ir), 20 MG PO Q4H PRN for severe pain Polyethylene Glycol 3350 (Miralax), 17 GM PO DAILY PRN for Constipation Allergies Coded Allergies: Duloxetine (Verified Adverse Reaction, Mild, N/V, 05/21/18) Gabapentin (Verified Adverse Reaction, Mild, GI symptoms, 05/21/18) Morphine (Verified Adverse Reaction, Mild, NAUSEATED, 05/21/18) Quinolones (Verified Adverse Reaction, Mild, GI symptoms, 05/21/18) includes Cipro Sulfa Antibiotics (Verified Adverse Reaction, Mild, "Sulfa Drugs = nauseated", 05/21/18) Ciprofloxacin (Verified Adverse Reaction, Unknown, STOMACH PAIN, 05/21/18) Pregabalin (Verified Adverse Reaction, Unknown, UPSET STOMACH, 05/21/18) Sulfamethoxazole w/Trimethoprim (Verified Adverse Reaction, Unknown, STOMACH ACHES, 05/21/18) Physical Exam Vital Signs Date Time Temp Pulse Resp B/P (MAP) Pulse Ox O2 Delivery O2 Flow Rate FiO2 05/21/18 12:17 119 05/21/18 11:50 120 28 109/67 96 Room Air 05/21/18 11:07 120 20 117/82 99 Room Air 05/21/18 10:34 120 05/21/18 10:19 37.7 125 22 93/74 100 Room Air Physical Exam Constitutional: Vital signs reviewed. Ill-appearing. Eyes: Pupils are equal round reactive to light. Conjunctiva are noninjected. ENT: Pharynx is clear without erythema or exudate. Mucous membranes are very dry. Neck supple without meningeal signs. Respiratory: Clear to auscultation bilaterally. Breath sounds are equal bilaterally. Cardiovascular: Tachycardic rate at 128 and regular rhythm. GI: Soft, nondistended and nontender. Bowel sounds are present. Musculoskeletal: No peripheral edema. Integumentary: No cyanosis. No jaundice. Neurological: The patient is awake and alert. No focal deficits. Psychiatric: Slightly anxious appearing. Medical Decision & Procedures ER Provider Diagnostic Interpretation: Radiology results as stated below per my review and the radiologist's interpretation: CHEST ONE VIEW PORTABLE HISTORY: 62 years-old Female weak eval for pna acute weakness with shortness of breath COMPARISON: Chest radiograph 05/14/2018, CT chest 05/18/2018 TECHNIQUE: Portable AP view of the chest FINDINGS: Cardiac silhouette is mildly enlarged. Left subclavian Eqohog-g-Audk catheter appears unchanged. Azygos lobe and fissure. No pneumothorax, pleural effusion or overt pulmonary edema. Previously described pulmonary nodule of the superior segment left lower lobe is not definitively seen. Chronic bilateral reticular opacities. Degenerative changes of the shoulders and spine. Right shoulder rotator cuff calcific tendinosis. Surgical clips project over the upper abdomen. Partially imaged fusion hardware of the lumbar spine. IMPRESSION: 1. No acute process. 2. Chronic interstitial lung disease. The above report was generated using voice recognition software. It may contain grammatical, syntax or spelling errors. Electronically signed by: David Rivers M.D. 05/21/2018 10:45 AM Dictated Date/Time: 05/21/2018 10:44 AM Laboratory Results 05/21/18 10:15 Red Blood Count 2.06, Mean Corpuscular Volume 84.5, Mean Corpuscular Hemoglobin 29.1, Mean Corpuscular Hemoglobin Concent 34.5, Mean Platelet Volume 8.6, Neutrophils (%) (Auto) 60.7, Lymphocytes (%) (Auto) 29.4, Monocytes (%) (Auto) 7.2, Eosinophils (%) (Auto) 2.0, Basophils (%) (Auto) 0.7, Neutrophils # (Auto) 0.93, Lymphocytes # (Auto) 0.45, Monocytes # (Auto) 0.11, Eosinophils # (Auto) 0.03, Basophils # (Auto) 0.01 05/21/18 10:15 Test 05/21/18 10:15 05/21/18 11:00 05/21/18 11:11 White Blood Count 1.53 K/uL (4.8-10.8) Red Blood Count 2.06 M/uL (4.2-5.4) Hemoglobin 6.0 g/dL (12.0-16.0) Hematocrit 17.4 % (37-47) Mean Corpuscular Volume 84.5 fL (80-100) Mean Corpuscular Hemoglobin 29.1 pg (25-34) Mean Corpuscular Hemoglobin Concent 34.5 g/dl (32-36) Platelet Count 86 K/uL (130-400) Mean Platelet Volume 8.6 fL (7.4-10.4) Neutrophils (%) (Auto) 60.7 % Lymphocytes (%) (Auto) 29.4 % Monocytes (%) (Auto) 7.2 % Eosinophils (%) (Auto) 2.0 % Basophils (%) (Auto) 0.7 % Neutrophils # (Auto) 0.93 K/uL (1.4-6.5) Lymphocytes # (Auto) 0.45 K/uL (1.2-3.4) Monocytes # (Auto) 0.11 K/uL (0.11-0.59) Eosinophils # (Auto) 0.03 K/uL (0-0.5) Basophils # (Auto) 0.01 K/uL (0-0.2) RDW Standard Deviation 61.5 fL (36.4-46.3) RDW Coefficient of Variation 20.8 % (11.5-14.5) Immature Granulocyte % (Auto) 0.0 % Immature Granulocyte # (Auto) 0.00 K/uL (0.00-0.02) Nucleated RBC Absolute Count (auto) 0.06 K/uL (0-0) Nucleated Red Blood Cells % 3.9 % Platelet Estimate DECREASED Giant Platelets 1+ Anisocytosis PRESENT Anion Gap 8.0 mmol/L (3-11) Est Creatinine Clear Calc Drug Dose 61.4 ml/min Estimated GFR () 66.5 Estimated GFR (Non- 57.4 BUN/Creatinine Ratio 40.5 (10-20) Calcium Level 8.2 mg/dl (8.5-10.1) Magnesium Level 1.5 mg/dl (1.8-2.4) Total Bilirubin 0.4 mg/dl (0.2-1) Direct Bilirubin 0.2 mg/dl (0-0.2) Aspartate Amino Transf (AST/SGOT) 15 U/L (15-37) Alanine Aminotransferase (ALT/SGPT) 17 U/L (12-78) Alkaline Phosphatase 56 U/L (45-117) Total Protein 5.5 gm/dl (6.4-8.2) Albumin 2.4 gm/dl (3.4-5.0) Urine Color YELLOW Urine Appearance CLEAR (CLEAR) Urine pH 5.0 (4.5-7.5) Urine Specific [place] 1.021 (1.000-1.030) Urine Protein NEG (NEG) Urine Glucose (UA) NEG (NEG) Urine Ketones NEG (NEG) Urine Occult Blood NEG (NEG) Urine Nitrite NEG (NEG) Urine Bilirubin NEG (NEG) Urine Urobilinogen NEG (NEG) Urine Leukocyte Esterase NEG (NEG) Bedside Lactic Acid Venous 1.19 mmol/L (0.90-1.70) Laboratory results as reviewed by me. Medications Administered Medications (Trade) Dose Ordered Sig/Farida Route Start Time Stop Time Status Last Admin Dose Admin Sodium Chloride 1,000 ml @ 999 mls/hr Q1H1M STAT IV 05/21/18 10:00 05/21/18 11:00 DC 05/21/18 10:00 999 MLS/HR Ondansetron HCl (Zofran Inj) 4 mg NOW STAT IV 05/21/18 10:18 05/21/18 10:19 DC 05/21/18 10:28 4 MG Fentanyl Citrate (Fentanyl Inj) 50 mcg NOW STAT IV 05/21/18 10:18 05/21/18 10:19 DC 05/21/18 10:28 50 MCG Cefepime HCl 2000 mg/Dextrose 122 ml @ 200 mls/hr NOW STAT IV 05/21/18 11:22 05/21/18 11:58 DC 05/21/18 11:45 200 MLS/HR Hydromorphone HCl (Dilaudid Inj) 1 mg K-MED ONCE .ROUTE 05/21/18 11:22 05/21/18 11:23 DC 05/21/18 11:25 1 MG ED Course 0955: The patient was evaluated in room A2. A complete history and physical exam was performed. 1000: Ordered Sodium Chloride 1000 ml @ 999 mls/hr IV 1018: Ordered Fentanyl 50 mcg IV, Zofran 4 mg IV 1045: I discussed the patient's hemoglobin with family, and the patient gave informed consent to a blood transfusion. 1100: I spoke with Dr. Whitaker - [facility] Hospitalist. He will reevaluate the patient for hospitalization. 1115: Ordered Fentanyl 25 mcg IV 1120: Ordered Dilaudid 1 mg IV 1122: Ordered Cefepime HCl 2000 mg/Dextrose 122 ml @ 200 mls/hr IV Medical Decision This is a 62-year-old female presents with generalized weakness. Differential diagnosis includes dehydration, metabolic derangement, electrolyte abnormality, malnutrition, UTI, pneumonia. I did perform a limited focused review of portions of the patient's old chart on the electronic medical record. The patient was admitted twice in the past month for UTIs and weakness. Urine cultures showed Pseudomonas and E. Coli. I did evaluate the patient as noted above. Patient is presenting with severe weakness. She has not been able to eat or drink very much. She is planning to become a hospice patient but was feeling so unwell today that she wanted to come in for evaluation. She is hypotensive on arrival. IV access was established. The patient was placed on a continuous campus monitor. I did treat her with normal saline IV, Zofran and fentanyl IV. I did order and personally review the patient's urine analysis as described above. I did order and review the patient's blood work as noted in the electronic medical record. She is pancytopenic with severe anemia. He is also neutropenic. She is placed in neutropenic isolation. Her lactic acid was not elevated. The cause of her low-grade temperature is unclear. She did request further pain meds and was given additional fentanyl IV. Her blood pressure did improve significantly with normal saline. I did obtain written and verbal consent for blood transfusion. I did order 2 units of packed RBCs that were irradiated and leukocyte depleted. She did receive 1 unit in the ED. I did discuss the test results with the patient and her family. I did reassess her multiple times. I did discuss the case with the hospitalist and bottle caser. I did treat her with cefepime IV. Medication Reconcilliation Current Medication List: was personally reviewed by me Blood Pressure Screening Patient's blood pressure: Low blood pressure Blood pressure disposition: Referred to PCP Consults Time Called: 1055 Consulting Physician: Dr. Sherman Wiggins [facility] Hospitalist Returned Call: [address] Sherman Wiggins [facility]. He will reevaluate the patient for hospitalization. Impression Primary Impression: Severe anemia Additional Impressions: Pancytopenia Neutropenic fever Hypotension Critical Care I have personally spent 40 minutes of critical care time in the direct management of this patient. This includes bedside care, interpretation of diagnostic studies and testing, discussion with consultants and patient, and other required patient management activities. This time is in excess of all separately billable procedures. Scribe Attestation The scribe's documentation has been prepared under my direct and personally reviewed by me in its entirety. I confirm that the note above accurately reflects all work, treatment, procedures, and medical decision making performed by me. Departure Information Dispostion Being Evaluated By Hospitalist Referrals RV. Byrd MD (PCP) Problem Qualifiers Additional Impressions: Hypotension Hypotension type: unspecified hypotension type Qualified Codes: I95.9 - Hypotension, unspecified
[2018-05-21] MEDS: HYDROmorphone INJ 1 MG/ML SYR IV PRN ×2 (15:48→18:53)
[2018-05-21] MEDS ORDERED: ONDANSETRON INJ 2 MG/ML 2 ML VIAL IV PRN (16:00)
[2018-05-21] MEDS ORDERED: INSULIN ASPART 100 UNITS/ML 3 ML PEN SC SCH (16:00)
[2018-05-21] MEDS ORDERED: CHECK FENTANYL PATCH PLACEMENT SCH (16:00)
[2018-05-21] MEDS ORDERED: FENTANYL 100 MCG/HR TDSY TD SCH (17:00)
[2018-05-21] MEDS ORDERED: FENTANYL 25 MCG/HR TDSY TD SCH (17:00)
[2018-05-21] MEDS ORDERED: LIDOCAINE HCL 2% VISCOUS SOLN 60 ML, DiphenhydrAMINE HCL SYRUP 150 MG, ALUMINUM/MAGNESI... MT PRN ×4 (18:30)
[2018-05-21] MEDS ORDERED: PANTOprazole INJ 40 MG in SYRINGE 0 ML IV SCH (21:00)
[2018-05-22] MEDS ORDERED: CEFEPIME IV 1,000 MG in SYRINGE 0 ML IV SCH
[2018-05-22] MEDS ORDERED: FENTANYL 25 MCG/HR TDSY TD SCH (09:00)
[2018-05-22] MEDS ORDERED: FENTANYL PATCH REMOVE & WASTE SCH ×2 (09:00)
[2018-05-22] MEDS ORDERED: FENTANYL 100 MCG/HR TDSY TD SCH (09:00)
--- NOTE | 2018-05-28 07:38 | Discharge Summary ---
Discharge Summary Date of Service May 21, 2018. Discharge Summary Admission Date: May 21, 2018 at 12:20 Discharge Date: May 21, 2018 Discharge Disposition: Acute care facility ([facility]) Principal Diagnosis: Small cell lung cancer Immunizations: Have You Had Influenza Vaccine: No Influenza Vaccine Date: Sep 24, 2012 History of Tetanus Vaccine?: Unknown History of Pneumococcal: Yes History of Hepatitis B Vaccine: No Hepatitis Immunization Date: May 11, 2008 Hospital Course 62 yo female with small cell lung CA, recently finished 3rd cycle of chemotherapy, presents with weakness, confusion, recurrent UTI Anemia likely from upper GI bleed. Patient is getting transfusion. Patient is agreeable to receive one unit of PRBC. Will monitor her CBC. Patient at this time does not want agreesive treatment and if she declines does not want to be put on the ICU or telemetry. She does not want vasopressors to improve her BP. Goal at this time is to see if she improves over course of the day, however it is likely that this may not be possible. Will place her on a PPI IV BID Once family arrives will discuss with them if they would like to transition her to inpatient Hospice. Though she is not comfort measures only, we will try to control her GI bleed with PPI. No escalation of treatment. - Small cell lung cancer completed 3rd cycle of chemo She did not tolerate this as well as the first 2 cycles On last admission, she had decided on hospice Dr. Muñoz had agreed on this disposition as well. - Recurrent UTI: recently treated for Pseudomonas UTI On last admission she grew E coli, resistant to quinolones ED ordered cefepime. may switch to ceftriaxone later - PANKAJ on previous admission: this appears to have resolved. - DM: Novolog SS, diabetic diet DVT prophylaxis: scd No escalation of treatment. Will admit to 4 E. Likely transition tomorrow once family arrives to Inpatient Hospice. Poor prognosis This includes examination of the patient, discharge planning, medication reconciliation, and communication with other providers. Discharge Instructions Please refer to the electronic Patient Visit Report (Discharge Instructions) for additional information.
== END 2018-05-21 18:58 | disposition still patient (30) | DRG 378 ==
LOC: EDBD 09:40 → C.EDA 09:42 → C.4E 12:20 → ENRESERV 12:48
PROVIDERS: ADMIT Internal Medicine Sports Medicine; ATTEND Internal Medicine Sports Medicine
DX: K92.2 Gastrointestinal hemorrhage, unspecified (principal); C34.90 Malignant neoplasm of unspecified part of unspecified bronchus or lung; N39.0 Urinary tract infection, site not specified; D64.9 Anemia, unspecified; R41.0 Disorientation, unspecified; I48.91 Unspecified atrial fibrillation; E11.9 Type 2 diabetes mellitus without complications; J44.9 Chronic obstructive pulmonary disease, unspecified; F17.200 Nicotine dependence, unspecified, uncomplicated; Z79.82 Long term (current) use of aspirin; Z79.899 Other long term (current) drug therapy; Z79.02 Long term (current) use of antithrombotics/antiplatelets; Z88.2 Allergy status to sulfonamides

== ENCOUNTER 2018-05-21 18:58 | Inpatient (IN) | payer OTHER ==
[~2018-05-21] VITALS: Ht 172.7 cm; Wt 80.3 kg
[2018-05-21 19:00] VITALS: BP 114/75; PULSE 92; TEMP 36.8; O2SAT 99; Ht 172.7 cm; Wt 80.3 kg
[2018-05-21] MEDS ORDERED: IPRATROPIUM BROMIDE/ALBUTEROL respimat INH INH PRN (19:30)
[2018-05-21] MEDS ORDERED: FLUTICASONE PROPIONATE NA SPR 16 GM BTL NAE PRN (19:30)
[2018-05-21] MEDS ORDERED: HYDROmorphone INJ 1 MG/ML SYR IV PRN (19:45)
[2018-05-21] MEDS: PANTOprazole INJ 40 MG in SYRINGE 0 ML IV SCH (21:21)
[2018-05-21] MEDS: HYDROmorphone INJ 1 MG/ML SYR IV PRN ×2 (21:22→23:48)
[2018-05-21] MEDS ORDERED: LORAZEPAM INJ 0.5 MG in SYRINGE 0.75 ML IV PRN (22:00)
[2018-05-21] MEDS ORDERED: NURSING VERBAL MED ORDER ONE (22:00)
[2018-05-21] MEDS ORDERED: LORAZEPAM 2 MG/ML 1 ML VIAL IV PRN (22:00)
--- NOTE | 2018-05-21 23:43 | History and Physical ---
History & Physical Date & Time of Service: May 21, 2018 at 23:42 Chief Complaint: Anemia,Secondary,Lung Mass,Metastatic Bone Carcino Primary Care Physician: RV. Byrd MD History of Present Illness 62 yo female reports that after discharge, she states that she was fine. However on the following day she reported feeling fatigued. She deneis any bleeding or melena, except for blood noted in her mouth. Last evening she was having nausea, and vomiting and was not able to keep her food down. She states she was not able to take antibiotics. Due to her being very weak on appearance, her sister in law, brought the patient to the hospital Patient was then admitted today but was then accepted by inpatient hospice. This HPI will pertain to her inpatient hospice stay. Past Medical/Surgical History Medical Problems: (1) Anemia (2) Anemia, secondary (3) Asthma (4) Atrial fibrillation (5) Back pain (6) Bronchitis (7) Cancer related pain (8) Cholecystectomy (9) Chronic back pain (10) Chronic congestive heart failure (11) Chronic obstructive lung disease (12) COPD (chronic obstructive pulmonary disease) (13) CVA (cerebral infarction) (14) Dehydration (15) Diabetes mellitus (16) Diverticulitis (17) Dizziness (18) Dysarthria on examination (19) fibromyalgia (20) Gastritis (21) Hospice care (22) Hypotension (23) Hypotension (24) Hysterectomy (25) Incontinence (26) Interstitial pulmonary disease, unspecified (27) Lumbar stenosis with neurogenic claudication (28) Lung disease (29) Lung mass (30) Metastatic bone carcinoid (31) Neutropenic fever (32) Obesity (33) Oral thrush (34) Orthostatic hypotension (35) Palliative care encounter (36) Pancreatitis (37) Pancreatitis (38) Pancytopenia (39) Pancytopenia (40) Pseudomonas urinary tract infection (41) Recurrent UTI (urinary tract infection) (42) Sepsis (43) Severe anemia (44) Spinal stenosis (45) Syncope (46) TIA (transient ischemic attack) (47) Tobacco abuse (48) Urinary tract infection (49) Urinary tract infection (50) UTI (urinary tract infection) (51) UTI (urinary tract infection) (52) UTI (urinary tract infection) (53) Viral syndrome (54) Weakness Surgical Problems: (1) History of back surgery Family History FH: HTN (hypertension) FH: cancer FH: cardiovascular disease FH: diabetes mellitus FH: lung cancer Social History Smoking Status: Current Some Day Smoker Drug Use: none Marital Status: Housing status: lives with family, assisted living Occupational Status: disabled Immunizations History of Influenza Vaccine: No Influenza Vaccine Date: Sep 24, 2012 History of Tetanus Vaccine?: Unknown History of Pneumococcal: Yes History of Hepatitis B Vaccine: No Hepatitis Immunization Date: May 11, 2008 Allergies Coded Allergies: Duloxetine (Verified Adverse Reaction, Mild, N/V, 05/21/18) Gabapentin (Verified Adverse Reaction, Mild, GI symptoms, 05/21/18) Morphine (Verified Adverse Reaction, Mild, NAUSEATED, 05/21/18) Quinolones (Verified Adverse Reaction, Mild, GI symptoms, 05/21/18) includes Cipro Sulfa Antibiotics (Verified Adverse Reaction, Mild, "Sulfa Drugs = nauseated", 05/21/18) Ciprofloxacin (Verified Adverse Reaction, Unknown, STOMACH PAIN, 05/21/18) Pregabalin (Verified Adverse Reaction, Unknown, UPSET STOMACH, 05/21/18) Sulfamethoxazole w/Trimethoprim (Verified Adverse Reaction, Unknown, STOMACH ACHES, 05/21/18) Home Medications Scheduled Bimatoprost (Lumigan), 1 DROP OPB HS Dexlansoprazole (Dexilant), 60 MG PO QAM Docusate Sodium (Docusate Sodium), 200 MG PO QAM Fentanyl (Fentanyl), 25 MCG TD Q72H Fentanyl (Fentanyl), 100 MCG TD Q72H Fluconazole (Fluconazole), 100 MG PO QAM Scheduled PRN Fluticasone Propionate (Fluticasone Propionate), 1 SPRAY NING BID PRN for Nasal Congestion Ipratropium-Albuterol (Combivent Respimat), 2 PUFFS INH QID PRN for SOB/Wheezing Loperamide Hcl (Imodium), 2 MG PO DAILY PRN for Diarrhea Lorazepam (Lorazepam), 0.5 MG PO Q8 PRN for Anxiety Ondansetron (Ondansetron HCl), 4 MG PO UD PRN for Nausea Oxycodone HCl (Oxycodone HCl), 30 MG PO q3 PRN for Pain Polyethylene Glycol 3350 (Miralax), 17 GM PO DAILY PRN for Constipation Review of Systems Constitutional: + weakness, No fever, No chills Eyes: No worsening of vision ENT: No hearing loss Respiratory: No cough Abdomen: + pain, + nausea Musculoskeletal: No joint pain Genitourinary - Female: No dysuria Neurologic: No memory loss Psychiatric: No anhedonism Endocrine: + fatigue Hematologic / Lymphatic: + abnormal bleeding/bruising (blood noted in mouth) Integumentary: No rash Allergic / Immunologic: No environmental allergies Physical Exam Vital Signs Date Time Temp Pulse Resp B/P (MAP) Pulse Ox O2 Delivery O2 Flow Rate FiO2 05/21/18 19:00 36.8 92 16 114/75 99 Room Air Physical Exam General Appearance: + mild distress, + pertinent finding (Patient looks fatigued. 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 Muñoz had agreed on this disposition as well. Admit to inpatient hospice. - Anemia likely from upper GI bleed. Patient received 1 unit transfusion prior to admission to inpatient hospice. will reassess symptoms tomorrow. - Recurrent UTI: recently treated for Pseudomonas UTI On last admission she grew E coli, resistant to quinolones Completed treatment - PANKAJ on previous admission: this appears to have resolved. -Burning sensation in chest: May be secondary to radiation, GERD, or thrush: Continue PPI. - DM: Novolog SS, diabetic diet DVT prophylaxis: scd Advanced Directives Existing Living Will: No Existing Power of Reservations Agent: No Resuscitation Status VTE Prophylaxis Will order VTE Prophylaxis: No Reason for no VTE drug order: Contraindicated Reason no Mechanical VTE Order: Treatment not indicated
[2018-05-21] MEDS: CHECK FENTANYL PATCH PLACEMENT SCH ×2 (23:47→23:48)
[2018-05-22] MEDS: HYDROmorphone INJ 1 MG/ML SYR IV PRN ×4 (02:21→10:37)
[2018-05-22] MEDS: LORAZEPAM 0.5 MG TAB PO PRN (04:03)
[2018-05-22] MEDS ORDERED: NURSING VERBAL MED ORDER ONE (07:30)
[2018-05-22] MEDS: ONDANSETRON INJ 2 MG/ML 2 ML VIAL IV PRN (07:31)
[2018-05-22 08:00] VITALS: O2SAT 99
[2018-05-22] MEDS: CHECK FENTANYL PATCH PLACEMENT SCH ×6 (08:19→23:39)
[2018-05-22] MEDS: PANTOprazole INJ 40 MG in SYRINGE 0 ML IV SCH ×2 (08:35→21:10)
[2018-05-22] MEDS: DEXAMETHASONE CONC SOLN 3.75 MG, NYSTATIN SUSP 30 ML, DiphenhydrAMINE HCL SYRUP 300 MG,... PO PRN ×10 (08:37→21:11)
[2018-05-22] MEDS ORDERED: ALUMINUM/MAGNESIUM SUSP 30 ML UDC PO STA (09:35)
[2018-05-22] MEDS ORDERED: FLUCONAZOLE 100 MG TAB PO ONE (10:00)
[2018-05-22] MEDS: SODIUM CHLORIDE 0.9% 1000ML 1,000 ML IV SCH (11:14)
[2018-05-22] MEDS ORDERED: HYDROmorphone HCL 0.5MG/ML 50 ML CASSETTE IV PRN (11:15)
[2018-05-22] MEDS ORDERED: NALOXONE HCL 0.4 MG/1 ML VIAL/CARP IV PRN (11:15)
[2018-05-22] MEDS ORDERED: POLYETHYLENE (MIRALAX) 17 GM PACK PO ONE (18:25)
--- NOTE | 2018-05-22 22:17 | Progress Note ---
Subjective Date of Service: May 22, 2018. Subjective Pt evaluation today including: conversation w/ patient, physical exam 62 yo female is admitted to inpatient hospice. Patient's main complaint is that she had burning sensation in the middle of her chest. Problem List Medical Problems: (1) Anemia Status: Acute (2) Dehydration Status: Acute (3) Hypotension Status: Acute (4) Hypotension Status: Acute (5) Neutropenic fever Status: Acute (6) Orthostatic hypotension Status: Acute (7) Pancreatitis Status: Acute (8) Pancytopenia Status: Acute (9) Pancytopenia Status: Acute (10) Sepsis Status: Acute (11) Severe anemia Status: Acute (12) Tobacco abuse Status: Acute (13) UTI (urinary tract infection) Status: Acute (14) Viral syndrome Status: Acute Review of Systems Constitutional: No fever Eyes: No worsening of vision Respiratory: No cough Cardiac: + chest pain Abdomen: No pain Musculoskeletal: No joint pain Neurologic: No memory loss Psychiatric: No depression symptoms Heme: No abnormal bleeding/bruising Endo: + fatigue Skin: No rash All Other Systems: Reviewed and Negative Objective Vital Signs Date Time Temp Pulse Resp B/P (MAP) Pulse Ox O2 Delivery O2 Flow Rate FiO2 05/22/18 20:00 Room Air 05/22/18 08:00 99 Room Air 05/22/18 04:52 Room Air Physical Exam Comments: General: no distress Eyes: normal inspection, PERLL Respiratory: chest non tender, clear to auscultation, normal breath sounds, no respiratory distress, no accessory muscle use Cardiac: regular rate and rhythm, no rub or gallop, no murmur, no edema, no jvd GI/: active bowel sounds, no abd pain or tenderness, soft, non distended Extremities: normal range of motion, normal strength, non tender Neuro/Psych: alert and oriented x 3, normal mood and affect Skin: normal color, dry Assessment and Plan 62 yo female admitted into hospice - Small cell lung cancer completed 3rd cycle of chemo She did not tolerate this as well as the first 2 cycles On last admission, she had decided on hospice Dr. Muñoz had agreed on this disposition as well. Admitted to inpatient hospice. - Anemia likely from upper GI bleed. Patient received 1 unit transfusion prior to admission to inpatient hopsice. Patient appears to be improving today. She is not having any complaints. - Recurrent UTI: recently treated for Pseudomonas UTI On last admission she grew E coli, resistant to quinolones Completed treatment - PANKAJ on previous admission: this appears to have resolved. -Burning sensation in chest: May be secondary to radiation, GERD, or thrush: Start fluconzaole for palliative treatment of chest pain. Already on PPI. - DM: Novolog SS, diabetic diet DVT prophylaxis: scd
[2018-05-22] MEDS: ALUMINUM/MAGNESIUM SUSP 30 ML UDC PO PRN (23:42)
[2018-05-23] MEDS: DEXAMETHASONE CONC SOLN 3.75 MG, NYSTATIN SUSP 30 ML, DiphenhydrAMINE HCL SYRUP 300 MG,... PO PRN ×10 (04:20→08:39)
[2018-05-23 08:00] VITALS: O2SAT 99
[2018-05-23] MEDS: ONDANSETRON INJ 2 MG/ML 2 ML VIAL IV PRN ×2 (08:36→19:30)
[2018-05-23] MEDS: CHECK FENTANYL PATCH PLACEMENT SCH ×4 (08:42→16:00)
[2018-05-23] MEDS: POLYETHYLENE (MIRALAX) 17 GM PACK PO SCH (08:42)
[2018-05-23] MEDS: PANTOprazole INJ 40 MG in SYRINGE 0 ML IV SCH ×2 (09:00→19:26)
[2018-05-23] MEDS ORDERED: FLUCONAZOLE 100 MG TAB PO ONE (11:00)
[2018-05-23] MEDS: SODIUM CHLORIDE 0.9% 1000ML 1,000 ML IV SCH (11:14)
[2018-05-23] MEDS: ALUMINUM/MAGNESIUM SUSP 30 ML UDC PO PRN (15:16)
--- NOTE | 2018-05-23 23:29 | Progress Note ---
Subjective Date of Service: May 23, 2018. Subjective Pt evaluation today including: conversation w/ patient, physical exam Patient's only complaint is her burning sensation in he chest. Patient reports feeling much better than when she first came in. Problem List Medical Problems: (1) Anemia Status: Acute (2) Dehydration Status: Acute (3) Hypotension Status: Acute (4) Hypotension Status: Acute (5) Neutropenic fever Status: Acute (6) Orthostatic hypotension Status: Acute (7) Pancreatitis Status: Acute (8) Pancytopenia Status: Acute (9) Pancytopenia Status: Acute (10) Sepsis Status: Acute (11) Severe anemia Status: Acute (12) Tobacco abuse Status: Acute (13) UTI (urinary tract infection) Status: Acute (14) Viral syndrome Status: Acute Review of Systems Constitutional: No fever Eyes: No worsening of vision Respiratory: No cough Cardiac: + chest pain Abdomen: No pain Musculoskeletal: No joint pain Neurologic: No memory loss Psychiatric: No depression symptoms Heme: No abnormal bleeding/bruising Endo: + fatigue Skin: No rash All Other Systems: Reviewed and Negative Objective Vital Signs Date Time Temp Pulse Resp B/P (MAP) Pulse Ox O2 Delivery O2 Flow Rate FiO2 05/23/18 20:40 Room Air 05/23/18 08:00 99 Room Air Physical Exam Comments: General: no distress Eyes: normal inspection, PERLL Respiratory: chest non tender, clear to auscultation, normal breath sounds, no respiratory distress, no accessory muscle use Cardiac: regular rate and rhythm, no rub or gallop, no murmur, no edema, no jvd GI/: active bowel sounds, no abd pain or tenderness, soft, non distended Extremities: normal range of motion, normal strength, non tender Neuro/Psych: alert and oriented x 3, normal mood and affect Skin: normal color, dry Assessment and Plan 62 yo female admitted into hospice - Small cell lung cancer completed 3rd cycle of chemo She did not tolerate this as well as the first 2 cycles On last admission, she had decided on hospice Dr. Muñoz had agreed on this disposition as well. Admitted to inpatient hospice. - Anemia likely from upper GI bleed. Patient received 1 unit transfusion prior to admission to inpatient hospice. Patient appears to be improving from that stand point. - Recurrent UTI: recently treated for Pseudomonas UTI On last admission she grew E coli, resistant to quinolones Completed treatment - PANKAJ on previous admission: this appears to have resolved. -Burning sensation in chest: May be secondary to radiation, GERD, or thrush: Start fluconzaole for palliative treatment of chest pain. Continue fluconazole 100 mg PO daily for possible thrush Already on PPI. - DM: Novolog SS, diabetic diet DVT prophylaxis: scd
[2018-05-24] MEDS: ONDANSETRON INJ 2 MG/ML 2 ML VIAL IV PRN ×2 (06:24→22:24)
[2018-05-24] MEDS: CHECK FENTANYL PATCH PLACEMENT SCH ×6 (07:32→15:50)
[2018-05-24] MEDS: POLYETHYLENE (MIRALAX) 17 GM PACK PO SCH (07:32)
[2018-05-24 08:00] VITALS: O2SAT 99
[2018-05-24] MEDS: PANTOprazole INJ 40 MG in SYRINGE 0 ML IV SCH ×2 (08:09→20:32)
[2018-05-24] MEDS: FLUCONAZOLE 100 MG TAB PO SCH (09:40)
[2018-05-24] MEDS: ALUMINUM/MAGNESIUM SUSP 30 ML UDC PO PRN ×3 (09:40→23:47)
[2018-05-24] MEDS: SODIUM CHLORIDE 0.9% 1000ML 1,000 ML IV SCH ×2 (11:14→15:47)
--- NOTE | 2018-05-24 14:43 | Palliative Care Consultation ---
Consultation Date of Consultation: May 24, 2018. Requesting Physician: Dr. Whitaker Attending Physician: Dr. Whitaker Reason for Consultation: Inpatient hospice History of Present Illness This 62 year old patient is admitted under [facility] hospice for end-stage small cell lung cancer. H small cell lung cancer with diffuse osseous mets presented to the ED three days ago after being discharged two days prior with plans for home hospice. Came in c/o severe weakness and generalized pain. Joanna is well known to the palliative care service. This is her fourth admission between April- May 2018. During most recent admission, plans were made to stop chemo and all cancer treatment and go home to her sister's house for hospice care. Unfortunately, Joanna has rapidly declined in last couple days with severe weakness and fatigue, nausea/vomiting and generalized pain. I saw her in the ED along with Dr. Whitaker. Patient's [id number] Latricia was present at bedside. Joanna and Latricia acknowledged that patient likely does not have much time left. Patient was tachycardic, febrile, hgb 6.0, neutropenic, and drowsy. After lengthy discussion on Thursday, plan is to admit patient to receive IVF, abx, and blood transfusion. Abx & IVF were discontinued, patient is much improved. Plan is now for patient to return home to her sister, Erika's, house on hospice. Equipment is to be delivered at 5pm today, transport is being set up by caser up for tomorrow. Patient is much more alert and oriented today. Dr. Whitaker and I saw her this morning in room 411 together. She c/o pain 6/10 in epigastric area, back and neck. She states the epigastric pain is like severe heartburn that started over the weekend. She denies any vomiting but reportedly did have some blood in her mouth upon arrival to ED and reported had dark/aidee stools at home per the family. Joanna states her stools are now brownish/reddish, no bing blood. Concern for GI bleed, but patient declines workup as her goal is to go home to her sister's house with hospice and she would like to be comfort measures only. She has used 5.6mg Dilaudid total in last 24 hours. Will convert back to Roxicodone as needed. Past Medical/Surgical History Medical History: (1) Anemia (2) Asthma (3) Atrial fibrillation (4) Back pain (5) Bronchitis (6) Cancer related pain (7) Cholecystectomy (8) Chronic back pain (9) Chronic congestive heart failure (10) Chronic obstructive lung disease (11) COPD (chronic obstructive pulmonary disease) (12) CVA (cerebral infarction) (13) Dehydration (14) Diabetes mellitus (15) Diverticulitis (16) Dizziness (17) Dysarthria on examination (18) fibromyalgia (19) Gastritis (20) Hypotension (21) Hysterectomy (22) Incontinence (23) Interstitial pulmonary disease, unspecified (24) Lumbar stenosis with neurogenic claudication (25) Lung disease (26) Lung mass (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 (28) Obesity (29) Oral thrush (30) Orthostatic hypotension (31) Palliative care encounter (32) Pancreatitis (33) Pancreatitis (34) Pancytopenia (35) Pseudomonas urinary tract infection (36) Recurrent UTI (urinary tract infection) (37) Spinal stenosis (38) Syncope (39) TIA (transient ischemic attack) (40) Tobacco abuse (41) Urinary tract infection (42) Urinary tract infection (43) UTI (urinary tract infection) (44) UTI (urinary tract infection) (45) UTI (urinary tract infection) (46) Viral syndrome (47) Weakness Surgical Problems: (1) History of back surgery Social History Smoking Status: Current Some Day Smoker History of Alcohol Use: No Drug Use: none Marital Status: Housing Status: lives with family, assisted living Occupation Status: disabled Review of Systems Constitutional: + weakness (improved) ENT: No trouble swallowing Respiratory: + dyspnea on exertion, No cough, No sputum, No shortness of breath Cardiac: No chest pain, No edema Abdomen: + pain, + nausea (occasional), No vomiting Female : No problem reported Psychiatric: No depression symptoms, No anxiety Allergies Coded Allergies: Duloxetine (Verified Adverse Reaction, Mild, N/V, 05/21/18) Gabapentin (Verified Adverse Reaction, Mild, GI symptoms, 05/21/18) Morphine (Verified Adverse Reaction, Mild, NAUSEATED, 05/21/18) Quinolones (Verified Adverse Reaction, Mild, GI symptoms, 05/21/18) includes Cipro Sulfa Antibiotics (Verified Adverse Reaction, Mild, "Sulfa Drugs = nauseated", 05/21/18) Ciprofloxacin (Verified Adverse Reaction, Unknown, STOMACH PAIN, 05/21/18) Pregabalin (Verified Adverse Reaction, Unknown, UPSET STOMACH, 05/21/18) Sulfamethoxazole w/Trimethoprim (Verified Adverse Reaction, Unknown, STOMACH ACHES, 05/21/18) Medications Current Inpatient Medications Medications (Trade) Dose Ordered Sig/Farida Route Start Time Stop Time Status Last Admin Dose Admin Fentanyl (Duragesic Patch) 25 mcg Q3D@1700 TD 05/24/18 17:00 06/07/18 16:59 Fentanyl (Duragesic Patch) 100 mcg Q3D@1700 TD 05/24/18 17:00 06/07/18 16:59 Fluticasone Propionate (Flonase Nasal [place]) 1 sprays BID PRN NING 05/21/18 19:30 06/20/18 19:29 Albuterol/ Ipratropium (Combivent Respimat Inh) 2 puffs QID PRN INH 05/21/18 19:30 06/20/18 19:29 Miscellaneous (Fentanyl Patch Remove & Waste) 1 ea Q3D@1659 N/A 05/24/18 16:59 06/23/18 16:58 Miscellaneous Information (Check Fentanyl Patch Placement) 1 ea QS N/A 05/22/18 00:00 06/21/18 00:00 05/24/18 07:32 1 EA Miscellaneous (Fentanyl Patch Remove & Waste) 1 ea Q3D@1659 N/A 05/24/18 16:59 06/23/18 16:58 Miscellaneous Information (Check Fentanyl Patch Placement) 1 ea QS N/A 05/22/18 00:00 06/21/18 00:00 05/24/18 07:32 1 EA Ondansetron HCl (Zofran Inj) 4 mg Q4H PRN IV 05/21/18 19:45 06/20/18 19:44 05/24/18 06:24 4 MG Hydromorphone HCl (Dilaudid Inj) 1 mg Q2H PRN IV 05/21/18 19:45 06/04/18 19:44 Future Hold 05/22/18 10:37 1 MG Pantoprazole Sodium 40 mg/ Syringe 10 ml @ 5 mls/min Q12@0900,2100 IV 05/21/18 21:00 06/20/18 20:59 05/24/18 08:09 5 MLS/MIN Lorazepam (Ativan Tab) 0.5 mg Q4H PRN PO 05/21/18 19:45 06/20/18 19:44 05/22/18 04:03 0.5 MG Lorazepam 0.5 mg/ Syringe 1 ml @ 1 mls/min Q4H PRN IV 05/21/18 22:00 06/20/18 21:59 05/21/18 23:48 1 MLS/MIN Lorazepam (Ativan Inj) 0.5 mg Q4H PRN IV 05/21/18 22:00 06/20/18 21:59 05/22/18 07:29 0.5 MG Heparin Sodium (Porcine) (Heparin 100 Unit/ml 5ml Flush) 5 ml PRN PRN IV 05/22/18 00:45 06/21/18 00:44 05/22/18 02:20 5 ML Dexamethasone/ Nystatin/ Diphenhydramine HCl/Sucrose/ Microcrystalline Cellulose/Barcode Q4H PRN PO 05/22/18 07:30 06/21/18 07:29 05/23/18 08:39 5 ML Al Hydroxide/Mg Hydroxide (Maalox Susp) 30 ml Q6H PRN PO 05/22/18 09:45 06/21/18 09:44 05/24/18 09:40 30 ML Naloxone HCl (Narcan Inj) 0.1 mg Q5M PRN IV 05/22/18 11:15 06/21/18 11:14 Hydromorphone HCl (Dilaudid Gluer) 25 mg PRN PRN IV 05/22/18 11:15 06/05/18 11:14 05/22/18 12:55 25 MG Sodium Chloride 1,000 ml @ 15 mls/hr Q24H IV 05/22/18 11:14 06/21/18 11:13 05/23/18 11:14 15 MLS/HR Polyethylene (Miralax Powder Packet) 17 gm DAILY PO 05/23/18 08:00 06/22/18 07:59 05/24/18 07:32 17 GM Fluconazole (Diflucan Tab) 100 mg QAM PO 05/24/18 10:00 06/03/18 09:59 05/24/18 09:40 100 MG Physical Exam Date Time Temp Pulse Resp B/P (MAP) Pulse Ox O2 Delivery O2 Flow Rate FiO2 05/24/18 08:00 99 Room Air 05/23/18 20:40 Room Air General Appearance: no apparent distress ENT: hearing grossly normal Neck: supple, no JVD Respiratory: no respiratory distress, no accessory muscle use, + decreased breath sounds Cardiovascular: regular rate, rhythm, + normal peripheral pulses Abdomen: normal bowel sounds, soft, + tenderness (epigastric) Neurologic/Psychiatric: alert, normal mood/affect, oriented x 3 (forgetfulness) Skin: + pallor (ashen) Assessment & Plan Problem list: Pain, acute on chronic generalized pain, epigastric Weakness End-stage small cell lung cancer Comfort measures only status, [facility] hospice Palliative care recs: -Patient is DNR. -Comfort measures only. -Plan is for patient to go to her sister, Odilon, house tomorrow on hospice. -Discontinue Dilaudid RADIATOR MECHANIC pump. Resume her home dose of Oxycodone 20mg Q3h PRN pain or SOB. Could even increase to 30mg as patient was still experiencing pain with this dose. -Continue fentanyl patch 125mcg/hr TD Q72h. It is important to the patient that she not be too sedated for as long as possible. -Convert protonix to PO. Recommend adding a H2 kristin as well for the epigastric pain. 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 Thank you kindly for this consult. I will follow as needed. Total time spent 50 minutes with >50% of time spent at bedside with patient and attending physician discussing and coordinating plan of care.
[2018-05-24] MEDS ORDERED: OXYCODONE HCL IR 30 MG TAB (IMMEDIATE RELEASE) PO PRN (16:00)
[2018-05-24] MEDS ORDERED: FENTANYL PATCH REMOVE & WASTE SCH ×2 (16:59)
[2018-05-24] MEDS ORDERED: FENTANYL 25 MCG/HR TDSY TD SCH (17:00)
[2018-05-24] MEDS ORDERED: FENTANYL 100 MCG/HR TDSY TD SCH (17:00)
[2018-05-24] MEDS: OXYCODONE HCL IR 5 MG TAB (IMMEDIATE RELEASE) PO PRN (23:48)
[2018-05-25] VITALS: O2SAT 99
[2018-05-25] MEDS: OXYCODONE HCL IR 5 MG TAB (IMMEDIATE RELEASE) PO PRN ×2 (05:54→09:15)
[2018-05-25] MEDS: ONDANSETRON INJ 2 MG/ML 2 ML VIAL IV PRN (05:54)
--- NOTE | 2018-05-25 06:06 | Progress Note ---
Subjective Date of Service: May 24, 2018. Subjective Pt evaluation today including: conversation w/ patient, physical exam 62 yo male reports the same symptoms. She continues to have heartburn, but she refers that the Dilaudid is helping with that. Patient is asking about possible discharge. Problem List Medical Problems: (1) Anemia Status: Acute (2) Dehydration Status: Acute (3) Hypotension Status: Acute (4) Hypotension Status: Acute (5) Neutropenic fever Status: Acute (6) Orthostatic hypotension Status: Acute (7) Pancreatitis Status: Acute (8) Pancytopenia Status: Acute (9) Pancytopenia Status: Acute (10) Sepsis Status: Acute (11) Severe anemia Status: Acute (12) Tobacco abuse Status: Acute (13) UTI (urinary tract infection) Status: Acute (14) Viral syndrome Status: Acute Review of Systems Constitutional: No fever Eyes: No worsening of vision Respiratory: No cough Cardiac: + chest pain Abdomen: No pain Musculoskeletal: No joint pain Neurologic: No memory loss Psychiatric: No depression symptoms Heme: No abnormal bleeding/bruising Endo: + fatigue Skin: No rash All Other Systems: Reviewed and Negative Objective Vital Signs Date Time Temp Pulse Resp B/P (MAP) Pulse Ox O2 Delivery O2 Flow Rate FiO2 05/25/18 00:00 99 Room Air 05/24/18 16:00 Room Air 05/24/18 08:00 99 Room Air Physical Exam Comments: General: no distress Eyes: normal inspection, PERLL Respiratory: chest non tender, clear to auscultation, normal breath sounds, no respiratory distress, no accessory muscle use Cardiac: regular rate and rhythm, no rub or gallop, no murmur, no edema, no jvd GI/: active bowel sounds, no abd pain or tenderness, soft, non distended Extremities: normal range of motion, normal strength, non tender Neuro/Psych: alert and oriented x 3, normal mood and affect Skin: normal color, dry Assessment and Plan 62 yo female admitted into hospice - Small cell lung cancer completed 3rd cycle of chemo She did not tolerate this as well as the first 2 cycles On last admission, she had decided on hospice Dr. Muñoz had agreed on this disposition as well. Admitted to inpatient hospice. Given that patient has been stable, patient is ok to be discharged from inpatient hospice. supervisor wound will be tomorrow at 10 AM. Will tarnsition her pain medicine to oral Oxycodone ut at 30 mg PO Q3h PRN. - Anemia likely from upper GI bleed. Patient received 1 unit transfusion prior to admission to inpatient hospice. Patient appears to be improving from that stand point. As she is more engeretic. 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 Patient is in agreement - Recurrent UTI: recently treated for Pseudomonas UTI On last admission she grew E coli, resistant to quinolones Completed treatment - PANKAJ on previous admission: this appears to have resolved. -Burning sensation in chest: May be secondary to radiation, GERD, or thrush: Started fluconzaole for palliative treatment of chest pain. Continue fluconazole 100 mg PO daily for possible thrush Already on PPI. will discharge on Oral PPI BID - DM: Novolog SS, diabetic diet DVT prophylaxis: scd Discharge tomorrow at 10 am pick for patient to go to [facility]. Patient will be living with sister. Her son had questions, I called but he did not mixing picker tender phone. I left a message.
--- NOTE | 2018-05-25 07:31 | Discharge Instructions ---
Discharge Instructions Date of Service May 25, 2018. Admission Reason for Admission: Anemia,Secondary,Lung Mass,Metastatic Bone Carcino Discharge Discharge Diagnosis / Problem: Anemia seondary to GI bleed/ Lung Mass/ Mets Bone carcino Discharge Goals Goal(s): Decrease discomfort Activity Recommendations Activity Limitations: as noted below Lifting Limitations: gradually increase as tolerated . Instructions / Follow-Up Instructions / Follow-Up Patient will be discharged on Hospice. Patient will no longer be on ASA, Plavix due to risk of bleeding. Patient will continue on Oxycodone 30 mg po q3h for pain. Patient will be treated empirically for possible thrush. Will recommend discharging patient on PPI BID. Current Hospital Diet Patient's current hospital diet: Regular Diet Discharge Diet Recommended Diet: Regular Diet Pending Studies Studies pending at discharge: no Medical Emergencies . Who to Call and When: Medical Emergencies: If at any time you feel your situation is an emergency, please call 911 immediately. . Non-Emergent Contact Non-Emergency issues call your: Specialist (Hospice agency) Call Non-Emergent contact if: you have any medication questions . . "Provider Documentation" section prepared by Atif Whitaker. .
[2018-05-25] MEDS: CHECK FENTANYL PATCH PLACEMENT SCH ×4 (08:20→08:21)
[2018-05-25] MEDS: PANTOprazole INJ 40 MG in SYRINGE 0 ML IV SCH (09:15)
[2018-05-25] MEDS: FLUCONAZOLE 100 MG TAB PO SCH (09:15)
[2018-05-25] MEDS: POLYETHYLENE (MIRALAX) 17 GM PACK PO SCH (09:15)
--- NOTE | 2018-05-25 09:43 | Palliative Care Progress Note ---
Palliative Care Progress Note Date of Service May 25, 2018. Subjective Pt evaluation today including: conversation w/ patient, physical exam, chart review Patient is worried about being discharged. We discussed at length about her fears. She is just overwhelmed with how quickly she has declined. SHe wants to get better and stronger but at the same time, knows that she is not able. It is more important to her to be able to go to her sister's house for hospice care. After discussion, she feels somewhat better about being discharged today. Review of Systems Constitutional: + weakness, + fatigue ENT: No trouble swallowing Respiratory: + dyspnea on exertion, No wheezing, No shortness of breath Cardiac: No chest pain, No edema Abdomen: + pain (epigastric), + nausea (occasional), No vomiting Female : No problem reported Psychiatric: No depression symptoms, No anxiety Objective Vital Signs Date Time Temp Pulse Resp B/P (MAP) Pulse Ox O2 Delivery O2 Flow Rate FiO2 05/25/18 00:00 99 Room Air 05/24/18 16:00 Room Air Physical Exam General Appearance: no apparent distress ENT: hearing grossly normal Neck: supple, no JVD Respiratory/Chest: no respiratory distress, no accessory muscle use, + decreased breath sounds Cardiovascular: regular rate, rhythm, no edema, + normal peripheral pulses Abdomen: normal bowel sounds, soft, + tenderness (slightly tender over epigastric area but improved from yesterday) Neurologic/Psychiatric: alert, normal mood/affect, oriented x 3 (some forgetfulness) Skin: + pallor (ashen) Assessment and Plan Problem list: Weakness ANGUIANO PANKAJ on CKD Chronic diastolic heart failure Anemia Goals of care Palliative care recs: -Continue current pain medication regimen. -Switch to PO Protonix and add H2 kristin for the epigastric pain. This was discussed yesterday with patient and Dr. Whitaker. -Plan is for discharge today to patient's sister, Erika'jose, home with hospice care. -Please contact me with any further palliative care needs. Total time spent 35 minutes with >50% of time spent at bedside with patient discussing plan of care and end of life issues.
[2018-05-25] MEDS ORDERED: DFL100 PO (09:50)
[2018-05-25] MEDS ORDERED: ATV5X PO (09:50)
[2018-05-25] MEDS ORDERED: DRGTP100 TD (09:50)
[2018-05-25] MEDS ORDERED: DRGTP25 TD (09:50)
[2018-05-25] MEDS ORDERED: RXC30 PO (09:50)
[2018-05-25 09:55] VITALS: BP 114/75; PULSE 92; TEMP 36.8; O2SAT 99
[2018-05-25] MEDS: LORAZEPAM 0.5 MG TAB PO PRN (10:04)
--- NOTE | 2018-06-01 11:22 | Discharge Summary ---
Discharge Summary Date of Service May 25, 2018. Discharge Summary Admission Date: May 21, 2018 at 18:58 Discharge Date: May 25, 2018 Discharge Disposition: Home with services (hospice) Principal Diagnosis: Metastatic small cell lung cancer Problems/Secondary Diagnoses: Anemia likely due to GI bleed PANKAJ, resolved Oral thrush Immunizations: Have You Had Influenza Vaccine: No Influenza Vaccine Date: Sep 24, 2012 History of Tetanus Vaccine?: Unknown History of Pneumococcal: Yes History of Hepatitis B Vaccine: No Hepatitis Immunization Date: May 11, 2008 Procedures: none Consultations: none Medication Reconciliation New Medications: Fluconazole (Fluconazole) 100 Mg Tab 100 MG PO QAM, #20 TAB 0 Refills Changed Medications: Lorazepam (Lorazepam) 0.5 Mg Tab 0.5 MG PO Q8 PRN for Anxiety, #60 DOSE 0 Refills (Changed from: DAILY; 20; Refills: ) . Oxycodone HCl (Oxycodone HCl) 30 Mg Tab 30 MG PO q3 PRN for Pain, #240 TABS 0 Refills (Changed from: Oxycodone Hcl 20 Mg Tab 20 Mg PO Q4-6HRS PRN Pain #60 TAB) Continued Medications: Bimatoprost (Lumigan) 0.01 % Shy 1 DROP OPB HS Dexlansoprazole (Dexilant) 60 Mg Cap 60 MG PO QAM TAKE 1 CAPSULE BY MOUTH IN THE MORNING 30 MINUTES PRIOR TO BREAKFAST Docusate Sodium (Docusate Sodium) 100 Mg Cap 200 MG PO QAM Fentanyl (Fentanyl) 25 Mcg Tdsy 25 MCG TD Q72H for 30 Days, #10 PATCH 0 Refills (This prescription has been renewed) Fentanyl (Fentanyl) 100 Mcg Tdsy 100 MCG TD Q72H for 30 Days, #10 PATCH 0 Refills (This prescription has been renewed) Fluticasone Propionate (Fluticasone Propionate) 120 Sprays/6000 Mcg Inha 1 SPRAY NING BID PRN for Nasal Congestion Ipratropium-Albuterol (Combivent Respimat) 1 Aer Aer 2 PUFFS INH QID PRN for SOB/Wheezing Loperamide Hcl (Imodium) 2 Mg Cap 2 MG PO DAILY PRN for Diarrhea Ondansetron (Ondansetron HCl) 4 Mg Tab 4 MG PO UD PRN for Nausea Polyethylene Glycol 3350 (Miralax) 1 Pow Pow 17 GM PO DAILY PRN for Constipation Discontinued Medications: Aspirin (Aspirin Ec) 81 Mg Tab 81 MG PO HS Bupropion Hcl (Bupropion Hcl Xl) 150 Mg Tab 75 MG PO QAM Cholecalciferol (Vitamin D) 2,000 Unit Tab 2000 INTER.UNIT PO QAM Clopidogrel Bisulfate (Clopidogrel) 75 Mg Tab 75 MG PO QAM Cyanocobalamin (Vitamin B12) 1,000 Mcg Tab 1000 MCG PO QAM Dexamethasone (Decadron) 4 Mg Tab 4 MG PO UD Dicyclomine Hcl (Dicyclomine Hcl) 10 Mg Cap 10 MG PO QID PRN for Abdominal Pain Fesoterodine Fumarate (Toviaz) 8 Mg Tab 8 MG PO HS Oxycodone Ir (Roxicodone Ir) 5 Mg Tab 20 MG PO Q4H PRN for severe pain for 10 Days, #60 TAB Pravastatin Sod (Pravastatin Sodium) 20 Mg Tab 20 MG PO DAILY Ranitidine HCl (Ranitidine HCl) 150 Mg Tab 150 MG PO DAILY Discharge Exam Patient nervous about discharge, worried that she won't be able to be kept comfortable. Worried about how weak she is, that she might fall. Reassured her that hospice will help with everything and that her sister and family will take care of her. Common feeling of uncertainty leaving the hospital because there are nurses and doctors there to help you. Her pain has been controlled. She won't be doing much other than resting in bed. She will try to eat what she can. At the end of our discussion she admitted to feeling better about going. Planned to leave at 10am Review of Systems: Constitutional: + weakness, + fatigue, No fever, No chills, No sweats, No weight loss, No problem reported Eyes: No worsening of vision, No eye pain, No redness, No discharge, No diplopia, No problem reported ENT: No hearing loss, No unusual epistaxis, No nasal symptoms, No sore throat, No tinnitus, No dental problems, No trouble swallowing, No problem reported Respiratory: + cough, + dyspnea on exertion, No sputum, No wheezing, No shortness of breath, No dyspnea at rest, No hemoptysis, No problem reported Cardiovascular: + chest pain (burning sensation, intermittent), No orthopnea , No PND, No edema, No claudication, No palpitations, No problem reported Abdomen: + problem reported (poor appetite), No pain, No nausea, No vomiting , No diarrhea, No constipation, No GI bleeding Genitourinary - Female: No dysuria, No urinary frequency, No urinary urgency , No urinary incontinence, No urinary retention, No hematuria Neurologic: + weakness, No memory loss, No paralysis, No numbness/tingling, No vertigo, No balance problems, No problem reported Psychiatric: + depression symptoms, + anxiety, No anhedonism, No insomnia, No substance abuse, No problem reported Endocrine: No fatigue, No excessive thirst, No excessive urination, No problem reported Hematologic / Lymphatic: No abnormal bleeding/bruising, No clotting problems , No swollen lymph nodes, No night sweats, No problem reported Integumentary: No rash, No itch, No new/changing skin lesions, No color change, No bleeding, No problem reported Physical Exam: General Appearance: WD/WN, no apparent distress Eyes: normal inspection, EOMI, sclerae normal ENT: normal ENT inspection, hearing grossly normal, pharynx normal Neck: supple, no adenopathy, no JVD, trachea midline Respiratory/Chest: chest non-tender, lungs clear, no respiratory distress, no accessory muscle use, + decreased breath sounds Cardiovascular: regular rate, rhythm, no edema, no gallop, no JVD, no murmur , normal peripheral pulses Abdomen / GI: normal bowel sounds, non tender, soft, no organomegaly Extremities: normal inspection, no calf tenderness, normal capillary refill , no pedal edema, normal range of motion, pelvis stable Neurologic/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 Muñoz had agreed on this disposition as well. Admitted to inpatient hospice. Given that patient has been stable, patient is ok to be discharged from inpatient hospice. continue Oxycodone 30mg q3 PRN for pain control on top of Fentanyl patch - Anemia likely from upper GI bleed. Patient received 1 unit transfusion prior to admission to inpatient hospice. Patient appears to be improving from that stand point. 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 Patient is in agreement - Recurrent UTI: recently treated for Pseudomonas UTI On last admission she grew E coli, resistant to quinolones Completed treatment - PANKAJ on previous admission: this appears to have resolved. -Burning sensation in chest: May be secondary to radiation, GERD, or thrush: Started fluconzaole for palliative treatment of chest pain. Continue fluconazole 100 mg PO daily for possible thrush, 20 day prescription provided Already on PPI. will discharge on Oral PPI BID - DM: Novolog SS, diabetic diet DVT prophylaxis: scd d/c to sister's home on hospice, all arrangements made Total Time Spent: Less than 30 minutes This includes examination of the patient, discharge planning, medication reconciliation, and communication with other providers. Discharge Instructions Please refer to the electronic Patient Visit Report (Discharge Instructions) for additional information.
== END 2018-05-25 10:46 | disposition hospice, home (50) | DRG 951 ==
LOC: C.4E 18:58
PROVIDERS: ADMIT Internal Medicine Sports Medicine; ATTEND Internal Medicine Sports Medicine
DX: Z51.5 Encounter for palliative care (principal); C34.90 Malignant neoplasm of unspecified part of unspecified bronchus or lung; G89.3 Neoplasm related pain (acute) (chronic); N17.9 Acute kidney failure, unspecified; R20.8 Other disturbances of skin sensation; I50.32 Chronic diastolic (congestive) heart failure; C79.51 Secondary malignant neoplasm of bone; B37.0 Candidal stomatitis; I48.91 Unspecified atrial fibrillation; J44.9 Chronic obstructive pulmonary disease, unspecified; Z86.73 Personal history of transient ischemic attack (TIA), and cerebral infarction without residual deficits; Z80.1 Family history of malignant neoplasm of trachea, bronchus and lung; Z83.3 Family history of diabetes mellitus; F17.200 Nicotine dependence, unspecified, uncomplicated; Z88.2 Allergy status to sulfonamides; Z88.5 Allergy status to narcotic agent; Z66 Do not resuscitate; D50.0 Iron deficiency anemia secondary to blood loss (chronic); Z92.3 Personal history of irradiation; K21.9 Gastro-esophageal reflux disease without esophagitis; Y84.2 Radiological procedure and radiotherapy as the cause of abnormal reaction of the patient, or of later complication, without mention of misadventure at the time of the procedure; Y92.230 Patient room in hospital as the place of occurrence of the external cause